=== PATIENT | male | born 1950 | race Caucasian/White ===

== ENCOUNTER 2017-07-19 12:26 | Emergency (ER) | payer MEDICARE, OTHER ==
[~2017-07-19] VITALS: Ht 182.9 cm; Wt 74.8 kg
[~2017-07-19 12:26] MED LIST: CALCIUM ACETAT667 MG PO; CELEBREX100 MG PO; SODIUM BICARBO650 MG PO; WARFARIN SODIU2.5 MG PO
[2017-07-19] MEDS ORDERED: HYDROCODONE/APAP 7.5MG-325MG 1 EA TAB PO PRN (13:00)
--- NOTE | 2017-07-19 14:29 | Diagnostic Imaging Report ---
Left shoulder - 3 views HISTORY: Pain. COMPARISON: None available. FINDINGS: Bones: No acute displaced fracture. No expansile lytic or sclerotic lesion. Joints: The joint spaces are well-maintained. No dislocation. Soft tissues: The soft tissues appear unremarkable. Partially visualized left chest cardiac device. IMPRESSION: No acute radiographic abnormality. Signed by: Dr. Murali Desai M.D. on 07/19/2017 2:25 PM
--- NOTE | 2017-07-19 14:33 | Diagnostic Imaging Report ---
Left elbow - 3 views HISTORY: Pain. COMPARISON: None available. FINDINGS: Bones: No acute displaced fracture. No expansile lytic or sclerotic lesion. Joints: The joint spaces are well-maintained. No dislocation. Small joint effusion. Soft tissues: The soft tissues appear unremarkable. Atherosclerotic calcifications. IMPRESSION: No acute radiographic abnormality. Small joint effusion. Signed by: Dr. Murali Desai M.D. on 07/19/2017 2:30 PM
--- NOTE | 2017-07-19 14:34 | Diagnostic Imaging Report ---
Left wrist - 3 views HISTORY: Pain. COMPARISON: None available. FINDINGS: Bones: No acute displaced fracture. No expansile lytic or sclerotic lesion. Joints: The joint spaces are well-maintained. No dislocation. Soft tissues: The soft tissues appear unremarkable. Atherosclerotic calcifications. IMPRESSION: No acute radiographic abnormality. Signed by: Dr. Murali Desai M.D. on 07/19/2017 2:31 PM
[2017-07-19] MEDS ORDERED: ULTRAM 50MG50 MG PO (14:39)
== END 2017-07-19 17:40 | disposition home or self-care (01) ==
LOC: ER 12:26
DX: S50.02XA Contusion of left elbow, initial encounter (principal); S60.212A Contusion of left wrist, initial encounter; S50.312A Abrasion of left elbow, initial encounter; W01.0XXA Fall on same level from slipping, tripping and stumbling without subsequent striking against object, initial encounter; Y92.008 Other place in unspecified non-institutional (private) residence as the place of occurrence of the external cause; I12.0 Hypertensive chronic kidney disease with stage 5 chronic kidney disease or end stage renal disease; N18.6 End stage renal disease; J45.909 Unspecified asthma, uncomplicated; Z95.810 Presence of automatic (implantable) cardiac defibrillator
CPT/HCPCS: 99283

== ENCOUNTER 2018-04-20 10:29 | Emergency (ER) | payer MEDICARE, OTHER ==
[~2018-04-20] VITALS: Ht 182.9 cm; Wt 74.8 kg
[~2018-04-20 10:29] MED LIST changes: +ULTRAM 50MG50 MG PO
--- OUTSIDE RECORDS SUMMARY | 2018-04-20 10:35 | XMS REPORT ---
Author Author [facility] Address Unknown Phone Unavailable Care Team Providers Care Industrial X Ray Operator Name Role Phone Tae CRUMP Unavailable Unavailable ABE GUTIÉRREZ Unavailable Unavailable GARDNERSIA Unavailable Unavailable Dory BETTS Unavailable Unavailable Problems This patient has no known problems. Allergies, Adverse Reactions, Alerts This patient has no known allergies or adverse reactions. Medications This patient has no known medications. Results Test Description Test Time Test Comments Text Results Atomic Results Result Comments CT, ABDOMEN 2018-04-14 15:26:00 R/O hernia ATTN: Right sideS/p renal transplant 08/18/2017 PO CONTRAST ONLY FINAL REPORT CT of the abdomen and pelvis, without contrast. History: Hernia, complicated, attention right side Comparison: 10/21/2017. Technique: Multidetector CT scanning of the abdomen and pelvis was performed from the level of the lung bases to the inferior pubic ramus, without IV or oral contrast. This examination was performed in accordance with a departmental dose optimization program which includes automated exposure control, adjustment of the mA and/or kV according to patient size, and use of iterative reconstruction techniques. Findings: Trace effusions and chronic pleural-parenchymal scarring. Dense coronary atherosclerosis. Cirrhotic-appearing liver. Spleen and pancreas unremarkable. Adrenal nodularity similar to previous. [place] kidneys are atrophic. Unrem arkable appearance of right lower quadrant transplant kidney. Extensive aortic atherosclerosis and ectasia without aneurysm. IVC filter present. Large and small bowel are unremarkable. Fat-containing inguinal hernias. Urinary bladder unremarkable. No adenopathy. No worrisome skeletal findings. Mild anasarca. IMPRESSION:No acute findings. Signed: Megan Johnstonort Verified Date/Time: 04/14/2018 15:26:00 Reading Location: [address] Radiology Reading Room VIRUS PCR, PLASMA 2018-04-08 15:22:00 BK VIRUS, PLASMA, NEG (BEAKER) (test afgf=1523) Negative or below the linear range of the assay (<1,000 copies/mL) Patients may have replicating BK Virus which is of no clinical significance. Vi ral load measurements are helpful to identify BK Virus replication of potential clinical significance. Consensus recommendations have been published of thresho ld values for the presumptive diagnosis of polyomavirus-associated nephropathy ( Transplantation 2005;79:9997-6161).A BK Virus load greater than 5,000-10,000 telescope maintenance ies/mL in the plasma is consistent with the presumptive diagnosis of polyoma-ass ociated nephropathy in renal transplant recipients.BK Virus DNA was assessed usi ng quantitative polymerase chain reaction and fluorescent monitoring of a specif ic hybridized probe. Genetic variation and other factors can affect the accurac y of nucleic acid testing. Therefore, the results should be interpreted in ligh t of clinical data.This test was developed and its performance characteristics d etermined by the [facility] Pathology Department, Section of [facility] Pathology. It has not been cleared or approved by the U.S. Food and Drug Administration (FDA). Since FDA approval is not required for clinical use of th e test, validation was done as required by the Clinical Laboratory Improvement A mendments of 1988.TACROLIMUS [id number] 12:41:00* Test Item Value Reference Range Comments TACROLIMUS BLOOD (BEAKER) (test prue=668) 8.0 ng/mL 10.0-20.0 URINALYSIS W/ REFLEX URINE [id number] 11:23:00* Test Item Value Reference Range Comments COLOR (BEAKER) (test prxz=338) Yellow CLARITY (BEAKER) (test lvmv=316) Clear SPECIFIC GRAVITY UA (BEAKER) (test okzm=356) 1.018 1.001-1.035 PH UA (BEAKER) (test qjra=999) 6.0 5.0-8.0 PROTEIN UA (BEAKER) (test puok=777) 10 mg/dL Negative GLUCOSE UA (BEAKER) (test azeh=981) Negative Negative KETONES UA (BEAKER) (test onql=249) Negative Negative BILIRUBIN UA (BEAKER) (test dapi=223) Negative Negative BLOOD UA (BEAKER) (test jbmm=747) Negative Negative NITRITE UA (BEAKER) (test hsfl=005) Negative Negative LEUKOCYTE ESTERASE UA (BEAKER) (test pmys=595) Negative Negative UROBILINOGEN UA (BEAKER) (test fvny=995) 0.2 mg/dL 0.2-1.0 RBC UA (BEAKER) (test kdux=692) 1 /HPF WBC UA (BEAKER) (test mbgg=433) 2 /HPF SQUAMOUS EPITHELIAL (BEAKER) (test marh=533) 1 /HPF SOURCE(BEAKER) (test tjan=3927) [id number] 09:32:00* Test Item Value Reference Range Comments PHOSPHORUS (BEAKER) (test ggua=607) 3.0 mg/dL 2.3-4.7 COMPREHENSIVE METABOLIC [id number] 09:32:00* Test Item Value Reference Range Comments TOTAL PROTEIN (BEAKER) (test rrzi=217) 6.1 gm/dL 6.0-8.3 ALBUMIN (BEAKER) (test qtws=0290) 3.7 g/dL 3.5-5.0 ALKALINE PHOSPHATASE (BEAKER) (test faox=072) 116 U/L 40-150 BILIRUBIN TOTAL (BEAKER) (test azzq=442) 0.5 mg/dL 0.2-1.2 SODIUM (BEAKER) (test wfno=063) 142 meq/L 136-145 POTASSIUM (BEAKER) (test qjkt=646) 3.6 meq/L 3.5-5.1 CHLORIDE (BEAKER) (test deuk=393) 110 meq/L 98-107 CO2 (BEAKER) (test bsxy=905) 24 meq/L 22-29 BLOOD UREA NITROGEN (BEAKER) (test rpdu=868) 23 mg/dL 7-21 CREATININE (BEAKER) (test afhx=009) 1.06 mg/dL 0.57-1.25 GLUCOSE RANDOM (BEAKER) (test oojt=464) 117 mg/dL 70-105 CALCIUM (BEAKER) (test oazf=371) 9.5 mg/dL 8.4-10.2 AST (SGOT) (BEAKER) (test dwuf=930) 22 U/L 5-34 ALT (SGPT) (BEAKER) (test zgdp=336) 28 U/L 6-55 EGFR (BEAKER) (test kdxp=2583) 70 mL/min/1.73 sq m ESTIMATED GFR IS NOT ACCURATE CREATININE CLEARANCE IN PREDICTING GLOMERULAR FILTRATION RATE. ESTIMATED GFR IS NOT APPLICABLE FOR DIALYSIS PATIENTS. LACTATE DEHYDROGENASE (LDH)2018-04-07 09:32:00* Test Item Value Reference Range Comments LACTATE DEHYDROGENASE (BEAKER) (test sqrp=958) 142 U/L 125-220 CBC W/PLT COUNT & AUTO [id number] 09:23:00* Test Item Value Reference Range Comments WHITE BLOOD CELL COUNT (BEAKER) (test pzfi=015) 3.3 K/ L 3.5-10.5 RED BLOOD CELL COUNT (BEAKER) (test bwhs=322) 3.89 M/ L 4.63-6.08 HEMOGLOBIN (BEAKER) (test pxlq=374) 11.3 GM/DL 13.7-17.5 HEMATOCRIT (BEAKER) (test spne=219) 37.5 % 40.1-51.0 MEAN CORPUSCULAR VOLUME (BEAKER) (test wygk=895) 96.4 fL 79.0-92.2 MEAN CORPUSCULAR HEMOGLOBIN (BEAKER) (test nose=481) 29.0 pg 25.7-32.2 MEAN CORPUSCULAR HEMOGLOBIN CONC (BEAKER) (test ahmg=467) 30.1 GM/DL 32.3-36.5 RED CELL DISTRIBUTION WIDTH (BEAKER) (test rxtr=721) 15.1 % 11.6-14.4 PLATELET COUNT (BEAKER) (test cdbf=528) 108 K/CU MM 150-450 MEAN PLATELET VOLUME (BEAKER) (test shht=070) 10.3 fL 9.4-12.4 NUCLEATED RED BLOOD CELLS (BEAKER) (test xwbt=196) 0 /100 WBC 0-0 NEUTROPHILS RELATIVE PERCENT (BEAKER) (test voil=256) 68 % LYMPHOCYTES RELATIVE PERCENT (BEAKER) (test lbae=311) 21 % MONOCYTES RELATIVE PERCENT (BEAKER) (test yhkp=079) 8 % EOSINOPHILS RELATIVE PERCENT (BEAKER) (test kxof=336) 2 % BASOPHILS RELATIVE PERCENT (BEAKER) (test azyd=979) 1 % NEUTROPHILS ABSOLUTE COUNT (BEAKER) (test mbyt=875) 2.23 K/ L 1.78-5.38 LYMPHOCYTES ABSOLUTE COUNT (BEAKER) (test haqd=372) 0.70 K/ L 1.32-3.57 MONOCYTES ABSOLUTE COUNT (BEAKER) (test pydc=732) 0.25 K/ L 0.30-0.82 EOSINOPHILS ABSOLUTE COUNT (BEAKER) (test lalv=057) 0.07 K/ L 0.04-0.54 BASOPHILS ABSOLUTE COUNT (BEAKER) (test xlhr=650) 0.04 K/ L 0.01-0.08 IMMATURE GRANULOCYTES-RELATIVE PERCENT (BEAKER) (test ewbz=3967) 0 % 0-1 TACROLIMUS [id number] 15:27:00* Test Item Value Reference Range Comments TACROLIMUS BLOOD (BEAKER) (test aijo=255) 7.7 ng/mL 10.0-20.0 BK VIRUS PCR, [id number] 15:14:00* Test Item Value Reference Range Comments BK VIRUS, PLASMA, NEG (BEAKER) (test mmee=8667) Negative or below the linear range of the assay (<1,000 copies/mL) Patients may have replicating BK Virus which is of no clinical significance. Vi ral load measurements are helpful to identify BK Virus replication of potential clinical significance. Consensus recommendations have been published of thresho ld values for the presumptive diagnosis of polyomavirus-associated nephropathy ( Transplantation 2005;79:9574-4203).A BK Virus load greater than 5,000-10,000 telescope maintenance ies/mL in the plasma is consistent with the presumptive diagnosis of polyoma-ass ociated nephropathy in renal transplant recipients.BK Virus DNA was assessed usi ng quantitative polymerase chain reaction and fluorescent monitoring of a specif ic hybridized probe. Genetic variation and other factors can affect the accurac y of nucleic acid testing. Therefore, the results should be interpreted in ligh t of clinical data.This test was developed and its performance characteristics d etermined by the [facility] Pathology Department, Section of [place] [facility] Pathology. It has not been cleared or approved by the U.S. Food and Drug Administration (FDA). Since FDA approval is not required for clinical use of th e test, validation was done as required by the Clinical Laboratory Improvement A mendments of 1988.URINALYSIS W/ REFLEX URINE [id number] 08:28:00* Test Item Value Reference Range Comments COLOR (BEAKER) (test gmof=456) Yellow CLARITY (BEAKER) (test ppqd=903) Clear SPECIFIC GRAVITY UA (BEAKER) (test ebob=456) 1.020 1.001-1.035 PH UA (BEAKER) (test kqme=887) 6.0 5.0-8.0 PROTEIN UA (BEAKER) (test rnwc=799) 20 mg/dL Negative GLUCOSE UA (BEAKER) (test xskn=674) Negative Negative KETONES UA (BEAKER) (test qhib=444) Negative Negative BILIRUBIN UA (BEAKER) (test dzwk=557) Negative Negative BLOOD UA (BEAKER) (test mlpq=949) Negative Negative NITRITE UA (BEAKER) (test ssae=244) Negative Negative LEUKOCYTE ESTERASE UA (BEAKER) (test jhzb=952) Negative Negative UROBILINOGEN UA (BEAKER) (test jylh=966) 0.2 mg/dL 0.2-1.0 RBC UA (BEAKER) (test uyru=005) 3 /HPF WBC UA (BEAKER) (test swyy=436) 3 /HPF MUCUS (BEAKER) (test kcwe=4939) Rare SQUAMOUS EPITHELIAL (BEAKER) (test bkya=713) 1 /HPF SOURCE(BEAKER) (test vohs=7351) [id number] 08:12:00* Test Item Value Reference Range Comments PHOSPHORUS (BEAKER) (test ndcv=359) 2.7 mg/dL 2.3-4.7 COMPREHENSIVE METABOLIC [id number] 08:12:00* Test Item Value Reference Range Comments TOTAL PROTEIN (BEAKER) (test lgyo=801) 5.9 gm/dL 6.0-8.3 ALBUMIN (BEAKER) (test bwgf=5346) 3.6 g/dL 3.5-5.0 ALKALINE PHOSPHATASE (BEAKER) (test harq=804) 110 U/L 40-150 BILIRUBIN TOTAL (BEAKER) (test wpzs=488) 0.7 mg/dL 0.2-1.2 SODIUM (BEAKER) (test vogu=076) 141 meq/L 136-145 POTASSIUM (BEAKER) (test sloc=593) 4.0 meq/L 3.5-5.1 CHLORIDE (BEAKER) (test tdqe=218) 110 meq/L 98-107 CO2 (BEAKER) (test ifrc=465) 24 meq/L 22-29 BLOOD UREA NITROGEN (BEAKER) (test mbxh=387) 19 mg/dL 7-21 CREATININE (BEAKER) (test bndp=580) 1.02 mg/dL 0.57-1.25 GLUCOSE RANDOM (BEAKER) (test slzq=301) 115 mg/dL 70-105 CALCIUM (BEAKER) (test xgwo=036) 9.5 mg/dL 8.4-10.2 AST (SGOT) (BEAKER) (test zwrx=837) 38 U/L 5-34 ALT (SGPT) (BEAKER) (test akvl=598) 36 U/L 6-55 EGFR (BEAKER) (test caei=0815) 73 mL/min/1.73 sq m ESTIMATED GFR IS NOT ACCURATE CREATININE CLEARANCE IN PREDICTING GLOMERULAR FILTRATION RATE. ESTIMATED GFR IS NOT APPLICABLE FOR DIALYSIS PATIENTS. LACTATE DEHYDROGENASE (LDH)2018-04-02 08:12:00* Test Item Value Reference Range Comments LACTATE DEHYDROGENASE (BEAKER) (test ykku=128) 142 U/L 125-220 CBC W/PLT COUNT & AUTO [id number] 07:56:00* Test Item Value Reference Range Comments WHITE BLOOD CELL COUNT (BEAKER) (test yvrj=565) 3.2 K/ L 3.5-10.5 RED BLOOD CELL COUNT (BEAKER) (test ngau=390) 3.99 M/ L 4.63-6.08 HEMOGLOBIN (BEAKER) (test xynv=861) 11.5 GM/DL 13.7-17.5 HEMATOCRIT (BEAKER) (test twsx=586) 38.5 % 40.1-51.0 MEAN CORPUSCULAR VOLUME (BEAKER) (test hbpw=481) 96.5 fL 79.0-92.2 MEAN CORPUSCULAR HEMOGLOBIN (BEAKER) (test sfoq=871) 28.8 pg 25.7-32.2 MEAN CORPUSCULAR HEMOGLOBIN CONC (BEAKER) (test qtyg=023) 29.9 GM/DL 32.3-36.5 RED CELL DISTRIBUTION WIDTH (BEAKER) (test nmcw=904) 15.3 % 11.6-14.4 PLATELET COUNT (BEAKER) (test plep=218) 116 K/CU MM 150-450 MEAN PLATELET VOLUME (BEAKER) (test cpzm=756) 10.1 fL 9.4-12.4 NUCLEATED RED BLOOD CELLS (BEAKER) (test hhbn=942) 0 /100 WBC 0-0 NEUTROPHILS RELATIVE PERCENT (BEAKER) (test fami=807) 63 % LYMPHOCYTES RELATIVE PERCENT (BEAKER) (test tnvr=539) 26 % MONOCYTES RELATIVE PERCENT (BEAKER) (test vhxx=452) 8 % EOSINOPHILS RELATIVE PERCENT (BEAKER) (test ldez=210) 1 % BASOPHILS RELATIVE PERCENT (BEAKER) (test yyze=443) 1 % NEUTROPHILS ABSOLUTE COUNT (BEAKER) (test sqqu=137) 2.04 K/ L 1.78-5.38 LYMPHOCYTES ABSOLUTE COUNT (BEAKER) (test ibfl=637) 0.84 K/ L 1.32-3.57 MONOCYTES ABSOLUTE COUNT (BEAKER) (test ithu=217) 0.26 K/ L 0.30-0.82 EOSINOPHILS ABSOLUTE COUNT (BEAKER) (test icbr=993) 0.03 K/ L 0.04-0.54 BASOPHILS ABSOLUTE COUNT (BEAKER) (test vzik=886) 0.04 K/ L 0.01-0.08 IMMATURE GRANULOCYTES-RELATIVE PERCENT (BEAKER) (test gzan=0386) 0 % 0-1 [id number] 10:39:00* Test Item Value Reference Range Comments PHOSPHORUS (BEAKER) (test vaay=774) 3.2 mg/dL 2.3-4.7 COMPREHENSIVE METABOLIC [id number] 10:39:00* Test Item Value Reference Range Comments TOTAL PROTEIN (BEAKER) (test saqq=845) 6.0 gm/dL 6.0-8.3 ALBUMIN (BEAKER) (test outa=4429) 3.6 g/dL 3.5-5.0 ALKALINE PHOSPHATASE (BEAKER) (test wqbs=758) 103 U/L 40-150 BILIRUBIN TOTAL (BEAKER) (test fxne=045) 0.6 mg/dL 0.2-1.2 SODIUM (BEAKER) (test tfev=658) 141 meq/L 136-145 POTASSIUM (BEAKER) (test htzi=964) 3.5 meq/L 3.5-5.1 CHLORIDE (BEAKER) (test whzc=719) 109 meq/L 98-107 CO2 (BEAKER) (test crca=932) 22 meq/L 22-29 BLOOD UREA NITROGEN (BEAKER) (test hfqn=242) 20 mg/dL 7-21 CREATININE (BEAKER) (test codl=065) 1.02 mg/dL 0.57-1.25 GLUCOSE RANDOM (BEAKER) (test miwt=419) 113 mg/dL 70-105 CALCIUM (BEAKER) (test yobn=418) 9.1 mg/dL 8.4-10.2 AST (SGOT) (BEAKER) (test ydcz=664) 26 U/L 5-34 ALT (SGPT) (BEAKER) (test npcv=061) 24 U/L 6-55 EGFR (BEAKER) (test nolt=1901) 73 mL/min/1.73 sq m ESTIMATED GFR IS NOT ACCURATE CREATININE CLEARANCE IN PREDICTING GLOMERULAR FILTRATION RATE. ESTIMATED GFR IS NOT APPLICABLE FOR DIALYSIS PATIENTS. LACTATE DEHYDROGENASE (LDH)2018-03-19 10:39:00* Test Item Value Reference Range Comments LACTATE DEHYDROGENASE (BEAKER) (test jtiv=938) 175 U/L 125-220 TACROLIMUS [id number] 10:00:00* Test Item Value Reference Range Comments TACROLIMUS BLOOD (BEAKER) (test xgqc=200) 7.7 ng/mL 10.0-20.0 URINALYSIS W/ REFLEX URINE [id number] 08:50:00* Test Item Value Reference Range Comments COLOR (BEAKER) (test aevp=544) Light Yellow CLARITY (BEAKER) (test ujpc=902) Hazy SPECIFIC GRAVITY UA (BEAKER) (test vdcd=154) 1.009 1.001-1.035 PH UA (BEAKER) (test kyrt=309) 6.0 5.0-8.0 PROTEIN UA (BEAKER) (test mfgr=555) Negative Negative GLUCOSE UA (BEAKER) (test omvj=062) Negative Negative KETONES UA (BEAKER) (test loqn=999) Negative Negative BILIRUBIN UA (BEAKER) (test uipo=006) Negative Negative BLOOD UA (BEAKER) (test asyn=419) Negative Negative NITRITE UA (BEAKER) (test gbdp=923) Positive Negative LEUKOCYTE ESTERASE UA (BEAKER) (test ubvv=354) Large Negative UROBILINOGEN UA (BEAKER) (test rmzr=294) 0.2 mg/dL 0.2-1.0 RBC UA (BEAKER) (test olqm=189) 2 /HPF WBC UA (BEAKER) (test hpnl=928) 67 /HPF BACTERIA (BEAKER) (test sngf=507) Moderate SQUAMOUS EPITHELIAL (BEAKER) (test sfjg=770) 1 /HPF YEAST (BEAKER) (test jlmr=2765) Few SOURCE(BEAKER) (test lbak=7075) CBC W/PLT COUNT & AUTO [id number] 08:35:00* Test Item Value Reference Range Comments WHITE BLOOD CELL COUNT (BEAKER) (test affh=670) 3.8 K/ L 3.5-10.5 RED BLOOD CELL COUNT (BEAKER) (test cier=993) 3.66 M/ L 4.63-6.08 HEMOGLOBIN (BEAKER) (test bpsx=507) 10.7 GM/DL 13.7-17.5 HEMATOCRIT (BEAKER) (test nbvl=485) 35.4 % 40.1-51.0 MEAN CORPUSCULAR VOLUME (BEAKER) (test otkt=148) 96.7 fL 79.0-92.2 MEAN CORPUSCULAR HEMOGLOBIN (BEAKER) (test nijd=549) 29.2 pg 25.7-32.2 MEAN CORPUSCULAR HEMOGLOBIN CONC (BEAKER) (test jfdd=566) 30.2 GM/DL 32.3-36.5 RED CELL DISTRIBUTION WIDTH (BEAKER) (test rprq=118) 15.4 % 11.6-14.4 PLATELET COUNT (BEAKER) (test hztp=388) 111 K/CU MM 150-450 MEAN PLATELET VOLUME (BEAKER) (test qmrl=168) 10.0 fL 9.4-12.4 NUCLEATED RED BLOOD CELLS (BEAKER) (test gfds=319) 0 /100 WBC 0-0 NEUTROPHILS RELATIVE PERCENT (BEAKER) (test kbsw=953) 62 % LYMPHOCYTES RELATIVE PERCENT (BEAKER) (test ktjo=883) 26 % MONOCYTES RELATIVE PERCENT (BEAKER) (test myxm=055) 9 % EOSINOPHILS RELATIVE PERCENT (BEAKER) (test hytb=030) 2 % BASOPHILS RELATIVE PERCENT (BEAKER) (test koug=104) 2 % NEUTROPHILS ABSOLUTE COUNT (BEAKER) (test smtx=687) 2.38 K/ L 1.78-5.38 LYMPHOCYTES ABSOLUTE COUNT (BEAKER) (test senw=674) 0.99 K/ L 1.32-3.57 MONOCYTES ABSOLUTE COUNT (BEAKER) (test ezhv=821) 0.33 K/ L 0.30-0.82 EOSINOPHILS ABSOLUTE COUNT (BEAKER) (test bnna=102) 0.06 K/ L 0.04-0.54 BASOPHILS ABSOLUTE COUNT (BEAKER) (test gijn=609) 0.06 K/ L 0.01-0.08 IMMATURE GRANULOCYTES-RELATIVE PERCENT (BEAKER) (test gbav=0170) 0 % 0-1 BK VIRUS PCR, [id number] 14:02:00* Test Item Value Reference Range Comments BK VIRUS, PLASMA, NEG (BEAKER) (test quke=8979) Negative or below the linear range of the assay (<1,000 copies/mL) Patients may have replicating BK Virus which is of no clinical significance. Vi ral load measurements are helpful to identify BK Virus replication of potential clinical significance. Consensus recommendations have been published of thresho ld values for the presumptive diagnosis of polyomavirus-associated nephropathy ( Transplantation 2005;79:6517-9175).A BK Virus load greater than 5,000-10,000 telescope maintenance ies/mL in the plasma is consistent with the presumptive diagnosis of polyoma-ass ociated nephropathy in renal transplant recipients.BK Virus DNA was assessed usi ng quantitative polymerase chain reaction and fluorescent monitoring of a specif ic hybridized probe. Genetic variation and other factors can affect the accurac y of nucleic acid testing. Therefore, the results should be interpreted in ligh t of clinical data.This test was developed and its performance characteristics d etermined by the [facility] Pathology Department, Section of [facility]. It has not been cleared or approved by the U.S. Food and Drug Administration (FDA). Since FDA approval is not required for clinical use of th e test, validation was done as required by the Clinical Laboratory Improvement A mendments of 1988.TACROLIMUS [id number] 12:53:00* Test Item Value Reference Range Comments TACROLIMUS BLOOD (BEAKER) (test krad=119) 7.4 ng/mL 10.0-20.0 URINALYSIS W/ REFLEX URINE [id number] 09:52:00* Test Item Value Reference Range Comments COLOR (BEAKER) (test adqk=005) Light Yellow CLARITY (BEAKER) (test lrdp=425) Clear SPECIFIC GRAVITY UA (BEAKER) (test chlp=604) 1.005 1.001-1.035 PH UA (BEAKER) (test ilrc=568) 5.5 5.0-8.0 PROTEIN UA (BEAKER) (test hqmg=802) Negative Negative GLUCOSE UA (BEAKER) (test gnqn=002) Negative Negative KETONES UA (BEAKER) (test qcef=558) Negative Negative BILIRUBIN UA (BEAKER) (test ytia=211) Negative Negative BLOOD UA (BEAKER) (test akcp=315) Negative Negative NITRITE UA (BEAKER) (test kfwf=425) Negative Negative LEUKOCYTE ESTERASE UA (BEAKER) (test pmrj=968) Negative Negative UROBILINOGEN UA (BEAKER) (test ecji=481) 0.2 mg/dL 0.2-1.0 RBC UA (BEAKER) (test eaiz=785) < /HPF WBC UA (BEAKER) (test clig=032) < /HPF SQUAMOUS EPITHELIAL (BEAKER) (test alsy=780) < /HPF SOURCE(BEAKER) (test fdod=3274) [id number] 09:26:00* Test Item Value Reference Range Comments PHOSPHORUS (BEAKER) (test zzlz=889) 2.7 mg/dL 2.3-4.7 COMPREHENSIVE METABOLIC [id number] 09:26:00* Test Item Value Reference Range Comments TOTAL PROTEIN (BEAKER) (test zmnn=249) 5.8 gm/dL 6.0-8.3 ALBUMIN (BEAKER) (test sdtr=3020) 3.6 g/dL 3.5-5.0 ALKALINE PHOSPHATASE (BEAKER) (test tdvg=349) 101 U/L 40-150 BILIRUBIN TOTAL (BEAKER) (test kgdz=243) 0.6 mg/dL 0.2-1.2 SODIUM (BEAKER) (test jrgm=478) 140 meq/L 136-145 POTASSIUM (BEAKER) (test vyge=517) 3.9 meq/L 3.5-5.1 CHLORIDE (BEAKER) (test axqg=344) 110 meq/L 98-107 CO2 (BEAKER) (test uftn=094) 22 meq/L 22-29 BLOOD UREA NITROGEN (BEAKER) (test tpbr=186) 25 mg/dL 7-21 CREATININE (BEAKER) (test nrfn=212) 1.12 mg/dL 0.57-1.25 GLUCOSE RANDOM (BEAKER) (test nbtz=886) 134 mg/dL 70-105 CALCIUM (BEAKER) (test wpse=454) 9.2 mg/dL 8.4-10.2 AST (SGOT) (BEAKER) (test dnjc=088) 25 U/L 5-34 ALT (SGPT) (BEAKER) (test xopv=054) 17 U/L 6-55 EGFR (BEAKER) (test jyml=7322) 66 mL/min/1.73 sq m ESTIMATED GFR IS NOT ACCURATE CREATININE CLEARANCE IN PREDICTING GLOMERULAR FILTRATION RATE. ESTIMATED GFR IS NOT APPLICABLE FOR DIALYSIS PATIENTS. LACTATE DEHYDROGENASE (LDH)2018-03-05 09:26:00* Test Item Value Reference Range Comments LACTATE DEHYDROGENASE (BEAKER) (test ygaa=267) 142 U/L 125-220 CBC W/PLT COUNT & AUTO [id number] 08:56:00* Test Item Value Reference Range Comments WHITE BLOOD CELL COUNT (BEAKER) (test pjmc=024) 3.6 K/ L 3.5-10.5 RED BLOOD CELL COUNT (BEAKER) (test bqxd=960) 3.88 M/ L 4.63-6.08 HEMOGLOBIN (BEAKER) (test xbvc=911) 11.3 GM/DL 13.7-17.5 HEMATOCRIT (BEAKER) (test jqxw=926) 36.7 % 40.1-51.0 MEAN CORPUSCULAR VOLUME (BEAKER) (test yuac=264) 94.6 fL 79.0-92.2 MEAN CORPUSCULAR HEMOGLOBIN (BEAKER) (test gyzh=084) 29.1 pg 25.7-32.2 MEAN CORPUSCULAR HEMOGLOBIN CONC (BEAKER) (test chox=913) 30.8 GM/DL 32.3-36.5 RED CELL DISTRIBUTION WIDTH (BEAKER) (test nuid=699) 15.9 % 11.6-14.4 PLATELET COUNT (BEAKER) (test jady=961) 100 K/CU MM 150-450 MEAN PLATELET VOLUME (BEAKER) (test czyh=971) 10.2 fL 9.4-12.4 NUCLEATED RED BLOOD CELLS (BEAKER) (test wcyc=478) 0 /100 WBC 0-0 NEUTROPHILS RELATIVE PERCENT (BEAKER) (test mwmr=410) 62 % LYMPHOCYTES RELATIVE PERCENT (BEAKER) (test cpoe=107) 28 % MONOCYTES RELATIVE PERCENT (BEAKER) (test vduz=542) 7 % EOSINOPHILS RELATIVE PERCENT (BEAKER) (test ioqc=640) 1 % BASOPHILS RELATIVE PERCENT (BEAKER) (test gfjz=679) 1 % NEUTROPHILS ABSOLUTE COUNT (BEAKER) (test mroz=384) 2.27 K/ L 1.78-5.38 LYMPHOCYTES ABSOLUTE COUNT (BEAKER) (test wvtu=669) 1.01 K/ L 1.32-3.57 MONOCYTES ABSOLUTE COUNT (BEAKER) (test vzze=540) 0.25 K/ L 0.30-0.82 EOSINOPHILS ABSOLUTE COUNT (BEAKER) (test onee=996) 0.05 K/ L 0.04-0.54 BASOPHILS ABSOLUTE COUNT (BEAKER) (test ymsr=773) 0.05 K/ L 0.01-0.08 IMMATURE GRANULOCYTES-RELATIVE PERCENT (BEAKER) (test bgsf=0976) 0 % 0-1 TACROLIMUS [id number] 12:21:00* Test Item Value Reference Range Comments TACROLIMUS BLOOD (BEAKER) (test ubpi=572) 10.3 ng/mL 10.0-20.0 [id number] 09:37:00* Test Item Value Reference Range Comments PHOSPHORUS (BEAKER) (test qlec=443) 2.2 mg/dL 2.3-4.7 COMPREHENSIVE METABOLIC [id number] 09:37:00* Test Item Value Reference Range Comments TOTAL PROTEIN (BEAKER) (test uhab=618) 6.7 gm/dL 6.0-8.3 ALBUMIN (BEAKER) (test ievq=5574) 3.7 g/dL 3.5-5.0 ALKALINE PHOSPHATASE (BEAKER) (test oigz=356) 125 U/L 40-150 BILIRUBIN TOTAL (BEAKER) (test zwxp=757) 1.0 mg/dL 0.2-1.2 SODIUM (BEAKER) (test oexz=744) 136 meq/L 136-145 POTASSIUM (BEAKER) (test zhjy=122) 3.8 meq/L 3.5-5.1 CHLORIDE (BEAKER) (test fcxy=339) 107 meq/L 98-107 CO2 (BEAKER) (test bsue=794) 21 meq/L 22-29 BLOOD UREA NITROGEN (BEAKER) (test wodb=622) 29 mg/dL 7-21 CREATININE (BEAKER) (test qwkx=178) 1.10 mg/dL 0.57-1.25 GLUCOSE RANDOM (BEAKER) (test xseq=794) 115 mg/dL 70-105 CALCIUM (BEAKER) (test mswp=540) 9.8 mg/dL 8.4-10.2 AST (SGOT) (BEAKER) (test zhvi=050) 14 U/L 5-34 ALT (SGPT) (BEAKER) (test agfr=443) 11 U/L 6-55 EGFR (BEAKER) (test iaov=4589) 67 mL/min/1.73 sq m ESTIMATED GFR IS NOT ACCURATE CREATININE CLEARANCE IN PREDICTING GLOMERULAR FILTRATION RATE. ESTIMATED GFR IS NOT APPLICABLE FOR DIALYSIS PATIENTS. LACTATE DEHYDROGENASE (LDH)2018-02-11 09:37:00* Test Item Value Reference Range Comments LACTATE DEHYDROGENASE (BEAKER) (test ckke=801) 207 U/L 125-220 URINALYSIS W/ REFLEX URINE [id number] 09:33:00* Test Item Value Reference Range Comments COLOR (BEAKER) (test nqhh=027) Light Yellow CLARITY (BEAKER) (test wpty=797) Clear SPECIFIC GRAVITY UA (BEAKER) (test dnbe=006) 1.007 1.001-1.035 PH UA (BEAKER) (test kkwl=574) 5.0 5.0-8.0 PROTEIN UA (BEAKER) (test xzpk=739) Negative Negative GLUCOSE UA (BEAKER) (test ncwh=240) Negative Negative KETONES UA (BEAKER) (test ouyd=591) Negative Negative BILIRUBIN UA (BEAKER) (test ekaz=371) Negative Negative BLOOD UA (BEAKER) (test mrlc=964) Trace Negative NITRITE UA (BEAKER) (test asik=109) Positive Negative LEUKOCYTE ESTERASE UA (BEAKER) (test qkfy=014) Moderate Negative UROBILINOGEN UA (BEAKER) (test uwpq=566) 0.2 mg/dL 0.2-1.0 RBC UA (BEAKER) (test ccem=866) 1 /HPF WBC UA (BEAKER) (test etmu=032) 26 /HPF BACTERIA (BEAKER) (test cblx=314) Occasional MUCUS (BEAKER) (test pmfo=2978) Rare SQUAMOUS EPITHELIAL (BEAKER) (test aaqu=331) < /HPF SOURCE(BEAKER) (test pngn=3097) CBC W/PLT COUNT & AUTO [id number] 09:10:00* Test Item Value Reference Range Comments WHITE BLOOD CELL COUNT (BEAKER) (test kzhp=244) 8.0 K/ L 3.5-10.5 RED BLOOD CELL COUNT (BEAKER) (test ljuz=894) 4.15 M/ L 4.63-6.08 HEMOGLOBIN (BEAKER) (test dzyz=449) 12.1 GM/DL 13.7-17.5 HEMATOCRIT (BEAKER) (test snfb=376) 38.7 % 40.1-51.0 MEAN CORPUSCULAR VOLUME (BEAKER) (test ipns=025) 93.3 fL 79.0-92.2 MEAN CORPUSCULAR HEMOGLOBIN (BEAKER) (test chxk=097) 29.2 pg 25.7-32.2 MEAN CORPUSCULAR HEMOGLOBIN CONC (BEAKER) (test ntez=969) 31.3 GM/DL 32.3-36.5 RED CELL DISTRIBUTION WIDTH (BEAKER) (test ecyx=799) 14.1 % 11.6-14.4 PLATELET COUNT (BEAKER) (test oxpv=327) 160 K/CU MM 150-450 MEAN PLATELET VOLUME (BEAKER) (test vidl=532) 9.6 fL 9.4-12.4 NUCLEATED RED BLOOD CELLS (BEAKER) (test rmln=074) 0 /100 WBC 0-0 NEUTROPHILS RELATIVE PERCENT (BEAKER) (test tizu=800) 89 % LYMPHOCYTES RELATIVE PERCENT (BEAKER) (test xoyo=274) 6 % MONOCYTES RELATIVE PERCENT (BEAKER) (test mjdq=608) 4 % EOSINOPHILS RELATIVE PERCENT (BEAKER) (test phbc=175) 0 % BASOPHILS RELATIVE PERCENT (BEAKER) (test jxsf=741) 0 % NEUTROPHILS ABSOLUTE COUNT (BEAKER) (test phtu=116) 7.16 K/ L 1.78-5.38 LYMPHOCYTES ABSOLUTE COUNT (BEAKER) (test jdso=814) 0.45 K/ L 1.32-3.57 MONOCYTES ABSOLUTE COUNT (BEAKER) (test zamo=577) 0.31 K/ L 0.30-0.82 EOSINOPHILS ABSOLUTE COUNT (BEAKER) (test mpvm=510) 0.00 K/ L 0.04-0.54 BASOPHILS ABSOLUTE COUNT (BEAKER) (test ecfz=051) 0.02 K/ L 0.01-0.08 IMMATURE GRANULOCYTES-RELATIVE PERCENT (BEAKER) (test klrw=4606) 1 % 0-1 CMV PCR, [id number] 14:09:00* Test Item Value Reference Range Comments CMV VIRAL LOAD - NEGATIVE (BEAKER) (test juyu=7176) Negative or below the linear range of the assay (<375 copies/mL) Cytomegalovirus (CMV) infection can cause significant disease in immunosuppresse d patients. However, it is common for CMV to manifest as a limited infection whi ch is of no clinical significance in immunosuppressed patients or in healthy ind ividuals.Viral load measurements are helpful to identify clinical CMV infection and to guide the pre-emptive management of antiviral therapy. For treatment of CMV infection due to reactivation in transplant recipients, a threshold between 4,000 and 5,000 copies/mL is suggested. For treatment of primary CMV infection, a lower threshold can be used.CMV infection may also be monitored using weekly serial measurements. Serial measurements of CMV DNA viral load can be evaluated by identifying a 10-fold change, as well as assessing the CMV DNA viral load and the clinical context for each patient.The plasma CMV DNA viral load was detected using quantitative polymerase chain reaction and fluorescent monitoring of a s pecific hybridized probe. Genetic variation and other factors can affect the acc uracy of nucleic acid testing. Therefore, the results should be interpreted in l ight of clinical data. A negative result may not exclude the presence of CMV dis ease.This test was developed and its performance characteristics determined by [facility] Pathology Department, Section of Molecular Patholog y. It has not been cleared or approved by the U.S. Food and Drug Administration (FDA), since FDA approval is not required for clinical use of the test. Validati on was done as required by The Clinical Laboratory Improvement Amendments of 198 8.TACROLIMUS [id number] 13:29:00* Test Item Value Reference Range Comments TACROLIMUS BLOOD (BEAKER) (test qyfb=482) 13.7 ng/mL 10.0-20.0 URINALYSIS W/ REFLEX URINE [id number] 10:13:00* Test Item Value Reference Range Comments COLOR (BEAKER) (test czea=829) Yellow CLARITY (BEAKER) (test ovnb=156) Hazy SPECIFIC GRAVITY UA (BEAKER) (test piyj=509) 1.013 1.001-1.035 PH UA (BEAKER) (test jlbv=907) 6.0 5.0-8.0 PROTEIN UA (BEAKER) (test gpfz=267) 10 mg/dL Negative GLUCOSE UA (BEAKER) (test tvab=998) Negative Negative KETONES UA (BEAKER) (test dvff=566) Negative Negative BILIRUBIN UA (BEAKER) (test kazr=929) Negative Negative BLOOD UA (BEAKER) (test bmom=214) Trace Negative NITRITE UA (BEAKER) (test wmqt=879) Negative Negative LEUKOCYTE ESTERASE UA (BEAKER) (test wmkr=102) Large Negative UROBILINOGEN UA (BEAKER) (test gymg=951) 0.2 mg/dL 0.2-1.0 RBC UA (BEAKER) (test whjv=687) 4 /HPF WBC UA (BEAKER) (test njyq=750) > /HPF BACTERIA (BEAKER) (test ersn=887) Many MUCUS (BEAKER) (test ofwz=7919) Rare SQUAMOUS EPITHELIAL (BEAKER) (test rfhu=768) 2 /HPF HYALINE CASTS (BEAKER) (test cmws=141) 1 /LPF SOURCE(BEAKER) (test xuab=7552) [id number] 09:31:00* Test Item Value Reference Range Comments PHOSPHORUS (BEAKER) (test ehmv=089) 2.9 mg/dL 2.3-4.7 COMPREHENSIVE METABOLIC [id number] 09:31:00* Test Item Value Reference Range Comments TOTAL PROTEIN (BEAKER) (test tcal=636) 6.5 gm/dL 6.0-8.3 ALBUMIN (BEAKER) (test hfla=4466) 3.6 g/dL 3.5-5.0 ALKALINE PHOSPHATASE (BEAKER) (test zagz=373) 113 U/L 40-150 BILIRUBIN TOTAL (BEAKER) (test tvky=187) 0.6 mg/dL 0.2-1.2 SODIUM (BEAKER) (test hacw=325) 138 meq/L 136-145 POTASSIUM (BEAKER) (test elsf=578) 3.7 meq/L 3.5-5.1 CHLORIDE (BEAKER) (test jzeq=834) 109 meq/L 98-107 CO2 (BEAKER) (test elkt=888) 21 meq/L 22-29 BLOOD UREA NITROGEN (BEAKER) (test gytq=061) 27 mg/dL 7-21 CREATININE (BEAKER) (test ridy=685) 1.22 mg/dL 0.57-1.25 GLUCOSE RANDOM (BEAKER) (test eidl=584) 108 mg/dL 70-105 CALCIUM (BEAKER) (test uxex=015) 10.0 mg/dL 8.4-10.2 AST (SGOT) (BEAKER) (test dqts=367) 15 U/L 5-34 ALT (SGPT) (BEAKER) (test xdut=113) 11 U/L 6-55 EGFR (BEAKER) (test edrp=3824) 60 mL/min/1.73 sq m ESTIMATED GFR IS NOT ACCURATE CREATININE CLEARANCE IN PREDICTING GLOMERULAR FILTRATION RATE. ESTIMATED GFR IS NOT APPLICABLE FOR DIALYSIS PATIENTS. LACTATE DEHYDROGENASE (LDH)2018-02-05 09:31:00* Test Item Value Reference Range Comments LACTATE DEHYDROGENASE (BEAKER) (test rbta=823) 176 U/L 125-220 CBC W/PLT COUNT & AUTO [id number] 09:02:00* Test Item Value Reference Range Comments WHITE BLOOD CELL COUNT (BEAKER) (test ijxa=979) 5.5 K/ L 3.5-10.5 RED BLOOD CELL COUNT (BEAKER) (test iriy=182) 4.41 M/ L 4.63-6.08 HEMOGLOBIN (BEAKER) (test hwtg=337) 12.8 GM/DL 13.7-17.5 HEMATOCRIT (BEAKER) (test urzl=523) 41.6 % 40.1-51.0 MEAN CORPUSCULAR VOLUME (BEAKER) (test vftb=417) 94.3 fL 79.0-92.2 MEAN CORPUSCULAR HEMOGLOBIN (BEAKER) (test rumq=408) 29.0 pg 25.7-32.2 MEAN CORPUSCULAR HEMOGLOBIN CONC (BEAKER) (test zdom=449) 30.8 GM/DL 32.3-36.5 RED CELL DISTRIBUTION WIDTH (BEAKER) (test kpbm=599) 14.0 % 11.6-14.4 PLATELET COUNT (BEAKER) (test oppf=031) 181 K/CU MM 150-450 MEAN PLATELET VOLUME (BEAKER) (test bjzf=115) 9.1 fL 9.4-12.4 NUCLEATED RED BLOOD CELLS (BEAKER) (test dvyp=044) 0 /100 WBC 0-0 NEUTROPHILS RELATIVE PERCENT (BEAKER) (test fzhm=709) 75 % LYMPHOCYTES RELATIVE PERCENT (BEAKER) (test huiv=817) 14 % MONOCYTES RELATIVE PERCENT (BEAKER) (test ltgh=541) 9 % EOSINOPHILS RELATIVE PERCENT (BEAKER) (test myvu=206) 0 % BASOPHILS RELATIVE PERCENT (BEAKER) (test ndyj=864) 1 % NEUTROPHILS ABSOLUTE COUNT (BEAKER) (test tfpt=140) 4.12 K/ L 1.78-5.38 LYMPHOCYTES ABSOLUTE COUNT (BEAKER) (test upuv=539) 0.78 K/ L 1.32-3.57 MONOCYTES ABSOLUTE COUNT (BEAKER) (test tmkg=465) 0.47 K/ L 0.30-0.82 EOSINOPHILS ABSOLUTE COUNT (BEAKER) (test ueha=811) 0.02 K/ L 0.04-0.54 BASOPHILS ABSOLUTE COUNT (BEAKER) (test stle=292) 0.04 K/ L 0.01-0.08 IMMATURE GRANULOCYTES-RELATIVE PERCENT (BEAKER) (test dvnv=5391) 1 % 0-1 BK VIRUS PCR, [id number] 19:20:00* Test Item Value Reference Range Comments BK VIRUS, PLASMA, NEG (BEAKER) (test pzbf=3225) Negative or below the linear range of the assay (<1,000 copies/mL) Patients may have replicating BK Virus which is of no clinical significance. Vi ral load measurements are helpful to identify BK Virus replication of potential clinical significance. Consensus recommendations have been published of thresho ld values for the presumptive diagnosis of polyomavirus-associated nephropathy ( Transplantation 2005;79:8732-0862).A BK Virus load greater than 5,000-10,000 telescope maintenance ies/mL in the plasma is consistent with the presumptive diagnosis of polyoma-ass ociated nephropathy in renal transplant recipients.BK Virus DNA was assessed usi ng quantitative polymerase chain reaction and fluorescent monitoring of a specif ic hybridized probe. Genetic variation and other factors can affect the accurac y of nucleic acid testing. Therefore, the results should be interpreted in lig t of clinical data.This test was developed and its performance characteristics d etermined by the [facility] Pathology Department, Section of Mole cular Pathology. It has not been cleared or approved by the U.S. Food and Drug Administration (FDA). Since FDA approval is not required for clinical use of th e test, validation was done as required by the Clinical Laboratory Improvement A mendments of 1987.CMV PCR, [id number] 20:50:00* Test Item Value Reference Range Comments CMV VIRAL LOAD - NEGATIVE (ORALIA) (test avmn=3832) Negative or below the linear range of the assay (<375 copies/mL) Cytomegalovirus (CMV) infection can cause significant disease in immunosuppresse d patients. However, it is common for CMV to manifest as a limited infection whi ch is of no clinical significance in immunosuppressed patients or in healthy ind ividuals.Viral load measurements are helpful to identify clinical CMV infection and to guide the pre-emptive management of antiviral therapy. For treatment of CMV infection due to reactivation in transplant recipients, a threshold between 4,000 and 5,000 copies/mL is suggested. For treatment of primary CMV infection, a lower threshold can be used.CMV infection may also be monitored using weekly serial measurements. Serial measurements of CMV DNA viral load can be evaluated by identifying a 10-fold change, as well as assessing the CMV DNA viral load and the clinical context for each patient.The plasma CMV DNA viral load was detected using quantitative polymerase chain reaction and fluorescent monitoring of a s pecific hybridized probe. Genetic variation and other factors can affect the acc uracy of nucleic acid testing. Therefore, the results should be interpreted in l ight of clinical data. A negative result may not exclude the presence of CMV dis ease.This test was developed and its performance characteristics determined by [facility] Pathology Department, Section of Molecular Patholog y. It has not been cleared or approved by the U.S. Food and Drug Administration (FDA), since FDA approval is not required for clinical use of the test. Validati on was done as required by The Clinical Laboratory Improvement Amendments of 198 8.TACROLIMUS [id number] 12:25:00* Test Item Value Reference Range Comments TACROLIMUS BLOOD (ORALIA) (test sqif=985) 8.5 ng/mL 10.0-20.0 URINALYSIS W/ REFLEX URINE [id number] 09:55:00* Test Item Value Reference Range Comments COLOR (BEAKER) (test coqc=639) Light Yellow CLARITY (BEAKER) (test szcx=635) Clear SPECIFIC GRAVITY UA (BEAKER) (test xpci=860) 1.005 1.001-1.035 PH UA (BEAKER) (test hbqk=115) 5.0 5.0-8.0 PROTEIN UA (BEAKER) (test skfn=427) Negative Negative GLUCOSE UA (BEAKER) (test cbag=319) Negative Negative KETONES UA (BEAKER) (test rltd=005) Negative Negative BILIRUBIN UA (BEAKER) (test brxn=994) Negative Negative BLOOD UA (BEAKER) (test dumx=176) Negative Negative NITRITE UA (BEAKER) (test dkwu=063) Negative Negative LEUKOCYTE ESTERASE UA (BEAKER) (test wrij=186) Moderate Negative UROBILINOGEN UA (BEAKER) (test dwza=264) 0.2 mg/dL 0.2-1.0 RBC UA (BEAKER) (test dxub=641) 0 /HPF WBC UA (BEAKER) (test ovir=296) 26 /HPF BACTERIA (BEAKER) (test wccb=050) Occasional MUCUS (BEAKER) (test gevn=3520) Rare SQUAMOUS EPITHELIAL (BEAKER) (test ctzy=223) < /HPF SOURCE(BEAKER) (test cpty=9921) [id number] 09:43:00* Test Item Value Reference Range Comments PHOSPHORUS (BEAKER) (test qhqk=781) 3.3 mg/dL 2.3-4.7 COMPREHENSIVE METABOLIC [id number] 09:43:00* Test Item Value Reference Range Comments TOTAL PROTEIN (BEAKER) (test upjm=309) 6.1 gm/dL 6.0-8.3 ALBUMIN (BEAKER) (test dmai=6465) 3.8 g/dL 3.5-5.0 ALKALINE PHOSPHATASE (BEAKER) (test gxoc=394) 115 U/L 40-150 BILIRUBIN TOTAL (BEAKER) (test mbfu=036) 0.7 mg/dL 0.2-1.2 SODIUM (BEAKER) (test pgrr=395) 140 meq/L 136-145 POTASSIUM (BEAKER) (test xjzd=763) 3.6 meq/L 3.5-5.1 CHLORIDE (BEAKER) (test bxip=163) 111 meq/L 98-107 CO2 (BEAKER) (test nhdk=904) 21 meq/L 22-29 BLOOD UREA NITROGEN (BEAKER) (test evki=380) 25 mg/dL 7-21 CREATININE (BEAKER) (test qlrb=229) 0.96 mg/dL 0.57-1.25 GLUCOSE RANDOM (BEAKER) (test pgfk=167) 85 mg/dL 70-105 CALCIUM (BEAKER) (test umsz=508) 9.9 mg/dL 8.4-10.2 AST (SGOT) (BEAKER) (test xhpq=561) 26 U/L 5-34 ALT (SGPT) (BEAKER) (test wexz=677) 31 U/L 6-55 EGFR (BEAKER) (test ebvs=1027) 79 mL/min/1.73 sq m ESTIMATED GFR IS NOT ACCURATE CREATININE CLEARANCE IN PREDICTING GLOMERULAR FILTRATION RATE. ESTIMATED GFR IS NOT APPLICABLE FOR DIALYSIS PATIENTS. LACTATE DEHYDROGENASE (LDH)2018-01-22 09:43:00* Test Item Value Reference Range Comments LACTATE DEHYDROGENASE (BEAKER) (test lcjb=644) 159 U/L 125-220 CBC W/PLT COUNT & AUTO [id number] 09:20:00* Test Item Value Reference Range Comments WHITE BLOOD CELL COUNT (BEAKER) (test ctly=766) 3.4 K/ L 3.5-10.5 RED BLOOD CELL COUNT (BEAKER) (test ujjo=496) 4.06 M/ L 4.63-6.08 HEMOGLOBIN (BEAKER) (test ikwr=385) 11.9 GM/DL 13.7-17.5 HEMATOCRIT (BEAKER) (test xwvv=971) 38.6 % 40.1-51.0 MEAN CORPUSCULAR VOLUME (BEAKER) (test dtnj=739) 95.1 fL 79.0-92.2 MEAN CORPUSCULAR HEMOGLOBIN (BEAKER) (test qnov=356) 29.3 pg 25.7-32.2 MEAN CORPUSCULAR HEMOGLOBIN CONC (BEAKER) (test ribh=275) 30.8 GM/DL 32.3-36.5 RED CELL DISTRIBUTION WIDTH (BEAKER) (test xxii=289) 14.7 % 11.6-14.4 PLATELET COUNT (BEAKER) (test hjlb=732) 97 K/CU MM 150-450 MEAN PLATELET VOLUME (BEAKER) (test bzug=154) 9.6 fL 9.4-12.4 NUCLEATED RED BLOOD CELLS (BEAKER) (test pblh=962) 0 /100 WBC 0-0 NEUTROPHILS RELATIVE PERCENT (BEAKER) (test mbtl=887) 65 % LYMPHOCYTES RELATIVE PERCENT (BEAKER) (test tyzs=907) 23 % MONOCYTES RELATIVE PERCENT (BEAKER) (test vnzp=089) 10 % EOSINOPHILS RELATIVE PERCENT (BEAKER) (test jmzj=092) 1 % BASOPHILS RELATIVE PERCENT (BEAKER) (test bdnj=677) 1 % NEUTROPHILS ABSOLUTE COUNT (BEAKER) (test lybt=412) 2.19 K/ L 1.78-5.38 LYMPHOCYTES ABSOLUTE COUNT (BEAKER) (test rqmb=258) 0.76 K/ L 1.32-3.57 MONOCYTES ABSOLUTE COUNT (BEAKER) (test latv=456) 0.32 K/ L 0.30-0.82 EOSINOPHILS ABSOLUTE COUNT (BEAKER) (test pgwa=319) 0.03 K/ L 0.04-0.54 BASOPHILS ABSOLUTE COUNT (BEAKER) (test koiv=690) 0.03 K/ L 0.01-0.08 IMMATURE GRANULOCYTES-RELATIVE PERCENT (BEAKER) (test gkoc=3156) 1 % 0-1 CMV PCR, [id number] 15:37:00* Test Item Value Reference Range Comments CMV VIRAL LOAD - NEGATIVE (BEAKER) (test rdxp=5239) Negative or below the linear range of the assay (<375 copies/mL) Cytomegalovirus (CMV) infection can cause significant disease in immunosuppresse d patients. However, it is common for CMV to manifest as a limited infection whi ch is of no clinical significance in immunosuppressed patients or in healthy ind ividuals.Viral load measurements are helpful to identify clinical CMV infection and to guide the pre-emptive management of antiviral therapy. For treatment of CMV infection due to reactivation in transplant recipients, a threshold between 4,000 and 5,000 copies/mL is suggested. For treatment of primary CMV infection, a lower threshold can be used.CMV infection may also be monitored using weekly serial measurements. Serial measurements of CMV DNA viral load can be evaluated by identifying a 10-fold change, as well as assessing the CMV DNA viral load and the clinical context for each patient.The plasma CMV DNA viral load was detected using quantitative polymerase chain reaction and fluorescent monitoring of a s pecific hybridized probe. Genetic variation and other factors can affect the acc uracy of nucleic acid testing. Therefore, the results should be interpreted in l ight of clinical data. A negative result may not exclude the presence of CMV dis ease.This test was developed and its performance characteristics determined by [facility] Pathology Department, Section of Molecular Patholog y. It has not been cleared or approved by the U.S. Food and Drug Administration (FDA), since FDA approval is not required for clinical use of the test. Validati on was done as required by The Clinical Laboratory Improvement Amendments of 198 8.TACROLIMUS [id number] 11:57:00* Test Item Value Reference Range Comments TACROLIMUS BLOOD (BEAKER) (test fjtw=918) 9.5 ng/mL 10.0-20.0 URINALYSIS W/ REFLEX URINE [id number] 09:14:00* Test Item Value Reference Range Comments COLOR (BEAKER) (test zcml=839) Yellow CLARITY (BEAKER) (test xvis=911) Clear SPECIFIC GRAVITY UA (BEAKER) (test qbkc=008) 1.020 1.001-1.035 PH UA (BEAKER) (test nhyd=323) 6.5 5.0-8.0 PROTEIN UA (BEAKER) (test orqs=898) 20 mg/dL Negative GLUCOSE UA (BEAKER) (test hytg=220) Negative Negative KETONES UA (BEAKER) (test uurq=821) Negative Negative BILIRUBIN UA (BEAKER) (test lmgm=207) Negative Negative BLOOD UA (BEAKER) (test kjjl=782) Negative Negative NITRITE UA (BEAKER) (test avig=255) Negative Negative LEUKOCYTE ESTERASE UA (BEAKER) (test topc=799) Negative Negative UROBILINOGEN UA (BEAKER) (test smcm=164) 2.0 mg/dL 0.2-1.0 RBC UA (BEAKER) (test ngld=295) 0 /HPF WBC UA (BEAKER) (test nfxt=858) 1 /HPF SQUAMOUS EPITHELIAL (BEAKER) (test obiv=357) 1 /HPF SOURCE(BEAKER) (test grtj=9670) [id number] 09:13:00* Test Item Value Reference Range Comments PHOSPHORUS (BEAKER) (test mozi=132) 2.9 mg/dL 2.3-4.7 COMPREHENSIVE METABOLIC [id number] 09:13:00* Test Item Value Reference Range Comments TOTAL PROTEIN (BEAKER) (test fmcb=546) 6.0 gm/dL 6.0-8.3 ALBUMIN (BEAKER) (test rpqj=5772) 3.7 g/dL 3.5-5.0 ALKALINE PHOSPHATASE (BEAKER) (test pofy=940) 109 U/L 40-150 BILIRUBIN TOTAL (BEAKER) (test uaru=469) 0.7 mg/dL 0.2-1.2 SODIUM (BEAKER) (test gycz=120) 143 meq/L 136-145 POTASSIUM (BEAKER) (test owtm=429) 3.4 meq/L 3.5-5.1 CHLORIDE (BEAKER) (test wdux=376) 108 meq/L 98-107 CO2 (BEAKER) (test kjts=582) 29 meq/L 22-29 BLOOD UREA NITROGEN (BEAKER) (test wfdn=475) 18 mg/dL 7-21 CREATININE (BEAKER) (test ojou=662) 0.94 mg/dL 0.57-1.25 GLUCOSE RANDOM (BEAKER) (test zfiy=650) 89 mg/dL 70-105 CALCIUM (BEAKER) (test zcfk=660) 9.5 mg/dL 8.4-10.2 AST (SGOT) (BEAKER) (test fnpi=191) 24 U/L 5-34 ALT (SGPT) (BEAKER) (test plgc=266) 25 U/L 6-55 EGFR (BEAKER) (test gzae=1134) 81 mL/min/1.73 sq m ESTIMATED GFR IS NOT ACCURATE CREATININE CLEARANCE IN PREDICTING GLOMERULAR FILTRATION RATE. ESTIMATED GFR IS NOT APPLICABLE FOR DIALYSIS PATIENTS. LACTATE DEHYDROGENASE (LDH)2018-01-08 09:13:00* Test Item Value Reference Range Comments LACTATE DEHYDROGENASE (BEAKER) (test qcbt=446) 172 U/L 125-220 CBC W/PLT COUNT & AUTO [id number] 08:48:00* Test Item Value Reference Range Comments WHITE BLOOD CELL COUNT (BEAKER) (test wpzi=011) 3.5 K/ L 3.5-10.5 RED BLOOD CELL COUNT (BEAKER) (test tslv=753) 4.28 M/ L 4.63-6.08 HEMOGLOBIN (BEAKER) (test qhub=772) 12.2 GM/DL 13.7-17.5 HEMATOCRIT (BEAKER) (test sqac=622) 40.7 % 40.1-51.0 MEAN CORPUSCULAR VOLUME (BEAKER) (test cekl=546) 95.1 fL 79.0-92.2 MEAN CORPUSCULAR HEMOGLOBIN (BEAKER) (test ycen=959) 28.5 pg 25.7-32.2 MEAN CORPUSCULAR HEMOGLOBIN CONC (BEAKER) (test wpdp=311) 30.0 GM/DL 32.3-36.5 RED CELL DISTRIBUTION WIDTH (BEAKER) (test tukf=930) 15.0 % 11.6-14.4 PLATELET COUNT (BEAKER) (test pcmp=793) 103 K/CU MM 150-450 MEAN PLATELET VOLUME (BEAKER) (test idvl=994) 10.1 fL 9.4-12.4 NUCLEATED RED BLOOD CELLS (BEAKER) (test xxsf=244) 0 /100 WBC 0-0 NEUTROPHILS RELATIVE PERCENT (BEAKER) (test zkvo=370) 62 % LYMPHOCYTES RELATIVE PERCENT (BEAKER) (test olpl=046) 28 % MONOCYTES RELATIVE PERCENT (BEAKER) (test dked=642) 7 % EOSINOPHILS RELATIVE PERCENT (BEAKER) (test oihy=577) 1 % BASOPHILS RELATIVE PERCENT (BEAKER) (test ihxe=125) 1 % NEUTROPHILS ABSOLUTE COUNT (BEAKER) (test cpsg=063) 2.19 K/ L 1.78-5.38 LYMPHOCYTES ABSOLUTE COUNT (BEAKER) (test ejbs=115) 1.00 K/ L 1.32-3.57 MONOCYTES ABSOLUTE COUNT (BEAKER) (test mihe=989) 0.24 K/ L 0.30-0.82 EOSINOPHILS ABSOLUTE COUNT (BEAKER) (test ijra=236) 0.03 K/ L 0.04-0.54 BASOPHILS ABSOLUTE COUNT (BEAKER) (test xfvz=430) 0.05 K/ L 0.01-0.08 IMMATURE GRANULOCYTES-RELATIVE PERCENT (BEAKER) (test caqj=5628) 1 % 0-1 CMV PCR, [id number] 15:41:00* Test Item Value Reference Range Comments CMV VIRAL LOAD - NEGATIVE (BEAKER) (test xcru=5733) Negative or below the linear range of the assay (<375 copies/mL) Cytomegalovirus (CMV) infection can cause significant disease in immunosuppresse d patients. However, it is common for CMV to manifest as a limited infection whi ch is of no clinical significance in immunosuppressed patients or in healthy ind ividuals.Viral load measurements are helpful to identify clinical CMV infection and to guide the pre-emptive management of antiviral therapy. For treatment of CMV infection due to reactivation in transplant recipients, a threshold between 4,000 and 5,000 copies/mL is suggested. For treatment of primary CMV infection, a lower threshold can be used.CMV infection may also be monitored using weekly serial measurements. Serial measurements of CMV DNA viral load can be evaluated by identifying a 10-fold change, as well as assessing the CMV DNA viral load and the clinical context for each patient.The plasma CMV DNA viral load was detected using quantitative polymerase chain reaction and fluorescent monitoring of a s pecific hybridized probe. Genetic variation and other factors can affect the acc uracy of nucleic acid testing. Therefore, the results should be interpreted in l ight of clinical data. A negative result may not exclude the presence of CMV dis ease.This test was developed and its performance characteristics determined by [facility]i m[facility] Pathology Department, Section of Molecular Patholog y. It has not been cleared or approved by the U.[place]. Food and Drug Administration (FDA), since FDA approval is not required for clinical use of the test. Validati on was done as required by The Clinical Laboratory Improvement Amendments of 198 8.TACROLIMUS [id number] 12:21:00* Test Item Value Reference Range Comments TACROLIMUS BLOOD (JOSÉ MIGUELAKER) (test gqbi=566) 8.5 ng/mL 10.0-20.0 [id number] 09:50:00* Test Item Value Reference Range Comments PHOSPHORUS (BEAKER) (test qfyd=888) 2.6 mg/dL 2.3-4.7 COMPREHENSIVE METABOLIC [id number] 09:50:00* Test Item Value Reference Range Comments TOTAL PROTEIN (BEAKER) (test ehkl=345) 5.6 gm/dL 6.0-8.3 ALBUMIN (BEAKER) (test colx=1331) 3.6 g/dL 3.5-5.0 ALKALINE PHOSPHATASE (BEAKER) (test bycw=676) 107 U/L 40-150 BILIRUBIN TOTAL (BEAKER) (test ucow=650) 0.6 mg/dL 0.2-1.2 SODIUM (BEAKER) (test ekbk=467) 142 meq/L 136-145 POTASSIUM (BEAKER) (test kdii=972) 3.9 meq/L 3.5-5.1 CHLORIDE (BEAKER) (test pmqu=296) 114 meq/L 98-107 CO2 (BEAKER) (test sxni=626) 22 meq/L 22-29 BLOOD UREA NITROGEN (BEAKER) (test lfib=936) 15 mg/dL 7-21 CREATININE (BEAKER) (test ftix=206) 0.88 mg/dL 0.57-1.25 GLUCOSE RANDOM (BEAKER) (test redc=922) 81 mg/dL 70-105 CALCIUM (BEAKER) (test gtov=022) 9.7 mg/dL 8.4-10.2 AST (SGOT) (BEAKER) (test ozku=658) 42 U/L 5-34 ALT (SGPT) (BEAKER) (test dfhj=102) 47 U/L 6-55 EGFR (BEAKER) (test ubbb=9879) 87 mL/min/1.73 sq m ESTIMATED GFR IS NOT ACCURATE CREATININE CLEARANCE IN PREDICTING GLOMERULAR FILTRATION RATE. ESTIMATED GFR IS NOT APPLICABLE FOR DIALYSIS PATIENTS. LACTATE DEHYDROGENASE (LDH)2017-12-31 09:50:00* Test Item Value Reference Range Comments LACTATE DEHYDROGENASE (BEAKER) (test kcqj=000) 156 U/L 125-220 URINALYSIS W/ REFLEX URINE [id number] 09:26:00* Test Item Value Reference Range Comments COLOR (BEAKER) (test msga=249) Yellow CLARITY (BEAKER) (test woqu=419) Clear SPECIFIC GRAVITY UA (BEAKER) (test rkry=730) 1.016 1.001-1.035 PH UA (BEAKER) (test syml=153) 6.0 5.0-8.0 PROTEIN UA (BEAKER) (test hvef=746) 10 mg/dL Negative GLUCOSE UA (BEAKER) (test cyrv=429) Negative Negative KETONES UA (BEAKER) (test jqnc=478) Negative Negative BILIRUBIN UA (BEAKER) (test sxdq=935) Negative Negative BLOOD UA (BEAKER) (test mbzh=515) Negative Negative NITRITE UA (BEAKER) (test igqj=652) Negative Negative LEUKOCYTE ESTERASE UA (BEAKER) (test krgk=227) Negative Negative UROBILINOGEN UA (BEAKER) (test ockj=434) 0.2 mg/dL 0.2-1.0 RBC UA (BEAKER) (test ehpw=084) < /HPF WBC UA (BEAKER) (test ggeb=114) 2 /HPF MUCUS (BEAKER) (test dvcl=7699) Rare SQUAMOUS EPITHELIAL (BEAKER) (test wumd=947) 1 /HPF SOURCE(BEAKER) (test spid=2166) CBC W/PLT COUNT & AUTO [id number] 09:16:00* Test Item Value Reference Range Comments WHITE BLOOD CELL COUNT (BEAKER) (test kueg=161) 3.1 K/ L 3.5-10.5 RED BLOOD CELL COUNT (BEAKER) (test pqoe=842) 4.04 M/ L 4.63-6.08 HEMOGLOBIN (BEAKER) (test lrri=568) 11.6 GM/DL 13.7-17.5 HEMATOCRIT (BEAKER) (test gvtx=365) 37.8 % 40.1-51.0 MEAN CORPUSCULAR VOLUME (BEAKER) (test kwct=601) 93.6 fL 79.0-92.2 MEAN CORPUSCULAR HEMOGLOBIN (BEAKER) (test ngjd=104) 28.7 pg 25.7-32.2 MEAN CORPUSCULAR HEMOGLOBIN CONC (BEAKER) (test sywm=367) 30.7 GM/DL 32.3-36.5 RED CELL DISTRIBUTION WIDTH (BEAKER) (test zttc=454) 15.3 % 11.6-14.4 PLATELET COUNT (BEAKER) (test mvxu=891) 92 K/CU MM 150-450 MEAN PLATELET VOLUME (BEAKER) (test tzsp=239) 10.4 fL 9.4-12.4 NUCLEATED RED BLOOD CELLS (BEAKER) (test rbyn=571) 0 /100 WBC 0-0 NEUTROPHILS RELATIVE PERCENT (BEAKER) (test chvi=041) 60 % LYMPHOCYTES RELATIVE PERCENT (BEAKER) (test plga=553) 29 % MONOCYTES RELATIVE PERCENT (BEAKER) (test tcii=030) 8 % EOSINOPHILS RELATIVE PERCENT (BEAKER) (test zubh=924) 2 % BASOPHILS RELATIVE PERCENT (BEAKER) (test hvou=403) 1 % NEUTROPHILS ABSOLUTE COUNT (BEAKER) (test fkfv=474) 1.85 K/ L 1.78-5.38 LYMPHOCYTES ABSOLUTE COUNT (BEAKER) (test coig=900) 0.89 K/ L 1.32-3.57 MONOCYTES ABSOLUTE COUNT (BEAKER) (test ybhv=610) 0.25 K/ L 0.30-0.82 EOSINOPHILS ABSOLUTE COUNT (BEAKER) (test kyfb=504) 0.05 K/ L 0.04-0.54 BASOPHILS ABSOLUTE COUNT (BEAKER) (test isco=635) 0.04 K/ L 0.01-0.08 IMMATURE GRANULOCYTES-RELATIVE PERCENT (BEAKER) (test tknp=9093) 0 % 0-1 TACROLIMUS [id number] 14:21:00* Test Item Value Reference Range Comments TACROLIMUS BLOOD (BEAKER) (test knqq=928) 8.5 ng/mL 10.0-20.0 URINALYSIS W/ REFLEX URINE [id number] 10:15:00* Test Item Value Reference Range Comments COLOR (BEAKER) (test pxhb=496) Yellow CLARITY (BEAKER) (test skwq=236) Clear SPECIFIC GRAVITY UA (BEAKER) (test bqxk=446) 1.012 1.001-1.035 PH UA (BEAKER) (test dhwg=592) 6.0 5.0-8.0 PROTEIN UA (BEAKER) (test codm=094) Negative Negative GLUCOSE UA (BEAKER) (test xpaw=166) Negative Negative KETONES UA (BEAKER) (test rtgl=758) Negative Negative BILIRUBIN UA (BEAKER) (test rggh=199) Negative Negative BLOOD UA (BEAKER) (test jzen=306) Negative Negative NITRITE UA (BEAKER) (test ydyr=332) Negative Negative LEUKOCYTE ESTERASE UA (BEAKER) (test huwr=894) Negative Negative UROBILINOGEN UA (BEAKER) (test pmek=771) 0.2 mg/dL 0.2-1.0 RBC UA (BEAKER) (test iayz=624) 0 /HPF WBC UA (BEAKER) (test bajs=127) 1 /HPF SQUAMOUS EPITHELIAL (BEAKER) (test tctw=708) 1 /HPF HYALINE CASTS (BEAKER) (test svrr=185) 2 /LPF SOURCE(BEAKER) (test fzyc=1368) [id number] 09:31:00* Test Item Value Reference Range Comments PHOSPHORUS (BEAKER) (test zqyj=872) 3.1 mg/dL 2.3-4.7 COMPREHENSIVE METABOLIC [id number] 09:31:00* Test Item Value Reference Range Comments TOTAL PROTEIN (BEAKER) (test dfeg=094) 6.1 gm/dL 6.0-8.3 ALBUMIN (BEAKER) (test kzsc=1699) 3.8 g/dL 3.5-5.0 ALKALINE PHOSPHATASE (BEAKER) (test bzlj=553) 98 U/L 40-150 BILIRUBIN TOTAL (BEAKER) (test liez=957) 0.6 mg/dL 0.2-1.2 SODIUM (BEAKER) (test lcpx=060) 142 meq/L 136-145 POTASSIUM (BEAKER) (test xsyx=192) 4.2 meq/L 3.5-5.1 CHLORIDE (BEAKER) (test vway=247) 112 meq/L 98-107 CO2 (BEAKER) (test rvkr=097) 21 meq/L 22-29 BLOOD UREA NITROGEN (BEAKER) (test zpyo=262) 26 mg/dL 7-21 CREATININE (BEAKER) (test fxvs=615) 1.13 mg/dL 0.57-1.25 GLUCOSE RANDOM (BEAKER) (test dgfd=335) 94 mg/dL 70-105 CALCIUM (BEAKER) (test muit=095) 9.9 mg/dL 8.4-10.2 AST (SGOT) (BEAKER) (test ajkm=789) 34 U/L 5-34 ALT (SGPT) (BEAKER) (test oegw=565) 37 U/L 6-55 EGFR (BEAKER) (test rlpd=6660) 65 mL/min/1.73 sq m ESTIMATED GFR IS NOT ACCURATE CREATININE CLEARANCE IN PREDICTING GLOMERULAR FILTRATION RATE. ESTIMATED GFR IS NOT APPLICABLE FOR DIALYSIS PATIENTS. LACTATE DEHYDROGENASE (LDH)2017-12-25 09:31:00* Test Item Value Reference Range Comments LACTATE DEHYDROGENASE (BEAKER) (test lqjj=776) 175 U/L 125-220 CBC W/PLT COUNT & AUTO [id number] 08:38:00* Test Item Value Reference Range Comments WHITE BLOOD CELL COUNT (BEAKER) (test axjx=167) 3.2 K/ L 3.5-10.5 RED BLOOD CELL COUNT (BEAKER) (test svcl=967) 4.03 M/ L 4.63-6.08 HEMOGLOBIN (BEAKER) (test tgkp=779) 11.7 GM/DL 13.7-17.5 HEMATOCRIT (BEAKER) (test tkof=717) 37.9 % 40.1-51.0 MEAN CORPUSCULAR VOLUME (BEAKER) (test xpiy=710) 94.0 fL 79.0-92.2 MEAN CORPUSCULAR HEMOGLOBIN (BEAKER) (test eoal=766) 29.0 pg 25.7-32.2 MEAN CORPUSCULAR HEMOGLOBIN CONC (BEAKER) (test hxtb=083) 30.9 GM/DL 32.3-36.5 RED CELL DISTRIBUTION WIDTH (BEAKER) (test fomk=241) 15.2 % 11.6-14.4 PLATELET COUNT (BEAKER) (test ryxc=217) 92 K/CU MM 150-450 MEAN PLATELET VOLUME (BEAKER) (test gkgv=737) 9.7 fL 9.4-12.4 NUCLEATED RED BLOOD CELLS (BEAKER) (test gwyj=951) 0 /100 WBC 0-0 NEUTROPHILS RELATIVE PERCENT (BEAKER) (test dejo=044) 58 % LYMPHOCYTES RELATIVE PERCENT (BEAKER) (test wzdx=400) 31 % MONOCYTES RELATIVE PERCENT (BEAKER) (test qxvm=079) 8 % EOSINOPHILS RELATIVE PERCENT (BEAKER) (test rebz=250) 2 % BASOPHILS RELATIVE PERCENT (BEAKER) (test squa=436) 2 % NEUTROPHILS ABSOLUTE COUNT (BEAKER) (test afke=717) 1.85 K/ L 1.78-5.38 LYMPHOCYTES ABSOLUTE COUNT (BEAKER) (test nhxy=206) 0.99 K/ L 1.32-3.57 MONOCYTES ABSOLUTE COUNT (BEAKER) (test clxi=531) 0.24 K/ L 0.30-0.82 EOSINOPHILS ABSOLUTE COUNT (BEAKER) (test jdkr=957) 0.06 K/ L 0.04-0.54 BASOPHILS ABSOLUTE COUNT (BEAKER) (test gsww=161) 0.06 K/ L 0.01-0.08 IMMATURE GRANULOCYTES-RELATIVE PERCENT (BEAKER) (test uttx=6219) 0 % 0-1 TACROLIMUS [id number] 14:16:00* Test Item Value Reference Range Comments TACROLIMUS BLOOD (BEAKER) (test tslw=670) 6.9 ng/mL 10.0-20.0 CMV PCR, [id number] 13:55:00* Test Item Value Reference Range Comments CMV VIRAL LOAD - NEGATIVE (BEAKER) (test szum=8085) Negative or below the linear range of the assay (<375 copies/mL) Cytomegalovirus (CMV) infection can cause significant disease in immunosuppresse d patients. However, it is common for CMV to manifest as a limited infection whi ch is of no clinical significance in immunosuppressed patients or in healthy ind ividuals.Viral load measurements are helpful to identify clinical CMV infection and to guide the pre-emptive management of antiviral therapy. For treatment of CMV infection due to reactivation in transplant recipients, a threshold between 4,000 and 5,000 copies/mL is suggested. For treatment of primary CMV infection, a lower threshold can be used.CMV infection may also be monitored using weekly serial measurements. Serial measurements of CMV DNA viral load can be evaluated by identifying a 10-fold change, as well as assessing the CMV DNA viral load and the clinical context for each patient.The plasma CMV DNA viral load was detected using quantitative polymerase chain reaction and fluorescent monitoring of a s pecific hybridized probe. Genetic variation and other factors can affect the acc uracy of nucleic acid testing. Therefore, the results should be interpreted in l ight of clinical data. A negative result may not exclude the presence of CMV dis ease.This test was developed and its performance characteristics determined by [facility] Pathology Department, Section of Molecular Patholog y. It has not been cleared or approved by the U.S. Food and Drug Administration (FDA), since FDA approval is not required for clinical use of the test. Validati on was done as required by The Clinical Laboratory Improvement Amendments of 198 8.URINALYSIS W/ REFLEX URINE [id number] 10:15:00* Test Item Value Reference Range Comments COLOR (BEAKER) (test lwwx=059) Light Yellow CLARITY (BEAKER) (test ewdg=728) Clear SPECIFIC GRAVITY UA (BEAKER) (test dbnt=398) 1.007 1.001-1.035 PH UA (BEAKER) (test ugud=813) 6.0 5.0-8.0 PROTEIN UA (BEAKER) (test afsq=019) Negative Negative GLUCOSE UA (BEAKER) (test tszq=874) Negative Negative KETONES UA (BEAKER) (test hrvx=352) Negative Negative BILIRUBIN UA (BEAKER) (test okco=299) Negative Negative BLOOD UA (BEAKER) (test ibjo=079) Negative Negative NITRITE UA (BEAKER) (test vgzw=223) Negative Negative LEUKOCYTE ESTERASE UA (BEAKER) (test mrog=931) Negative Negative UROBILINOGEN UA (BEAKER) (test tkvv=687) 0.2 mg/dL 0.2-1.0 RBC UA (BEAKER) (test oidz=271) 0 /HPF WBC UA (BEAKER) (test eumv=967) < /HPF SQUAMOUS EPITHELIAL (BEAKER) (test wfco=486) 1 /HPF SOURCE(BEAKER) (test jagh=9359) [id number] 10:14:00* Test Item Value Reference Range Comments PHOSPHORUS (BEAKER) (test chmx=824) 2.9 mg/dL 2.3-4.7 COMPREHENSIVE METABOLIC [id number] 10:14:00* Test Item Value Reference Range Comments TOTAL PROTEIN (BEAKER) (test rdgz=352) 5.8 gm/dL 6.0-8.3 ALBUMIN (BEAKER) (test qykn=3479) 3.6 g/dL 3.5-5.0 ALKALINE PHOSPHATASE (BEAKER) (test sltk=124) 87 U/L 40-150 BILIRUBIN TOTAL (BEAKER) (test dgik=633) 0.6 mg/dL 0.2-1.2 SODIUM (BEAKER) (test nhog=725) 141 meq/L 136-145 POTASSIUM (BEAKER) (test injd=162) 4.2 meq/L 3.5-5.1 CHLORIDE (BEAKER) (test sbql=960) 107 meq/L 98-107 CO2 (BEAKER) (test osao=904) 25 meq/L 22-29 BLOOD UREA NITROGEN (BEAKER) (test gdbi=172) 24 mg/dL 7-21 CREATININE (BEAKER) (test bhbo=076) 0.91 mg/dL 0.57-1.25 GLUCOSE RANDOM (BEAKER) (test fpmg=548) 80 mg/dL 70-105 CALCIUM (BEAKER) (test jzlw=677) 9.7 mg/dL 8.4-10.2 AST (SGOT) (BEAKER) (test ugrn=889) 34 U/L 5-34 ALT (SGPT) (BEAKER) (test bflh=424) 44 U/L 6-55 EGFR (BEAKER) (test khxv=3910) 84 mL/min/1.73 sq m ESTIMATED GFR IS NOT ACCURATE CREATININE CLEARANCE IN PREDICTING GLOMERULAR FILTRATION RATE. ESTIMATED GFR IS NOT APPLICABLE FOR DIALYSIS PATIENTS. LACTATE DEHYDROGENASE (LDH)2017-12-11 10:14:00* Test Item Value Reference Range Comments LACTATE DEHYDROGENASE (BEAKER) (test gflc=190) 191 U/L 125-220 CBC W/PLT COUNT & AUTO [id number] 09:57:00* Test Item Value Reference Range Comments WHITE BLOOD CELL COUNT (BEAKER) (test ogpe=220) 2.8 K/ L 3.5-10.5 RED BLOOD CELL COUNT (BEAKER) (test hdpc=802) 4.11 M/ L 4.63-6.08 HEMOGLOBIN (BEAKER) (test bqhk=401) 11.5 GM/DL 13.7-17.5 HEMATOCRIT (BEAKER) (test kocb=675) 39.2 % 40.1-51.0 MEAN CORPUSCULAR VOLUME (BEAKER) (test ulgx=998) 95.4 fL 79.0-92.2 MEAN CORPUSCULAR HEMOGLOBIN (BEAKER) (test kztv=832) 28.0 pg 25.7-32.2 MEAN CORPUSCULAR HEMOGLOBIN CONC (BEAKER) (test ubvi=932) 29.3 GM/DL 32.3-36.5 RED CELL DISTRIBUTION WIDTH (BEAKER) (test peys=812) 15.8 % 11.6-14.4 PLATELET COUNT (BEAKER) (test ooyc=418) 101 K/CU MM 150-450 MEAN PLATELET VOLUME (BEAKER) (test fqtt=887) 9.3 fL 9.4-12.4 NUCLEATED RED BLOOD CELLS (BEAKER) (test qwhd=409) 0 /100 WBC 0-0 NEUTROPHILS RELATIVE PERCENT (BEAKER) (test qjos=431) 54 % LYMPHOCYTES RELATIVE PERCENT (BEAKER) (test zllw=532) 33 % MONOCYTES RELATIVE PERCENT (BEAKER) (test hzwd=995) 9 % EOSINOPHILS RELATIVE PERCENT (BEAKER) (test vrtv=167) 1 % BASOPHILS RELATIVE PERCENT (BEAKER) (test fkqt=909) 2 % NEUTROPHILS ABSOLUTE COUNT (BEAKER) (test bsxg=842) 1.51 K/ L 1.78-5.38 LYMPHOCYTES ABSOLUTE COUNT (BEAKER) (test jpbe=023) 0.91 K/ L 1.32-3.57 MONOCYTES ABSOLUTE COUNT (BEAKER) (test cchg=276) 0.26 K/ L 0.30-0.82 EOSINOPHILS ABSOLUTE COUNT (BEAKER) (test ysrn=781) 0.04 K/ L 0.04-0.54 BASOPHILS ABSOLUTE COUNT (BEAKER) (test ndbm=178) 0.06 K/ L 0.01-0.08 IMMATURE GRANULOCYTES-RELATIVE PERCENT (BEAKER) (test efaa=1234) 0 % 0-1 CMV PCR, [id number] 14:14:00* Test Item Value Reference Range Comments CMV VIRAL LOAD - NEGATIVE (BEAKER) (test jite=8841) Negative or below the linear range of the assay (<375 copies/mL) Cytomegalovirus (CMV) infection can cause significant disease in immunosuppresse d patients. However, it is common for CMV to manifest as a limited infection whi ch is of no clinical significance in immunosuppressed patients or in healthy ind ividuals.Viral load measurements are helpful to identify clinical CMV infection and to guide the pre-emptive management of antiviral therapy. For treatment of CMV infection due to reactivation in transplant recipients, a threshold between 4,000 and 5,000 copies/mL is suggested. For treatment of primary CMV infection, a lower threshold can be used.CMV infection may also be monitored using weekly serial measurements. Serial measurements of CMV DNA viral load can be evaluated by identifying a 10-fold change, as well as assessing the CMV DNA viral load and the clinical context for each patient.The plasma CMV DNA viral load was detected using quantitative polymerase chain reaction and fluorescent monitoring of a s pecific hybridized probe. Genetic variation and other factors can affect the acc uracy of nucleic acid testing. Therefore, the results should be interpreted in l ight of clinical data. A negative result may not exclude the presence of CMV dis ease.This test was developed and its performance characteristics determined by [facility] Pathology Department, Section of Molecular Patholog y. It has not been cleared or approved by the U.S. Food and Drug Administration (FDA), since FDA approval is not required for clinical use of the test. Validati on was done as required by The Clinical Laboratory Improvement Amendments of 198 8.TACROLIMUS [id number] 12:18:00* Test Item Value Reference Range Comments TACROLIMUS BLOOD (BEAKER) (test wxag=623) 7.3 ng/mL 10.0-20.0 URINALYSIS W/ REFLEX URINE [id number] 09:30:00* Test Item Value Reference Range Comments COLOR (BEAKER) (test ozsf=804) Light Yellow CLARITY (BEAKER) (test uzqs=545) Clear SPECIFIC GRAVITY UA (BEAKER) (test xyje=608) 1.008 1.001-1.035 PH UA (BEAKER) (test evqn=284) 6.0 5.0-8.0 PROTEIN UA (BEAKER) (test tham=378) Negative Negative GLUCOSE UA (BEAKER) (test hvyp=565) Negative Negative KETONES UA (BEAKER) (test peyl=928) Negative Negative BILIRUBIN UA (BEAKER) (test kfjs=675) Negative Negative BLOOD UA (BEAKER) (test zyte=874) Negative Negative NITRITE UA (BEAKER) (test oqrj=273) Negative Negative LEUKOCYTE ESTERASE UA (BEAKER) (test kkge=476) Negative Negative UROBILINOGEN UA (BEAKER) (test aadh=184) 0.2 mg/dL 0.2-1.0 RBC UA (BEAKER) (test ticn=382) < /HPF WBC UA (BEAKER) (test xpxc=029) 1 /HPF MUCUS (BEAKER) (test tswl=0045) Rare SQUAMOUS EPITHELIAL (BEAKER) (test ivjv=840) 1 /HPF SOURCE(BEAKER) (test qtgt=1807) [id number] 09:21:00* Test Item Value Reference Range Comments PHOSPHORUS (BEAKER) (test zxpn=900) 2.7 mg/dL 2.3-4.7 COMPREHENSIVE METABOLIC [id number] 09:21:00* Test Item Value Reference Range Comments TOTAL PROTEIN (BEAKER) (test ajyh=308) 5.7 gm/dL 6.0-8.3 ALBUMIN (BEAKER) (test allh=5369) 3.7 g/dL 3.5-5.0 ALKALINE PHOSPHATASE (BEAKER) (test yigj=626) 93 U/L 40-150 BILIRUBIN TOTAL (BEAKER) (test jxtx=962) 0.5 mg/dL 0.2-1.2 SODIUM (BEAKER) (test sdqj=252) 143 meq/L 136-145 POTASSIUM (BEAKER) (test aqyy=676) 2.8 meq/L 3.5-5.1 CHLORIDE (BEAKER) (test hqoi=190) 109 meq/L 98-107 CO2 (BEAKER) (test nbqj=648) 24 meq/L 22-29 BLOOD UREA NITROGEN (BEAKER) (test yzca=442) 16 mg/dL 7-21 CREATININE (BEAKER) (test lxln=723) 0.88 mg/dL 0.57-1.25 GLUCOSE RANDOM (BEAKER) (test aafr=737) 86 mg/dL 70-105 CALCIUM (BEAKER) (test clvu=270) 9.3 mg/dL 8.4-10.2 AST (SGOT) (BEAKER) (test keve=334) 31 U/L 5-34 ALT (SGPT) (BEAKER) (test hhjb=711) 42 U/L 6-55 EGFR (BEAKER) (test vvft=3380) 87 mL/min/1.73 sq m ESTIMATED GFR IS NOT ACCURATE CREATININE CLEARANCE IN PREDICTING GLOMERULAR FILTRATION RATE. ESTIMATED GFR IS NOT APPLICABLE FOR DIALYSIS PATIENTS. LACTATE DEHYDROGENASE (LDH)2017-12-04 09:21:00* Test Item Value Reference Range Comments LACTATE DEHYDROGENASE (BEAKER) (test jmnh=237) 150 U/L 125-220 CBC W/PLT COUNT & AUTO [id number] 09:01:00* Test Item Value Reference Range Comments WHITE BLOOD CELL COUNT (BEAKER) (test bpcx=826) 3.4 K/ L 3.5-10.5 RED BLOOD CELL COUNT (BEAKER) (test ixkt=234) 3.99 M/ L 4.63-6.08 HEMOGLOBIN (BEAKER) (test vyzm=620) 11.4 GM/DL 13.7-17.5 HEMATOCRIT (BEAKER) (test qila=561) 37.9 % 40.1-51.0 MEAN CORPUSCULAR VOLUME (BEAKER) (test prbm=622) 95.0 fL 79.0-92.2 MEAN CORPUSCULAR HEMOGLOBIN (BEAKER) (test pfvh=158) 28.6 pg 25.7-32.2 MEAN CORPUSCULAR HEMOGLOBIN CONC (BEAKER) (test rafn=736) 30.1 GM/DL 32.3-36.5 RED CELL DISTRIBUTION WIDTH (BEAKER) (test zswk=671) 16.0 % 11.6-14.4 PLATELET COUNT (BEAKER) (test ggwl=659) 101 K/CU MM 150-450 MEAN PLATELET VOLUME (BEAKER) (test ovpi=045) 9.5 fL 9.4-12.4 NUCLEATED RED BLOOD CELLS (BEAKER) (test mhuz=807) 0 /100 WBC 0-0 NEUTROPHILS RELATIVE PERCENT (BEAKER) (test igfb=232) 60 % LYMPHOCYTES RELATIVE PERCENT (BEAKER) (test dkko=043) 28 % MONOCYTES RELATIVE PERCENT (BEAKER) (test yxpz=997) 8 % EOSINOPHILS RELATIVE PERCENT (BEAKER) (test yzrs=467) 2 % BASOPHILS RELATIVE PERCENT (BEAKER) (test ycbv=529) 2 % NEUTROPHILS ABSOLUTE COUNT (BEAKER) (test ywon=113) 2.05 K/ L 1.78-5.38 LYMPHOCYTES ABSOLUTE COUNT (BEAKER) (test rysg=385) 0.94 K/ L 1.32-3.57 MONOCYTES ABSOLUTE COUNT (BEAKER) (test mhil=840) 0.28 K/ L 0.30-0.82 EOSINOPHILS ABSOLUTE COUNT (BEAKER) (test lniu=222) 0.05 K/ L 0.04-0.54 BASOPHILS ABSOLUTE COUNT (BEAKER) (test nign=353) 0.06 K/ L 0.01-0.08 IMMATURE GRANULOCYTES-RELATIVE PERCENT (BEAKER) (test wflq=4402) 0 % 0-1 TACROLIMUS [id number] 11:20:00* Test Item Value Reference Range Comments TACROLIMUS BLOOD (BEAKER) (test wxcx=083) 4.1 ng/mL 10.0-20.0 URINALYSIS W/ REFLEX URINE [id number] 09:50:00* Test Item Value Reference Range Comments COLOR (BEAKER) (test vwlw=606) Light Yellow CLARITY (BEAKER) (test lqfe=037) Clear SPECIFIC GRAVITY UA (BEAKER) (test umgm=253) 1.006 1.001-1.035 PH UA (BEAKER) (test qjuz=044) 6.0 5.0-8.0 PROTEIN UA (BEAKER) (test qsrv=795) Negative Negative GLUCOSE UA (BEAKER) (test czds=389) Negative Negative KETONES UA (BEAKER) (test tqhd=897) Negative Negative BILIRUBIN UA (BEAKER) (test kbny=550) Negative Negative BLOOD UA (BEAKER) (test iodo=363) Negative Negative NITRITE UA (BEAKER) (test umqk=610) Negative Negative LEUKOCYTE ESTERASE UA (BEAKER) (test aizd=206) Negative Negative UROBILINOGEN UA (BEAKER) (test adfq=082) 0.2 mg/dL 0.2-1.0 RBC UA (BEAKER) (test zntv=810) 0 /HPF WBC UA (BEAKER) (test wbbq=300) 1 /HPF SOURCE(BEAKER) (test biin=2469) [id number] 08:58:00* Test Item Value Reference Range Comments PHOSPHORUS (BEAKER) (test jtfh=269) 2.7 mg/dL 2.3-4.7 COMPREHENSIVE METABOLIC [id number] 08:58:00* Test Item Value Reference Range Comments TOTAL PROTEIN (BEAKER) (test fgye=574) 5.7 gm/dL 6.0-8.3 ALBUMIN (BEAKER) (test ckdq=2444) 3.6 g/dL 3.5-5.0 ALKALINE PHOSPHATASE (BEAKER) (test oosa=532) 92 U/L 40-150 BILIRUBIN TOTAL (BEAKER) (test qvof=341) 0.5 mg/dL 0.2-1.2 SODIUM (BEAKER) (test rdfx=908) 144 meq/L 136-145 POTASSIUM (BEAKER) (test nyun=453) 3.3 meq/L 3.5-5.1 CHLORIDE (BEAKER) (test mdzo=745) 110 meq/L 98-107 CO2 (BEAKER) (test sxct=757) 23 meq/L 22-29 BLOOD UREA NITROGEN (BEAKER) (test oqnp=670) 16 mg/dL 7-21 CREATININE (BEAKER) (test pils=232) 0.82 mg/dL 0.57-1.25 GLUCOSE RANDOM (BEAKER) (test vqct=335) 90 mg/dL 70-105 CALCIUM (BEAKER) (test pqdl=238) 9.4 mg/dL 8.4-10.2 AST (SGOT) (BEAKER) (test rpwt=252) 44 U/L 5-34 ALT (SGPT) (BEAKER) (test ektr=087) 52 U/L 6-55 EGFR (BEAKER) (test fjht=7650) 94 mL/min/1.73 sq m ESTIMATED GFR IS NOT ACCURATE CREATININE CLEARANCE IN PREDICTING GLOMERULAR FILTRATION RATE. ESTIMATED GFR IS NOT APPLICABLE FOR DIALYSIS PATIENTS. LACTATE DEHYDROGENASE (LDH)2017-12-02 08:58:00* Test Item Value Reference Range Comments LACTATE DEHYDROGENASE (BEAKER) (test tzts=211) 186 U/L 125-220 CBC W/PLT COUNT & AUTO [id number] 08:33:00* Test Item Value Reference Range Comments WHITE BLOOD CELL COUNT (BEAKER) (test uwlp=993) 3.2 K/ L 3.5-10.5 RED BLOOD CELL COUNT (BEAKER) (test jzbc=628) 4.11 M/ L 4.63-6.08 HEMOGLOBIN (BEAKER) (test wana=723) 11.5 GM/DL 13.7-17.5 HEMATOCRIT (BEAKER) (test zdcz=403) 38.7 % 40.1-51.0 MEAN CORPUSCULAR VOLUME (BEAKER) (test qtcb=866) 94.2 fL 79.0-92.2 MEAN CORPUSCULAR HEMOGLOBIN (BEAKER) (test nmlj=211) 28.0 pg 25.7-32.2 MEAN CORPUSCULAR HEMOGLOBIN CONC (BEAKER) (test koai=497) 29.7 GM/DL 32.3-36.5 RED CELL DISTRIBUTION WIDTH (BEAKER) (test uiwr=275) 16.0 % 11.6-14.4 PLATELET COUNT (BEAKER) (test vqdn=844) 106 K/CU MM 150-450 MEAN PLATELET VOLUME (BEAKER) (test suye=783) 10.1 fL 9.4-12.4 NUCLEATED RED BLOOD CELLS (BEAKER) (test pgeg=937) 0 /100 WBC 0-0 NEUTROPHILS RELATIVE PERCENT (BEAKER) (test jyed=969) 62 % LYMPHOCYTES RELATIVE PERCENT (BEAKER) (test jzqd=652) 27 % MONOCYTES RELATIVE PERCENT (BEAKER) (test aubm=419) 8 % EOSINOPHILS RELATIVE PERCENT (BEAKER) (test tvyq=266) 2 % BASOPHILS RELATIVE PERCENT (BEAKER) (test fzhl=856) 1 % NEUTROPHILS ABSOLUTE COUNT (BEAKER) (test dwcw=098) 1.99 K/ L 1.78-5.38 LYMPHOCYTES ABSOLUTE COUNT (BEAKER) (test ffak=260) 0.86 K/ L 1.32-3.57 MONOCYTES ABSOLUTE COUNT (BEAKER) (test wmvb=171) 0.26 K/ L 0.30-0.82 EOSINOPHILS ABSOLUTE COUNT (BEAKER) (test tith=031) 0.06 K/ L 0.04-0.54 BASOPHILS ABSOLUTE COUNT (BEAKER) (test blsf=764) 0.04 K/ L 0.01-0.08 IMMATURE GRANULOCYTES-RELATIVE PERCENT (BEAKER) (test sosy=9849) 0 % 0-1 CMV PCR, [id number] 15:11:00* Test Item Value Reference Range Comments CMV VIRAL LOAD - NEGATIVE (BEAKER) (test tucs=2085) Negative or below the linear range of the assay (<375 copies/mL) Cytomegalovirus (CMV) infection can cause significant disease in immunosuppresse d patients. However, it is common for CMV to manifest as a limited infection whi ch is of no clinical significance in immunosuppressed patients or in healthy ind ividuals.Viral load measurements are helpful to identify clinical CMV infection and to guide the pre-emptive management of antiviral therapy. For treatment of CMV infection due to reactivation in transplant recipients, a threshold between 4,000 and 5,000 copies/mL is suggested. For treatment of primary CMV infection, a lower threshold can be used.CMV infection may also be monitored using weekly serial measurements. Serial measurements of CMV DNA viral load can be evaluated by identifying a 10-fold change, as well as assessing the CMV DNA viral load and the clinical context for each patient.The plasma CMV DNA viral load was detected using quantitative polymerase chain reaction and fluorescent monitoring of a s pecific hybridized probe. Genetic variation and other factors can affect the acc uracy of nucleic acid testing. Therefore, the results should be interpreted in l ight of clinical data. A negative result may not exclude the presence of CMV dis ease.This test was developed and its performance characteristics determined by [facility] Pathology Department, Section of Molecular Patholog y. It has not been cleared or approved by the U.[place]. Food and Drug Administration (FDA), since FDA approval is not required for clinical use of the test. Validati on was done as required by The Clinical Laboratory Improvement Amendments of 198 8.BK VIRUS PCR, [id number] 15:03:00* Test Item Value Reference Range Comments BK VIRUS, PLASMA, NEG (BEAKER) (test hxto=6743) Negative or below the linear range of the assay (<1,000 copies/mL) Patients may have replicating BK Virus which is of no clinical significance. Vi ral load measurements are helpful to identify BK Virus replication of potential clinical significance. Consensus recommendations have been published of thresho ld values for the presumptive diagnosis of polyomavirus-associated nephropathy ( Transplantation 2005;79:8039-0613).A BK Virus load greater than 5,000-10,000 telescope maintenance ies/mL in the plasma is consistent with the presumptive diagnosis of polyoma-ass ociated nephropathy in renal transplant recipients.BK Virus DNA was assessed usi ng quantitative polymerase chain reaction and fluorescent monitoring of a specif ic hybridized probe. Genetic variation and other factors can affect the accurac y of nucleic acid testing. Therefore, the results should be interpreted in ligh t of clinical data.This test was developed and its performance characteristics d etermined by the [facility] Pathology Department, Section of Mole cular Pathology. It has not been cleared or approved by the U.S. Food and Drug Administration (FDA). Since FDA approval is not required for clinical use of th e test, validation was done as required by the Clinical Laboratory Improvement A mendments of 1988.TACROLIMUS [id number] 12:58:00* Test Item Value Reference Range Comments TACROLIMUS BLOOD (BEAKER) (test xowk=097) 4.8 ng/mL 10.0-20.0 URINALYSIS W/ REFLEX URINE [id number] 11:43:00* Test Item Value Reference Range Comments COLOR (BEAKER) (test gzsn=953) Colorless CLARITY (BEAKER) (test uifv=187) Clear SPECIFIC GRAVITY UA (BEAKER) (test gsuj=040) 1.004 1.001-1.035 PH UA (BEAKER) (test zvqw=191) 5.0 5.0-8.0 PROTEIN UA (BEAKER) (test aggo=801) Negative Negative GLUCOSE UA (BEAKER) (test vncp=020) Negative Negative KETONES UA (BEAKER) (test cojz=654) Negative Negative BILIRUBIN UA (BEAKER) (test xwqc=158) Negative Negative BLOOD UA (BEAKER) (test rbgt=690) Negative Negative NITRITE UA (BEAKER) (test blax=324) Negative Negative LEUKOCYTE ESTERASE UA (BEAKER) (test hlvq=520) Negative Negative UROBILINOGEN UA (BEAKER) (test cpmu=245) 0.2 mg/dL 0.2-1.0 RBC UA (BEAKER) (test yrzg=246) 0 /HPF WBC UA (BEAKER) (test sdqm=679) < /HPF SOURCE(BEAKER) (test fnaj=2228) [id number] 11:20:00* Test Item Value Reference Range Comments PHOSPHORUS (BEAKER) (test peqg=137) 2.7 mg/dL 2.3-4.7 COMPREHENSIVE METABOLIC [id number] 11:20:00* Test Item Value Reference Range Comments TOTAL PROTEIN (BEAKER) (test jhqi=189) 6.0 gm/dL 6.0-8.3 ALBUMIN (BEAKER) (test cjsf=7202) 3.8 g/dL 3.5-5.0 ALKALINE PHOSPHATASE (BEAKER) (test zruk=121) 92 U/L 40-150 BILIRUBIN TOTAL (BEAKER) (test kerj=504) 0.5 mg/dL 0.2-1.2 SODIUM (BEAKER) (test oqak=963) 143 meq/L 136-145 POTASSIUM (BEAKER) (test cmvh=510) 3.3 meq/L 3.5-5.1 CHLORIDE (BEAKER) (test ejaj=292) 111 meq/L 98-107 CO2 (BEAKER) (test agoz=433) 22 meq/L 22-29 BLOOD UREA NITROGEN (BEAKER) (test zagr=590) 19 mg/dL 7-21 CREATININE (BEAKER) (test wxln=873) 0.90 mg/dL 0.57-1.25 GLUCOSE RANDOM (BEAKER) (test fcxk=443) 77 mg/dL 70-105 CALCIUM (BEAKER) (test oxqp=604) 9.7 mg/dL 8.4-10.2 AST (SGOT) (BEAKER) (test atyt=626) 27 U/L 5-34 ALT (SGPT) (BEAKER) (test srte=184) 31 U/L 6-55 EGFR (BEAKER) (test ouou=3072) 85 mL/min/1.73 sq m ESTIMATED GFR IS NOT ACCURATE CREATININE CLEARANCE IN PREDICTING GLOMERULAR FILTRATION RATE. ESTIMATED GFR IS NOT APPLICABLE FOR DIALYSIS PATIENTS. LACTATE DEHYDROGENASE (LDH)2017-11-27 11:20:00* Test Item Value Reference Range Comments LACTATE DEHYDROGENASE (BEAKER) (test tcbq=660) 143 U/L 125-220 CBC W/PLT COUNT & AUTO [id number] 10:27:00* Test Item Value Reference Range Comments WHITE BLOOD CELL COUNT (BEAKER) (test hpzj=102) 3.0 K/ L 3.5-10.5 RED BLOOD CELL COUNT (BEAKER) (test fjse=674) 4.03 M/ L 4.63-6.08 HEMOGLOBIN (BEAKER) (test jgzj=530) 11.5 GM/DL 13.7-17.5 HEMATOCRIT (BEAKER) (test pwyg=823) 37.8 % 40.1-51.0 MEAN CORPUSCULAR VOLUME (BEAKER) (test lfpr=005) 93.8 fL 79.0-92.2 MEAN CORPUSCULAR HEMOGLOBIN (BEAKER) (test cgrq=970) 28.5 pg 25.7-32.2 MEAN CORPUSCULAR HEMOGLOBIN CONC (BEAKER) (test odqx=079) 30.4 GM/DL 32.3-36.5 RED CELL DISTRIBUTION WIDTH (BEAKER) (test bucb=051) 16.4 % 11.6-14.4 PLATELET COUNT (BEAKER) (test xxbr=774) 109 K/CU MM 150-450 MEAN PLATELET VOLUME (BEAKER) (test snaq=753) 10.1 fL 9.4-12.4 NUCLEATED RED BLOOD CELLS (BEAKER) (test vdel=306) 0 /100 WBC 0-0 NEUTROPHILS RELATIVE PERCENT (BEAKER) (test bqfq=173) 56 % LYMPHOCYTES RELATIVE PERCENT (BEAKER) (test vnra=197) 31 % MONOCYTES RELATIVE PERCENT (BEAKER) (test phsl=170) 8 % EOSINOPHILS RELATIVE PERCENT (BEAKER) (test sfyk=322) 2 % BASOPHILS RELATIVE PERCENT (BEAKER) (test ceaz=874) 2 % NEUTROPHILS ABSOLUTE COUNT (BEAKER) (test pnzd=961) 1.66 K/ L 1.78-5.38 LYMPHOCYTES ABSOLUTE COUNT (BEAKER) (test trfs=345) 0.93 K/ L 1.32-3.57 MONOCYTES ABSOLUTE COUNT (BEAKER) (test mvme=141) 0.24 K/ L 0.30-0.82 EOSINOPHILS ABSOLUTE COUNT (BEAKER) (test jpur=640) 0.06 K/ L 0.04-0.54 BASOPHILS ABSOLUTE COUNT (BEAKER) (test mlax=658) 0.07 K/ L 0.01-0.08 IMMATURE GRANULOCYTES-RELATIVE PERCENT (BEAKER) (test wsxx=1525) 0 % 0-1 CMV PCR, [id number] 14:23:00* Test Item Value Reference Range Comments CMV VIRAL LOAD - NEGATIVE (BEAKER) (test oerj=8074) Negative or below the linear range of the assay (<375 copies/mL) Cytomegalovirus (CMV) infection can cause significant disease in immunosuppresse d patients. However, it is common for CMV to manifest as a limited infection whi ch is of no clinical significance in immunosuppressed patients or in healthy ind ividuals.Viral load measurements are helpful to identify clinical CMV infection and to guide the pre-emptive management of antiviral therapy. For treatment of CMV infection due to reactivation in transplant recipients, a threshold between 4,000 and 5,000 copies/mL is suggested. For treatment of primary CMV infection, a lower threshold can be used.CMV infection may also be monitored using weekly serial measurements. Serial measurements of CMV DNA viral load can be evaluated by identifying a 10-fold change, as well as assessing the CMV DNA viral load and the clinical context for each patient.The plasma CMV DNA viral load was detected using quantitative polymerase chain reaction and fluorescent monitoring of a s pecific hybridized probe. Genetic variation and other factors can affect the acc uracy of nucleic acid testing. Therefore, the results should be interpreted in l ight of clinical data. A negative result may not exclude the presence of CMV dis ease.This test was developed and its performance characteristics determined by [facility]i mcn[facility] Pathology Department, Section of Molecular Patholog y. It has not been cleared or approved by the U.S. Food and Drug Administration (FDA), since FDA approval is not required for clinical use of the test. Validati on was done as required by The Clinical Laboratory Improvement Amendments of 198 8.TACROLIMUS [id number] 13:23:00* Test Item Value Reference Range Comments TACROLIMUS BLOOD (BEAKER) (test fjbc=647) 8.7 ng/mL 10.0-20.0 [id number] 08:41:00* Test Item Value Reference Range Comments PHOSPHORUS (BEAKER) (test dynz=655) 2.5 mg/dL 2.3-4.7 COMPREHENSIVE METABOLIC [id number] 08:41:00* Test Item Value Reference Range Comments TOTAL PROTEIN (BEAKER) (test gogj=247) 6.0 gm/dL 6.0-8.3 ALBUMIN (BEAKER) (test gurj=0913) 3.7 g/dL 3.5-5.0 ALKALINE PHOSPHATASE (BEAKER) (test zhaa=878) 93 U/L 40-150 BILIRUBIN TOTAL (BEAKER) (test nmja=650) 0.5 mg/dL 0.2-1.2 SODIUM (BEAKER) (test tkfa=534) 143 meq/L 136-145 POTASSIUM (BEAKER) (test axay=217) 3.6 meq/L 3.5-5.1 CHLORIDE (BEAKER) (test cvdn=837) 113 meq/L 98-107 CO2 (BEAKER) (test llcx=234) 21 meq/L 22-29 BLOOD UREA NITROGEN (BEAKER) (test edsx=807) 22 mg/dL 7-21 CREATININE (BEAKER) (test wlcb=193) 1.03 mg/dL 0.57-1.25 GLUCOSE RANDOM (BEAKER) (test gzbd=168) 123 mg/dL 70-105 CALCIUM (BEAKER) (test mwfb=304) 9.4 mg/dL 8.4-10.2 AST (SGOT) (BEAKER) (test bqob=919) 62 U/L 5-34 ALT (SGPT) (BEAKER) (test cnka=447) 64 U/L 6-55 EGFR (BEAKER) (test kwom=1848) 72 mL/min/1.73 sq m ESTIMATED GFR IS NOT ACCURATE CREATININE CLEARANCE IN PREDICTING GLOMERULAR FILTRATION RATE. ESTIMATED GFR IS NOT APPLICABLE FOR DIALYSIS PATIENTS. LACTATE DEHYDROGENASE (LDH)2017-11-13 08:41:00* Test Item Value Reference Range Comments LACTATE DEHYDROGENASE (BEAKER) (test vgpo=157) 195 U/L 125-220 URINALYSIS W/ REFLEX URINE [id number] 08:34:00* Test Item Value Reference Range Comments COLOR (BEAKER) (test hmxl=370) Light Yellow CLARITY (BEAKER) (test qcxr=833) Clear SPECIFIC GRAVITY UA (BEAKER) (test faxx=124) 1.006 1.001-1.035 PH UA (BEAKER) (test shfi=685) 5.0 5.0-8.0 PROTEIN UA (BEAKER) (test lrbq=683) Negative Negative GLUCOSE UA (BEAKER) (test jbir=046) Negative Negative KETONES UA (BEAKER) (test jitd=485) Negative Negative BILIRUBIN UA (BEAKER) (test fxgg=811) Negative Negative BLOOD UA (BEAKER) (test vbxh=335) Negative Negative NITRITE UA (BEAKER) (test zfgu=764) Negative Negative LEUKOCYTE ESTERASE UA (BEAKER) (test hiws=722) Negative Negative UROBILINOGEN UA (BEAKER) (test ortp=398) 0.2 mg/dL 0.2-1.0 RBC UA (BEAKER) (test jvoo=048) < /HPF WBC UA (BEAKER) (test tytu=769) 1 /HPF SQUAMOUS EPITHELIAL (BEAKER) (test raxm=239) < /HPF SOURCE(BEAKER) (test rmnu=5638) CBC W/PLT COUNT & AUTO [id number] 08:10:00* Test Item Value Reference Range Comments WHITE BLOOD CELL COUNT (BEAKER) (test zpkg=703) 3.2 K/ L 3.5-10.5 RED BLOOD CELL COUNT (BEAKER) (test cryv=342) 3.89 M/ L 4.63-6.08 HEMOGLOBIN (BEAKER) (test duzt=943) 11.1 GM/DL 13.7-17.5 HEMATOCRIT (BEAKER) (test ocuy=697) 36.7 % 40.1-51.0 MEAN CORPUSCULAR VOLUME (BEAKER) (test catd=251) 94.3 fL 79.0-92.2 MEAN CORPUSCULAR HEMOGLOBIN (BEAKER) (test ltcw=560) 28.5 pg 25.7-32.2 MEAN CORPUSCULAR HEMOGLOBIN CONC (BEAKER) (test apsi=865) 30.2 GM/DL 32.3-36.5 RED CELL DISTRIBUTION WIDTH (BEAKER) (test xwhx=891) 16.5 % 11.6-14.4 PLATELET COUNT (BEAKER) (test mhup=961) 107 K/CU MM 150-450 MEAN PLATELET VOLUME (BEAKER) (test sftf=620) 10.5 fL 9.4-12.4 NUCLEATED RED BLOOD CELLS (BEAKER) (test zdqe=060) 0 /100 WBC 0-0 NEUTROPHILS RELATIVE PERCENT (BEAKER) (test pcjd=720) 52 % LYMPHOCYTES RELATIVE PERCENT (BEAKER) (test oiln=612) 31 % MONOCYTES RELATIVE PERCENT (BEAKER) (test fprm=742) 8 % EOSINOPHILS RELATIVE PERCENT (BEAKER) (test zjde=647) 2 % BASOPHILS RELATIVE PERCENT (BEAKER) (test pznc=731) 2 % NEUTROPHILS ABSOLUTE COUNT (BEAKER) (test awqp=494) 1.69 K/ L 1.78-5.38 LYMPHOCYTES ABSOLUTE COUNT (BEAKER) (test glvf=869) 1.01 K/ L 1.32-3.57 MONOCYTES ABSOLUTE COUNT (BEAKER) (test pfki=761) 0.26 K/ L 0.30-0.82 EOSINOPHILS ABSOLUTE COUNT (BEAKER) (test erit=901) 0.06 K/ L 0.04-0.54 BASOPHILS ABSOLUTE COUNT (BEAKER) (test rodj=014) 0.06 K/ L 0.01-0.08 IMMATURE GRANULOCYTES-RELATIVE PERCENT (BEAKER) (test swlx=8861) 5 % 0-1 BK VIRUS PCR, [id number] 16:08:00* Test Item Value Reference Range Comments BK VIRUS, PLASMA, NEG (BEAKER) (test rggf=9533) Negative or below the linear range of the assay (<1,000 copies/mL) Patients may have replicating BK Virus which is of no clinical significance. Vi ral load measurements are helpful to identify BK Virus replication of potential clinical significance. Consensus recommendations have been published of thresho ld values for the presumptive diagnosis of polyomavirus-associated nephropathy ( Transplantation 2005;79:8116-5204).A BK Virus load greater than 5,000-10,000 telescope maintenance ies/mL in the plasma is consistent with the presumptive diagnosis of polyoma-ass ociated nephropathy in renal transplant recipients.BK Virus DNA was assessed usi ng quantitative polymerase chain reaction and fluorescent monitoring of a specif ic hybridized probe. Genetic variation and other factors can affect the accurac y of nucleic acid testing. Therefore, the results should be interpreted in lig t of clinical data.This test was developed and its performance characteristics d etermined by the [facility] Pathology Department, Section of [facility] Pathology. It has not been cleared or approved by the U.S. Food and Drug Administration (FDA). Since FDA approval is not required for clinical use of th e test, validation was done as required by the Clinical Laboratory Improvement A mendments of 1988.CMV PCR, [id number] 14:26:00* Test Item Value Reference Range Comments CMV VIRAL LOAD - NEGATIVE (JOSÉ MIGUELAKER) (test pfpm=4293) Negative or below the linear range of the assay (<375 copies/mL) Cytomegalovirus (CMV) infection can cause significant disease in immunosuppresse d patients. However, it is common for CMV to manifest as a limited infection whi ch is of no clinical significance in immunosuppressed patients or in healthy ind ividuals.Viral load measurements are helpful to identify clinical CMV infection and to guide the pre-emptive management of antiviral therapy. For treatment of CMV infection due to reactivation in transplant recipients, a threshold between 4,000 and 5,000 copies/mL is suggested. For treatment of primary CMV infection, a lower threshold can be used.CMV infection may also be monitored using weekly serial measurements. Serial measurements of CMV DNA viral load can be evaluated by identifying a 10-fold change, as well as assessing the CMV DNA viral load and the clinical context for each patient.The plasma CMV DNA viral load was detected using quantitative polymerase chain reaction and fluorescent monitoring of a s pecific hybridized probe. Genetic variation and other factors can affect the acc uracy of nucleic acid testing. Therefore, the results should be interpreted in l ight of clinical data. A negative result may not exclude the presence of CMV dis ease.This test was developed and its performance characteristics determined by [facility]i mcnulty [facility] Pathology Department, Section of Molecular Patholog y. It has not been cleared or approved by the U.S. Food and Drug Administration (FDA), since FDA approval is not required for clinical use of the test. Validati on was done as required by The Clinical Laboratory Improvement Amendments of 198 8.TACROLIMUS [id number] 12:34:00* Test Item Value Reference Range Comments TACROLIMUS BLOOD (BEAKER) (test xzmd=002) 9.4 ng/mL 10.0-20.0 URINALYSIS W/ REFLEX URINE [id number] 10:18:00* Test Item Value Reference Range Comments COLOR (BEAKER) (test pkbk=250) Yellow CLARITY (BEAKER) (test cyio=095) Clear SPECIFIC GRAVITY UA (BEAKER) (test dizh=107) 1.018 1.001-1.035 PH UA (BEAKER) (test cspm=375) 6.0 5.0-8.0 PROTEIN UA (BEAKER) (test sjff=537) 10 mg/dL Negative GLUCOSE UA (BEAKER) (test eppo=972) Negative Negative KETONES UA (BEAKER) (test twuf=061) Negative Negative BILIRUBIN UA (BEAKER) (test bfas=116) Negative Negative BLOOD UA (BEAKER) (test rtjv=592) Negative Negative NITRITE UA (BEAKER) (test gytn=709) Negative Negative LEUKOCYTE ESTERASE UA (BEAKER) (test jpxg=133) Trace Negative UROBILINOGEN UA (BEAKER) (test iajx=167) 0.2 mg/dL 0.2-1.0 RBC UA (BEAKER) (test uiwl=291) 1 /HPF WBC UA (BEAKER) (test hiku=759) 7 /HPF MUCUS (BEAKER) (test zggq=3357) Rare SQUAMOUS EPITHELIAL (BEAKER) (test fnlr=833) 1 /HPF SOURCE(BEAKER) (test gutl=9602) [id number] 09:27:00* Test Item Value Reference Range Comments PHOSPHORUS (BEAKER) (test scrr=970) 2.1 mg/dL 2.3-4.7 COMPREHENSIVE METABOLIC [id number] 09:27:00* Test Item Value Reference Range Comments TOTAL PROTEIN (BEAKER) (test njqj=230) 5.8 gm/dL 6.0-8.3 ALBUMIN (BEAKER) (test sibx=6050) 3.5 g/dL 3.5-5.0 ALKALINE PHOSPHATASE (BEAKER) (test lpem=786) 80 U/L 40-150 BILIRUBIN TOTAL (BEAKER) (test leks=374) 0.4 mg/dL 0.2-1.2 SODIUM (BEAKER) (test twpu=725) 142 meq/L 136-145 POTASSIUM (BEAKER) (test qzcq=579) 4.0 meq/L 3.5-5.1 CHLORIDE (BEAKER) (test aege=512) 109 meq/L 98-107 CO2 (BEAKER) (test ihun=104) 25 meq/L 22-29 BLOOD UREA NITROGEN (BEAKER) (test umzr=979) 22 mg/dL 7-21 CREATININE (BEAKER) (test sxui=367) 0.96 mg/dL 0.57-1.25 GLUCOSE RANDOM (BEAKER) (test luwa=038) 99 mg/dL 70-105 CALCIUM (BEAKER) (test xyba=870) 9.5 mg/dL 8.4-10.2 AST (SGOT) (BEAKER) (test kark=961) 38 U/L 5-34 ALT (SGPT) (BEAKER) (test fvbt=340) 25 U/L 6-55 EGFR (BEAKER) (test hkiq=3835) 79 mL/min/1.73 sq m ESTIMATED GFR IS NOT ACCURATE CREATININE CLEARANCE IN PREDICTING GLOMERULAR FILTRATION RATE. ESTIMATED GFR IS NOT APPLICABLE FOR DIALYSIS PATIENTS. LACTATE DEHYDROGENASE (LDH)2017-10-30 09:27:00* Test Item Value Reference Range Comments LACTATE DEHYDROGENASE (BEAKER) (test jvaj=476) 163 U/L 125-220 CBC W/PLT COUNT & AUTO [id number] 08:47:00* Test Item Value Reference Range Comments WHITE BLOOD CELL COUNT (BEAKER) (test hgav=001) 4.2 K/ L 3.5-10.5 RED BLOOD CELL COUNT (BEAKER) (test hpoc=470) 3.77 M/ L 4.63-6.08 HEMOGLOBIN (BEAKER) (test pgyi=268) 10.4 GM/DL 13.7-17.5 HEMATOCRIT (BEAKER) (test vncj=540) 35.5 % 40.1-51.0 MEAN CORPUSCULAR VOLUME (BEAKER) (test oypk=250) 94.2 fL 79.0-92.2 MEAN CORPUSCULAR HEMOGLOBIN (BEAKER) (test yqqv=156) 27.6 pg 25.7-32.2 MEAN CORPUSCULAR HEMOGLOBIN CONC (BEAKER) (test vrkj=739) 29.3 GM/DL 32.3-36.5 RED CELL DISTRIBUTION WIDTH (BEAKER) (test lshb=208) 16.0 % 11.6-14.4 PLATELET COUNT (BEAKER) (test ypps=039) 202 K/CU MM 150-450 MEAN PLATELET VOLUME (BEAKER) (test scua=617) 10.1 fL 9.4-12.4 NUCLEATED RED BLOOD CELLS (BEAKER) (test ugxa=698) 0 /100 WBC 0-0 NEUTROPHILS RELATIVE PERCENT (BEAKER) (test sise=421) 62 % LYMPHOCYTES RELATIVE PERCENT (BEAKER) (test ewxn=090) 27 % MONOCYTES RELATIVE PERCENT (BEAKER) (test bgnn=959) 8 % EOSINOPHILS RELATIVE PERCENT (BEAKER) (test dqez=284) 1 % BASOPHILS RELATIVE PERCENT (BEAKER) (test bahh=793) 2 % NEUTROPHILS ABSOLUTE COUNT (BEAKER) (test qvds=160) 2.61 K/ L 1.78-5.38 LYMPHOCYTES ABSOLUTE COUNT (BEAKER) (test rcwu=225) 1.11 K/ L 1.32-3.57 MONOCYTES ABSOLUTE COUNT (BEAKER) (test jble=021) 0.33 K/ L 0.30-0.82 EOSINOPHILS ABSOLUTE COUNT (BEAKER) (test epqb=860) 0.03 K/ L 0.04-0.54 BASOPHILS ABSOLUTE COUNT (BEAKER) (test kqdw=794) 0.07 K/ L 0.01-0.08 IMMATURE GRANULOCYTES-RELATIVE PERCENT (BEAKER) (test rdnz=5501) 1 % 0-1 BLOOD [id number] 06:00:00* Test Item Value Reference Range Comments CULTURE (BEAKER) (test hfgl=1120) No growth in 5 days BLOOD [id number] 06:00:00* Test Item Value Reference Range Comments CULTURE (BEAKER) (test clpy=2655) No growth in 5 days BLOOD [id number] 05:32:00* Test Item Value Reference Range Comments CULTURE (BEAKER) (test jefb=0134) ESCHERICHIA COLI From Aerobic Bottle Only Escherichia coli Amikacin (test code=1) Ampicillin + Sulbactam (test code=6) Aztreonam (test code=32) Cefepime (test code=51) Cefoxitin (test code=68) Ceftazidime (test code=27) Ceftriaxone (test code=52) Ertapenem (test code=38) Gentamicin (test code=18) Levofloxacin (test code=22) Meropenem (test code=34) Nitrofurantoin (test code=23) Piperacillin + Tazobactam (test code=29) Tetracycline (test code=2) Tobramycin (test code=25) Trimethoprim + Sulfamethoxazole (test code=47) GRAM STAIN RESULT (BEAKER) (test gplh=6078) From aerobic bottle only: gram negative rods ESCHERICHIA COLI DETECTEDKPC (a carbapenamase gene) not detectedFirst line thera py: meropenem. De-escalate based on susceptibilitiesThis test does not evaluate for ESBLOther organisms and resistance markers not contained in this PCR panel c annot be excluded and follow-up of traditional culture results is required. This sample was tested at the [facility] Clinical Microbiology Laboratory using the [employer] Blood Culture ID Panel. This test is FDA cleared for in vitro diagn ostic use and has been verified and approved by the [facility] Clinical Microbiology laboratory for clinical use. Reference Range: Not DetectedBLOOD CULTURE 2017-10-23 18:00:00* Test Item Value Reference Range Comments CULTURE (BEAKER) (test cdkf=8149) No growth in 5 days TACROLIMUS [id number] 10:01:00* Test Item Value Reference Range Comments TACROLIMUS BLOOD (BEAKER) (test cddr=421) 9.2 ng/mL 10.0-20.0 [id number] 07:03:00* Test Item Value Reference Range Comments MAGNESIUM (BEAKER) (test nczd=628) 1.7 mg/dL 1.6-2.6 BASIC METABOLIC [id number] 07:03:00* Test Item Value Reference Range Comments SODIUM (BEAKER) (test sosj=176) 141 meq/L 136-145 POTASSIUM (BEAKER) (test evtb=405) 4.7 meq/L 3.5-5.1 CHLORIDE (BEAKER) (test jvtk=843) 111 meq/L 98-107 CO2 (BEAKER) (test ckaf=285) 25 meq/L 22-29 BLOOD UREA NITROGEN (BEAKER) (test vfdd=507) 15 mg/dL 7-21 CREATININE (BEAKER) (test xfyp=732) 0.77 mg/dL 0.57-1.25 GLUCOSE RANDOM (BEAKER) (test azgk=900) 76 mg/dL 70-105 CALCIUM (BEAKER) (test iymg=723) 9.0 mg/dL 8.4-10.2 EGFR (BEAKER) (test jcqn=0129) 101 mL/min/1.73 sq m ESTIMATED GFR IS NOT ACCURATE CREATININE CLEARANCE IN PREDICTING GLOMERULAR FILTRATION RATE. ESTIMATED GFR IS NOT APPLICABLE FOR DIALYSIS PATIENTS. CBC W/PLT COUNT & AUTO [id number] 06:57:00* Test Item Value Reference Range Comments WHITE BLOOD CELL COUNT (BEAKER) (test ojhh=158) 3.5 K/ L 3.5-10.5 RED BLOOD CELL COUNT (BEAKER) (test hiof=108) 3.36 M/ L 4.63-6.08 HEMOGLOBIN (BEAKER) (test edso=125) 9.2 GM/DL 13.7-17.5 HEMATOCRIT (BEAKER) (test kaaf=593) 30.9 % 40.1-51.0 MEAN CORPUSCULAR VOLUME (BEAKER) (test upbr=435) 92.0 fL 79.0-92.2 MEAN CORPUSCULAR HEMOGLOBIN (BEAKER) (test pqdl=748) 27.4 pg 25.7-32.2 MEAN CORPUSCULAR HEMOGLOBIN CONC (BEAKER) (test unxr=592) 29.8 GM/DL 32.3-36.5 RED CELL DISTRIBUTION WIDTH (BEAKER) (test gmvb=984) 15.8 % 11.6-14.4 PLATELET COUNT (BEAKER) (test torq=231) 95 K/CU MM 150-450 MEAN PLATELET VOLUME (BEAKER) (test vnmd=669) 10.0 fL 9.4-12.4 NUCLEATED RED BLOOD CELLS (BEAKER) (test ojeo=672) 0 /100 WBC 0-0 NEUTROPHILS RELATIVE PERCENT (BEAKER) (test csjd=347) 73 % LYMPHOCYTES RELATIVE PERCENT (BEAKER) (test alrc=533) 16 % MONOCYTES RELATIVE PERCENT (BEAKER) (test egge=222) 9 % EOSINOPHILS RELATIVE PERCENT (BEAKER) (test wxnq=226) 1 % BASOPHILS RELATIVE PERCENT (BEAKER) (test nrwv=248) 1 % NEUTROPHILS ABSOLUTE COUNT (BEAKER) (test sqsy=226) 2.56 K/ L 1.78-5.38 LYMPHOCYTES ABSOLUTE COUNT (BEAKER) (test hwxl=437) 0.55 K/ L 1.32-3.57 MONOCYTES ABSOLUTE COUNT (BEAKER) (test fszn=915) 0.31 K/ L 0.30-0.82 EOSINOPHILS ABSOLUTE COUNT (BEAKER) (test qhdv=717) 0.04 K/ L 0.04-0.54 BASOPHILS ABSOLUTE COUNT (BEAKER) (test jqua=851) 0.05 K/ L 0.01-0.08 IMMATURE GRANULOCYTES-RELATIVE PERCENT (BEAKER) (test nslp=0269) 1 % 0-1 TACROLIMUS [id number] 17:13:00* Test Item Value Reference Range Comments TACROLIMUS BLOOD (BEAKER) (test nhku=921) 12.5 ng/mL 10.0-20.0 CT, ABDOMEN - PELVIS, RENAL STONE EVAL, WITHOUT IV [id number] 10:01:00 Reason for exam:->recurrant UTIFINAL REPORT CT scan of the abdomen and pelvis. CLINICAL HISTORY: Recurrent UTI. COMPARISON STUDY: CT scan of the chest dated October 15, 2017 and CTA of the abdomen and pelvis dated August 09, 2016. TECHNIQUE: Contiguous helical slices were acquired through the abdomen and pelvis without the administration of oral or intravenous contrast. This exam was performed according to our department dose optimization program which includes automated exposure control, adjustment of the mA and/or kV according to the patient's size and/or use of iterative reconstruction technique. FINDINGS: Cardiomegaly and atherosclerosis are seen with a pacer device in place. There are trace pleural effusions adjacent atelectasis or consolidation. The abdomen and pelvis are limited by lack of contrast. The liver is unremarkable. The spleen is mildly enlarged measuring 13.3 cm in length. The pancreas is unremarkable. Areas of adrenal nodularity are seen measuring up to 1.5 cm on the right side where an adenoma is seen. Both [place] kidneys are atrophic and end-stage in appearance. There is a 5 mm exophytic lesion in the [place] right kidney, too small to characterize. Cholecystectomy clips are seen with no biliary dilatation. There are no dilated loops of bowel seen to suggest obstruction. Post surgical changes are seen likely related to gastric bypass. A transplant kidney is seen in the right iliac fossa. Areas of fatty stranding are seen along the inferior aspect of the kidney with a small amount of ill-defined fluid. An IVC filter is noted. Trace free fluid is present. There is extensive diffuse anasarca. The aorta is normal in caliber. Atherosclerosis is seen. No suspicious adenopathy is noted. Bone windows demonstrate degenerative changes. IMPRESSION:1. Bilateral trace pleural effusions with adjacent atelectasis or consolidation.2. Study limited by lack of contrast.3. Bilateral adrenal nodula rity including right adrenal adenoma.4. Atrophic [place] kidneys with a small exo phytic lesion in the right kidney, incompletely characterized on this noncontras t study.5. Diffuse anasarca.6. Fatty stranding and small amount of ill-defined f luid adjacent to the inferior pole of the right kidney. Signed: Kevin Gresham MDReport Verified Date/Time: 10/21/2017 10:01:27 Reading Location: [place] [id number] CT Body Reading Room Electronically signed by: KEVIN GRESHAM M.D. on 01/2018 10:01 AM [id number] 07:33:00* Test Item Value Reference Range Comments PROSTATE SPECIFIC ANTIGEN (BEAKER) (test yyjf=634) 3.5 ng/mL 0.0-4.0 [id number] 07:05:00* Test Item Value Reference Range Comments MAGNESIUM (BEAKER) (test qhrq=005) 1.3 mg/dL 1.6-2.6 BASIC METABOLIC [id number] 07:05:00* Test Item Value Reference Range Comments SODIUM (BEAKER) (test gxsl=330) 139 meq/L 136-145 POTASSIUM (BEAKER) (test bmfb=719) 3.8 meq/L 3.5-5.1 CHLORIDE (BEAKER) (test scqp=568) 107 meq/L 98-107 CO2 (BEAKER) (test tsdj=075) 22 meq/L 22-29 BLOOD UREA NITROGEN (BEAKER) (test ltwo=884) 18 mg/dL 7-21 CREATININE (BEAKER) (test nzhg=986) 0.83 mg/dL 0.57-1.25 GLUCOSE RANDOM (BEAKER) (test ymqn=690) 112 mg/dL 70-105 CALCIUM (BEAKER) (test mzzb=493) 9.1 mg/dL 8.4-10.2 EGFR (BEAKER) (test zyih=8172) 93 mL/min/1.73 sq m ESTIMATED GFR IS NOT ACCURATE CREATININE CLEARANCE IN PREDICTING GLOMERULAR FILTRATION RATE. ESTIMATED GFR IS NOT APPLICABLE FOR DIALYSIS PATIENTS. HEPATIC FUNCTION [id number] 07:05:00* Test Item Value Reference Range Comments TOTAL PROTEIN (BEAKER) (test yfge=026) 5.4 gm/dL 6.0-8.3 ALBUMIN (BEAKER) (test lwwx=5062) 3.1 g/dL 3.5-5.0 BILIRUBIN TOTAL (BEAKER) (test brnt=644) 0.4 mg/dL 0.2-1.2 BILIRUBIN DIRECT (BEAKER) (test ivwe=625) 0.2 mg/dL 0.1-0.5 ALKALINE PHOSPHATASE (BEAKER) (test sxrd=376) 84 U/L 40-150 AST (SGOT) (BEAKER) (test zibz=141) 18 U/L 5-34 ALT (SGPT) (BEAKER) (test pdxu=263) 15 U/L 6-55 CBC W/PLT COUNT & AUTO [id number] 06:23:00* Test Item Value Reference Range Comments WHITE BLOOD CELL COUNT (BEAKER) (test bxuw=268) 3.7 K/ L 3.5-10.5 RED BLOOD CELL COUNT (BEAKER) (test tibg=161) 3.47 M/ L 4.63-6.08 HEMOGLOBIN (BEAKER) (test jmgz=392) 9.7 GM/DL 13.7-17.5 HEMATOCRIT (BEAKER) (test swrn=514) 31.7 % 40.1-51.0 MEAN CORPUSCULAR VOLUME (BEAKER) (test rtle=843) 91.4 fL 79.0-92.2 MEAN CORPUSCULAR HEMOGLOBIN (BEAKER) (test pkrs=787) 28.0 pg 25.7-32.2 MEAN CORPUSCULAR HEMOGLOBIN CONC (BEAKER) (test uero=967) 30.6 GM/DL 32.3-36.5 RED CELL DISTRIBUTION WIDTH (BEAKER) (test ldzj=391) 15.9 % 11.6-14.4 PLATELET COUNT (BEAKER) (test qvtx=932) 103 K/CU MM 150-450 MEAN PLATELET VOLUME (BEAKER) (test tato=572) 10.3 fL 9.4-12.4 NUCLEATED RED BLOOD CELLS (BEAKER) (test mhqy=756) 0 /100 WBC 0-0 NEUTROPHILS RELATIVE PERCENT (BEAKER) (test iwat=211) 72 % LYMPHOCYTES RELATIVE PERCENT (BEAKER) (test yxup=374) 17 % MONOCYTES RELATIVE PERCENT (BEAKER) (test yihr=709) 9 % EOSINOPHILS RELATIVE PERCENT (BEAKER) (test awvp=724) 2 % BASOPHILS RELATIVE PERCENT (BEAKER) (test vdfp=039) 1 % NEUTROPHILS ABSOLUTE COUNT (BEAKER) (test wpwu=032) 2.62 K/ L 1.78-5.38 LYMPHOCYTES ABSOLUTE COUNT (BEAKER) (test oumi=917) 0.61 K/ L 1.32-3.57 MONOCYTES ABSOLUTE COUNT (BEAKER) (test hfif=530) 0.31 K/ L 0.30-0.82 EOSINOPHILS ABSOLUTE COUNT (BEAKER) (test aqwq=517) 0.06 K/ L 0.04-0.54 BASOPHILS ABSOLUTE COUNT (BEAKER) (test rcpi=343) 0.03 K/ L 0.01-0.08 IMMATURE GRANULOCYTES-RELATIVE PERCENT (BEAKER) (test pzdb=9333) 1 % 0-1 U/S, TRANSPLANT, [id number] 00:44:00Reason for exam:->bacteremia, UTIFINAL REPORT Exam: Ultrasound transplant kidney Clinical History: bacteremia, UTI . Status post renal transplant August 2017. Comparison: Renal transplant ultrasound 10/02/2017. Technique: Renal transplant ultrasound w as performed with duplex Doppler. Findings: There is a right lower quadrant ameena l transplant graft which measures 11.9 x 6.4 x 6.8 cm with cortical thickness of 1.7 cm. There is mild hydronephrosis. There is no perinephric collection or sha dowing stone. There is no perfusion defect. The urinary bladder is mildly disten ded with a volume of 64 cc. Color and spectral Doppler evaluation of the transpl ant kidney demonstrates patency and normal vascular waveforms of the external il iac artery, arterial anastomosis, main renal artery, external iliac vein, venous anastomosis, and main renal vein. There is no velocity gradient to suggest sign ificant stenosis. The peak arterial systolic velocity in the iliac limb above t he anastomosis is 47.5 cm/sec, 131 cm/sec at the anastomosis and 36.5 cm/sec in the main renal artery. The peak venous systolic velocity is 29.0 cm/sec at the i liac limb above the anastomosis, 46.8 cm/sec at the anastomosis and 32.9 cm/sec in the main renal vein. The resistive indices in the upper, inter and lower oscar r regions are 0.74, 0.72 and 0.69 respectively. The acceleration times and accel eration indices are normal. Impression:Mild hydronephrosis of the transplant gra ft.Normal Doppler evaluation of the renal transplant. Signed: Quirino Billingsley Verified Date/Time: 10/21/2017 00:44:25 Reading Location: [address] Transitional Reading Room OLIMUS [id number] 14:51:00* Test Item Value Reference Range Comments TACROLIMUS BLOOD (BEAKER) (test akno=711) 11.3 ng/mL 10.0-20.0 MISCELLANEOUS LAB [id number] 13:56:00* Test Item Value Reference Range Comments SCAN RESULT (test vgii=[id number]) Result comments: ESCHERICHIA COLI DETECTED KPC (a carbapenamase gene) not detect ed First line therapy: meropenem. De-escalate based on susceptibilities This rosalind t does not evaluate for ESBL Other organisms and resistance markers not containe d in this PCR panel cannot be excluded and follow-up of traditional culture resu lts is required. This sample was tested at the [facility] Clinical Microbiology Labor atory using the [place] Blood Culture ID Panel. This test is FDA clear ed for in vitro diagnostic use and has been verified and approved by the [facility] C linical Microbiology laboratory for clinical use. Reference Range: Not Detected URINE [id number] 08:44:00* Test Item Value Reference Range Comments CULTURE (BEAKER) (test jkfv=9229) >100,000 col/mL Same organism has been isolated from cultures(s) of the same body site within 3 days. Repeat identification and susceptibility testing performed only after consultation with the clinical microbiology laboratory.Refer to previous culture ofEscherichia coli HEPATIC FUNCTION [id number] 06:51:00* Test Item Value Reference Range Comments TOTAL PROTEIN (BEAKER) (test llkb=722) 5.2 gm/dL 6.0-8.3 ALBUMIN (BEAKER) (test hfyc=6047) 3.0 g/dL 3.5-5.0 BILIRUBIN TOTAL (BEAKER) (test htkt=805) 0.4 mg/dL 0.2-1.2 BILIRUBIN DIRECT (BEAKER) (test vwsl=771) 0.2 mg/dL 0.1-0.5 ALKALINE PHOSPHATASE (BEAKER) (test txec=464) 85 U/L 40-150 AST (SGOT) (BEAKER) (test gsgl=169) 19 U/L 5-34 ALT (SGPT) (BEAKER) (test eqkf=643) 16 U/L 6-55 BASIC METABOLIC [id number] 06:51:00* Test Item Value Reference Range Comments SODIUM (BEAKER) (test bkbc=572) 141 meq/L 136-145 POTASSIUM (BEAKER) (test weii=665) 4.1 meq/L 3.5-5.1 CHLORIDE (BEAKER) (test rbbm=606) 110 meq/L 98-107 CO2 (BEAKER) (test cgcz=111) 23 meq/L 22-29 BLOOD UREA NITROGEN (BEAKER) (test psdy=593) 19 mg/dL 7-21 CREATININE (BEAKER) (test ruun=906) 0.82 mg/dL 0.57-1.25 GLUCOSE RANDOM (BEAKER) (test ifpz=367) 84 mg/dL 70-105 CALCIUM (BEAKER) (test qzhb=573) 9.0 mg/dL 8.4-10.2 EGFR (BEAKER) (test cwnm=6705) 94 mL/min/1.73 sq m ESTIMATED GFR IS NOT ACCURATE CREATININE CLEARANCE IN PREDICTING GLOMERULAR FILTRATION RATE. ESTIMATED GFR IS NOT APPLICABLE FOR DIALYSIS PATIENTS. CBC W/PLT COUNT & AUTO [id number] 06:31:00* Test Item Value Reference Range Comments WHITE BLOOD CELL COUNT (BEAKER) (test outr=100) 3.1 K/ L 3.5-10.5 RED BLOOD CELL COUNT (BEAKER) (test jkjd=827) 3.47 M/ L 4.63-6.08 HEMOGLOBIN (BEAKER) (test yabf=197) 9.7 GM/DL 13.7-17.5 HEMATOCRIT (BEAKER) (test sqow=052) 31.9 % 40.1-51.0 MEAN CORPUSCULAR VOLUME (BEAKER) (test xypd=800) 91.9 fL 79.0-92.2 MEAN CORPUSCULAR HEMOGLOBIN (BEAKER) (test xlwr=640) 28.0 pg 25.7-32.2 MEAN CORPUSCULAR HEMOGLOBIN CONC (BEAKER) (test curb=588) 30.4 GM/DL 32.3-36.5 RED CELL DISTRIBUTION WIDTH (BEAKER) (test smrp=145) 15.9 % 11.6-14.4 PLATELET COUNT (BEAKER) (test ofyp=224) 95 K/CU MM 150-450 MEAN PLATELET VOLUME (BEAKER) (test nveq=460) 10.2 fL 9.4-12.4 NUCLEATED RED BLOOD CELLS (BEAKER) (test rxfe=683) 0 /100 WBC 0-0 NEUTROPHILS RELATIVE PERCENT (BEAKER) (test opbr=135) 73 % LYMPHOCYTES RELATIVE PERCENT (BEAKER) (test ydav=932) 12 % MONOCYTES RELATIVE PERCENT (BEAKER) (test tnbi=588) 13 % EOSINOPHILS RELATIVE PERCENT (BEAKER) (test klon=960) 2 % BASOPHILS RELATIVE PERCENT (BEAKER) (test oeuh=736) 1 % NEUTROPHILS ABSOLUTE COUNT (BEAKER) (test anyg=139) 2.21 K/ L 1.78-5.38 LYMPHOCYTES ABSOLUTE COUNT (BEAKER) (test ihon=296) 0.37 K/ L 1.32-3.57 MONOCYTES ABSOLUTE COUNT (BEAKER) (test gxnj=184) 0.39 K/ L 0.30-0.82 EOSINOPHILS ABSOLUTE COUNT (BEAKER) (test noyn=123) 0.05 K/ L 0.04-0.54 BASOPHILS ABSOLUTE COUNT (BEAKER) (test gnzg=228) 0.02 K/ L 0.01-0.08 IMMATURE GRANULOCYTES-RELATIVE PERCENT (BEAKER) (test ryix=5336) 0 % 0-1 HEMOGLOBIN [id number] 13:19:00* Test Item Value Reference Range Comments HEMOGLOBIN A1C (BEAKER) (test sddh=956) 4.5 % 4.3-6.1 TACROLIMUS [id number] 12:36:00* Test Item Value Reference Range Comments TACROLIMUS BLOOD (BEAKER) (test exxq=973) 8.2 ng/mL 10.0-20.0 CBC W/PLT COUNT & AUTO [id number] 11:02:00* Test Item Value Reference Range Comments WHITE BLOOD CELL COUNT (BEAKER) (test ggtk=139) 2.8 K/ L 3.5-10.5 RED BLOOD CELL COUNT (BEAKER) (test wdke=671) 3.12 M/ L 4.63-6.08 HEMOGLOBIN (BEAKER) (test kcnj=296) 8.8 GM/DL 13.7-17.5 HEMATOCRIT (BEAKER) (test wbpm=601) 28.5 % 40.1-51.0 MEAN CORPUSCULAR VOLUME (BEAKER) (test oxgi=495) 91.3 fL 79.0-92.2 MEAN CORPUSCULAR HEMOGLOBIN (BEAKER) (test euvo=240) 28.2 pg 25.7-32.2 MEAN CORPUSCULAR HEMOGLOBIN CONC (BEAKER) (test tapo=197) 30.9 GM/DL 32.3-36.5 RED CELL DISTRIBUTION WIDTH (BEAKER) (test uyhp=877) 15.8 % 11.6-14.4 PLATELET COUNT (BEAKER) (test xlch=901) 77 K/CU MM 150-450 MEAN PLATELET VOLUME (BEAKER) (test tyjt=426) 10.4 fL 9.4-12.4 NUCLEATED RED BLOOD CELLS (BEAKER) (test xlrk=636) 0 /100 WBC 0-0 HEPATIC FUNCTION [id number] 07:25:00* Test Item Value Reference Range Comments TOTAL PROTEIN (BEAKER) (test htfl=437) 4.8 gm/dL 6.0-8.3 ALBUMIN (BEAKER) (test iadt=0867) 2.8 g/dL 3.5-5.0 BILIRUBIN TOTAL (BEAKER) (test nncr=067) 0.6 mg/dL 0.2-1.2 BILIRUBIN DIRECT (BEAKER) (test tfby=189) 0.4 mg/dL 0.1-0.5 ALKALINE PHOSPHATASE (BEAKER) (test nqgu=597) 89 U/L 40-150 AST (SGOT) (BEAKER) (test zrwk=847) 17 U/L 5-34 ALT (SGPT) (BEAKER) (test ankb=383) 18 U/L 6-55 BASIC METABOLIC [id number] 07:25:00* Test Item Value Reference Range Comments SODIUM (BEAKER) (test qnnj=234) 137 meq/L 136-145 POTASSIUM (BEAKER) (test jqgo=614) 3.2 meq/L 3.5-5.1 CHLORIDE (BEAKER) (test wapy=595) 110 meq/L 98-107 CO2 (BEAKER) (test wbxq=499) 19 meq/L 22-29 BLOOD UREA NITROGEN (BEAKER) (test wuvn=324) 18 mg/dL 7-21 CREATININE (BEAKER) (test fajv=406) 0.78 mg/dL 0.57-1.25 GLUCOSE RANDOM (BEAKER) (test jmoj=311) 93 mg/dL 70-105 CALCIUM (BEAKER) (test aayq=020) 8.6 mg/dL 8.4-10.2 EGFR (BEAKER) (test weni=3379) 100 mL/min/1.73 sq m ESTIMATED GFR IS NOT ACCURATE CREATININE CLEARANCE IN PREDICTING GLOMERULAR FILTRATION RATE. ESTIMATED GFR IS NOT APPLICABLE FOR DIALYSIS PATIENTS. B-TYPE NATRIURETIC FACTOR (BNP)2017-10-19 07:22:00* Test Item Value Reference Range Comments B-TYPE NATRIURETIC PEPTIDE (BEAKER) (test qlaa=281) 832 pg/mL 0-100 RAD, CHEST, 1 VIEW, NON [id number] 18:04:00Reason for exam:->dyspnea on exertion/ Hx low EFShould this be performed at the bedside?->YesFINAL REPORT TECHNIQUE: Frontal view of the chest. INDICATION: 67-year-old man with dyspnea on exertion. COMPARISON: Chest radiograph 08/18/2017, chest CT 10/15/2017. FINDINGS: LINES/TUBES: Unchanged implanted cardiac device in the left chest with intact leads. LUNGS: Persistent scarring and atelectasis in the both lower lung zone. PLEURA: Unchanged trace bilateral pleural effusions and/or pleural thickening. No pneumothorax. HEART AND MEDIASTINUM: The car diomediastinal silhouette is prominent, but unchanged. Atherosclerotic calcifica tions in the thoracic aorta. SOFT TISSUES AND BONES: Curvilinear skinfolds proje ct over the right hemithorax. Unchanged anchors in the right humeral head. IMPR ESSION:No acute cardiopulmonary abnormalities. No significant change since chest CT dated 10/15/2017. Signed: Radha Banegaseport Verified Date/Time: 2017 18:04:16 Reading Location: [facility] C013Y CT Body Reading Room [facility] signed by: RADHA BANEGAS MD on 10/18/2017 06:04 PM FERRITIN 2017-10-18 15:53:00* Test Item Value Reference Range Comments FERRITIN (BEAKER) (test zayw=086) 1759 ng/mL 5-275 TSH/FREE T4 IF [id number] 15:53:00* Test Item Value Reference Range Comments THYROID STIMULATING HORMONE (BEAKER) (test bwng=358) 0.78 uIU/mL 0.35-4.94 B-TYPE NATRIURETIC FACTOR (BNP)2017-10-18 15:38:00* Test Item Value Reference Range Comments B-TYPE NATRIURETIC PEPTIDE (BEAKER) (test twvv=492) 580 pg/mL 0-100 PTH, [id number] 15:35:00* Test Item Value Reference Range Comments PARATHYROID HORMONE INTACT (BEAKER) (test duep=467) 283.7 pg/mL 8.5-72.5 IRON, TIBC, % SAT. (WITHOUT FERRITIN)2017-10-18 15:31:00* Test Item Value Reference Range Comments IRON (BEAKER) (test moju=188) 24 ug/dL 40-160 TOTAL IRON BINDING CAPACITY (BEAKER) (test izxk=687) 164 ug/dL 250-450 IRON % SATURATION (2) (BEAKER) (test npkl=6455) 15 % 20-55 URINALYSIS W/ [id number] 11:42:00* Test Item Value Reference Range Comments COLOR (BEAKER) (test uqmg=382) Yellow CLARITY (BEAKER) (test vmif=469) Hazy SPECIFIC GRAVITY UA (BEAKER) (test eufs=808) 1.017 1.001-1.035 PH UA (BEAKER) (test rssq=195) 6.0 5.0-8.0 PROTEIN UA (BEAKER) (test levx=629) 50 mg/dL Negative GLUCOSE UA (BEAKER) (test fodb=652) Negative Negative KETONES UA (BEAKER) (test wvfr=340) Negative Negative BILIRUBIN UA (BEAKER) (test pltp=551) Negative Negative BLOOD UA (BEAKER) (test vhcq=979) Small Negative NITRITE UA (BEAKER) (test vcsb=756) Positive Negative LEUKOCYTE ESTERASE UA (BEAKER) (test mrxe=941) Large Negative UROBILINOGEN UA (BEAKER) (test ypyq=485) 0.2 mg/dL 0.2-1.0 RBC UA (BEAKER) (test crje=397) 1 /HPF WBC UA (BEAKER) (test fbvh=217) 81 /HPF BACTERIA (BEAKER) (test dfeh=329) Many MUCUS (BEAKER) (test fbkf=4416) Many SQUAMOUS EPITHELIAL (BEAKER) (test tjch=896) 1 /HPF SOURCE(BEAKER) (test dlzj=3668) Urine, Voided CBC W/PLT COUNT & AUTO [id number] 11:24:00* Test Item Value Reference Range Comments WHITE BLOOD CELL COUNT (BEAKER) (test scvn=158) 5.1 K/ L 3.5-10.5 RED BLOOD CELL COUNT (BEAKER) (test xudn=655) 3.54 M/ L 4.63-6.08 HEMOGLOBIN (BEAKER) (test gfsu=631) 9.9 GM/DL 13.7-17.5 HEMATOCRIT (BEAKER) (test orwh=500) 32.6 % 40.1-51.0 MEAN CORPUSCULAR VOLUME (BEAKER) (test gcef=637) 92.1 fL 79.0-92.2 MEAN CORPUSCULAR HEMOGLOBIN (BEAKER) (test tbzq=725) 28.0 pg 25.7-32.2 MEAN CORPUSCULAR HEMOGLOBIN CONC (BEAKER) (test yfgi=159) 30.4 GM/DL 32.3-36.5 RED CELL DISTRIBUTION WIDTH (BEAKER) (test qzvy=369) 15.9 % 11.6-14.4 PLATELET COUNT (BEAKER) (test rzmi=296) 87 K/CU MM 150-450 MEAN PLATELET VOLUME (BEAKER) (test opqs=863) 10.8 fL 9.4-12.4 NUCLEATED RED BLOOD CELLS (BEAKER) (test htpr=934) 0 /100 WBC 0-0 BASIC METABOLIC [id number] 10:29:00* Test Item Value Reference Range Comments SODIUM (BEAKER) (test slzl=187) 139 meq/L 136-145 POTASSIUM (BEAKER) (test ijax=108) 3.8 meq/L 3.5-5.1 CHLORIDE (BEAKER) (test ibgl=461) 109 meq/L 98-107 CO2 (BEAKER) (test mdnf=575) 23 meq/L 22-29 BLOOD UREA NITROGEN (BEAKER) (test zhlf=348) 18 mg/dL 7-21 CREATININE (BEAKER) (test ptiu=408) 0.77 mg/dL 0.57-1.25 GLUCOSE RANDOM (BEAKER) (test dccf=637) 125 mg/dL 70-105 CALCIUM (BEAKER) (test lrlq=295) 9.0 mg/dL 8.4-10.2 EGFR (BEAKER) (test urwo=7372) 101 mL/min/1.73 sq m ESTIMATED GFR IS NOT ACCURATE CREATININE CLEARANCE IN PREDICTING GLOMERULAR FILTRATION RATE. ESTIMATED GFR IS NOT APPLICABLE FOR DIALYSIS PATIENTS. [id number] 10:16:00* Test Item Value Reference Range Comments PROTIME (BEAKER) (test kfbg=610) 20.8 seconds 11.7-14.7 INR (BEAKER) (test udpj=733) 1.8 <=5.9 PARTIAL THROMBOPLASTIN TIME (BEAKER) (test ytwx=898) 41.0 seconds 22.5-36.0 RECOMMENDED COUMADIN/WARFARIN INR THERAPY RANGESSTANDARD DOSE: 2.0 - 3.0 Inclu mekhi: PROPHYLAXIS for venous thrombosis, systemic embolization; TREATMENT for cristino ous thrombosis and/or pulmonary embolus.HIGH RISK: Target INR is 2.5-3.5 for pat ients with mechanical heart valves.TACROLIMUS [id number] 11:35:00* Test Item Value Reference Range Comments TACROLIMUS BLOOD (BEAKER) (test qmaa=505) 5.5 ng/mL 10.0-20.0 [id number] 11:07:00* Test Item Value Reference Range Comments PHOSPHORUS (BEAKER) (test grph=615) 1.5 mg/dL 2.3-4.7 URINALYSIS W/ REFLEX URINE [id number] 11:04:00* Test Item Value Reference Range Comments COLOR (BEAKER) (test xcxw=684) Yellow CLARITY (BEAKER) (test swgf=881) Hazy SPECIFIC GRAVITY UA (BEAKER) (test ipbu=890) 1.010 1.001-1.035 PH UA (BEAKER) (test zyyi=967) 6.5 5.0-8.0 PROTEIN UA (BEAKER) (test dduy=784) 50 mg/dL Negative GLUCOSE UA (BEAKER) (test jzss=994) Negative Negative KETONES UA (BEAKER) (test bojf=348) Negative Negative BILIRUBIN UA (BEAKER) (test dbgu=831) Negative Negative BLOOD UA (BEAKER) (test zdog=379) Large Negative NITRITE UA (BEAKER) (test ljwh=346) Negative Negative LEUKOCYTE ESTERASE UA (BEAKER) (test jbfg=933) Large Negative UROBILINOGEN UA (BEAKER) (test rnbv=987) 0.2 mg/dL 0.2-1.0 RBC UA (BEAKER) (test wcfv=581) > /HPF WBC UA (BEAKER) (test ippv=782) > /HPF BACTERIA (BEAKER) (test jwdc=934) Many MUCUS (BEAKER) (test jbrk=9312) Rare SQUAMOUS EPITHELIAL (BEAKER) (test wvig=860) 1 /HPF SOURCE(BEAKER) (test ptsc=8276) COMPREHENSIVE METABOLIC [id number] 10:43:00* Test Item Value Reference Range Comments TOTAL PROTEIN (BEAKER) (test jinq=944) 5.9 gm/dL 6.0-8.3 ALBUMIN (BEAKER) (test vlvd=8697) 3.6 g/dL 3.5-5.0 ALKALINE PHOSPHATASE (BEAKER) (test qvtg=482) 88 U/L 40-150 BILIRUBIN TOTAL (BEAKER) (test vhgr=825) 0.7 mg/dL 0.2-1.2 SODIUM (BEAKER) (test ixut=745) 141 meq/L 136-145 POTASSIUM (BEAKER) (test svqe=885) 3.5 meq/L 3.5-5.1 CHLORIDE (BEAKER) (test renu=389) 112 meq/L 98-107 CO2 (BEAKER) (test grdu=451) 22 meq/L 22-29 BLOOD UREA NITROGEN (BEAKER) (test imhi=266) 14 mg/dL 7-21 CREATININE (BEAKER) (test nqrn=070) 0.74 mg/dL 0.57-1.25 GLUCOSE RANDOM (BEAKER) (test dnwq=156) 100 mg/dL 70-105 CALCIUM (BEAKER) (test alze=077) 9.0 mg/dL 8.4-10.2 AST (SGOT) (BEAKER) (test fluz=661) 28 U/L 5-34 ALT (SGPT) (BEAKER) (test himq=106) 25 U/L 6-55 EGFR (BEAKER) (test ggrv=5695) 106 mL/min/1.73 sq m ESTIMATED GFR IS NOT ACCURATE CREATININE CLEARANCE IN PREDICTING GLOMERULAR FILTRATION RATE. ESTIMATED GFR IS NOT APPLICABLE FOR DIALYSIS PATIENTS. LACTATE DEHYDROGENASE (LDH)2017-10-16 10:43:00* Test Item Value Reference Range Comments LACTATE DEHYDROGENASE (BEAKER) (test iwnk=407) 180 U/L 125-220 CBC W/PLT COUNT & AUTO [id number] 09:58:00* Test Item Value Reference Range Comments WHITE BLOOD CELL COUNT (BEAKER) (test ghzf=927) 5.8 K/ L 3.5-10.5 RED BLOOD CELL COUNT (BEAKER) (test ogzr=227) 3.70 M/ L 4.63-6.08 HEMOGLOBIN (BEAKER) (test ufzx=795) 10.1 GM/DL 13.7-17.5 HEMATOCRIT (BEAKER) (test thdu=264) 35.3 % 40.1-51.0 MEAN CORPUSCULAR VOLUME (BEAKER) (test dggd=644) 95.4 fL 79.0-92.2 MEAN CORPUSCULAR HEMOGLOBIN (BEAKER) (test nxgb=873) 27.3 pg 25.7-32.2 MEAN CORPUSCULAR HEMOGLOBIN CONC (BEAKER) (test czyo=808) 28.6 GM/DL 32.3-36.5 RED CELL DISTRIBUTION WIDTH (BEAKER) (test yssl=163) 16.5 % 11.6-14.4 PLATELET COUNT (BEAKER) (test chgd=770) 129 K/CU MM 150-450 MEAN PLATELET VOLUME (BEAKER) (test bsvp=259) 10.7 fL 9.4-12.4 NUCLEATED RED BLOOD CELLS (BEAKER) (test rqku=551) 0 /100 WBC 0-0 NEUTROPHILS RELATIVE PERCENT (BEAKER) (test gnpy=762) 82 % LYMPHOCYTES RELATIVE PERCENT (BEAKER) (test twgu=127) 11 % MONOCYTES RELATIVE PERCENT (BEAKER) (test exgl=731) 6 % EOSINOPHILS RELATIVE PERCENT (BEAKER) (test vyon=424) 0 % BASOPHILS RELATIVE PERCENT (BEAKER) (test uouw=125) 1 % NEUTROPHILS ABSOLUTE COUNT (BEAKER) (test rfql=368) 4.73 K/ L 1.78-5.38 LYMPHOCYTES ABSOLUTE COUNT (BEAKER) (test jscd=422) 0.64 K/ L 1.32-3.57 MONOCYTES ABSOLUTE COUNT (BEAKER) (test tjfx=816) 0.33 K/ L 0.30-0.82 EOSINOPHILS ABSOLUTE COUNT (BEAKER) (test dwgk=298) 0.02 K/ L 0.04-0.54 BASOPHILS ABSOLUTE COUNT (BEAKER) (test jdcb=927) 0.05 K/ L 0.01-0.08 IMMATURE GRANULOCYTES-RELATIVE PERCENT (BEAKER) (test njec=9419) 1 % 0-1 PUL [facility], [facility], [id number] 10:51:00FINAL REPORT PROCEDURE: V/Q LUNG SCAN CPT CODE: 51027 INDICATION: R06.00, R06.89 PROTOCOL: 10.5 mCi of Xe-133 gas was administered by inhalation. Single breath and rebreathing/washout images were obtained in the anterior and the posterior projections. 4.4 mCi of Tc-99m MAA was then injected intravenously, and static perfusion images were obtained in multiple projections. FINDINGS: Ventilation: Initial tracer distribution is mildly irregular. Washout mildly delayed. Perfusion: Tracer dis tribution is nonsegmentally irregular. IMPRESSION: 1. Very low probability of acute pulmonary embolization.2. There is no significant interval change from the study of October 05, 2015. Signed: Vinnie Peoples MDReport Verified Date/Time: 10/15/2017 10:51:41 Reading Location: [address] [address] Reading Room , CHEST, WITHOUT [id number] 08:39:00FINAL REPORT INDICATION: 67-year-old with shortness of breath. History of renal transplant. COMPARISON:Chest radiograph August 18, 2017Chest CT October 08, 2015 TECHNIQUE: Chest CT exam WITHOUT intravenous contrast. The exam was performed according to our department dose-optimization protocol, which includes automated exposure control, adjustments of mA and kV according to patient size. Iterative reconstructions are also sometimes employed. FINDINGS:No pulmonary edema or pneumonia is demonstrated. There are not bilateral tiny posterior pleural effusions and posteriorly at both lung bases there are subpleural rounded opacities. Tiny pleural effusions and subpleural rounded opacities are unchanged since September 2015, representing rounded atelectasis. No emphysema or evidence of chronic interstitial lung disease. Central airways are clear. Cardiomegaly, extensive coronary artery calcification, and dual lead left subclavian pacemaker with one lead terminating in the right ventricle and the other lead terminating in the coronary sinus. Main pulmonary artery is enlarged measuring 3.6 cm in di ameter (compared to ascending aortic diameter of 3.5 cm). No mediastinal or sergio r lymphadenopathy. Esophagus is mildly patulous without fluid. Lower thorax are notable for prior gastric surgery, likely gastric bypass. No suspicious osseous lesion demonstrated. IMPRESSION: No evidence of acute pulmonary abnormality. Spe cifically, no pulmonary edema and no pneumonia. Bibasilar rounded atelectasis. C ardiomegaly, ICD, and enlarged main pulmonary artery, may represent pulmonary ar albert hypertension. Signed: Papa Daigle MDReport Verified Date/Time: 2017 08:39:56 Reading Location: [facility] Diagnostic Imaging Reading Room - [place] [address] PCR, [id number] 13:45:00* Test Item Value Reference Range Comments CMV VIRAL LOAD - NEGATIVE (BEAKER) (test qznl=5618) Negative or below the linear range of the assay (<375 copies/mL) Cytomegalovirus (CMV) infection can cause significant disease in immunosuppresse d patients. However, it is common for CMV to manifest as a limited infection whi ch is of no clinical significance in immunosuppressed patients or in healthy ind ividuals.Viral load measurements are helpful to identify clinical CMV infection and to guide the pre-emptive management of antiviral therapy. For treatment of CMV infection due to reactivation in transplant recipients, a threshold between 4,000 and 5,000 copies/mL is suggested. For treatment of primary CMV infection, a lower threshold can be used.CMV infection may also be monitored using weekly serial measurements. Serial measurements of CMV DNA viral load can be evaluated by identifying a 10-fold change, as well as assessing the CMV DNA viral load and the clinical context for each patient.The plasma CMV DNA viral load was detected using quantitative polymerase chain reaction and fluorescent monitoring of a s pecific hybridized probe. Genetic variation and other factors can affect the acc uracy of nucleic acid testing. Therefore, the results should be interpreted in l ight of clinical data. A negative result may not exclude the presence of CMV dis ease.This test was developed and its performance characteristics determined by sandi mcnulty [facility] Pathology Department, Section of Molecular Patholog y. It has not been cleared or approved by the U.S. Food and Drug Administration (FDA), since FDA approval is not required for clinical use of the test. Validati on was done as required by The Clinical Laboratory Improvement Amendments of 198 8.TACROLIMUS [id number] 11:49:00* Test Item Value Reference Range Comments TACROLIMUS BLOOD (BEAKER) (test uzps=333) 8.5 ng/mL 10.0-20.0 URINALYSIS W/ REFLEX URINE [id number] 10:27:00* Test Item Value Reference Range Comments COLOR (BEAKER) (test eeop=793) Yellow CLARITY (BEAKER) (test bfap=622) Clear SPECIFIC GRAVITY UA (BEAKER) (test hdyk=255) 1.013 1.001-1.035 PH UA (BEAKER) (test nguo=176) 6.5 5.0-8.0 PROTEIN UA (BEAKER) (test cpkw=069) 10 mg/dL Negative GLUCOSE UA (BEAKER) (test hjvf=532) Negative Negative KETONES UA (BEAKER) (test gmcw=923) Negative Negative BILIRUBIN UA (BEAKER) (test aynv=617) Negative Negative BLOOD UA (BEAKER) (test iuoa=725) Negative Negative NITRITE UA (BEAKER) (test tggp=700) Negative Negative LEUKOCYTE ESTERASE UA (BEAKER) (test gtvu=722) Negative Negative UROBILINOGEN UA (BEAKER) (test tnxy=251) 0.2 mg/dL 0.2-1.0 RBC UA (BEAKER) (test tebm=296) 1 /HPF WBC UA (BEAKER) (test pbtd=280) 5 /HPF BACTERIA (BEAKER) (test qdkt=221) Occasional SQUAMOUS EPITHELIAL (BEAKER) (test ldpk=512) 3 /HPF SOURCE(BEAKER) (test zrid=8640) COMPREHENSIVE METABOLIC [id number] 09:32:00* Test Item Value Reference Range Comments TOTAL PROTEIN (BEAKER) (test flhc=248) 5.6 gm/dL 6.0-8.3 ALBUMIN (BEAKER) (test kopo=0847) 3.3 g/dL 3.5-5.0 ALKALINE PHOSPHATASE (BEAKER) (test njhh=566) 78 U/L 40-150 BILIRUBIN TOTAL (BEAKER) (test yoyh=133) 0.5 mg/dL 0.2-1.2 SODIUM (BEAKER) (test yace=062) 143 meq/L 136-145 POTASSIUM (BEAKER) (test sffu=335) 2.5 meq/L 3.5-5.1 CHLORIDE (BEAKER) (test ejsm=749) 112 meq/L 98-107 CO2 (BEAKER) (test nopo=825) 21 meq/L 22-29 BLOOD UREA NITROGEN (BEAKER) (test tzaw=542) 14 mg/dL 7-21 CREATININE (BEAKER) (test pjoq=244) 0.74 mg/dL 0.57-1.25 GLUCOSE RANDOM (BEAKER) (test hrcy=608) 94 mg/dL 70-105 CALCIUM (BEAKER) (test ydow=968) 8.7 mg/dL 8.4-10.2 AST (SGOT) (BEAKER) (test sngk=075) 14 U/L 5-34 ALT (SGPT) (BEAKER) (test uinw=546) 15 U/L 6-55 EGFR (BEAKER) (test wxtx=6001) 106 mL/min/1.73 sq m ESTIMATED GFR IS NOT ACCURATE CREATININE CLEARANCE IN PREDICTING GLOMERULAR FILTRATION RATE. ESTIMATED GFR IS NOT APPLICABLE FOR DIALYSIS PATIENTS. [id number] 09:04:00* Test Item Value Reference Range Comments PHOSPHORUS (BEAKER) (test pvpd=424) 1.6 mg/dL 2.3-4.7 LACTATE DEHYDROGENASE (LDH)2017-10-14 09:04:00* Test Item Value Reference Range Comments LACTATE DEHYDROGENASE (BEAKER) (test qbhh=649) 137 U/L 125-220 CBC W/PLT COUNT & AUTO [id number] 08:35:00* Test Item Value Reference Range Comments WHITE BLOOD CELL COUNT (BEAKER) (test wmco=301) 4.1 K/ L 3.5-10.5 RED BLOOD CELL COUNT (BEAKER) (test cgxo=801) 3.58 M/ L 4.63-6.08 HEMOGLOBIN (BEAKER) (test htvx=257) 10.1 GM/DL 13.7-17.5 HEMATOCRIT (BEAKER) (test uuli=776) 33.8 % 40.1-51.0 MEAN CORPUSCULAR VOLUME (BEAKER) (test came=542) 94.4 fL 79.0-92.2 MEAN CORPUSCULAR HEMOGLOBIN (BEAKER) (test nytq=167) 28.2 pg 25.7-32.2 MEAN CORPUSCULAR HEMOGLOBIN CONC (BEAKER) (test ufxb=582) 29.9 GM/DL 32.3-36.5 RED CELL DISTRIBUTION WIDTH (BEAKER) (test oadt=018) 16.5 % 11.6-14.4 PLATELET COUNT (BEAKER) (test bdsh=955) 112 K/CU MM 150-450 MEAN PLATELET VOLUME (BEAKER) (test jzcg=111) 9.3 fL 9.4-12.4 NUCLEATED RED BLOOD CELLS (BEAKER) (test rlvm=615) 0 /100 WBC 0-0 NEUTROPHILS RELATIVE PERCENT (BEAKER) (test fptb=748) 73 % LYMPHOCYTES RELATIVE PERCENT (BEAKER) (test fgzp=071) 17 % MONOCYTES RELATIVE PERCENT (BEAKER) (test fowr=397) 8 % EOSINOPHILS RELATIVE PERCENT (BEAKER) (test lmyh=694) 1 % BASOPHILS RELATIVE PERCENT (BEAKER) (test tzvz=867) 1 % NEUTROPHILS ABSOLUTE COUNT (BEAKER) (test mpzp=356) 2.96 K/ L 1.78-5.38 LYMPHOCYTES ABSOLUTE COUNT (BEAKER) (test wmfb=878) 0.67 K/ L 1.32-3.57 MONOCYTES ABSOLUTE COUNT (BEAKER) (test ayxm=759) 0.33 K/ L 0.30-0.82 EOSINOPHILS ABSOLUTE COUNT (BEAKER) (test iuvq=397) 0.05 K/ L 0.04-0.54 BASOPHILS ABSOLUTE COUNT (BEAKER) (test ilhn=006) 0.04 K/ L 0.01-0.08 IMMATURE GRANULOCYTES-RELATIVE PERCENT (BEAKER) (test rocz=1643) 0 % 0-1 TACROLIMUS [id number] 13:15:00* Test Item Value Reference Range Comments TACROLIMUS BLOOD (BEAKER) (test wzmt=030) 6.8 ng/mL 10.0-20.0 URINALYSIS W/ REFLEX URINE [id number] 10:28:00* Test Item Value Reference Range Comments COLOR (BEAKER) (test wlzz=361) Yellow CLARITY (BEAKER) (test pxrx=706) Clear SPECIFIC GRAVITY UA (BEAKER) (test edaa=347) 1.019 1.001-1.035 PH UA (BEAKER) (test xsey=257) 6.0 5.0-8.0 PROTEIN UA (BEAKER) (test jrgm=618) 10 mg/dL Negative GLUCOSE UA (BEAKER) (test kpcc=642) Negative Negative KETONES UA (BEAKER) (test gkhi=820) Negative Negative BILIRUBIN UA (BEAKER) (test esem=532) Negative Negative BLOOD UA (BEAKER) (test eqjv=221) Negative Negative NITRITE UA (BEAKER) (test ouol=769) Negative Negative LEUKOCYTE ESTERASE UA (BEAKER) (test svgg=489) Negative Negative UROBILINOGEN UA (BEAKER) (test bmxc=898) 0.2 mg/dL 0.2-1.0 RBC UA (BEAKER) (test aoqz=156) 1 /HPF WBC UA (BEAKER) (test rwrm=367) 3 /HPF MUCUS (BEAKER) (test ixgu=9147) Rare SQUAMOUS EPITHELIAL (BEAKER) (test afqf=211) 1 /HPF SOURCE(BEAKER) (test fpgb=1798) [id number] 10:16:00* Test Item Value Reference Range Comments PHOSPHORUS (BEAKER) (test zzdi=063) 2.1 mg/dL 2.3-4.7 COMPREHENSIVE METABOLIC [id number] 10:16:00* Test Item Value Reference Range Comments TOTAL PROTEIN (BEAKER) (test ehsb=866) 6.0 gm/dL 6.0-8.3 ALBUMIN (BEAKER) (test gwda=2316) 3.6 g/dL 3.5-5.0 ALKALINE PHOSPHATASE (BEAKER) (test nbxu=228) 89 U/L 40-150 BILIRUBIN TOTAL (BEAKER) (test kvkk=028) 0.5 mg/dL 0.2-1.2 SODIUM (BEAKER) (test meqc=207) 141 meq/L 136-145 POTASSIUM (BEAKER) (test lcwp=512) 3.1 meq/L 3.5-5.1 CHLORIDE (BEAKER) (test wazf=773) 112 meq/L 98-107 CO2 (BEAKER) (test aykc=229) 20 meq/L 22-29 BLOOD UREA NITROGEN (BEAKER) (test vhtf=390) 23 mg/dL 7-21 CREATININE (BEAKER) (test luxj=217) 0.90 mg/dL 0.57-1.25 GLUCOSE RANDOM (BEAKER) (test oltm=731) 89 mg/dL 70-105 CALCIUM (BEAKER) (test ompt=374) 9.0 mg/dL 8.4-10.2 AST (SGOT) (BEAKER) (test mptq=231) 29 U/L 5-34 ALT (SGPT) (BEAKER) (test myli=790) 25 U/L 6-55 EGFR (BEAKER) (test hmnb=0466) 85 mL/min/1.73 sq m ESTIMATED GFR IS NOT ACCURATE CREATININE CLEARANCE IN PREDICTING GLOMERULAR FILTRATION RATE. ESTIMATED GFR IS NOT APPLICABLE FOR DIALYSIS PATIENTS. LACTATE DEHYDROGENASE (LDH)2017-10-07 10:16:00* Test Item Value Reference Range Comments LACTATE DEHYDROGENASE (BEAKER) (test zzfb=970) 164 U/L 125-220 CBC W/PLT COUNT & AUTO [id number] 09:45:00* Test Item Value Reference Range Comments WHITE BLOOD CELL COUNT (BEAKER) (test fyhv=362) 4.3 K/ L 3.5-10.5 RED BLOOD CELL COUNT (BEAKER) (test mtqc=397) 3.73 M/ L 4.63-6.08 HEMOGLOBIN (BEAKER) (test txtm=170) 10.3 GM/DL 13.7-17.5 HEMATOCRIT (BEAKER) (test lxku=733) 35.2 % 40.1-51.0 MEAN CORPUSCULAR VOLUME (BEAKER) (test rbcj=572) 94.4 fL 79.0-92.2 MEAN CORPUSCULAR HEMOGLOBIN (BEAKER) (test krbr=684) 27.6 pg 25.7-32.2 MEAN CORPUSCULAR HEMOGLOBIN CONC (BEAKER) (test gpbl=736) 29.3 GM/DL 32.3-36.5 RED CELL DISTRIBUTION WIDTH (BEAKER) (test looi=185) 15.7 % 11.6-14.4 PLATELET COUNT (BEAKER) (test kmky=696) 169 K/CU MM 150-450 MEAN PLATELET VOLUME (BEAKER) (test pdcz=521) 10.1 fL 9.4-12.4 NUCLEATED RED BLOOD CELLS (BEAKER) (test bkwl=064) 0 /100 WBC 0-0 NEUTROPHILS RELATIVE PERCENT (BEAKER) (test igts=574) 67 % LYMPHOCYTES RELATIVE PERCENT (BEAKER) (test dnnl=052) 22 % MONOCYTES RELATIVE PERCENT (BEAKER) (test dvqb=174) 8 % EOSINOPHILS RELATIVE PERCENT (BEAKER) (test rmjz=621) 1 % BASOPHILS RELATIVE PERCENT (BEAKER) (test jadt=078) 1 % NEUTROPHILS ABSOLUTE COUNT (BEAKER) (test mqjs=640) 2.87 K/ L 1.78-5.38 LYMPHOCYTES ABSOLUTE COUNT (BEAKER) (test nbsg=664) 0.95 K/ L 1.32-3.57 MONOCYTES ABSOLUTE COUNT (BEAKER) (test cich=587) 0.35 K/ L 0.30-0.82 EOSINOPHILS ABSOLUTE COUNT (BEAKER) (test rmee=572) 0.04 K/ L 0.04-0.54 BASOPHILS ABSOLUTE COUNT (BEAKER) (test gent=724) 0.05 K/ L 0.01-0.08 IMMATURE GRANULOCYTES-RELATIVE PERCENT (BEAKER) (test zhpd=5882) 0 % 0-1 TACROLIMUS [id number] 12:08:00* Test Item Value Reference Range Comments TACROLIMUS BLOOD (BEAKER) (test bmyy=888) 8.6 ng/mL 10.0-20.0 U/S, TRANSPLANT, [id number] 09:06:00S/P Kidney transplant 08/18/17Reason for Exam:->Elevated creatinineFINAL REPORT Transplanted renal ultrasound date 10/02/2017 Comment: Real-time ultrasound examination of the transplanted kidney was performed. The transplanted kidney measures 11.4 x 5.1 x 6.1 cm. The renal cortex measures 1.5 cm. Pelviectasis is seen involving the transplanted kidney without hydronephrosis.. There is no perinephric fluid collection associated with transplanted kidney. Echogenicity of the transplanted kidney is normal. The urinary bladder is contracted. Doppler ultrasound of the transplanted kidney was performed.Peak systolic velocities of the iliac vein, main renal vein, at the venous anastomosis are 35, 16, and 120 cm/sec respectively.Peak systolic velocities of the iliac artery, main renal artery, and at the arterial anastomosis are 62, 50, and 60 cm/sec respectively. Resistive indicis of the upper, middle and the lower intralobar arteries are 0.78, 0.80, and 0.76 respectively. Impression: 1. Pelviectasis in the transplant kidney without hydronephrosis.2. Normal Doppler of the transplanted kidney. Signed: Abe Mishra Verified Date/Time: 10/02/2017 09:06:33 Reading Location: [address] Radiology Reading Room REHENSIVE METABOLIC PANEL 2017-10-02 07:59:00* Test Item Value Reference Range Comments TOTAL PROTEIN (BEAKER) (test lgud=624) 6.2 gm/dL 6.0-8.3 ALBUMIN (BEAKER) (test bovm=3605) 3.6 g/dL 3.5-5.0 ALKALINE PHOSPHATASE (BEAKER) (test xzbw=211) 92 U/L 40-150 BILIRUBIN TOTAL (BEAKER) (test adjm=903) 0.4 mg/dL 0.2-1.2 SODIUM (BEAKER) (test lonc=819) 138 meq/L 136-145 POTASSIUM (BEAKER) (test siod=072) 4.1 meq/L 3.5-5.1 CHLORIDE (BEAKER) (test gikp=477) 111 meq/L 98-107 CO2 (BEAKER) (test hywz=542) 21 meq/L 22-29 BLOOD UREA NITROGEN (BEAKER) (test azlg=823) 26 mg/dL 7-21 CREATININE (BEAKER) (test qbpz=043) 0.89 mg/dL 0.57-1.25 GLUCOSE RANDOM (BEAKER) (test byjd=046) 107 mg/dL 70-105 CALCIUM (BEAKER) (test svuf=131) 9.5 mg/dL 8.4-10.2 AST (SGOT) (BEAKER) (test nqlu=403) 20 U/L 5-34 ALT (SGPT) (BEAKER) (test qegc=956) 16 U/L 6-55 EGFR (BEAKER) (test sgbs=1626) 86 mL/min/1.73 sq m ESTIMATED GFR IS NOT ACCURATE CREATININE CLEARANCE IN PREDICTING GLOMERULAR FILTRATION RATE. ESTIMATED GFR IS NOT APPLICABLE FOR DIALYSIS PATIENTS. [id number] 07:55:00* Test Item Value Reference Range Comments PHOSPHORUS (BEAKER) (test mapn=710) 2.2 mg/dL 2.3-4.7 LACTATE DEHYDROGENASE (LDH)2017-10-02 07:55:00* Test Item Value Reference Range Comments LACTATE DEHYDROGENASE (BEAKER) (test fjhb=107) 131 U/L 125-220 URINALYSIS W/ REFLEX URINE [id number] 07:49:00* Test Item Value Reference Range Comments COLOR (BEAKER) (test iekt=786) Yellow CLARITY (BEAKER) (test vjax=937) Clear SPECIFIC GRAVITY UA (BEAKER) (test abpg=598) 1.017 1.001-1.035 PH UA (BEAKER) (test mzht=055) 5.5 5.0-8.0 PROTEIN UA (BEAKER) (test aqrt=885) 10 mg/dL Negative GLUCOSE UA (BEAKER) (test hwog=640) Negative Negative KETONES UA (BEAKER) (test gixg=765) Negative Negative BILIRUBIN UA (BEAKER) (test yczv=005) Negative Negative BLOOD UA (BEAKER) (test xxlx=815) Negative Negative NITRITE UA (BEAKER) (test zvhf=607) Negative Negative LEUKOCYTE ESTERASE UA (BEAKER) (test qlpe=051) Negative Negative UROBILINOGEN UA (BEAKER) (test ulzc=753) 0.2 mg/dL 0.2-1.0 RBC UA (BEAKER) (test ifjp=213) < /HPF WBC UA (BEAKER) (test ioau=732) 3 /HPF MUCUS (BEAKER) (test rgtw=7313) Rare SQUAMOUS EPITHELIAL (BEAKER) (test pyqj=620) 3 /HPF SOURCE(BEAKER) (test date=9406) CBC W/PLT COUNT & AUTO [id number] 07:32:00* Test Item Value Reference Range Comments WHITE BLOOD CELL COUNT (BEAKER) (test xiwt=436) 4.5 K/ L 3.5-10.5 RED BLOOD CELL COUNT (BEAKER) (test bwjm=202) 3.65 M/ L 4.63-6.08 HEMOGLOBIN (BEAKER) (test ctab=819) 10.2 GM/DL 13.7-17.5 HEMATOCRIT (BEAKER) (test ejis=946) 33.6 % 40.1-51.0 MEAN CORPUSCULAR VOLUME (BEAKER) (test zfqe=207) 92.1 fL 79.0-92.2 MEAN CORPUSCULAR HEMOGLOBIN (BEAKER) (test qgki=514) 27.9 pg 25.7-32.2 MEAN CORPUSCULAR HEMOGLOBIN CONC (BEAKER) (test gglp=718) 30.4 GM/DL 32.3-36.5 RED CELL DISTRIBUTION WIDTH (BEAKER) (test acrz=301) 15.2 % 11.6-14.4 PLATELET COUNT (BEAKER) (test zxni=441) 156 K/CU MM 150-450 MEAN PLATELET VOLUME (BEAKER) (test qxwk=677) 10.1 fL 9.4-12.4 NUCLEATED RED BLOOD CELLS (BEAKER) (test zlzi=631) 0 /100 WBC 0-0 NEUTROPHILS RELATIVE PERCENT (BEAKER) (test jhug=899) 71 % LYMPHOCYTES RELATIVE PERCENT (BEAKER) (test fzqy=006) 18 % MONOCYTES RELATIVE PERCENT (BEAKER) (test mepd=121) 9 % EOSINOPHILS RELATIVE PERCENT (BEAKER) (test qlzj=197) 1 % BASOPHILS RELATIVE PERCENT (BEAKER) (test nzet=044) 1 % NEUTROPHILS ABSOLUTE COUNT (BEAKER) (test nyuu=146) 3.20 K/ L 1.78-5.38 LYMPHOCYTES ABSOLUTE COUNT (BEAKER) (test okhn=129) 0.81 K/ L 1.32-3.57 MONOCYTES ABSOLUTE COUNT (BEAKER) (test izpe=426) 0.39 K/ L 0.30-0.82 EOSINOPHILS ABSOLUTE COUNT (BEAKER) (test chts=634) 0.03 K/ L 0.04-0.54 BASOPHILS ABSOLUTE COUNT (BEAKER) (test jvtt=623) 0.06 K/ L 0.01-0.08 IMMATURE GRANULOCYTES-RELATIVE PERCENT (BEAKER) (test eucy=1304) 0 % 0-1 BK VIRUS PCR, [id number] 05:53:00* Test Item Value Reference Range Comments BK VIRUS, PLASMA, NEG (BEAKER) (test vhfq=4380) Negative or below the linear range of the assay (<1,000 copies/mL) Patients may have replicating BK Virus which is of no clinical significance. Vi ral load measurements are helpful to identify BK Virus replication of potential clinical significance. Consensus recommendations have been published of thresho ld values for the presumptive diagnosis of polyomavirus-associated nephropathy ( Transplantation 2005;79:7154-1068).A BK Virus load greater than 5,000-10,000 telescope maintenance ies/mL in the plasma is consistent with the presumptive diagnosis of polyoma-ass ociated nephropathy in renal transplant recipients.BK Virus DNA was assessed usi ng quantitative polymerase chain reaction and fluorescent monitoring of a specif ic hybridized probe. Genetic variation and other factors can affect the accurac y of nucleic acid testing. Therefore, the results should be interpreted in ligh t of clinical data.This test was developed and its performance characteristics d etermined by the [facility] Pathology Department, Section of Mole cular Pathology. It has not been cleared or approved by the U.S. Food and Drug Administration (FDA). Since FDA approval is not required for clinical use of th e test, validation was done as required by the Clinical Laboratory Improvement A mendments of 1988.CMV PCR, [id number] 14:02:00* Test Item Value Reference Range Comments CMV VIRAL LOAD - NEGATIVE (BEAKER) (test xnbr=2677) Negative or below the linear range of the assay (<375 copies/mL) Cytomegalovirus (CMV) infection can cause significant disease in immunosuppresse d patients. However, it is common for CMV to manifest as a limited infection whi ch is of no clinical significance in immunosuppressed patients or in healthy ind ividuals.Viral load measurements are helpful to identify clinical CMV infection and to guide the pre-emptive management of antiviral therapy. For treatment of CMV infection due to reactivation in transplant recipients, a threshold between 4,000 and 5,000 copies/mL is suggested. For treatment of primary CMV infection, a lower threshold can be used.CMV infection may also be monitored using weekly serial measurements. Serial measurements of CMV DNA viral load can be evaluated by identifying a 10-fold change, as well as assessing the CMV DNA viral load and the clinical context for each patient.The plasma CMV DNA viral load was detected using quantitative polymerase chain reaction and fluorescent monitoring of a s pecific hybridized probe. Genetic variation and other factors can affect the acc uracy of nucleic acid testing. Therefore, the results should be interpreted in l ight of clinical data. A negative result may not exclude the presence of CMV dis ease.This test was developed and its performance characteristics determined by sandi mcnulty [facility] Pathology Department, Section of Molecular Patholog y. It has not been cleared or approved by the U.S. Food and Drug Administration (FDA), since FDA approval is not required for clinical use of the test. Validati on was done as required by The Clinical Laboratory Improvement Amendments of 198 8.TACROLIMUS [id number] 11:14:00* Test Item Value Reference Range Comments TACROLIMUS BLOOD (BEAKER) (test uajb=279) 7.4 ng/mL 10.0-20.0 URINALYSIS W/ REFLEX URINE [id number] 09:51:00* Test Item Value Reference Range Comments COLOR (BEAKER) (test znia=691) Yellow CLARITY (BEAKER) (test xorz=146) Clear SPECIFIC GRAVITY UA (BEAKER) (test disv=986) 1.016 1.001-1.035 PH UA (BEAKER) (test gmdb=431) 5.5 5.0-8.0 PROTEIN UA (BEAKER) (test wysa=708) Negative Negative GLUCOSE UA (BEAKER) (test zyrz=832) Negative Negative KETONES UA (BEAKER) (test zvyi=223) Negative Negative BILIRUBIN UA (BEAKER) (test qdfn=175) Negative Negative BLOOD UA (BEAKER) (test hufk=658) Negative Negative NITRITE UA (BEAKER) (test jyou=043) Negative Negative LEUKOCYTE ESTERASE UA (BEAKER) (test iqvt=591) Negative Negative UROBILINOGEN UA (BEAKER) (test xqmc=382) 0.2 mg/dL 0.2-1.0 RBC UA (BEAKER) (test tqcn=036) < /HPF WBC UA (BEAKER) (test fmgh=596) 3 /HPF SQUAMOUS EPITHELIAL (BEAKER) (test ktpg=647) 1 /HPF SOURCE(BEAKER) (test divy=1720) [id number] 08:48:00* Test Item Value Reference Range Comments PHOSPHORUS (BEAKER) (test yndl=535) 1.9 mg/dL 2.3-4.7 COMPREHENSIVE METABOLIC [id number] 08:48:00* Test Item Value Reference Range Comments TOTAL PROTEIN (BEAKER) (test odiw=929) 6.2 gm/dL 6.0-8.3 ALBUMIN (BEAKER) (test dwqy=4799) 3.6 g/dL 3.5-5.0 ALKALINE PHOSPHATASE (BEAKER) (test echa=802) 90 U/L 40-150 BILIRUBIN TOTAL (BEAKER) (test yvsg=479) 0.4 mg/dL 0.2-1.2 SODIUM (BEAKER) (test ooau=374) 139 meq/L 136-145 POTASSIUM (BEAKER) (test mtzy=157) 5.7 meq/L 3.5-5.1 CHLORIDE (BEAKER) (test jdnt=039) 113 meq/L 98-107 CO2 (BEAKER) (test rssh=014) 22 meq/L 22-29 BLOOD UREA NITROGEN (BEAKER) (test ijyf=337) 25 mg/dL 7-21 CREATININE (BEAKER) (test rzlg=755) 1.03 mg/dL 0.57-1.25 GLUCOSE RANDOM (BEAKER) (test ukim=209) 101 mg/dL 70-105 CALCIUM (BEAKER) (test smqy=996) 10.3 mg/dL 8.4-10.2 AST (SGOT) (BEAKER) (test wwli=788) 19 U/L 5-34 ALT (SGPT) (BEAKER) (test xknw=354) 14 U/L 6-55 EGFR (BEAKER) (test cduy=9552) 72 mL/min/1.73 sq m ESTIMATED GFR IS NOT ACCURATE CREATININE CLEARANCE IN PREDICTING GLOMERULAR FILTRATION RATE. ESTIMATED GFR IS NOT APPLICABLE FOR DIALYSIS PATIENTS. LACTATE DEHYDROGENASE (LDH)2017-09-30 08:48:00* Test Item Value Reference Range Comments LACTATE DEHYDROGENASE (BEAKER) (test svjs=536) 149 U/L 125-220 CBC W/PLT COUNT & AUTO [id number] 08:22:00* Test Item Value Reference Range Comments WHITE BLOOD CELL COUNT (BEAKER) (test huhn=817) 4.3 K/ L 3.5-10.5 RED BLOOD CELL COUNT (BEAKER) (test sjle=169) 3.75 M/ L 4.63-6.08 HEMOGLOBIN (BEAKER) (test nyzo=293) 10.5 GM/DL 13.7-17.5 HEMATOCRIT (BEAKER) (test pzgd=810) 34.3 % 40.1-51.0 MEAN CORPUSCULAR VOLUME (BEAKER) (test hbxi=418) 91.5 fL 79.0-92.2 MEAN CORPUSCULAR HEMOGLOBIN (BEAKER) (test ksff=493) 28.0 pg 25.7-32.2 MEAN CORPUSCULAR HEMOGLOBIN CONC (BEAKER) (test dyvz=738) 30.6 GM/DL 32.3-36.5 RED CELL DISTRIBUTION WIDTH (BEAKER) (test gqmg=808) 15.3 % 11.6-14.4 PLATELET COUNT (BEAKER) (test nqvw=686) 166 K/CU MM 150-450 MEAN PLATELET VOLUME (BEAKER) (test bdyl=856) 9.1 fL 9.4-12.4 NUCLEATED RED BLOOD CELLS (BEAKER) (test gkzk=661) 0 /100 WBC 0-0 NEUTROPHILS RELATIVE PERCENT (BEAKER) (test wlvp=186) 71 % LYMPHOCYTES RELATIVE PERCENT (BEAKER) (test yrsk=618) 18 % MONOCYTES RELATIVE PERCENT (BEAKER) (test giji=461) 8 % EOSINOPHILS RELATIVE PERCENT (BEAKER) (test aqwm=794) 1 % BASOPHILS RELATIVE PERCENT (BEAKER) (test ivcw=609) 1 % NEUTROPHILS ABSOLUTE COUNT (BEAKER) (test ywip=257) 3.07 K/ L 1.78-5.38 LYMPHOCYTES ABSOLUTE COUNT (BEAKER) (test ycyf=213) 0.80 K/ L 1.32-3.57 MONOCYTES ABSOLUTE COUNT (BEAKER) (test dvrv=822) 0.36 K/ L 0.30-0.82 EOSINOPHILS ABSOLUTE COUNT (BEAKER) (test kmzn=722) 0.04 K/ L 0.04-0.54 BASOPHILS ABSOLUTE COUNT (BEAKER) (test bgao=524) 0.06 K/ L 0.01-0.08 IMMATURE GRANULOCYTES-RELATIVE PERCENT (BEAKER) (test udgz=6384) 0 % 0-1 CMV PCR, [id number] 18:54:00* Test Item Value Reference Range Comments CMV VIRAL LOAD - NEGATIVE (BEAKER) (test tnba=4981) Negative or below the linear range of the assay (<375 copies/mL) Cytomegalovirus (CMV) infection can cause significant disease in immunosuppresse d patients. However, it is common for CMV to manifest as a limited infection whi ch is of no clinical significance in immunosuppressed patients or in healthy ind ividuals.Viral load measurements are helpful to identify clinical CMV infection and to guide the pre-emptive management of antiviral therapy. For treatment of CMV infection due to reactivation in transplant recipients, a threshold between 4,000 and 5,000 copies/mL is suggested. For treatment of primary CMV infection, a lower threshold can be used.CMV infection may also be monitored using weekly serial measurements. Serial measurements of CMV DNA viral load can be evaluated by identifying a 10-fold change, as well as assessing the CMV DNA viral load and the clinical context for each patient.The plasma CMV DNA viral load was detected using quantitative polymerase chain reaction and fluorescent monitoring of a s pecific hybridized probe. Genetic variation and other factors can affect the acc uracy of nucleic acid testing. Therefore, the results should be interpreted in l ight of clinical data. A negative result may not exclude the presence of CMV dis ease.This test was developed and its performance characteristics determined by [facility] Pathology Department, Section of Molecular Patholog y. It has not been cleared or approved by the U.[place]. Food and Drug Administration (FDA), since FDA approval is not required for clinical use of the test. Validati on was done as required by The Clinical Laboratory Improvement Amendments of 198 8.TACROLIMUS [id number] 13:12:00* Test Item Value Reference Range Comments TACROLIMUS BLOOD (BEAKER) (test fkhk=580) 8.2 ng/mL 10.0-20.0 URINALYSIS W/ REFLEX URINE [id number] 09:16:00* Test Item Value Reference Range Comments COLOR (BEAKER) (test jsck=487) Yellow CLARITY (BEAKER) (test gllp=342) Hazy SPECIFIC GRAVITY UA (BEAKER) (test wqse=928) 1.012 1.001-1.035 PH UA (BEAKER) (test hvbp=379) 5.5 5.0-8.0 PROTEIN UA (BEAKER) (test qnow=904) Negative Negative GLUCOSE UA (BEAKER) (test ytef=893) Negative Negative KETONES UA (BEAKER) (test pirh=539) Negative Negative BILIRUBIN UA (BEAKER) (test lmyt=969) Negative Negative BLOOD UA (BEAKER) (test xiuz=785) Moderate Negative NITRITE UA (BEAKER) (test tpav=139) Negative Negative LEUKOCYTE ESTERASE UA (BEAKER) (test lwfa=164) Trace Negative UROBILINOGEN UA (BEAKER) (test udhu=658) 0.2 mg/dL 0.2-1.0 RBC UA (BEAKER) (test wevh=994) 62 /HPF WBC UA (BEAKER) (test rvfa=839) 8 /HPF MUCUS (BEAKER) (test vbnt=8488) Rare SQUAMOUS EPITHELIAL (BEAKER) (test hfdx=661) 1 /HPF SOURCE(BEAKER) (test siqn=7172) [id number] 08:46:00* Test Item Value Reference Range Comments PHOSPHORUS (BEAKER) (test kseu=737) 1.6 mg/dL 2.3-4.7 COMPREHENSIVE METABOLIC [id number] 08:46:00* Test Item Value Reference Range Comments TOTAL PROTEIN (BEAKER) (test usfu=084) 5.9 gm/dL 6.0-8.3 ALBUMIN (BEAKER) (test aaxv=2637) 3.4 g/dL 3.5-5.0 ALKALINE PHOSPHATASE (BEAKER) (test hscz=989) 79 U/L 40-150 BILIRUBIN TOTAL (BEAKER) (test cjvq=388) 0.4 mg/dL 0.2-1.2 SODIUM (BEAKER) (test ngkr=265) 140 meq/L 136-145 POTASSIUM (BEAKER) (test zqxj=583) 4.2 meq/L 3.5-5.1 CHLORIDE (BEAKER) (test iqiw=572) 113 meq/L 98-107 CO2 (BEAKER) (test jgej=320) 20 meq/L 22-29 BLOOD UREA NITROGEN (BEAKER) (test cqum=087) 16 mg/dL 7-21 CREATININE (BEAKER) (test idcg=898) 0.79 mg/dL 0.57-1.25 GLUCOSE RANDOM (BEAKER) (test jbzv=026) 98 mg/dL 70-105 CALCIUM (BEAKER) (test zmae=093) 8.8 mg/dL 8.4-10.2 AST (SGOT) (BEAKER) (test tzmg=230) 17 U/L 5-34 ALT (SGPT) (BEAKER) (test exsz=055) 13 U/L 6-55 EGFR (BEAKER) (test bfbj=2620) 98 mL/min/1.73 sq m ESTIMATED GFR IS NOT ACCURATE CREATININE CLEARANCE IN PREDICTING GLOMERULAR FILTRATION RATE. ESTIMATED GFR IS NOT APPLICABLE FOR DIALYSIS PATIENTS. LACTATE DEHYDROGENASE (LDH)2017-09-23 08:46:00* Test Item Value Reference Range Comments LACTATE DEHYDROGENASE (BEAKER) (test mztf=117) 172 U/L 125-220 CBC W/PLT COUNT & AUTO [id number] 08:04:00* Test Item Value Reference Range Comments WHITE BLOOD CELL COUNT (BEAKER) (test mmzc=286) 5.1 K/ L 3.5-10.5 RED BLOOD CELL COUNT (BEAKER) (test kbyx=635) 3.58 M/ L 4.63-6.08 HEMOGLOBIN (BEAKER) (test xclt=480) 10.0 GM/DL 13.7-17.5 HEMATOCRIT (BEAKER) (test vmer=926) 33.6 % 40.1-51.0 MEAN CORPUSCULAR VOLUME (BEAKER) (test yilj=916) 93.9 fL 79.0-92.2 MEAN CORPUSCULAR HEMOGLOBIN (BEAKER) (test jyuk=101) 27.9 pg 25.7-32.2 MEAN CORPUSCULAR HEMOGLOBIN CONC (BEAKER) (test qpvg=496) 29.8 GM/DL 32.3-36.5 RED CELL DISTRIBUTION WIDTH (BEAKER) (test lnou=033) 15.2 % 11.6-14.4 PLATELET COUNT (BEAKER) (test qwur=541) 204 K/CU MM 150-450 MEAN PLATELET VOLUME (BEAKER) (test axgf=891) 9.5 fL 9.4-12.4 NUCLEATED RED BLOOD CELLS (BEAKER) (test mbhj=756) 0 /100 WBC 0-0 NEUTROPHILS RELATIVE PERCENT (BEAKER) (test lxia=939) 78 % LYMPHOCYTES RELATIVE PERCENT (BEAKER) (test fndz=546) 14 % MONOCYTES RELATIVE PERCENT (BEAKER) (test qydr=614) 7 % EOSINOPHILS RELATIVE PERCENT (BEAKER) (test citc=346) 0 % BASOPHILS RELATIVE PERCENT (BEAKER) (test qjsd=497) 1 % NEUTROPHILS ABSOLUTE COUNT (BEAKER) (test ewed=256) 3.96 K/ L 1.78-5.38 LYMPHOCYTES ABSOLUTE COUNT (BEAKER) (test gepa=427) 0.71 K/ L 1.32-3.57 MONOCYTES ABSOLUTE COUNT (BEAKER) (test taqg=065) 0.33 K/ L 0.30-0.82 EOSINOPHILS ABSOLUTE COUNT (BEAKER) (test adlc=418) 0.02 K/ L 0.04-0.54 BASOPHILS ABSOLUTE COUNT (BEAKER) (test chnr=615) 0.06 K/ L 0.01-0.08 IMMATURE GRANULOCYTES-RELATIVE PERCENT (BEAKER) (test buxi=8801) 0 % 0-1 BK VIRUS PCR, [id number] 21:01:00* Test Item Value Reference Range Comments BK VIRUS, PLASMA, NEG (BEAKER) (test llsz=0071) Negative or below the linear range of the assay (<1,000 copies/mL) Patients may have replicating BK Virus which is of no clinical significance. Vi ral load measurements are helpful to identify BK Virus replication of potential clinical significance. Consensus recommendations have been published of thresho ld values for the presumptive diagnosis of polyomavirus-associated nephropathy ( Transplantation 2005;79:2477-5652).A BK Virus load greater than 5,000-10,000 telescope maintenance ies/mL in the plasma is consistent with the presumptive diagnosis of polyoma-ass ociated nephropathy in renal transplant recipients.BK Virus DNA was assessed usi ng quantitative polymerase chain reaction and fluorescent monitoring of a specif ic hybridized probe. Genetic variation and other factors can affect the accurac y of nucleic acid testing. Therefore, the results should be interpreted in lig t of clinical data.This test was developed and its performance characteristics d etermined by the [facility] Pathology Department, Section of Mole cular Pathology. It has not been cleared or approved by the U.S. Food and Drug Administration (FDA). Since FDA approval is not required for clinical use of th e test, validation was done as required by the Clinical Laboratory Improvement A mendments of 1988.CMV PCR, [id number] 13:52:00* Test Item Value Reference Range Comments CMV VIRAL LOAD - NEGATIVE (BEAKER) (test rdsh=7765) Negative or below the linear range of the assay (<375 copies/mL) Cytomegalovirus (CMV) infection can cause significant disease in immunosuppresse d patients. However, it is common for CMV to manifest as a limited infection whi ch is of no clinical significance in immunosuppressed patients or in healthy ind ividuals.Viral load measurements are helpful to identify clinical CMV infection and to guide the pre-emptive management of antiviral therapy. For treatment of CMV infection due to reactivation in transplant recipients, a threshold between 4,000 and 5,000 copies/mL is suggested. For treatment of primary CMV infection, a lower threshold can be used.CMV infection may also be monitored using weekly serial measurements. Serial measurements of CMV DNA viral load can be evaluated by identifying a 10-fold change, as well as assessing the CMV DNA viral load and the clinical context for each patient.The plasma CMV DNA viral load was detected using quantitative polymerase chain reaction and fluorescent monitoring of a s pecific hybridized probe. Genetic variation and other factors can affect the acc uracy of nucleic acid testing. Therefore, the results should be interpreted in l ight of clinical data. A negative result may not exclude the presence of CMV dis ease.This test was developed and its performance characteristics determined by [facility]i mcn[facility] Pathology Department, Section of Molecular Patholog y. It has not been cleared or approved by the U.S. Food and Drug Administration (FDA), since FDA approval is not required for clinical use of the test. Validati on was done as required by The Clinical Laboratory Improvement Amendments of 198 8.TACROLIMUS [id number] 11:38:00* Test Item Value Reference Range Comments TACROLIMUS BLOOD (BEAKER) (test skou=943) 11.8 ng/mL 10.0-20.0 URINALYSIS W/ REFLEX URINE [id number] 09:50:00* Test Item Value Reference Range Comments COLOR (BEAKER) (test zqrw=750) Yellow CLARITY (BEAKER) (test ofbw=056) Clear SPECIFIC GRAVITY UA (BEAKER) (test ezuf=687) 1.013 1.001-1.035 PH UA (BEAKER) (test vaxx=118) 6.0 5.0-8.0 PROTEIN UA (BEAKER) (test ally=729) 10 mg/dL Negative GLUCOSE UA (BEAKER) (test xyah=296) Negative Negative KETONES UA (BEAKER) (test hkln=833) Negative Negative BILIRUBIN UA (BEAKER) (test aazq=544) Negative Negative BLOOD UA (BEAKER) (test oayr=386) Moderate Negative NITRITE UA (BEAKER) (test wsco=157) Negative Negative LEUKOCYTE ESTERASE UA (BEAKER) (test fthz=162) Negative Negative UROBILINOGEN UA (BEAKER) (test vfwi=430) 0.2 mg/dL 0.2-1.0 RBC UA (BEAKER) (test dumn=527) 20 /HPF WBC UA (BEAKER) (test tugs=471) 7 /HPF SQUAMOUS EPITHELIAL (BEAKER) (test ntrr=240) 1 /HPF SOURCE(BEAKER) (test nbjo=4038) [id number] 08:05:00* Test Item Value Reference Range Comments PHOSPHORUS (BEAKER) (test gfgb=636) 1.5 mg/dL 2.3-4.7 COMPREHENSIVE METABOLIC [id number] 08:02:00* Test Item Value Reference Range Comments TOTAL PROTEIN (BEAKER) (test kdud=798) 5.8 gm/dL 6.0-8.3 ALBUMIN (BEAKER) (test myow=8438) 3.3 g/dL 3.5-5.0 ALKALINE PHOSPHATASE (BEAKER) (test tsva=800) 78 U/L 40-150 BILIRUBIN TOTAL (BEAKER) (test ubkz=003) 0.6 mg/dL 0.2-1.2 SODIUM (BEAKER) (test kgjn=206) 140 meq/L 136-145 POTASSIUM (BEAKER) (test xbed=567) 2.9 meq/L 3.5-5.1 CHLORIDE (BEAKER) (test bfrc=631) 111 meq/L 98-107 CO2 (BEAKER) (test dsyn=247) 20 meq/L 22-29 BLOOD UREA NITROGEN (BEAKER) (test kcsq=316) 14 mg/dL 7-21 CREATININE (BEAKER) (test lolk=353) 0.74 mg/dL 0.57-1.25 GLUCOSE RANDOM (BEAKER) (test puuk=127) 111 mg/dL 70-105 CALCIUM (BEAKER) (test rded=408) 8.4 mg/dL 8.4-10.2 AST (SGOT) (BEAKER) (test olqt=375) 13 U/L 5-34 ALT (SGPT) (BEAKER) (test xujr=435) 13 U/L 6-55 EGFR (BEAKER) (test pokq=2481) 106 mL/min/1.73 sq m ESTIMATED GFR IS NOT ACCURATE CREATININE CLEARANCE IN PREDICTING GLOMERULAR FILTRATION RATE. ESTIMATED GFR IS NOT APPLICABLE FOR DIALYSIS PATIENTS. LACTATE DEHYDROGENASE (LDH)2017-09-16 08:02:00* Test Item Value Reference Range Comments LACTATE DEHYDROGENASE (BEAKER) (test ubph=609) 146 U/L 125-220 CBC W/PLT COUNT & AUTO [id number] 07:44:00* Test Item Value Reference Range Comments WHITE BLOOD CELL COUNT (BEAKER) (test hwer=962) 6.1 K/ L 3.5-10.5 RED BLOOD CELL COUNT (BEAKER) (test zcws=175) 3.48 M/ L 4.63-6.08 HEMOGLOBIN (BEAKER) (test tnep=847) 9.9 GM/DL 13.7-17.5 HEMATOCRIT (BEAKER) (test ggph=553) 32.3 % 40.1-51.0 MEAN CORPUSCULAR VOLUME (BEAKER) (test booh=330) 92.8 fL 79.0-92.2 MEAN CORPUSCULAR HEMOGLOBIN (BEAKER) (test agek=029) 28.4 pg 25.7-32.2 MEAN CORPUSCULAR HEMOGLOBIN CONC (BEAKER) (test jchd=062) 30.7 GM/DL 32.3-36.5 RED CELL DISTRIBUTION WIDTH (BEAKER) (test jkno=776) 14.8 % 11.6-14.4 PLATELET COUNT (BEAKER) (test hnao=445) 167 K/CU MM 150-450 MEAN PLATELET VOLUME (BEAKER) (test dxjh=192) 10.0 fL 9.4-12.4 NUCLEATED RED BLOOD CELLS (BEAKER) (test tuzn=323) 0 /100 WBC 0-0 NEUTROPHILS RELATIVE PERCENT (BEAKER) (test pfol=226) 80 % LYMPHOCYTES RELATIVE PERCENT (BEAKER) (test xqmb=932) 11 % MONOCYTES RELATIVE PERCENT (BEAKER) (test yvfz=179) 7 % EOSINOPHILS RELATIVE PERCENT (BEAKER) (test bqds=670) 1 % BASOPHILS RELATIVE PERCENT (BEAKER) (test fqmf=958) 1 % NEUTROPHILS ABSOLUTE COUNT (BEAKER) (test yzto=931) 4.85 K/ L 1.78-5.38 LYMPHOCYTES ABSOLUTE COUNT (BEAKER) (test iwlo=776) 0.65 K/ L 1.32-3.57 MONOCYTES ABSOLUTE COUNT (BEAKER) (test pufp=519) 0.45 K/ L 0.30-0.82 EOSINOPHILS ABSOLUTE COUNT (BEAKER) (test hlyv=514) 0.04 K/ L 0.04-0.54 BASOPHILS ABSOLUTE COUNT (BEAKER) (test sjzs=427) 0.05 K/ L 0.01-0.08 IMMATURE GRANULOCYTES-RELATIVE PERCENT (BEAKER) (test xpya=6141) 1 % 0-1 U/S, TRANSPLANT, [id number] 13:50:00increased creatine-s/p kidney txpFINAL REPORT Renal transplant ultrasound, 08/26/2017. Clinical History: Abnormal renal function. Discussion: Sonographic evaluation of the transplanted kidney is performed. In addition, color Doppler and spectral wave form analysis evaluations of the renal vasculature are obtained. The right iliac fossa renal transplant measures 12.2 cm, normal in size. Renal cortical echoge nicity is normal. The renal cortex measures 1.2 cm, normal. There is no hydronep hrosis. No focal mass is seen. No shadowing calculus is seen. A linear fluid c ollection is seen adjacent extending away from the lower pole of the transplant kidney measuring 1.8 x 6.9 x 2.0 cm. A subcutaneous fluid collection is seen ant erior to the kidney measuring 2.5 x 7.3 x 9.0 cm. The external iliac artery, art erial anastomosis, main renal artery, external iliac vein, venous anastomosis, a nd main renal vein demonstrate normal vascular waveforms, without velocity gradi ent to suggest significant stenosis. The resistive indices of the arcuate arteri es are mildly elevated, ranging from 0.74 to 0.83. The bladder is unremarkable . Impression: 1. Normal appearance of the transplant kidney.2. 2 small linear pe rinephric fluid collections, one in the anterior subcutaneous tissues and one ad jacent to the lower pole.3. Doppler evaluation is only remarkable for elevation of the resistive indices, a nonspecific finding seen in a variety of renal disea ses. Signed: Terry Mcelroy MDReport Verified Date/Time: 09/10/2017 13:50:39 Re ading Location: [address] Ultrasound Reading Room PCR, [id number] 14:08:00* Test Item Value Reference Range Comments CMV VIRAL LOAD - NEGATIVE (BEAKER) (test rhvk=3513) Negative or below the linear range of the assay (<375 copies/mL) Cytomegalovirus (CMV) infection can cause significant disease in immunosuppresse d patients. However, it is common for CMV to manifest as a limited infection whi ch is of no clinical significance in immunosuppressed patients or in healthy ind ividuals.Viral load measurements are helpful to identify clinical CMV infection and to guide the pre-emptive management of antiviral therapy. For treatment of CMV infection due to reactivation in transplant recipients, a threshold between 4,000 and 5,000 copies/mL is suggested. For treatment of primary CMV infection, a lower threshold can be used.CMV infection may also be monitored using weekly serial measurements. Serial measurements of CMV DNA viral load can be evaluated by identifying a 10-fold change, as well as assessing the CMV DNA viral load and the clinical context for each patient.The plasma CMV DNA viral load was detected using quantitative polymerase chain reaction and fluorescent monitoring of a s pecific hybridized probe. Genetic variation and other factors can affect the acc uracy of nucleic acid testing. Therefore, the results should be interpreted in l ight of clinical data. A negative result may not exclude the presence of CMV dis ease.This test was developed and its performance characteristics determined by [facility]i mcn[facility] Pathology Department, Section of Molecular Patholog y. It has not been cleared or approved by the U.S. Food and Drug Administration (FDA), since FDA approval is not required for clinical use of the test. Validati on was done as required by The Clinical Laboratory Improvement Amendments of 198 8.URINALYSIS W/ REFLEX URINE [id number] 09:49:00* Test Item Value Reference Range Comments COLOR (BEAKER) (test nddc=658) Yellow CLARITY (BEAKER) (test ljmz=319) Clear SPECIFIC GRAVITY UA (BEAKER) (test rldn=874) 1.012 1.001-1.035 PH UA (BEAKER) (test qgxg=963) 6.0 5.0-8.0 PROTEIN UA (BEAKER) (test gdxa=103) 20 mg/dL Negative GLUCOSE UA (BEAKER) (test boos=628) Negative Negative KETONES UA (BEAKER) (test ydam=204) Negative Negative BILIRUBIN UA (BEAKER) (test omhd=187) Negative Negative BLOOD UA (BEAKER) (test bbca=018) Moderate Negative NITRITE UA (BEAKER) (test qvwu=436) Negative Negative LEUKOCYTE ESTERASE UA (BEAKER) (test wlfe=408) Small Negative UROBILINOGEN UA (BEAKER) (test cddt=097) 0.2 mg/dL 0.2-1.0 RBC UA (BEAKER) (test dlhl=789) 16 /HPF WBC UA (BEAKER) (test yhql=623) 7 /HPF MUCUS (BEAKER) (test owod=2001) Rare SQUAMOUS EPITHELIAL (BEAKER) (test kdey=548) 1 /HPF SOURCE(BEAKER) (test scsp=0284) TACROLIMUS [id number] 09:31:00* Test Item Value Reference Range Comments TACROLIMUS BLOOD (BEAKER) (test ovht=045) 9.2 ng/mL 10.0-20.0 [id number] 08:41:00* Test Item Value Reference Range Comments PHOSPHORUS (BEAKER) (test nokk=580) 1.4 mg/dL 2.3-4.7 COMPREHENSIVE METABOLIC [id number] 07:48:00* Test Item Value Reference Range Comments TOTAL PROTEIN (BEAKER) (test kvvk=950) 5.6 gm/dL 6.0-8.3 ALBUMIN (BEAKER) (test umgs=5489) 3.3 g/dL 3.5-5.0 ALKALINE PHOSPHATASE (BEAKER) (test fmbk=244) 79 U/L 40-150 BILIRUBIN TOTAL (BEAKER) (test oegu=266) 0.6 mg/dL 0.2-1.2 SODIUM (BEAKER) (test zbda=137) 141 meq/L 136-145 POTASSIUM (BEAKER) (test hhlw=798) 3.1 meq/L 3.5-5.1 CHLORIDE (BEAKER) (test xysw=783) 111 meq/L 98-107 CO2 (BEAKER) (test oepi=689) 22 meq/L 22-29 BLOOD UREA NITROGEN (BEAKER) (test yymn=564) 13 mg/dL 7-21 CREATININE (BEAKER) (test riag=686) 0.86 mg/dL 0.57-1.25 GLUCOSE RANDOM (BEAKER) (test kqpi=272) 103 mg/dL 70-105 CALCIUM (BEAKER) (test ubbm=182) 8.2 mg/dL 8.4-10.2 AST (SGOT) (BEAKER) (test qvee=650) 12 U/L 5-34 ALT (SGPT) (BEAKER) (test lixf=205) 6 U/L 6-55 EGFR (BEAKER) (test bczf=8815) 89 mL/min/1.73 sq m ESTIMATED GFR IS NOT ACCURATE CREATININE CLEARANCE IN PREDICTING GLOMERULAR FILTRATION RATE. ESTIMATED GFR IS NOT APPLICABLE FOR DIALYSIS PATIENTS. LACTATE DEHYDROGENASE (LDH)2017-09-09 07:48:00* Test Item Value Reference Range Comments LACTATE DEHYDROGENASE (BEAKER) (test bixm=798) 157 U/L 125-220 CBC W/PLT COUNT & AUTO [id number] 07:31:00* Test Item Value Reference Range Comments WHITE BLOOD CELL COUNT (BEAKER) (test gizj=403) 4.7 K/ L 3.5-10.5 RED BLOOD CELL COUNT (BEAKER) (test jdle=836) 3.33 M/ L 4.63-6.08 HEMOGLOBIN (BEAKER) (test jluk=114) 9.6 GM/DL 13.7-17.5 HEMATOCRIT (BEAKER) (test xbpl=975) 31.8 % 40.1-51.0 MEAN CORPUSCULAR VOLUME (BEAKER) (test dcce=820) 95.5 fL 79.0-92.2 MEAN CORPUSCULAR HEMOGLOBIN (BEAKER) (test qdgn=349) 28.8 pg 25.7-32.2 MEAN CORPUSCULAR HEMOGLOBIN CONC (BEAKER) (test zhlj=245) 30.2 GM/DL 32.3-36.5 RED CELL DISTRIBUTION WIDTH (BEAKER) (test kgru=348) 15.2 % 11.6-14.4 PLATELET COUNT (BEAKER) (test wyeg=800) 104 K/CU MM 150-450 MEAN PLATELET VOLUME (BEAKER) (test cbzo=314) 10.5 fL 9.4-12.4 NUCLEATED RED BLOOD CELLS (BEAKER) (test iixl=752) 0 /100 WBC 0-0 NEUTROPHILS RELATIVE PERCENT (BEAKER) (test xtob=098) 77 % LYMPHOCYTES RELATIVE PERCENT (BEAKER) (test fvaf=104) 11 % MONOCYTES RELATIVE PERCENT (BEAKER) (test qcgb=798) 9 % EOSINOPHILS RELATIVE PERCENT (BEAKER) (test llfu=077) 1 % BASOPHILS RELATIVE PERCENT (BEAKER) (test inme=084) 2 % NEUTROPHILS ABSOLUTE COUNT (BEAKER) (test sljg=757) 3.63 K/ L 1.78-5.38 LYMPHOCYTES ABSOLUTE COUNT (BEAKER) (test vrro=023) 0.53 K/ L 1.32-3.57 MONOCYTES ABSOLUTE COUNT (BEAKER) (test shag=856) 0.42 K/ L 0.30-0.82 EOSINOPHILS ABSOLUTE COUNT (BEAKER) (test jscm=374) 0.03 K/ L 0.04-0.54 BASOPHILS ABSOLUTE COUNT (BEAKER) (test sdql=551) 0.07 K/ L 0.01-0.08 IMMATURE GRANULOCYTES-RELATIVE PERCENT (BEAKER) (test uyqv=8095) 0 % 0-1 BK VIRUS PCR, [id number] 14:50:00* Test Item Value Reference Range Comments BK VIRUS, PLASMA, NEG (BEAKER) (test xzyh=5955) Negative or below the linear range of the assay (<1,000 copies/mL) Patients may have replicating BK Virus which is of no clinical significance. Vi ral load measurements are helpful to identify BK Virus replication of potential clinical significance. Consensus recommendations have been published of thresho ld values for the presumptive diagnosis of polyomavirus-associated nephropathy ( Transplantation 2005;79:7408-1678).A BK Virus load greater than 5,000-10,000 telescope maintenance ies/mL in the plasma is consistent with the presumptive diagnosis of polyoma-ass ociated nephropathy in renal transplant recipients.BK Virus DNA was assessed usi ng quantitative polymerase chain reaction and fluorescent monitoring of a specif ic hybridized probe. Genetic variation and other factors can affect the accurac y of nucleic acid testing. Therefore, the results should be interpreted in ligh t of clinical data.This test was developed and its performance characteristics d etermined by the [facility] Pathology Department, Section of [facility] Pathology. It has not been cleared or approved by the U.S. Food and Drug Administration (FDA). Since FDA approval is not required for clinical use of th e test, validation was done as required by the Clinical Laboratory Improvement A mendments of 1988.TACROLIMUS [id number] 11:47:00* Test Item Value Reference Range Comments TACROLIMUS BLOOD (BEAKER) (test ibio=300) 6.1 ng/mL 10.0-20.0 [id number] 11:32:00* Test Item Value Reference Range Comments PHOSPHORUS (BEAKER) (test cnww=333) 1.8 mg/dL 2.3-4.7 COMPREHENSIVE METABOLIC [id number] 11:32:00* Test Item Value Reference Range Comments TOTAL PROTEIN (BEAKER) (test lxvm=333) 5.6 gm/dL 6.0-8.3 ALBUMIN (BEAKER) (test kief=9185) 3.5 g/dL 3.5-5.0 ALKALINE PHOSPHATASE (BEAKER) (test zwzq=374) 62 U/L 40-150 BILIRUBIN TOTAL (BEAKER) (test lhes=943) 0.5 mg/dL 0.2-1.2 SODIUM (BEAKER) (test vriq=108) 143 meq/L 136-145 POTASSIUM (BEAKER) (test defl=827) 3.9 meq/L 3.5-5.1 CHLORIDE (BEAKER) (test pjgf=321) 113 meq/L 98-107 CO2 (BEAKER) (test ioge=474) 20 meq/L 22-29 BLOOD UREA NITROGEN (BEAKER) (test dyiq=023) 21 mg/dL 7-21 CREATININE (BEAKER) (test sppe=646) 1.29 mg/dL 0.57-1.25 GLUCOSE RANDOM (BEAKER) (test xmcv=721) 92 mg/dL 70-105 CALCIUM (BEAKER) (test wejg=285) 8.6 mg/dL 8.4-10.2 AST (SGOT) (BEAKER) (test napy=645) 16 U/L 5-34 ALT (SGPT) (BEAKER) (test eeng=741) 6 U/L 6-55 EGFR (BEAKER) (test qjhd=6990) 56 mL/min/1.73 sq m ESTIMATED GFR IS NOT ACCURATE CREATININE CLEARANCE IN PREDICTING GLOMERULAR FILTRATION RATE. ESTIMATED GFR IS NOT APPLICABLE FOR DIALYSIS PATIENTS. LACTATE DEHYDROGENASE (LDH)2017-09-02 11:32:00* Test Item Value Reference Range Comments LACTATE DEHYDROGENASE (BEAKER) (test hfby=229) 213 U/L 125-220 URINALYSIS W/ REFLEX URINE [id number] 10:37:00* Test Item Value Reference Range Comments COLOR (BEAKER) (test blaq=060) Yellow CLARITY (BEAKER) (test cjvn=522) Clear SPECIFIC GRAVITY UA (BEAKER) (test oskf=736) 1.011 1.001-1.035 PH UA (BEAKER) (test pfqo=001) 6.5 5.0-8.0 PROTEIN UA (BEAKER) (test aquw=186) 20 mg/dL Negative GLUCOSE UA (BEAKER) (test hvkb=880) Negative Negative KETONES UA (BEAKER) (test fayk=110) Negative Negative BILIRUBIN UA (BEAKER) (test nmxe=661) Negative Negative BLOOD UA (BEAKER) (test jgeu=149) Small Negative NITRITE UA (BEAKER) (test zoom=665) Negative Negative LEUKOCYTE ESTERASE UA (BEAKER) (test oxxo=514) Small Negative UROBILINOGEN UA (BEAKER) (test dfwh=282) 0.2 mg/dL 0.2-1.0 RBC UA (BEAKER) (test dhgw=518) 7 /HPF WBC UA (BEAKER) (test dufh=007) 5 /HPF SOURCE(BEAKER) (test sqsg=2885) CBC W/PLT COUNT & AUTO [id number] 09:00:00* Test Item Value Reference Range Comments WHITE BLOOD CELL COUNT (BEAKER) (test nckn=036) 5.6 K/ L 3.5-10.5 RED BLOOD CELL COUNT (BEAKER) (test giki=728) 3.28 M/ L 4.63-6.08 HEMOGLOBIN (BEAKER) (test oojv=519) 9.4 GM/DL 13.7-17.5 HEMATOCRIT (BEAKER) (test mybn=055) 32.5 % 40.1-51.0 MEAN CORPUSCULAR VOLUME (BEAKER) (test pdyg=670) 99.1 fL 79.0-92.2 MEAN CORPUSCULAR HEMOGLOBIN (BEAKER) (test uvcl=181) 28.7 pg 25.7-32.2 MEAN CORPUSCULAR HEMOGLOBIN CONC (BEAKER) (test saxx=429) 28.9 GM/DL 32.3-36.5 RED CELL DISTRIBUTION WIDTH (BEAKER) (test vfzz=478) 14.9 % 11.6-14.4 PLATELET COUNT (BEAKER) (test sqwq=703) 128 K/CU MM 150-450 MEAN PLATELET VOLUME (BEAKER) (test bwhi=366) 10.6 fL 9.4-12.4 NUCLEATED RED BLOOD CELLS (BEAKER) (test lpkl=532) 0 /100 WBC 0-0 NEUTROPHILS RELATIVE PERCENT (BEAKER) (test vrdh=599) 77 % LYMPHOCYTES RELATIVE PERCENT (BEAKER) (test pcfd=630) 13 % MONOCYTES RELATIVE PERCENT (BEAKER) (test eymz=992) 7 % EOSINOPHILS RELATIVE PERCENT (BEAKER) (test azgm=639) 1 % BASOPHILS RELATIVE PERCENT (BEAKER) (test jqwj=485) 2 % NEUTROPHILS ABSOLUTE COUNT (BEAKER) (test zyze=967) 4.34 K/ L 1.78-5.38 LYMPHOCYTES ABSOLUTE COUNT (BEAKER) (test jncw=774) 0.71 K/ L 1.32-3.57 MONOCYTES ABSOLUTE COUNT (BEAKER) (test txht=493) 0.37 K/ L 0.30-0.82 EOSINOPHILS ABSOLUTE COUNT (BEAKER) (test lwse=642) 0.07 K/ L 0.04-0.54 BASOPHILS ABSOLUTE COUNT (BEAKER) (test griv=598) 0.10 K/ L 0.01-0.08 IMMATURE GRANULOCYTES-RELATIVE PERCENT (BEAKER) (test uuhj=9958) 0 % 0-1 CMV PCR, [id number] 15:29:00* Test Item Value Reference Range Comments CMV VIRAL LOAD - NEGATIVE (BEAKER) (test rntc=4456) Negative or below the linear range of the assay (<375 copies/mL) Cytomegalovirus (CMV) infection can cause significant disease in immunosuppresse d patients. However, it is common for CMV to manifest as a limited infection whi ch is of no clinical significance in immunosuppressed patients or in healthy ind ividuals.Viral load measurements are helpful to identify clinical CMV infection and to guide the pre-emptive management of antiviral therapy. For treatment of CMV infection due to reactivation in transplant recipients, a threshold between 4,000 and 5,000 copies/mL is suggested. For treatment of primary CMV infection, a lower threshold can be used.CMV infection may also be monitored using weekly serial measurements. Serial measurements of CMV DNA viral load can be evaluated by identifying a 10-fold change, as well as assessing the CMV DNA viral load and the clinical context for each patient.The plasma CMV DNA viral load was detected using quantitative polymerase chain reaction and fluorescent monitoring of a s pecific hybridized probe. Genetic variation and other factors can affect the acc uracy of nucleic acid testing. Therefore, the results should be interpreted in l ight of clinical data. A negative result may not exclude the presence of CMV dis ease.This test was developed and its performance characteristics determined by sandi mcn[facility] Pathology Department, Section of Molecular Patholog y. It has not been cleared or approved by the U.S. Food and Drug Administration (FDA), since FDA approval is not required for clinical use of the test. Validati on was done as required by The Clinical Laboratory Improvement Amendments of 198 8.URINALYSIS W/ REFLEX URINE [id number] 10:51:00* Test Item Value Reference Range Comments COLOR (BEAKER) (test imww=401) Yellow CLARITY (BEAKER) (test mgun=285) Clear SPECIFIC GRAVITY UA (BEAKER) (test gfob=077) 1.009 1.001-1.035 PH UA (BEAKER) (test mixf=884) 6.0 5.0-8.0 PROTEIN UA (BEAKER) (test vdxg=509) 20 mg/dL Negative GLUCOSE UA (BEAKER) (test ickz=545) Negative Negative KETONES UA (BEAKER) (test zbst=406) Negative Negative BILIRUBIN UA (BEAKER) (test txkk=671) Negative Negative BLOOD UA (BEAKER) (test qyal=577) Small Negative NITRITE UA (BEAKER) (test qsrc=484) Negative Negative LEUKOCYTE ESTERASE UA (BEAKER) (test gyyd=957) Moderate Negative UROBILINOGEN UA (BEAKER) (test feah=667) 0.2 mg/dL 0.2-1.0 RBC UA (BEAKER) (test srhm=226) 11 /HPF WBC UA (BEAKER) (test eqyc=360) 15 /HPF SOURCE(BEAKER) (test yvqd=5364) TACROLIMUS [id number] 10:07:00* Test Item Value Reference Range Comments TACROLIMUS BLOOD (BEAKER) (test vpnz=475) 5.4 ng/mL 10.0-20.0 COMPREHENSIVE METABOLIC [id number] 09:09:00* Test Item Value Reference Range Comments TOTAL PROTEIN (BEAKER) (test vlkm=168) 5.5 gm/dL 6.0-8.3 ALBUMIN (BEAKER) (test yzem=1203) 3.3 g/dL 3.5-5.0 ALKALINE PHOSPHATASE (BEAKER) (test yrqh=619) 54 U/L 40-150 BILIRUBIN TOTAL (BEAKER) (test apzh=520) 0.5 mg/dL 0.2-1.2 SODIUM (BEAKER) (test valq=509) 144 meq/L 136-145 POTASSIUM (BEAKER) (test yupv=479) 3.5 meq/L 3.5-5.1 CHLORIDE (BEAKER) (test rdcx=493) 109 meq/L 98-107 CO2 (BEAKER) (test ziqx=800) 22 meq/L 22-29 BLOOD UREA NITROGEN (BEAKER) (test rfry=621) 74 mg/dL 7-21 CREATININE (BEAKER) (test dkxv=441) 4.12 mg/dL 0.57-1.25 GLUCOSE RANDOM (BEAKER) (test iwdz=676) 97 mg/dL 70-105 CALCIUM (BEAKER) (test cjrj=807) 8.6 mg/dL 8.4-10.2 AST (SGOT) (BEAKER) (test plvv=977) 21 U/L 5-34 ALT (SGPT) (BEAKER) (test hqnm=283) < U/L 6-55 EGFR (BEAKER) (test ocae=0719) 15 mL/min/1.73 sq m ESTIMATED GFR IS NOT ACCURATE CREATININE CLEARANCE IN PREDICTING GLOMERULAR FILTRATION RATE. ESTIMATED GFR IS NOT APPLICABLE FOR DIALYSIS PATIENTS. CBC W/PLT COUNT & AUTO [id number] 08:52:00* Test Item Value Reference Range Comments WHITE BLOOD CELL COUNT (BEAKER) (test xjef=847) 4.0 K/ L 3.5-10.5 RED BLOOD CELL COUNT (BEAKER) (test fvab=598) 3.10 M/ L 4.63-6.08 HEMOGLOBIN (BEAKER) (test bweo=050) 9.0 GM/DL 13.7-17.5 HEMATOCRIT (BEAKER) (test crlj=201) 29.8 % 40.1-51.0 MEAN CORPUSCULAR VOLUME (BEAKER) (test ryot=427) 96.1 fL 79.0-92.2 MEAN CORPUSCULAR HEMOGLOBIN (BEAKER) (test dbot=183) 29.0 pg 25.7-32.2 MEAN CORPUSCULAR HEMOGLOBIN CONC (BEAKER) (test aelg=102) 30.2 GM/DL 32.3-36.5 RED CELL DISTRIBUTION WIDTH (BEAKER) (test zqnd=585) 15.4 % 11.6-14.4 PLATELET COUNT (BEAKER) (test rpcd=432) 132 K/CU MM 150-450 MEAN PLATELET VOLUME (BEAKER) (test imrx=324) 10.3 fL 9.4-12.4 NUCLEATED RED BLOOD CELLS (BEAKER) (test nbuu=697) 0 /100 WBC 0-0 NEUTROPHILS RELATIVE PERCENT (BEAKER) (test kujc=881) 77 % LYMPHOCYTES RELATIVE PERCENT (BEAKER) (test dsdf=426) 9 % MONOCYTES RELATIVE PERCENT (BEAKER) (test lqhz=880) 8 % EOSINOPHILS RELATIVE PERCENT (BEAKER) (test ywup=509) 4 % BASOPHILS RELATIVE PERCENT (BEAKER) (test jovc=397) 1 % NEUTROPHILS ABSOLUTE COUNT (BEAKER) (test hcvo=180) 3.11 K/ L 1.78-5.38 LYMPHOCYTES ABSOLUTE COUNT (BEAKER) (test opof=794) 0.38 K/ L 1.32-3.57 MONOCYTES ABSOLUTE COUNT (BEAKER) (test ikuf=202) 0.34 K/ L 0.30-0.82 EOSINOPHILS ABSOLUTE COUNT (BEAKER) (test mlwa=363) 0.15 K/ L 0.04-0.54 BASOPHILS ABSOLUTE COUNT (BEAKER) (test vsos=745) 0.04 K/ L 0.01-0.08 IMMATURE GRANULOCYTES-RELATIVE PERCENT (BEAKER) (test htyp=9029) 0 % 0-1 [id number] 08:51:00* Test Item Value Reference Range Comments PHOSPHORUS (BEAKER) (test rcfo=502) 5.0 mg/dL 2.3-4.7 LACTATE DEHYDROGENASE (LDH)2017-08-28 08:51:00* Test Item Value Reference Range Comments LACTATE DEHYDROGENASE (BEAKER) (test mhws=462) 215 U/L 125-220 TACROLIMUS [id number] 12:41:00* Test Item Value Reference Range Comments TACROLIMUS BLOOD (BEAKER) (test bvrw=821) 5.2 ng/mL 10.0-20.0 URINALYSIS W/ REFLEX URINE [id number] 11:59:00* Test Item Value Reference Range Comments COLOR (BEAKER) (test adzy=493) Yellow CLARITY (BEAKER) (test kfkj=046) Clear SPECIFIC GRAVITY UA (BEAKER) (test nwis=714) 1.011 1.001-1.035 PH UA (BEAKER) (test tzvl=717) 5.5 5.0-8.0 PROTEIN UA (BEAKER) (test mqsi=517) 30 mg/dL Negative GLUCOSE UA (BEAKER) (test brqd=806) Negative Negative KETONES UA (BEAKER) (test grag=324) Negative Negative BILIRUBIN UA (BEAKER) (test jnyl=742) Negative Negative BLOOD UA (BEAKER) (test xkaj=521) Moderate Negative NITRITE UA (BEAKER) (test jczh=181) Negative Negative LEUKOCYTE ESTERASE UA (BEAKER) (test fhln=887) Moderate Negative UROBILINOGEN UA (BEAKER) (test trcx=534) 0.2 mg/dL 0.2-1.0 RBC UA (BEAKER) (test neqh=385) 16 /HPF WBC UA (BEAKER) (test sxyf=241) 28 /HPF BACTERIA (BEAKER) (test vaim=779) Rare SQUAMOUS EPITHELIAL (BEAKER) (test qjcq=578) 1 /HPF SOURCE(BEAKER) (test fydj=9892) COMPREHENSIVE METABOLIC [id number] 09:03:00* Test Item Value Reference Range Comments TOTAL PROTEIN (BEAKER) (test blhj=002) 5.4 gm/dL 6.0-8.3 ALBUMIN (BEAKER) (test jxul=1494) 3.2 g/dL 3.5-5.0 ALKALINE PHOSPHATASE (BEAKER) (test avpo=468) 57 U/L 40-150 BILIRUBIN TOTAL (BEAKER) (test miyt=546) 0.6 mg/dL 0.2-1.2 SODIUM (BEAKER) (test fsbz=073) 143 meq/L 136-145 POTASSIUM (BEAKER) (test pyyl=940) 3.8 meq/L 3.5-5.1 CHLORIDE (BEAKER) (test vckv=729) 106 meq/L 98-107 CO2 (BEAKER) (test kabj=983) 21 meq/L 22-29 BLOOD UREA NITROGEN (BEAKER) (test iona=335) 100 mg/dL 7-21 CREATININE (BEAKER) (test ziur=492) 6.70 mg/dL 0.57-1.25 GLUCOSE RANDOM (BEAKER) (test nmps=254) 103 mg/dL 70-105 CALCIUM (BEAKER) (test jmlt=392) 8.6 mg/dL 8.4-10.2 AST (SGOT) (BEAKER) (test nmiu=901) 21 U/L 5-34 ALT (SGPT) (BEAKER) (test dvck=019) < U/L 6-55 EGFR (BEAKER) (test jtfm=9981) 8 mL/min/1.73 sq m ESTIMATED GFR IS NOT ACCURATE CREATININE CLEARANCE IN PREDICTING GLOMERULAR FILTRATION RATE. ESTIMATED GFR IS NOT APPLICABLE FOR DIALYSIS PATIENTS. [id number] 08:52:00* Test Item Value Reference Range Comments PHOSPHORUS (BEAKER) (test qvgy=353) 7.0 mg/dL 2.3-4.7 LACTATE DEHYDROGENASE (LDH)2017-08-26 08:52:00* Test Item Value Reference Range Comments LACTATE DEHYDROGENASE (BEAKER) (test mumw=358) 225 U/L 125-220 CBC W/PLT COUNT & AUTO [id number] 08:52:00* Test Item Value Reference Range Comments WHITE BLOOD CELL COUNT (BEAKER) (test mqdn=293) 5.9 K/ L 3.5-10.5 RED BLOOD CELL COUNT (BEAKER) (test upja=181) 3.19 M/ L 4.63-6.08 HEMOGLOBIN (BEAKER) (test ttzm=115) 9.5 GM/DL 13.7-17.5 HEMATOCRIT (BEAKER) (test ypty=436) 30.4 % 40.1-51.0 MEAN CORPUSCULAR VOLUME (BEAKER) (test dekb=239) 95.3 fL 79.0-92.2 MEAN CORPUSCULAR HEMOGLOBIN (BEAKER) (test lwym=129) 29.8 pg 25.7-32.2 MEAN CORPUSCULAR HEMOGLOBIN CONC (BEAKER) (test tvnn=799) 31.3 GM/DL 32.3-36.5 RED CELL DISTRIBUTION WIDTH (BEAKER) (test osam=732) 16.0 % 11.6-14.4 PLATELET COUNT (BEAKER) (test mcuc=741) 119 K/CU MM 150-450 MEAN PLATELET VOLUME (BEAKER) (test xluj=064) 10.3 fL 9.4-12.4 NUCLEATED RED BLOOD CELLS (BEAKER) (test uzgi=681) 0 /100 WBC 0-0 NEUTROPHILS RELATIVE PERCENT (BEAKER) (test qqcs=321) 80 % LYMPHOCYTES RELATIVE PERCENT (BEAKER) (test rbnu=887) 8 % MONOCYTES RELATIVE PERCENT (BEAKER) (test cdoq=430) 8 % EOSINOPHILS RELATIVE PERCENT (BEAKER) (test lbse=571) 3 % BASOPHILS RELATIVE PERCENT (BEAKER) (test vlhd=730) 1 % NEUTROPHILS ABSOLUTE COUNT (BEAKER) (test flcd=701) 4.72 K/ L 1.78-5.38 LYMPHOCYTES ABSOLUTE COUNT (BEAKER) (test vjip=133) 0.46 K/ L 1.32-3.57 MONOCYTES ABSOLUTE COUNT (BEAKER) (test ptet=769) 0.44 K/ L 0.30-0.82 EOSINOPHILS ABSOLUTE COUNT (BEAKER) (test wqsd=198) 0.18 K/ L 0.04-0.54 BASOPHILS ABSOLUTE COUNT (BEAKER) (test iixf=303) 0.05 K/ L 0.01-0.08 IMMATURE GRANULOCYTES-RELATIVE PERCENT (BEAKER) (test sjum=0476) 1 % 0-1 TACROLIMUS [id number] 13:02:00* Test Item Value Reference Range Comments TACROLIMUS BLOOD (BEAKER) (test obcj=004) 8.0 ng/mL 10.0-20.0 CBC W/PLT COUNT & AUTO [id number] 07:15:00* Test Item Value Reference Range Comments WHITE BLOOD CELL COUNT (BEAKER) (test pqxo=235) 3.4 K/ L 3.5-10.5 RED BLOOD CELL COUNT (BEAKER) (test tkln=197) 2.79 M/ L 4.63-6.08 HEMOGLOBIN (BEAKER) (test yjwl=318) 8.3 GM/DL 13.7-17.5 HEMATOCRIT (BEAKER) (test ddez=461) 25.8 % 40.1-51.0 MEAN CORPUSCULAR VOLUME (BEAKER) (test zafi=061) 92.5 fL 79.0-92.2 MEAN CORPUSCULAR HEMOGLOBIN (BEAKER) (test abpb=144) 29.7 pg 25.7-32.2 MEAN CORPUSCULAR HEMOGLOBIN CONC (BEAKER) (test lypr=089) 32.2 GM/DL 32.3-36.5 RED CELL DISTRIBUTION WIDTH (BEAKER) (test ogce=713) 16.0 % 11.6-14.4 PLATELET COUNT (BEAKER) (test dgqn=582) 80 K/CU MM 150-450 MEAN PLATELET VOLUME (BEAKER) (test dqeh=767) 10.3 fL 9.4-12.4 NUCLEATED RED BLOOD CELLS (BEAKER) (test zupf=334) 0 /100 WBC 0-0 NEUTROPHILS RELATIVE PERCENT (BEAKER) (test xjqh=007) 80 % LYMPHOCYTES RELATIVE PERCENT (BEAKER) (test zwjc=281) 9 % MONOCYTES RELATIVE PERCENT (BEAKER) (test jnuj=877) 9 % EOSINOPHILS RELATIVE PERCENT (BEAKER) (test sosi=441) 2 % BASOPHILS RELATIVE PERCENT (BEAKER) (test ckna=298) 0 % NEUTROPHILS ABSOLUTE COUNT (BEAKER) (test xung=144) 2.71 K/ L 1.78-5.38 LYMPHOCYTES ABSOLUTE COUNT (BEAKER) (test cesn=898) 0.30 K/ L 1.32-3.57 MONOCYTES ABSOLUTE COUNT (BEAKER) (test vfvt=649) 0.30 K/ L 0.30-0.82 EOSINOPHILS ABSOLUTE COUNT (BEAKER) (test kfut=601) 0.05 K/ L 0.04-0.54 BASOPHILS ABSOLUTE COUNT (BEAKER) (test cojm=044) 0.01 K/ L 0.01-0.08 IMMATURE GRANULOCYTES-RELATIVE PERCENT (BEAKER) (test csbl=6402) 0 % 0-1 BASIC METABOLIC [id number] 07:12:00* Test Item Value Reference Range Comments SODIUM (BEAKER) (test adhk=628) 136 meq/L 136-145 POTASSIUM (BEAKER) (test bypa=520) 4.6 meq/L 3.5-5.1 CHLORIDE (BEAKER) (test pggq=272) 103 meq/L 98-107 CO2 (BEAKER) (test flcn=027) 18 meq/L 22-29 BLOOD UREA NITROGEN (BEAKER) (test kenz=100) 97 mg/dL 7-21 CREATININE (BEAKER) (test zhsf=364) 8.03 mg/dL 0.57-1.25 GLUCOSE RANDOM (BEAKER) (test uett=058) 111 mg/dL 70-105 CALCIUM (BEAKER) (test fmxy=355) 7.7 mg/dL 8.4-10.2 EGFR (BEAKER) (test swxc=7180) 7 mL/min/1.73 sq m ESTIMATED GFR IS NOT ACCURATE CREATININE CLEARANCE IN PREDICTING GLOMERULAR FILTRATION RATE. ESTIMATED GFR IS NOT APPLICABLE FOR DIALYSIS PATIENTS. [id number] 07:08:00* Test Item Value Reference Range Comments PHOSPHORUS (BEAKER) (test qhot=095) 7.5 mg/dL 2.3-4.7 [id number] 07:08:00* Test Item Value Reference Range Comments MAGNESIUM (BEAKER) (test hjuy=408) 2.1 mg/dL 1.6-2.6 U/S, TRANSPLANT, [id number] 14:53:00Reason for exam:->s/p kidney transplant please evaluate vesselsFINAL REPORT Ultrasound transplant kidney AND duplex doppler evaluation. History: s/p kidney transplant please evaluate vessels Comparison: 08/19/2017 and 08/18/2017 Technique: Real-time ultrasound of the right iliac fossa renal transplant was performed. Examination included mercedes scale, color flow, and duplex Doppler evaluations of the renovascular system. Findings: The renal transplant is normal in size, measuring 11.9 cm in length. Echogenicity appears within normal limits. Renal cortical thickness measures 1.2 cm. No hydronephrosis or mass lesion. No perinephric fluid collection is seen. The bladder is underdistended limiting its evaluation. Doppler evaluation shows no significant anastomotic gradient. Both arterial inflow and venous outflow are assessed. The main renal artery and vein are patent. The arterial peak systolic velocity at the iliac artery, anastomosis and main renal artery measure 101 cm/sec, 140 cm/sec, and 91 cm/sec respectively. The venous peak systolic velocity at the iliac vein, anastomosis, and main renal vein measure 84 cm/sec, 46 cm/sec, and 39 cm/sec respectively. Interlobar artery acceleration times and indices are within normal limits. Impression: 1. Unremarkable examination. Signed: Toby Rachel MDReport Verified Date/Time: 08/23/2017 14:53:19 Reading Location: [address] Ortho Consult Reading Room OLIMUS [id number] 13:15:00* Test Item Value Reference Range Comments TACROLIMUS BLOOD (BEAKER) (test yend=080) 10.2 ng/mL 10.0-20.0 BASIC METABOLIC [id number] 06:42:00* Test Item Value Reference Range Comments SODIUM (BEAKER) (test kpfh=654) 135 meq/L 136-145 POTASSIUM (BEAKER) (test zhzn=775) 4.6 meq/L 3.5-5.1 CHLORIDE (BEAKER) (test fyry=735) 102 meq/L 98-107 CO2 (BEAKER) (test livz=213) 19 meq/L 22-29 BLOOD UREA NITROGEN (BEAKER) (test yoic=571) 96 mg/dL 7-21 CREATININE (BEAKER) (test ynzv=960) 8.41 mg/dL 0.57-1.25 GLUCOSE RANDOM (BEAKER) (test umqw=151) 125 mg/dL 70-105 CALCIUM (BEAKER) (test dgph=927) 8.0 mg/dL 8.4-10.2 EGFR (BEAKER) (test zbgd=5019) 6 mL/min/1.73 sq m ESTIMATED GFR IS NOT ACCURATE CREATININE CLEARANCE IN PREDICTING GLOMERULAR FILTRATION RATE. ESTIMATED GFR IS NOT APPLICABLE FOR DIALYSIS PATIENTS. [id number] 06:41:00* Test Item Value Reference Range Comments PHOSPHORUS (BEAKER) (test cgez=841) 7.2 mg/dL 2.3-4.7 [id number] 06:41:00* Test Item Value Reference Range Comments MAGNESIUM (BEAKER) (test been=611) 2.1 mg/dL 1.6-2.6 CBC W/PLT COUNT & AUTO [id number] 06:24:00* Test Item Value Reference Range Comments WHITE BLOOD CELL COUNT (BEAKER) (test ddfl=812) 3.4 K/ L 3.5-10.5 RED BLOOD CELL COUNT (BEAKER) (test ejws=977) 2.94 M/ L 4.63-6.08 HEMOGLOBIN (BEAKER) (test jjdj=272) 8.6 GM/DL 13.7-17.5 HEMATOCRIT (BEAKER) (test vnag=510) 26.8 % 40.1-51.0 MEAN CORPUSCULAR VOLUME (BEAKER) (test bkpm=660) 91.2 fL 79.0-92.2 MEAN CORPUSCULAR HEMOGLOBIN (BEAKER) (test anpg=681) 29.3 pg 25.7-32.2 MEAN CORPUSCULAR HEMOGLOBIN CONC (BEAKER) (test ljjn=265) 32.1 GM/DL 32.3-36.5 RED CELL DISTRIBUTION WIDTH (BEAKER) (test kovc=623) 16.0 % 11.6-14.4 PLATELET COUNT (BEAKER) (test wqjj=186) 76 K/CU MM 150-450 MEAN PLATELET VOLUME (BEAKER) (test bhoq=031) 10.1 fL 9.4-12.4 NUCLEATED RED BLOOD CELLS (BEAKER) (test wvjk=716) 0 /100 WBC 0-0 NEUTROPHILS RELATIVE PERCENT (BEAKER) (test zztd=508) 86 % LYMPHOCYTES RELATIVE PERCENT (BEAKER) (test usds=870) 5 % MONOCYTES RELATIVE PERCENT (BEAKER) (test kpsq=045) 8 % EOSINOPHILS RELATIVE PERCENT (BEAKER) (test igvr=026) 0 % BASOPHILS RELATIVE PERCENT (BEAKER) (test biat=971) 0 % NEUTROPHILS ABSOLUTE COUNT (BEAKER) (test afbh=847) 2.96 K/ L 1.78-5.38 LYMPHOCYTES ABSOLUTE COUNT (BEAKER) (test ubhv=741) 0.16 K/ L 1.32-3.57 MONOCYTES ABSOLUTE COUNT (BEAKER) (test imzc=554) 0.27 K/ L 0.30-0.82 EOSINOPHILS ABSOLUTE COUNT (BEAKER) (test clhj=868) 0.01 K/ L 0.04-0.54 BASOPHILS ABSOLUTE COUNT (BEAKER) (test oebi=797) 0.00 K/ L 0.01-0.08 IMMATURE GRANULOCYTES-RELATIVE PERCENT (BEAKER) (test nupu=3579) 1 % 0-1 TACROLIMUS [id number] 13:08:00* Test Item Value Reference Range Comments TACROLIMUS BLOOD (BEAKER) (test qgzh=125) 15.6 ng/mL 10.0-20.0 TACROLIMUS [id number] 12:45:00* Test Item Value Reference Range Comments TACROLIMUS BLOOD (BEAKER) (test hdoq=520) 19.2 ng/mL 10.0-20.0 BASIC METABOLIC [id number] 03:32:00* Test Item Value Reference Range Comments SODIUM (BEAKER) (test damj=690) 135 meq/L 136-145 POTASSIUM (BEAKER) (test eets=874) 4.8 meq/L 3.5-5.1 CHLORIDE (BEAKER) (test rjvp=964) 102 meq/L 98-107 CO2 (BEAKER) (test auts=864) 18 meq/L 22-29 BLOOD UREA NITROGEN (BEAKER) (test pmyx=355) 87 mg/dL 7-21 CREATININE (BEAKER) (test udio=175) 8.34 mg/dL 0.57-1.25 GLUCOSE RANDOM (BEAKER) (test ksqr=441) 131 mg/dL 70-105 CALCIUM (BEAKER) (test olce=564) 7.8 mg/dL 8.4-10.2 EGFR (BEAKER) (test frdn=9452) 6 mL/min/1.73 sq m ESTIMATED GFR IS NOT ACCURATE CREATININE CLEARANCE IN PREDICTING GLOMERULAR FILTRATION RATE. ESTIMATED GFR IS NOT APPLICABLE FOR DIALYSIS PATIENTS. [id number] 03:25:00* Test Item Value Reference Range Comments PHOSPHORUS (BEAKER) (test mojv=667) 8.4 mg/dL 2.3-4.7 [id number] 03:25:00* Test Item Value Reference Range Comments MAGNESIUM (BEAKER) (test fegh=427) 2.1 mg/dL 1.6-2.6 CBC W/PLT COUNT & AUTO [id number] 03:09:00* Test Item Value Reference Range Comments WHITE BLOOD CELL COUNT (BEAKER) (test kzif=950) 5.1 K/ L 3.5-10.5 RED BLOOD CELL COUNT (BEAKER) (test toix=921) 2.61 M/ L 4.63-6.08 HEMOGLOBIN (BEAKER) (test cmvs=239) 7.8 GM/DL 13.7-17.5 HEMATOCRIT (BEAKER) (test cewk=721) 24.2 % 40.1-51.0 MEAN CORPUSCULAR VOLUME (BEAKER) (test cuac=140) 92.7 fL 79.0-92.2 MEAN CORPUSCULAR HEMOGLOBIN (BEAKER) (test jxqs=798) 29.9 pg 25.7-32.2 MEAN CORPUSCULAR HEMOGLOBIN CONC (BEAKER) (test wxye=719) 32.2 GM/DL 32.3-36.5 RED CELL DISTRIBUTION WIDTH (BEAKER) (test zivg=138) 15.9 % 11.6-14.4 PLATELET COUNT (BEAKER) (test rotm=902) 69 K/CU MM 150-450 MEAN PLATELET VOLUME (BEAKER) (test fxyy=572) 10.2 fL 9.4-12.4 NUCLEATED RED BLOOD CELLS (BEAKER) (test sspc=699) 0 /100 WBC 0-0 NEUTROPHILS RELATIVE PERCENT (BEAKER) (test fuay=539) 88 % LYMPHOCYTES RELATIVE PERCENT (BEAKER) (test alrp=358) 5 % MONOCYTES RELATIVE PERCENT (BEAKER) (test ffwe=494) 5 % EOSINOPHILS RELATIVE PERCENT (BEAKER) (test oboi=797) 0 % BASOPHILS RELATIVE PERCENT (BEAKER) (test uimf=337) 0 % NEUTROPHILS ABSOLUTE COUNT (BEAKER) (test lnqr=043) 4.53 K/ L 1.78-5.38 LYMPHOCYTES ABSOLUTE COUNT (BEAKER) (test dowt=192) 0.25 K/ L 1.32-3.57 MONOCYTES ABSOLUTE COUNT (BEAKER) (test lagj=696) 0.27 K/ L 0.30-0.82 EOSINOPHILS ABSOLUTE COUNT (BEAKER) (test ggbh=502) 0.00 K/ L 0.04-0.54 BASOPHILS ABSOLUTE COUNT (BEAKER) (test kauz=312) 0.00 K/ L 0.01-0.08 IMMATURE GRANULOCYTES-RELATIVE PERCENT (BEAKER) (test dpdg=1456) 1 % 0-1 BLOOD GAS, [id number] 02:52:00* Test Item Value Reference Range Comments PH ARTERIAL (BEAKER) (test dmkm=998) 7.42 7.35-7.45 PCO2 ARTERIAL (BEAKER) (test lvgi=971) 31 mmHg 35-45 PO2 ARTERIAL (BEAKER) (test eans=362) 126 mmHg 80-90 O2 SATURATION ARTERIAL (BEAKER) (test jmeo=307) 98.7 % 96.0-97.0 HCO3 ARTERIAL (BEAKER) (test bfoa=823) 20 mmol/L 21-29 BASE EXCESS ARTERIAL (BEAKER) (test toou=331) -4.1 mmol/L -2.0-3.0 PATIENT TEMPERATURE (BEAKER) (test nvnx=1630) 36.4 C FIO2 (BEAKER) (test fjeq=7543) 21.0 % TACROLIMUS [id number] 10:24:00* Test Item Value Reference Range Comments TACROLIMUS BLOOD (BEAKER) (test qujw=375) 15.9 ng/mL 10.0-20.0 BASIC METABOLIC [id number] 06:00:00* Test Item Value Reference Range Comments SODIUM (BEAKER) (test eski=239) 137 meq/L 136-145 POTASSIUM (BEAKER) (test iznl=981) 4.7 meq/L 3.5-5.1 CHLORIDE (BEAKER) (test ovuz=226) 103 meq/L 98-107 CO2 (BEAKER) (test gmxq=031) 18 meq/L 22-29 BLOOD UREA NITROGEN (BEAKER) (test gtum=911) 79 mg/dL 7-21 CREATININE (BEAKER) (test rfsh=030) 8.09 mg/dL 0.57-1.25 GLUCOSE RANDOM (BEAKER) (test boxx=659) 129 mg/dL 70-105 CALCIUM (BEAKER) (test qxnu=587) 7.9 mg/dL 8.4-10.2 EGFR (BEAKER) (test aekv=3716) 7 mL/min/1.73 sq m ESTIMATED GFR IS NOT ACCURATE CREATININE CLEARANCE IN PREDICTING GLOMERULAR FILTRATION RATE. ESTIMATED GFR IS NOT APPLICABLE FOR DIALYSIS PATIENTS. CBC W/PLT COUNT & AUTO [id number] 05:58:00* Test Item Value Reference Range Comments WHITE BLOOD CELL COUNT (BEAKER) (test irkw=683) 5.8 K/ L 3.5-10.5 RED BLOOD CELL COUNT (BEAKER) (test qswi=186) 2.69 M/ L 4.63-6.08 HEMOGLOBIN (BEAKER) (test dpet=936) 8.0 GM/DL 13.7-17.5 HEMATOCRIT (BEAKER) (test wpwr=499) 24.9 % 40.1-51.0 MEAN CORPUSCULAR VOLUME (BEAKER) (test adwm=936) 92.6 fL 79.0-92.2 MEAN CORPUSCULAR HEMOGLOBIN (BEAKER) (test pciy=276) 29.7 pg 25.7-32.2 MEAN CORPUSCULAR HEMOGLOBIN CONC (BEAKER) (test eafu=092) 32.1 GM/DL 32.3-36.5 RED CELL DISTRIBUTION WIDTH (BEAKER) (test mjbd=131) 16.3 % 11.6-14.4 PLATELET COUNT (BEAKER) (test veao=468) 68 K/CU MM 150-450 MEAN PLATELET VOLUME (BEAKER) (test yxtm=222) 10.0 fL 9.4-12.4 NUCLEATED RED BLOOD CELLS (BEAKER) (test umrq=774) 0 /100 WBC 0-0 NEUTROPHILS RELATIVE PERCENT (BEAKER) (test fomy=923) 92 % LYMPHOCYTES RELATIVE PERCENT (BEAKER) (test yrvv=058) 4 % MONOCYTES RELATIVE PERCENT (BEAKER) (test lvah=362) 4 % EOSINOPHILS RELATIVE PERCENT (BEAKER) (test wgjc=802) 0 % BASOPHILS RELATIVE PERCENT (BEAKER) (test mjsa=575) 0 % NEUTROPHILS ABSOLUTE COUNT (BEAKER) (test wfhs=471) 5.36 K/ L 1.78-5.38 LYMPHOCYTES ABSOLUTE COUNT (BEAKER) (test urif=523) 0.22 K/ L 1.32-3.57 MONOCYTES ABSOLUTE COUNT (BEAKER) (test clim=348) 0.22 K/ L 0.30-0.82 EOSINOPHILS ABSOLUTE COUNT (BEAKER) (test yljb=424) 0.00 K/ L 0.04-0.54 BASOPHILS ABSOLUTE COUNT (BEAKER) (test crvt=552) 0.01 K/ L 0.01-0.08 IMMATURE GRANULOCYTES-RELATIVE PERCENT (BEAKER) (test zufx=2681) 1 % 0-1 [id number] 05:57:00* Test Item Value Reference Range Comments PHOSPHORUS (BEAKER) (test xgoq=688) 8.8 mg/dL 2.3-4.7 [id number] 05:57:00* Test Item Value Reference Range Comments MAGNESIUM (BEAKER) (test jess=073) 2.2 mg/dL 1.6-2.6 BLOOD GAS, [id number] 05:42:00* Test Item Value Reference Range Comments PH ARTERIAL (BEAKER) (test dbtn=575) 7.42 7.35-7.45 PCO2 ARTERIAL (BEAKER) (test jwru=345) 31 mmHg 35-45 PO2 ARTERIAL (BEAKER) (test nlvx=001) 118 mmHg 80-90 O2 SATURATION ARTERIAL (BEAKER) (test rcjx=502) 98.4 % 96.0-97.0 HCO3 ARTERIAL (BEAKER) (test bvmi=191) 20 mmol/L 21-29 BASE EXCESS ARTERIAL (BEAKER) (test kyft=051) -4.1 mmol/L -2.0-3.0 PATIENT TEMPERATURE (BEAKER) (test aydi=0051) 37.0 C FIO2 (BEAKER) (test bise=7169) 28.0 % OXYGEN SATURATION, [id number] 09:58:00* Test Item Value Reference Range Comments O2 SATURATION (MEASURED) (BEAKER) (test ucur=2105) 82.6 % TACROLIMUS [id number] 09:17:00* Test Item Value Reference Range Comments TACROLIMUS BLOOD (BEAKER) (test lsrr=005) 9.7 ng/mL 10.0-20.0 BASIC METABOLIC [id number] 04:54:00* Test Item Value Reference Range Comments SODIUM (BEAKER) (test qmyg=754) 138 meq/L 136-145 POTASSIUM (BEAKER) (test nrkc=851) 5.0 meq/L 3.5-5.1 CHLORIDE (BEAKER) (test fiux=492) 105 meq/L 98-107 CO2 (BEAKER) (test vjal=189) 19 meq/L 22-29 BLOOD UREA NITROGEN (BEAKER) (test xupg=316) 66 mg/dL 7-21 CREATININE (BEAKER) (test ihiu=592) 8.20 mg/dL 0.57-1.25 GLUCOSE RANDOM (BEAKER) (test tkqj=774) 120 mg/dL 70-105 CALCIUM (BEAKER) (test qejb=131) 8.1 mg/dL 8.4-10.2 EGFR (BEAKER) (test hhas=3417) 7 mL/min/1.73 sq m ESTIMATED GFR IS NOT ACCURATE CREATININE CLEARANCE IN PREDICTING GLOMERULAR FILTRATION RATE. ESTIMATED GFR IS NOT APPLICABLE FOR DIALYSIS PATIENTS. BLOOD GAS, [id number] 04:52:00* Test Item Value Reference Range Comments PH ARTERIAL (BEAKER) (test baoh=864) 7.34 7.35-7.45 PCO2 ARTERIAL (BEAKER) (test lsif=416) 35 mmHg 35-45 PO2 ARTERIAL (BEAKER) (test tazz=938) 207 mmHg 80-90 O2 SATURATION ARTERIAL (BEAKER) (test ohcm=216) 99.3 % 96.0-97.0 HCO3 ARTERIAL (BEAKER) (test rrtc=275) 18 mmol/L 21-29 BASE EXCESS ARTERIAL (BEAKER) (test fmsa=828) -6.7 mmol/L -2.0-3.0 PATIENT TEMPERATURE (BEAKER) (test kdyi=7796) 37.2 C FIO2 (BEAKER) (test ptgx=1165) 40.0 % [id number] 04:49:00* Test Item Value Reference Range Comments PHOSPHORUS (BEAKER) (test qilk=559) 8.1 mg/dL 2.3-4.7 [id number] 04:49:00* Test Item Value Reference Range Comments MAGNESIUM (BEAKER) (test eykc=703) 2.2 mg/dL 1.6-2.6 CBC W/PLT COUNT & AUTO [id number] 04:44:00* Test Item Value Reference Range Comments WHITE BLOOD CELL COUNT (BEAKER) (test lqin=947) 7.3 K/ L 3.5-10.5 RED BLOOD CELL COUNT (BEAKER) (test pdft=803) 2.87 M/ L 4.63-6.08 HEMOGLOBIN (BEAKER) (test xrgz=938) 8.5 GM/DL 13.7-17.5 HEMATOCRIT (BEAKER) (test fpkw=234) 27.4 % 40.1-51.0 MEAN CORPUSCULAR VOLUME (BEAKER) (test wusm=724) 95.5 fL 79.0-92.2 MEAN CORPUSCULAR HEMOGLOBIN (BEAKER) (test cnmk=932) 29.6 pg 25.7-32.2 MEAN CORPUSCULAR HEMOGLOBIN CONC (BEAKER) (test ublo=764) 31.0 GM/DL 32.3-36.5 RED CELL DISTRIBUTION WIDTH (BEAKER) (test tlty=057) 16.3 % 11.6-14.4 PLATELET COUNT (BEAKER) (test qfsg=261) 86 K/CU MM 150-450 MEAN PLATELET VOLUME (BEAKER) (test vzot=018) 10.8 fL 9.4-12.4 NUCLEATED RED BLOOD CELLS (BEAKER) (test rqwj=954) 0 /100 WBC 0-0 NEUTROPHILS RELATIVE PERCENT (BEAKER) (test amye=689) 94 % LYMPHOCYTES RELATIVE PERCENT (BEAKER) (test thnl=637) 3 % MONOCYTES RELATIVE PERCENT (BEAKER) (test hsqj=443) 2 % EOSINOPHILS RELATIVE PERCENT (BEAKER) (test xfdr=994) 0 % BASOPHILS RELATIVE PERCENT (BEAKER) (test fvsw=999) 0 % NEUTROPHILS ABSOLUTE COUNT (BEAKER) (test kwhc=956) 6.85 K/ L 1.78-5.38 LYMPHOCYTES ABSOLUTE COUNT (BEAKER) (test igwn=656) 0.21 K/ L 1.32-3.57 MONOCYTES ABSOLUTE COUNT (BEAKER) (test agfp=399) 0.16 K/ L 0.30-0.82 EOSINOPHILS ABSOLUTE COUNT (BEAKER) (test rxyn=139) 0.00 K/ L 0.04-0.54 BASOPHILS ABSOLUTE COUNT (BEAKER) (test ihxp=347) 0.03 K/ L 0.01-0.08 IMMATURE GRANULOCYTES-RELATIVE PERCENT (BEAKER) (test imms=1694) 1 % 0-1 POCT-GLUCOSE [id number] 22:15:00* Test Item Value Reference Range Comments POC-GLUCOSE METER (ORALIA) (test cukd=8886) 124 mg/dL 70-110 TESTED AT [facility] [address] [facility] [address] U/S, TRANSPLANT, [id number] 18:39:00Reason for exam:->s/p kidney transplant low urine output and elevated creatinineFINAL REPORT Renal transplant ultrasound Clinical History: Renal transplant, low urine output Comparison: Renal transplant ultrasound from 08/18/2017 Discussion: Sonographic evaluation of the transplanted kidney is performed. In addition, color Doppler and spectral wave form analysis evaluations of the renal vasculature are obtained. The right iliac fossa renal transplant measures 11.2 x 5.9 x 4.9 cm, normal in size. Renal cortical echogenicity is normal. The renal cortex measures 1.5 cm, normal. There is nohydronephrosis. No focal mass is seen. No shadowing calculus is seen. There is no perinephric fluid collection. The external iliac artery, arterial anastomosis, main renal artery, external iliac vein, venous anastomosis, and main renal vein demonstrate normal vascular waveforms, without velocity gradient to suggest significant stenosis. The resistive indices of the arcuate arteries are minimally elevated but not signif icantly changed from yesterday's examination. Upper, middle, and lower RIs are 0.77, 0.79, and 0.82, respectively. Arterial PSV:Iliac artery: 73.9 cm/sAnastom osis: 205 cm/sMain renal artery: 92.9 cm/s Venous PSV:Iliac vein: 85.6 cm/sAnast omosis: 52.6 cm/sMain renal vein: 62.3 cm per sec The bladder is unremarkable. I mpression: No significant change when compared to 08/18/2017. Unchanged minimal el evation of the resistive indices of the transplant kidney and minimal elevation of the arterial anastomosis systolic velocity. These findings are likely related to postoperative edema and can be monitored on follow-up examination. No new ac mashpee findings. Signed: Louie Ferriseport Verified Date/Time: 08/19/2017 18:3 9:14 Reading Location: [facility] C013W Consult Reading Room Electronically padmini d by: LOUIE FERRIS MD on 08/19/2017 06:39 PM CBC W/PLT COUNT & AUTO [id number] 17:57:00* Test Item Value Reference Range Comments WHITE BLOOD CELL COUNT (BEAKER) (test zwqx=778) 7.0 K/ L 3.5-10.5 RED BLOOD CELL COUNT (BEAKER) (test eaeg=153) 2.66 M/ L 4.63-6.08 HEMOGLOBIN (BEAKER) (test jnxp=563) 8.0 GM/DL 13.7-17.5 HEMATOCRIT (BEAKER) (test pfkx=007) 25.1 % 40.1-51.0 MEAN CORPUSCULAR VOLUME (BEAKER) (test aycw=187) 94.4 fL 79.0-92.2 MEAN CORPUSCULAR HEMOGLOBIN (BEAKER) (test kvie=417) 30.1 pg 25.7-32.2 MEAN CORPUSCULAR HEMOGLOBIN CONC (BEAKER) (test ztnq=368) 31.9 GM/DL 32.3-36.5 RED CELL DISTRIBUTION WIDTH (BEAKER) (test webm=145) 16.5 % 11.6-14.4 PLATELET COUNT (BEAKER) (test hfaq=515) 81 K/CU MM 150-450 MEAN PLATELET VOLUME (BEAKER) (test xwan=103) 10.0 fL 9.4-12.4 NUCLEATED RED BLOOD CELLS (BEAKER) (test yxiz=715) 0 /100 WBC 0-0 NEUTROPHILS RELATIVE PERCENT (BEAKER) (test xvyl=879) 91 % LYMPHOCYTES RELATIVE PERCENT (BEAKER) (test qrdh=441) 4 % MONOCYTES RELATIVE PERCENT (BEAKER) (test wlvb=457) 4 % EOSINOPHILS RELATIVE PERCENT (BEAKER) (test qwyd=509) 0 % BASOPHILS RELATIVE PERCENT (BEAKER) (test bhmj=945) 0 % NEUTROPHILS ABSOLUTE COUNT (BEAKER) (test horv=244) 6.36 K/ L 1.78-5.38 LYMPHOCYTES ABSOLUTE COUNT (BEAKER) (test fhuw=341) 0.27 K/ L 1.32-3.57 MONOCYTES ABSOLUTE COUNT (BEAKER) (test svgw=771) 0.29 K/ L 0.30-0.82 EOSINOPHILS ABSOLUTE COUNT (BEAKER) (test zsxc=236) 0.00 K/ L 0.04-0.54 BASOPHILS ABSOLUTE COUNT (BEAKER) (test ccnm=769) 0.02 K/ L 0.01-0.08 IMMATURE GRANULOCYTES-RELATIVE PERCENT (BEAKER) (test gsss=5405) 0 % 0-1 KIDNEY IMAGING, SINGLE, FLOW/[id number] 17:28:00FINAL REPORT PROCEDURE: RENAL TRANSPLANT SCAN CPT CODE: [id number] INDICATION: Renal transplant dysfunction, status post kidney transplant. PROTOCOL: 10.2 mCi of Tc-99m DTPA was injected intravenously. Flow images of the renal allograft were obtained in the anterior projection. Subsequent anterior and anterior oblique images were obtained over approximately 30 mi nutes. FINDINGS: There is prompt perfusion of the right renal allograft . Subsequent images show good tracer concentration by the kidney but decreased t racer clearance. Very limited urine appears in the bladder. IMPRESSION: 1. M ild to moderate ATN 2. Urine activity is too limited to fully evaluate urinary obstruction. Signed: Brenda Awad MDReport Verified Date/Time: 08/19/2017 17: 28:34 Reading Location: [address] Reading Room -GLUCOSE METER 2017-08-19 12:46:00* Test Item Value Reference Range Comments POC-GLUCOSE METER (BEAKER) (test ryxg=9079) 116 mg/dL 70-110 TESTED AT [facility] [address] [facility] [address] TACROLIMUS [id number] 11:13:00* Test Item Value Reference Range Comments TACROLIMUS BLOOD (BEAKER) (test tojl=155) 2.9 ng/mL 10.0-20.0 CBC W/PLT COUNT & AUTO [id number] 10:07:00* Test Item Value Reference Range Comments WHITE BLOOD CELL COUNT (BEAKER) (test ystl=856) 6.4 K/ L 3.5-10.5 RED BLOOD CELL COUNT (BEAKER) (test sewx=546) 2.74 M/ L 4.63-6.08 HEMOGLOBIN (BEAKER) (test yxrh=816) 8.1 GM/DL 13.7-17.5 HEMATOCRIT (BEAKER) (test wfcp=399) 25.8 % 40.1-51.0 MEAN CORPUSCULAR VOLUME (BEAKER) (test skdm=223) 94.2 fL 79.0-92.2 MEAN CORPUSCULAR HEMOGLOBIN (BEAKER) (test xucd=176) 29.6 pg 25.7-32.2 MEAN CORPUSCULAR HEMOGLOBIN CONC (BEAKER) (test vudu=607) 31.4 GM/DL 32.3-36.5 RED CELL DISTRIBUTION WIDTH (BEAKER) (test blvk=972) 16.3 % 11.6-14.4 PLATELET COUNT (BEAKER) (test wamx=093) 80 K/CU MM 150-450 MEAN PLATELET VOLUME (BEAKER) (test eyoc=123) 9.6 fL 9.4-12.4 NUCLEATED RED BLOOD CELLS (BEAKER) (test vobc=140) 0 /100 WBC 0-0 NEUTROPHILS RELATIVE PERCENT (BEAKER) (test senw=550) 87 % LYMPHOCYTES RELATIVE PERCENT (BEAKER) (test zfzh=820) 5 % MONOCYTES RELATIVE PERCENT (BEAKER) (test klax=695) 7 % EOSINOPHILS RELATIVE PERCENT (BEAKER) (test xzti=626) 0 % BASOPHILS RELATIVE PERCENT (BEAKER) (test zreg=538) 1 % NEUTROPHILS ABSOLUTE COUNT (BEAKER) (test eetz=545) 5.58 K/ L 1.78-5.38 LYMPHOCYTES ABSOLUTE COUNT (BEAKER) (test urig=258) 0.33 K/ L 1.32-3.57 MONOCYTES ABSOLUTE COUNT (BEAKER) (test usvj=090) 0.46 K/ L 0.30-0.82 EOSINOPHILS ABSOLUTE COUNT (BEAKER) (test suzr=822) 0.00 K/ L 0.04-0.54 BASOPHILS ABSOLUTE COUNT (BEAKER) (test szqs=866) 0.03 K/ L 0.01-0.08 IMMATURE GRANULOCYTES-RELATIVE PERCENT (BEAKER) (test wyxs=5388) 0 % 0-1 HEMOGLOBIN AND [id number] 10:06:00* Test Item Value Reference Range Comments HEMOGLOBIN (BEAKER) (test yvcp=640) 8.1 GM/DL 13.7-17.5 HEMATOCRIT (BEAKER) (test enxw=002) 25.8 % 40.1-51.0 BASIC METABOLIC [id number] 05:54:00* Test Item Value Reference Range Comments SODIUM (BEAKER) (test fzje=496) 139 meq/L 136-145 POTASSIUM (BEAKER) (test yshi=831) 4.4 meq/L 3.5-5.1 Specimen slightly hemolyzed CHLORIDE (BEAKER) (test pyoh=344) 107 meq/L 98-107 CO2 (BEAKER) (test xekr=328) 19 meq/L 22-29 BLOOD UREA NITROGEN (BEAKER) (test bqsi=939) 53 mg/dL 7-21 CREATININE (BEAKER) (test jarv=122) 7.36 mg/dL 0.57-1.25 Specimen slightly hemolyzed GLUCOSE RANDOM (BEAKER) (test meuq=363) 130 mg/dL 70-105 CALCIUM (BEAKER) (test zzhq=629) 8.2 mg/dL 8.4-10.2 EGFR (BEAKER) (test ujbk=8429) 8 mL/min/1.73 sq m ESTIMATED GFR IS NOT ACCURATE CREATININE CLEARANCE IN PREDICTING GLOMERULAR FILTRATION RATE. ESTIMATED GFR IS NOT APPLICABLE FOR DIALYSIS PATIENTS. [id number] 05:51:00* Test Item Value Reference Range Comments MAGNESIUM (BEAKER) (test hdte=173) 2.3 mg/dL 1.6-2.6 Specimen slightly hemolyzed [id number] 05:51:00* Test Item Value Reference Range Comments PHOSPHORUS (BEAKER) (test rvdt=781) 6.9 mg/dL 2.3-4.7 Specimen slightly hemolyzed CBC W/PLT COUNT & AUTO [id number] 05:24:00* Test Item Value Reference Range Comments WHITE BLOOD CELL COUNT (BEAKER) (test vskn=393) 8.1 K/ L 3.5-10.5 RED BLOOD CELL COUNT (BEAKER) (test jsmn=750) 2.87 M/ L 4.63-6.08 HEMOGLOBIN (BEAKER) (test ipwi=042) 8.4 GM/DL 13.7-17.5 HEMATOCRIT (BEAKER) (test delp=159) 27.1 % 40.1-51.0 MEAN CORPUSCULAR VOLUME (BEAKER) (test hrkq=436) 94.4 fL 79.0-92.2 MEAN CORPUSCULAR HEMOGLOBIN (BEAKER) (test hzqq=564) 29.3 pg 25.7-32.2 MEAN CORPUSCULAR HEMOGLOBIN CONC (BEAKER) (test kmfd=276) 31.0 GM/DL 32.3-36.5 RED CELL DISTRIBUTION WIDTH (BEAKER) (test bisl=542) 16.3 % 11.6-14.4 PLATELET COUNT (BEAKER) (test orre=911) 90 K/CU MM 150-450 MEAN PLATELET VOLUME (BEAKER) (test gxog=491) 9.6 fL 9.4-12.4 NUCLEATED RED BLOOD CELLS (BEAKER) (test hlnc=816) 0 /100 WBC 0-0 NEUTROPHILS RELATIVE PERCENT (BEAKER) (test revz=352) 90 % LYMPHOCYTES RELATIVE PERCENT (BEAKER) (test ddqt=410) 4 % MONOCYTES RELATIVE PERCENT (BEAKER) (test mtky=142) 6 % EOSINOPHILS RELATIVE PERCENT (BEAKER) (test ljkp=002) 0 % BASOPHILS RELATIVE PERCENT (BEAKER) (test bbrm=279) 0 % NEUTROPHILS ABSOLUTE COUNT (BEAKER) (test uonq=314) 7.25 K/ L 1.78-5.38 LYMPHOCYTES ABSOLUTE COUNT (BEAKER) (test rjmh=702) 0.32 K/ L 1.32-3.57 MONOCYTES ABSOLUTE COUNT (BEAKER) (test tovv=546) 0.52 K/ L 0.30-0.82 EOSINOPHILS ABSOLUTE COUNT (BEAKER) (test beau=188) 0.00 K/ L 0.04-0.54 BASOPHILS ABSOLUTE COUNT (BEAKER) (test befw=896) 0.01 K/ L 0.01-0.08 IMMATURE GRANULOCYTES-RELATIVE PERCENT (BEAKER) (test avmb=4521) 0 % 0-1 CALCIUM, [id number] 05:09:00* Test Item Value Reference Range Comments CALCIUM IONIZED (BEAKER) (test rqai=015) 1.09 mmol/L 1.12-1.27 PH, BLOOD (BEAKER) (test iyln=6320) 7.35 BLOOD GAS, [id number] 05:09:00* Test Item Value Reference Range Comments PH ARTERIAL (BEAKER) (test dduq=390) 7.36 7.35-7.45 PCO2 ARTERIAL (BEAKER) (test ewxl=629) 36 mmHg 35-45 PO2 ARTERIAL (BEAKER) (test zbmh=136) 206 mmHg 80-90 O2 SATURATION ARTERIAL (BEAKER) (test rytk=832) 99.4 % 96.0-97.0 HCO3 ARTERIAL (BEAKER) (test gycj=675) 20 mmol/L 21-29 BASE EXCESS ARTERIAL (BEAKER) (test gszz=182) -5.0 mmol/L -2.0-3.0 PATIENT TEMPERATURE (BEAKER) (test mvmt=9814) 36.5 C FIO2 (BEAKER) (test kluh=6387) 40.0 % POCT-GLUCOSE [id number] 03:44:00* Test Item Value Reference Range Comments POC-GLUCOSE METER (BEAKER) (test miay=9372) 145 mg/dL 70-110 TESTED AT [facility] [address] [facility] [address] [id number] 18:53:00* Test Item Value Reference Range Comments MAGNESIUM (BEAKER) (test hizr=379) 1.8 mg/dL 1.6-2.6 U/S, TRANSPLANT, [id number] 17:25:00Reason for exam:->post-op tx function FINAL REPORT Renal transplant ultrasound Clinical History : post-op tx function Discussion: Sonographic evaluation of the transplanted kid henrik is performed. In addition, color Doppler and spectral wave form analysis harini luations of the renal vasculature are obtained. The right iliac fossa renal castillo splant measures 11.9 x 6 x 5.5 cm, normal in size. Renal cortical echogenicity i s normal. The renal cortex measures 1.9 cm, normal. There is nohydronephrosis. No focal mass is seen. No shadowing calculus is seen. There is no perinephric f luid collection. The external iliac artery, arterial anastomosis, main renal a rtery, external iliac vein, venous anastomosis, and main renal vein demonstrate normal vascular waveforms, without velocity gradient to suggest significant sten osis. The resistive indices of the arcuate arteries are within normal limits. The bladder is decompressed and not clearly visualized. Impression: Unremarka ble exam. Signed: Desi Richardson MDReport Verified Date/Time: 08/18/2017 17:25:28 Pina atkins Location: [address] Ultrasound Reading Room [id number] 16:32:00* Test Item Value Reference Range Comments MAGNESIUM (BEAKER) (test tcal=581) 1.2 mg/dL 1.6-2.6 CALCIUM, [id number] 16:04:00* Test Item Value Reference Range Comments CALCIUM IONIZED (BEAKER) (test siwp=507) 1.02 mmol/L 1.12-1.27 PH, BLOOD (BEAKER) (test yuna=5141) 7.35 BLOOD GAS, [id number] 16:04:00* Test Item Value Reference Range Comments PH ARTERIAL (BEAKER) (test mfya=090) 7.36 7.35-7.45 PCO2 ARTERIAL (BEAKER) (test ifns=935) 35 mmHg 35-45 PO2 ARTERIAL (BEAKER) (test dpuz=754) 146 mmHg 80-90 O2 SATURATION ARTERIAL (BEAKER) (test oqus=782) 98.8 % 96.0-97.0 HCO3 ARTERIAL (BEAKER) (test fywq=671) 19 mmol/L 21-29 BASE EXCESS ARTERIAL (BEAKER) (test leqs=674) -5.9 mmol/L -2.0-3.0 PATIENT TEMPERATURE (BEAKER) (test dzbw=7439) 36.5 C FIO2 (BEAKER) (test xjzy=3544) 36.0 % RAD, CHEST, 1 VIEW, NON [id number] 16:01:00Reason for exam:->s/p RIJ placement in OR Should this be performed at the bedside?->YesFINAL REPORT CLINICAL HISTORY: s/p RIJ placement in OR TECHNIQUE: 1 view of the chest. COMPARISON: 08/17/2017 IMPRESSION: There is a new right jugular line near the cavoatrial junction. There is no pneumothorax. Bibasilar atelectasis is again seen with trace bilateral pleural effusions. The cardiom ediastinal silhouette is magnified by technique with a pacemaker. Signed: Wilian Castillo MDReport Verified Date/Time: 08/18/2017 16:01:17 Reading Location: [facility] C013W Consult Reading Room C METABOLIC [id number] 15:33:00* Test Item Value Reference Range Comments SODIUM (BEAKER) (test bteu=154) 140 meq/L 136-145 POTASSIUM (BEAKER) (test hcvk=401) 3.7 meq/L 3.5-5.1 CHLORIDE (BEAKER) (test gyqh=656) 107 meq/L 98-107 CO2 (BEAKER) (test jezn=224) 17 meq/L 22-29 BLOOD UREA NITROGEN (BEAKER) (test rrlt=851) 46 mg/dL 7-21 CREATININE (BEAKER) (test fpdp=879) 6.82 mg/dL 0.57-1.25 GLUCOSE RANDOM (BEAKER) (test qwzo=273) 189 mg/dL 70-105 CALCIUM (BEAKER) (test wbjw=208) 8.2 mg/dL 8.4-10.2 EGFR (BEAKER) (test jijs=9228) 8 mL/min/1.73 sq m ESTIMATED GFR IS NOT ACCURATE CREATININE CLEARANCE IN PREDICTING GLOMERULAR FILTRATION RATE. ESTIMATED GFR IS NOT APPLICABLE FOR DIALYSIS PATIENTS. CBC W/PLT COUNT & AUTO [id number] 15:03:00* Test Item Value Reference Range Comments WHITE BLOOD CELL COUNT (BEAKER) (test jvdc=164) 6.1 K/ L 3.5-10.5 RED BLOOD CELL COUNT (BEAKER) (test siab=566) 3.05 M/ L 4.63-6.08 HEMOGLOBIN (BEAKER) (test dhhe=011) 9.1 GM/DL 13.7-17.5 HEMATOCRIT (BEAKER) (test ejxw=438) 29.1 % 40.1-51.0 MEAN CORPUSCULAR VOLUME (BEAKER) (test rcar=921) 95.4 fL 79.0-92.2 MEAN CORPUSCULAR HEMOGLOBIN (BEAKER) (test qjyy=228) 29.8 pg 25.7-32.2 MEAN CORPUSCULAR HEMOGLOBIN CONC (BEAKER) (test uugz=076) 31.3 GM/DL 32.3-36.5 RED CELL DISTRIBUTION WIDTH (BEAKER) (test qdno=549) 15.9 % 11.6-14.4 PLATELET COUNT (BEAKER) (test dhyn=734) 99 K/CU MM 150-450 MEAN PLATELET VOLUME (BEAKER) (test qruw=193) 9.8 fL 9.4-12.4 NUCLEATED RED BLOOD CELLS (BEAKER) (test haih=880) 0 /100 WBC 0-0 NEUTROPHILS RELATIVE PERCENT (BEAKER) (test geao=386) 84 % LYMPHOCYTES RELATIVE PERCENT (BEAKER) (test mbuj=175) 9 % MONOCYTES RELATIVE PERCENT (BEAKER) (test iqlt=605) 6 % EOSINOPHILS RELATIVE PERCENT (BEAKER) (test fuci=381) 0 % BASOPHILS RELATIVE PERCENT (BEAKER) (test wlrh=113) 0 % NEUTROPHILS ABSOLUTE COUNT (BEAKER) (test eqpe=389) 5.16 K/ L 1.78-5.38 LYMPHOCYTES ABSOLUTE COUNT (BEAKER) (test fzgo=506) 0.57 K/ L 1.32-3.57 MONOCYTES ABSOLUTE COUNT (BEAKER) (test jzhk=913) 0.35 K/ L 0.30-0.82 EOSINOPHILS ABSOLUTE COUNT (BEAKER) (test pfda=338) 0.01 K/ L 0.04-0.54 BASOPHILS ABSOLUTE COUNT (BEAKER) (test dvcl=842) 0.02 K/ L 0.01-0.08 IMMATURE GRANULOCYTES-RELATIVE PERCENT (BEAKER) (test awuj=2631) 0 % 0-1 CALCIUM, [id number] 13:27:00* Test Item Value Reference Range Comments CALCIUM IONIZED (BEAKER) (test ziot=412) 0.95 mmol/L 1.12-1.27 PH, BLOOD (BEAKER) (test whuz=5728) 7.31 CALCIUM, [id number] 13:13:00* Test Item Value Reference Range Comments CALCIUM IONIZED (BEAKER) (test yvok=424) 0.95 mmol/L 1.12-1.27 PH, BLOOD (BEAKER) (test inxc=8086) 7.30 BLOOD GAS, [id number] 13:13:00* Test Item Value Reference Range Comments PH ARTERIAL (BEAKER) (test hjbe=512) 7.31 7.35-7.45 PCO2 ARTERIAL (BEAKER) (test jcre=432) 41 mmHg 35-45 PO2 ARTERIAL (BEAKER) (test qwly=849) 235 mmHg 80-90 O2 SATURATION ARTERIAL (BEAKER) (test nekh=346) 99.5 % 96.0-97.0 HCO3 ARTERIAL (BEAKER) (test xmui=925) 21 mmol/L 21-29 BASE EXCESS ARTERIAL (BEAKER) (test bkhz=714) -5.7 mmol/L -2.0-3.0 PATIENT TEMPERATURE (BEAKER) (test nhvv=9847) 36.0 C FIO2 (BEAKER) (test pstb=4475) 54.0 % GLUCOSE-STAT [id number] 13:13:00* Test Item Value Reference Range Comments GLUCOSE RANDOM (BEAKER) (test ixsm=806) 174 mg/dL 70-110 HGB/HCT (H&H) - STAT [id number] 13:13:00* Test Item Value Reference Range Comments HEMOGLOBIN (BEAKER) (test ageu=858) 9.8 g/dL 13.0-16.8 HEMATOCRIT (BEAKER) (test dhaq=219) 29.0 % 40.0-50.0 SODIUM NA-STAT [id number] 13:12:00* Test Item Value Reference Range Comments SODIUM (BEAKER) (test bdoi=103) 135 meq/L 135-148 POTASSIUM-STAT [id number] 13:12:00* Test Item Value Reference Range Comments POTASSIUM (BEAKER) (test lort=581) 3.7 meq/L 3.6-5.5 HGB/HCT (H&H) - STAT [id number] 12:13:00* Test Item Value Reference Range Comments HEMOGLOBIN (BEAKER) (test muyz=297) 8.9 g/dL 13.0-16.8 HEMATOCRIT (BEAKER) (test ljwf=817) 26.0 % 40.0-50.0 GLUCOSE-STAT [id number] 12:12:00* Test Item Value Reference Range Comments GLUCOSE RANDOM (BEAKER) (test pqsx=071) 111 mg/dL 70-110 BLOOD GAS, [id number] 12:12:00* Test Item Value Reference Range Comments PH ARTERIAL (BEAKER) (test pbgk=651) 7.33 7.35-7.45 PCO2 ARTERIAL (BEAKER) (test oelg=845) 41 mmHg 35-45 PO2 ARTERIAL (BEAKER) (test umhg=404) 246 mmHg 80-90 O2 SATURATION ARTERIAL (BEAKER) (test tagw=701) 99.5 % 96.0-97.0 HCO3 ARTERIAL (BEAKER) (test vuvi=553) 21 mmol/L 21-29 BASE EXCESS ARTERIAL (BEAKER) (test njgy=724) -4.7 mmol/L -2.0-3.0 PATIENT TEMPERATURE (BEAKER) (test khen=8291) 35.4 C FIO2 (BEAKER) (test gnvc=3708) 56.0 % SODIUM NA-STAT [id number] 12:10:00* Test Item Value Reference Range Comments SODIUM (BEAKER) (test zyiv=264) 138 meq/L 135-148 POTASSIUM-STAT [id number] 12:10:00* Test Item Value Reference Range Comments POTASSIUM (BEAKER) (test xysw=863) 3.6 meq/L 3.6-5.5 [id number] 06:10:00* Test Item Value Reference Range Comments POTASSIUM (BEAKER) (test vepc=232) 3.7 meq/L 3.5-5.1 Specimen slightly hemolyzed RAD, CHEST, 1 VIEW, NON [id number] 08:00:00Reason for exam:->pre-op, going to OR this AM Should this be performed at the bedside?->YesFINAL REPORT Chest dated 08/17/2017 COMPARISON: October 05, 2015 Clinical Information: pre-op, going to OR this AM Comment: Heart is in upper limits of normal in size. Pulmonary vasculature is indistinct. Interstitial disease is seen bilaterally suggestive of vascular congestion or chronic changes. There is trace bilateral pleural effusion. AICD remains in place. Impression: Nonspecific interstitial pulmonary disease and trace bilateral pleural effusion. Signed: Abe Mishraort Verified Date/Time: 08/17/2017 08:00:46 Reading Location: [facility] C013Y CT Body Reading Room REHENSIVE METABOLIC [id number] 01:11:00* Test Item Value Reference Range Comments TOTAL PROTEIN (BEAKER) (test toeb=496) 6.6 gm/dL 6.0-8.3 ALBUMIN (BEAKER) (test jqbo=0446) 3.9 g/dL 3.5-5.0 ALKALINE PHOSPHATASE (BEAKER) (test gnnx=516) 66 U/L 40-150 BILIRUBIN TOTAL (BEAKER) (test msoy=686) 1.0 mg/dL 0.2-1.2 SODIUM (BEAKER) (test hwyg=585) 142 meq/L 136-145 POTASSIUM (BEAKER) (test loet=403) 3.8 meq/L 3.5-5.1 CHLORIDE (BEAKER) (test boya=761) 101 meq/L 98-107 CO2 (BEAKER) (test iwuv=524) 27 meq/L 22-29 BLOOD UREA NITROGEN (BEAKER) (test rlbo=775) 36 mg/dL 7-21 CREATININE (BEAKER) (test zkjy=291) 5.64 mg/dL 0.57-1.25 GLUCOSE RANDOM (BEAKER) (test jyrt=714) 70 mg/dL 70-105 CALCIUM (BEAKER) (test gnvo=492) 9.6 mg/dL 8.4-10.2 AST (SGOT) (BEAKER) (test pybk=953) 17 U/L 5-34 ALT (SGPT) (BEAKER) (test kihr=445) 12 U/L 6-55 EGFR (BEAKER) (test ihco=4671) 10 mL/min/1.73 sq m ESTIMATED GFR IS NOT ACCURATE CREATININE CLEARANCE IN PREDICTING GLOMERULAR FILTRATION RATE. ESTIMATED GFR IS NOT APPLICABLE FOR DIALYSIS PATIENTS. [id number] 00:57:00* Test Item Value Reference Range Comments PARTIAL THROMBOPLASTIN TIME (BEAKER) (test zkjq=626) 30.2 seconds 22.5-36.0 PROTHROMBIN TIME/[id number] 00:56:00* Test Item Value Reference Range Comments PROTIME (BEAKER) (test edoh=910) 16.5 seconds 11.7-14.7 INR (BEAKER) (test kuqg=305) 1.3 <=5.9 RECOMMENDED COUMADIN/WARFARIN INR THERAPY RANGESSTANDARD DOSE: 2.0 - 3.0 Inclu mekhi: PROPHYLAXIS for venous thrombosis, systemic embolization; TREATMENT for cristino ous thrombosis and/or pulmonary embolus.HIGH RISK: Target INR is 2.5-3.5 for pat ients with mechanical heart valves.CBC W/PLT COUNT & AUTO [id number] 00:47:00* Test Item Value Reference Range Comments WHITE BLOOD CELL COUNT (BEAKER) (test ccgs=110) 3.5 K/ L 3.5-10.5 RED BLOOD CELL COUNT (BEAKER) (test schp=718) 3.41 M/ L 4.63-6.08 HEMOGLOBIN (BEAKER) (test wpdv=160) 10.0 GM/DL 13.7-17.5 HEMATOCRIT (BEAKER) (test xsbu=916) 33.1 % 40.1-51.0 MEAN CORPUSCULAR VOLUME (BEAKER) (test fqws=078) 97.1 fL 79.0-92.2 MEAN CORPUSCULAR HEMOGLOBIN (BEAKER) (test cgqo=818) 29.3 pg 25.7-32.2 MEAN CORPUSCULAR HEMOGLOBIN CONC (BEAKER) (test ezxi=272) 30.2 GM/DL 32.3-36.5 RED CELL DISTRIBUTION WIDTH (BEAKER) (test yrkj=204) 15.7 % 11.6-14.4 PLATELET COUNT (BEAKER) (test xfsx=599) 109 K/CU MM 150-450 MEAN PLATELET VOLUME (BEAKER) (test pmmb=481) 10.6 fL 9.4-12.4 NUCLEATED RED BLOOD CELLS (BEAKER) (test cnpj=939) 0 /100 WBC 0-0 NEUTROPHILS RELATIVE PERCENT (BEAKER) (test xgxy=034) 60 % LYMPHOCYTES RELATIVE PERCENT (BEAKER) (test ichc=322) 24 % MONOCYTES RELATIVE PERCENT (BEAKER) (test rqpd=018) 10 % EOSINOPHILS RELATIVE PERCENT (BEAKER) (test dsqf=341) 4 % BASOPHILS RELATIVE PERCENT (BEAKER) (test cpix=142) 2 % NEUTROPHILS ABSOLUTE COUNT (BEAKER) (test pbwv=543) 2.09 K/ L 1.78-5.38 LYMPHOCYTES ABSOLUTE COUNT (BEAKER) (test byke=895) 0.84 K/ L 1.32-3.57 MONOCYTES ABSOLUTE COUNT (BEAKER) (test bhdk=317) 0.35 K/ L 0.30-0.82 EOSINOPHILS ABSOLUTE COUNT (BEAKER) (test cizu=603) 0.14 K/ L 0.04-0.54 BASOPHILS ABSOLUTE COUNT (BEAKER) (test yiaj=437) 0.06 K/ L 0.01-0.08 IMMATURE GRANULOCYTES-RELATIVE PERCENT (BEAKER) (test ohao=9918) 0 % 0-1 CRSMTCH [id number] 14:18:00* Test Item Value Reference Range Comments CRSMTCH FLOW RESULT (BEAKER) (test jvkq=1367) [id number] 14:18:00* Test Item Value Reference Range Comments CRSMTCH-CURRENT RESULT (BEAKER) (test ogqb=9328) See Scanned Report [id number] 14:18:00* Test Item Value Reference Range Comments CRSMTCH-HIST RESULT (BEAKER) (test tjgc=8506) See Scanned Report CRSMTCH FLOW [id number] 14:18:00* Test Item Value Reference Range Comments CRSMTCH FLOW ADDL RESULT (BEAKER) (test nybj=0832) See Scanned Report [id number] 14:17:00* Test Item Value Reference Range Comments CRSMTCH-PRETRANS RESULT (BEAKER) (test fvkf=3966) See Scanned Report CRSMTCH FLOW [id number] 14:17:00* Test Item Value Reference Range Comments CRSMTCH FLOW ADDL RESULT (BEAKER) (test bhyg=6220) See Scanned Report FLOW PRA CLASS I AND [id number] 10:06:00* Test Item Value Reference Range Comments DATE OF SERUM (BEAKER) (test vwzf=7286) [id number] SERUM # (BEAKER) (test nmib=2598) [id number] FLOW PRA CLASS I AND II (test taob=7800) See Scanned Report FLOW PRA CLASS I AND [id number] 10:52:00* Test Item Value Reference Range Comments DATE OF SERUM (BEAKER) (test etlf=1175) [id number] SERUM # (BEAKER) (test cdeo=3800) [id number] FLOW PRA CLASS I AND II (test ldja=4003) See Scanned Report CRSMTCH FLOW [id number] 14:15:00* Test Item Value Reference Range Comments CRSMTCH FLOW ADDL RESULT (BEAKER) (test chlb=9003) See Scanned Report [id number] 14:14:00* Test Item Value Reference Range Comments CRSMTCH-PRETRANS RESULT (BEAKER) (test sfid=1596) See Scanned Report CRSMTCH FLOW [id number] 14:14:00* Test Item Value Reference Range Comments CRSMTCH FLOW ADDL RESULT (BEAKER) (test mabv=1068) See Scanned Report CRSMTCH [id number] 14:14:00* Test Item Value Reference Range Comments CRSMTCH FLOW RESULT (BEAKER) (test tglj=5159) See Scanned Report [id number] 14:14:00* Test Item Value Reference Range Comments CRSMTCH-CURRENT RESULT (BEAKER) (test yxkv=6602) See Scanned Report [id number] 14:14:00* Test Item Value Reference Range Comments CRSMTCH-HIST RESULT (BEAKER) (test vxcv=7554) See Scanned Report FLOW PRA CLASS I AND [id number] 22:19:00* Test Item Value Reference Range Comments DATE OF SERUM (BEAKER) (test ghkr=1490) [id number] SERUM # (BEAKER) (test nwqk=9482) 187983 FLOW PRA CLASS I AND II (test gmib=9116) See Scanned Report FLOW PRA CLASS I AND [id number] 11:57:00* Test Item Value Reference Range Comments DATE OF SERUM (BEAKER) (test tmfp=4406) 398552 SERUM # (BEAKER) (test wzwy=6922) 126670 FLOW PRA CLASS I AND II (test luua=2658) See Scanned Report [id number] 19:04:00* Test Item Value Reference Range Comments PROSTATE SPECIFIC ANTIGEN (BEAKER) (test rcbc=549) 0.4 ng/mL 0.0-4.0 FLOW PRA CLASS I AND [id number] 14:03:00* Test Item Value Reference Range Comments DATE OF SERUM (BEAKER) (test kgfw=0361) 921319 SERUM # (BEAKER) (test dcdt=5436) 422416 FLOW PRA CLASS I AND II (test pnbg=7505) See Scanned Report FLOW PRA CLASS I AND [id number] 11:22:00* Test Item Value Reference Range Comments DATE OF SERUM (BEAKER) (test dmxm=7704) 645708 SERUM # (BEAKER) (test azjg=1352) 628069 FLOW PRA CLASS I AND II (test xxtb=5916) See Scanned Report SHOULDER LEFT COMPLETE [facility] [address] [address] Patient Name: ELIJAH MARCUS MR #: [id number] : 1950 Age/Sex: 66/M Req #: [id number] Adm Physician: Ordered by: TERRY LAWLER [employer] FINISHER Report #: [id number] Location: ER Room/Bed: Procedure: [id number] DX/SHOULDER LEFT COMPLETE Exam Date: 07/19/17 Exam Time: 1345 REPORT STAT US: Signed Left shoulder - 3 views HISTORY: Pain. COMPARISON: None av ailable. FINDINGS: Bones: No acute displaced fracture. No expans ile lytic or sclerotic lesion. Joints: The joint spaces are well-maintain ed. No dislocation. Soft tissues: The soft tissues appear unremarkable. Partially visualized left chest cardiac device. IMPRESSION: No acute r adiographic abnormality. Signed by: Dr. Abe Montaño M.D. on 07/19/2017 2:25 PM Dictated By: ABE MONTAÑO MD 142 Transcribed By: DANIEL on 07/19/17 142 COPY TO: TERRY CUMMINS [employer] FINISHER ELBOW LEFT COMPLETE [facility] [address] [address] Patient Name: ELIJAH MARCUS MR #: [id number] : 1950 Age/Sex: 66/M Req #: [id number] Adm Physician: Ordered by: TERRY LAWLER [employer] FINISHER Report #: [id number] Location: ER Room/Bed: Procedure: [id number] DX/ELBOW LEFT COMPLETE Exa m Date: 07/19/17 Exam Time: 1345 REPORT STATUS: Signed Left elbow - 3 views HISTORY: Pain. COMPARISON: None availabl e. FINDINGS: Bones: No acute displaced fracture. No expansile ly tic or sclerotic lesion. Joints: The joint spaces are well-maintained. N o dislocation. Small joint effusion. Soft tissues: The soft tissues appea r unremarkable. Atherosclerotic calcifications. IMPRESSION: No acute rad iographic abnormality. Small joint effusion. Signed by: Giselle Knapp on 07/19/2017 2:30 PM Dictated By: ABE MONTAÑO MD 1430 Transcribed By: DANIEL on 07/19/17 1430 COPY TO: TERRY LAWLER [employer] FINISHER WRIST COMPLETE LEFT [address] [address] Patient Name: ELIJAH MARCUS MR #: [id number] : 1950 Age/Sex: 66/M Req #: [id number] Adm Physician: Ordered by: TERRY LAWLER [employer] FINISHER Report #: [id number] Location: ER Room/Bed: Procedure: [id number] DX/WRIST COMPLETE LEFT Exa m Date: 07/19/17 Exam Time: 1345 REPORT STATUS: Signed Left wrist - 3 views HISTORY: Pain. COMPARISON: None availabl e. FINDINGS: Bones: No acute displaced fracture. No expansile ly tic or sclerotic lesion. Joints: The joint spaces are well-maintained. N o dislocation. Soft tissues: The soft tissues appear unremarkable. Athero sclerotic calcifications. IMPRESSION: No acute radiographic abnormality. Signed by: Dr. Abe Montaño M.D. on 07/19/2017 2:31 PM Dictated By: Mike MONTAÑO MD 1431 Transc ribed By: DANIEL on 07/19/17 1431 COPY TO: TERRY LAWLER NP
--- NOTE | 2018-04-20 12:16 | Diagnostic Imaging Report ---
Examination: Single AP view of the chest. COMPARISON: None. INDICATION: Congestion DISCUSSION: Lines/tubes: 2-lead cardiac pacemaker. Lungs: The lungs are well inflated. Atelectasis/scarring in the lower lungs. Pleura: Bilateral pleural thickening. Heart and mediastinum: The heart and the mediastinum are unremarkable. Bones and soft tissues: No acute bony abnormalities. IMPRESSION: 1. No acute cardiopulmonary abnormalities. Signed by: Dr. Wilian Montiel M.D. on 04/20/2018 12:12 PM
== END 2018-04-20 14:26 | disposition home or self-care (01) ==
LOC: FSED 10:29
DX: R50.9 Fever, unspecified (principal); R05 Cough; J20.9 Acute bronchitis, unspecified
CPT/HCPCS: 71045; 99283

== ENCOUNTER → 2019-02-02 | Day surgery (SDC) | payer MEDICARE, OTHER ==
[~2019-02-02] MED LIST changes: +EFFER-K 25 MEQ25 MEQ PO; +ELIQUIS PO; +FENTANYL CITRATE/PF 100MCG/2 ML INJ ONE; +LASIX40 MG PO; +MIDAZOLAM HCL 2 MG/2 ML VIAL ONE; +NEXIUM20 MG PO; +PREDNISONE5 MG PO; +PREOP PHACO EYE KIT ONE; +TACROLIMUS PO; +VITAMIN B12-FO1 EACH PO; +VITAMIN D400 UNIT PO
--- OUTSIDE RECORDS SUMMARY | 2019-02-02 11:56 | XMS REPORT | Clinical Summary ---
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 Active ipratropium (ATROVENT) 2 sprays by 0 0.06 % 0.06% nasal spray Nasal route 2 (two) times daily. Active predniSONE (DELTASONE) 5 Take 5 mg by 0 MG tabletIndications: mouth daily. Organ Transplant Rejection 02/05/2019 Active potassium bicarbonate Take 1 tablet 90 tablet 3 (K-LYTE) 25 MEQ (25 mEq 8 disintegrating total) by tabletIndications: S/P mouth daily. kidney transplant, Hypokalemia 07/09/2019 Active furosemide (LASIX) 40 MG Take 1 tablet 180 tablet 3 tabletIndications: (40 mg total) 9 Immunosuppression (HCC), by mouth Kidney transplant status, daily No more cadaveric refills through my office. Active cyanocobalamin (VITAMIN INJECT 1 ML 0 B-12) 1,000 mcg/mL INTO THE 8 injection MUSCLE Q WEEK FOR 4 WEEKS THEN INJECT 1ML ONCE A MONTH FOR 2 MONTHS Active acetaminophen (TYLENOL) Take 1,000 mg 0 500 MG tablet by mouth as needed for Pain. Active mycophenolate (CELLCEPT) Take 250 mg 3 250 mg capsule by mouth 2 9 (two) times daily. 09/17/2019 Active tacrolimus (PROGRAF) 0.5 Take 4 720 capsule 3 MG capsuleIndications: capsules (2 9 S/P kidney transplant, mg total) by Personal history of mouth 2 (two) immunosuppressive times daily therapy, Z94.0 Renal Immunosuppression ([facility]), Transplant. S/p cadaver renal transplant 11/05/2019 Active esomeprazole (NEXIUM) 40 Take 1 90 capsule 3 MG capsule capsule (40 9 mg total) by mouth every morning. 10/06/2018 Discontinued sulfamethoxazole-trimetho Take 1 tablet 0 prim (BACTRIM,SEPTRA) by mouth 400-80 mg per every Friday, tabletIndications: Friday, prevent organ transplant Friday . rejection; S/P kidney transplant 3.5.18 11/05/2018 Discontinued esomeprazole (NEXIUM) 40 Take 1 90 capsule 3 MG capsule capsule (40 8 mg total) by mouth every morning. 02/05/2018 Discontinued potassium chloride SA Take 1 tablet 0 (K-DUR,KLOR-CON) 20 MEQ (20 mEq 8 tabletIndications: total) by Immunosuppression ([facility]), mouth 2 (two) Kidney transplant status, times daily. cadaveric 09/17/2018 Discontinued tacrolimus (PROGRAF) 0.5 Take 4 240 capsule 6 MG capsuleIndications: capsules (2 8 S/P kidney transplant, mg total) by Personal history of mouth 2 (two) immunosuppressive times daily therapy, Z94.0 Renal Immunosuppression ([facility]), Transplant. S/p cadaver renal transplant 06/11/2018 Discontinued furosemide (LASIX) 40 MG Take 1 tablet 90 tablet 3 tabletIndications: (40 mg total) 8 Immunosuppression ([facility]), by mouth Kidney transplant status, daily No more cadaveric refills through my office. 03/05/2018 Discontinued mycophenolate (CELLCEPT) Take 1 180 capsule 3 250 mg capsule (250 8 capsuleIndications: S/P mg total) by kidney transplant, mouth 2 (two) Immunosuppression ([facility]) times daily Z94.0 Renal Transplant. 03/26/2018 ciprofloxacin HCl (CIPRO) Take 1 tablet 14 tablet 0 500 MG tabletIndications: (500 mg 8 Immunosuppression ([facility]), total) by Kidney transplant status, mouth 2 (two) cadaveric, Urinary tract times daily infection without for 7 days. hematuria, site unspecified 04/04/2018 cefdinir (OMNICEF) 300 MG Take 1 20 capsule 0 capsuleIndications: E. capsule (300 8 coli UTI (urinary tract mg total) by infection) mouth 2 (two) times daily for 10 days. 07/09/2018 Discontinued furosemide (LASIX) 40 MG Take 1 tablet 180 tablet 3 tabletIndications: (40 mg total) 8 Immunosuppression (HCC), by mouth 2 Kidney transplant status, (two) times cadaveric daily No more refills through my office. Active Problems Problem Noted Date ESRD (end stage renal disease) 07/21/2018 Spigelian hernia 04/09/2018 Last Assessment & Plan: Right spigelian hernia. Reducible and painless. Continue to monitor. Incisional hernia following transplant 04/09/2018 Last Assessment & Plan: Possible right incisional hernia. Will need CT A/P to determine if it is an incisional hernia vs other etiology. Urinary tract infection without hematuria 03/19/2018 Hypokalemia 02/05/2018 Acute on chronic systolic (congestive) heart failure 10/22/2017 Chronic anticoagulation 10/22/2017 E. coli UTI (urinary tract infection) 10/20/2017 E. coli sepsis 10/20/2017 Diabetes 10/19/2017 Last Assessment & Plan: Stable with diet and exercise. TARUN (obstructive sleep apnea) 10/19/2017 Immunosuppression 09/02/2017 Last Assessment & Plan: No adverse effects so far. Will continue to dose based on levels. Pacemaker 08/26/2017 Last Assessment & Plan: Continue follow up with cardiology for pacemaker management and adjustments. Edema of right lower extremity 08/26/2017 Last Assessment & Plan: Resolved. Atrial fibrillation, unspecified type 08/19/2017 S/p cadaver renal transplant 08/18/2017 Last Assessment & Plan: Acceptable graft function. Good urine output. Kidney transplant status, cadaveric 08/15/2017 Overview: type a,cmv+, ebv+, hbsab + PRA 0/0--delayed function not-requiring dialysis-Baseline ~ 0.9-0.7 since 09/11/2017 CKD (chronic kidney disease) stage 2, GFR 60-89 ml/min 08/14/2017 Overview: in kidney allograft; baseline creatinine `0.7-0.9 Systolic heart failure 08/14/2017 Overview: EF (35-39%) Cardiomyopathy 09/15/2015 CAD (coronary artery disease) 09/05/2015 Last Assessment & Plan: Continue medications as prescribed and follow up with cardiology. Peripheral vision loss, left 04/05/2014 COPD (chronic obstructive pulmonary disease) 07/24/2012 Last Assessment & Plan: He will need pulmonary clearance prior to kidney transplant. Requires CPAP at night. History of DVT (deep vein thrombosis) 06/16/2000 Overview: ivc filter placed 2000 History of pulmonary embolism 06/16/1996 Overview: 1996, 1997 Oxalate nephropathy Gallstones Encounters Care Team Description Date Type Specialty China Gregory MD 11/12/2018 Refill Transplant Nichols, Catalina Y Nonspecific findings on examination of urine; Kidney replaced by transplant; Immunosuppression (HCC) 11/10/2018 Orders Only Transplant Brionna Nicholsa Y Nonspecific findings on examination of urine; Kidney replaced by transplant; Immunosuppression (HCC) 11/06/2018 Orders Only Transplant Andrei Mistry RN 11/05/2018 Orders Only Transplant Nguyễn Dsouza II, MD S/P kidney transplant 10/26/2018 Orders Only Transplant Hepatology Chey Oglesby Kidney replaced by transplant; Immunosuppression ([facility]); Nonspecific findings on examination of urine 10/23/2018 Orders Only Transplant Andrei Mistry RN Follow-up 10/14/2018 Telephone Transplant Brionna Nicholsa Y Kidney replaced by transplant; Nonspecific findings on examination of urine; Immunosuppression (HCC) 10/07/2018 Orders Only Transplant Andrei Mistry RN 10/06/2018 Orders Only Transplant China Gregory MD 10/05/2018 Refill Transplant Andrei Mistry RN Kidney replaced by transplant (Primary Dx); Immunosuppression ([facility]); Nonspecific findings on examination of urine 09/25/2018 Orders Only Transplant Afia Mckenzie RN S/P kidney transplant (Primary Dx) 09/25/2018 Orders Only Transplant Nguyễn Dsouza II, MD Immunosuppression ([facility]); Kidney transplant status, cadaveric 09/17/2018 Orders Only Transplant Hepatology Sheree Phillips RN S/P kidney transplant; Personal history of immunosuppressive therapy; Immunosuppression ([facility]); S/p cadaver renal transplant 09/17/2018 Orders Only Transplant Nguyễn Dsouza II, MD S/P kidney transplant (Primary Dx) 09/10/2018 Evaluation Transplant Nguyễn Dsouza II, MD Immunosuppression (HCC); S/p cadaver renal transplant; Kidney transplant status, cadaveric 09/10/2018 Orders Only Transplant Hepatology China Gregory MD 09/01/2018 Refill Transplant Nguyễn Dsouza II, MD Immunosuppression (HCC); S/p cadaver renal transplant; Kidney transplant status, cadaveric 08/13/2018 Orders Only Transplant Hepatology Terry Roberts MD Postoperative state (Primary Dx) 08/04/2018 Office Visit Cardiology Terry Roberts MD REMOVAL,A-V GRAFT 07/21/2018 Surgery Randal Ayala MD 07/21/2018 Anesthesia Event Terry Roberts MD 07/21/2018 Hospital Encounter Resource, [facility] Preadmit Phone 07/20/2018 Hospital Pre-Admission Testing Encounter Terry Roberts MD 07/15/2018 Hospital Encounter Terry Roberts MD Kidney disease (Primary Dx) 07/15/2018 Office Visit Cardiology Nguyễn Dsouza II, MD Finch, Jennifer L., MD S/P kidney transplant (Primary Dx); Immunosuppression (HCC); Kidney transplant status, cadaveric 07/09/2018 Evaluation Transplant Nguyễn Dsouza II, MD Immunosuppression (HCC); S/p cadaver renal transplant; Kidney transplant status, cadaveric 07/09/2018 Orders Only Transplant HepatNguyễn Castro II, MD Immunosuppression (HCC); Kidney transplant status, cadaveric 06/22/2018 Orders Only Transplant HepatNguyễn Castro II, MD S/P kidney transplant (Primary Dx); Immunosuppression (HCC); Kidney transplant status, cadaveric 06/11/2018 Evaluation Transplant Nguyễn Dsouza II, MD Immunosuppression (HCC); Kidney transplant status, cadaveric 06/11/2018 Orders Only Transplant HepatNguyễn Castro II, MD Immunosuppression (HCC); S/p cadaver renal transplant; Kidney transplant status, cadaveric 06/02/2018 Orders Only Transplant HepatNguyễn Castro II, MD Immunosuppression (HCC); Kidney transplant status, cadaveric 05/14/2018 Orders Only Transplant HepatNguyễn Castro II, MD Finch, Jennifer L., MD S/P kidney transplant (Primary Dx) 04/30/2018 Evaluation Transplant Nguyễn Dsouza II, MD Immunosuppression ([facility]); Kidney transplant status, cadaveric 04/30/2018 Orders Only Transplant Hepatology Andrei Mistry RN Advice Only 04/20/2018 Telephone Transplant China Gregory MD Unilateral inguinal hernia without obstruction or gangrene, recurrence not specified 04/14/2018 Hospital Radiology Encounter China Gregory MD 04/14/2018 Outside Orders Nguyễn Dsouza II, MD Galvan, [facility] Samreen Henning MD S/P kidney transplant (Primary Dx); Unilateral inguinal hernia without obstruction or gangrene, recurrence not specified; Spigelian hernia; Incisional hernia following transplant; Immunosuppression (HCC) 04/07/2018 Evaluation Transplant Nguyễn Dsouza II, MD Immunosuppression ([facility]); Kidney transplant status, cadaveric 04/07/2018 Orders Only Transplant Hepatology Afia Mckenzie RN 04/07/2018 Orders Only Transplant SandovalAdrya B Immunosuppression ([facility]); S/p cadaver renal transplant 04/07/2018 Orders Only Transplant Hepatology Andrei Mistry RN 04/03/2018 Refill Transplant Nguyễn Dsouza II, MD Pre-transplant evaluation for chronic kidney disease; Immunosuppression ([facility]); S/p cadaver renal transplant 04/02/2018 Orders Only Transplant Hepatology Nguyễn Dsouza II, MD Yao, June, MD S/P kidney transplant (Primary Dx) 04/02/2018 Evaluation Transplant Andrei Mistry RN Urinary Tract Infection 03/25/2018 Telephone Transplant Andrei Mistry RN E. coli UTI (urinary tract infection) (Primary Dx) 03/25/2018 Orders Only Transplant Nguyễn Dsouza II, MD Immunosuppression ([facility]); Kidney transplant status, cadaveric 03/19/2018 Orders Only Transplant Hepatology Andrei Mistry RN Immunosuppression ([facility]) (Primary Dx); Kidney transplant status, cadaveric; Urinary tract infection without hematuria, site unspecified 03/19/2018 Orders Only Transplant Andrei Mistry RN Immunosuppression ([facility]) (Primary Dx); Kidney transplant status, cadaveric 03/18/2018 Orders Only Transplant Andrei Mistry RN Advice Only 03/18/2018 Telephone Transplant Nguyễn Dsouza II, MD Yao, June, MD S/P kidney transplant (Primary Dx) 03/05/2018 Evaluation Transplant Nguyễn Dsouza II, MD Pre-transplant evaluation for chronic kidney disease; Immunosuppression (HCC); S/p cadaver renal transplant 03/05/2018 Orders Only Transplant Hepatology Samra Brown Appointment 03/04/2018 Telephone Transplant Andrei Mistry RN Immunosuppression (HCC) (Primary Dx); S/p cadaver renal transplant 03/02/2018 Orders Only Transplant Nguyễn Dsouza II, MD Pre-transplant evaluation for chronic kidney disease 02/11/2018 Orders Only Transplant Hepatology Afia Mckenzie RN Medication Dose Change 02/11/2018 Telephone Transplant Nguyễn Dsouza II, MD S/P kidney transplant (Primary Dx); Immunosuppression (HCC); Hypokalemia 02/05/2018 Evaluation Transplant Nguyễn Dsouza II, MD Pre-transplant evaluation for chronic kidney disease 02/05/2018 Orders Only Transplant Hepatology Andrei Mistry, VICK S/P kidney transplant; Immunosuppression (HCC) 02/05/2018 Orders Only Transplant after 02/01/2018 Family History Medical History Relation Name Comments No Known Problem Daughter Cancer Father Diabetes Father Heart disease Father Diabetes Mother Hypertension Mother Cancer Sister No Known Problem Son Relation Name Status Comments Daughter Alive Father Mother Alive Sister Alive Son Alive Social History Date Tobacco Use Types Packs/Day Years Used Quit: 03/28/1993 Former Smoker 2 20 Smokeless Tobacco: Never Used Tobacco Cessation: Counseling Given: No Alcohol Use Drinks/Week oz/Week Comments No Sex Assigned at Date Recorded Not on file Industry Job Start Date Occupation Not on file Not on file Not on file Travel End Travel History Travel Start No recent travel history available. Last Filed Vital Signs Time Taken Vital Sign Reading 09/10/2018 2:57 PM CDT Blood Pressure 123/79 09/10/2018 2:57 PM CDT Pulse 71 09/10/2018 2:57 PM CDT Temperature 36.3 C (97.4 F) 09/10/2018 2:57 PM CDT Respiratory Rate 16 08/04/2018 9:23 AM GOLD PLATER Oxygen Saturation 98% - Inhaled Oxygen - Concentration 09/10/2018 2:57 PM CDT Weight 74.2 kg (163 lb 9.6 oz) 09/10/2018 2:57 PM CDT Height 182.9 cm (6') 09/10/2018 2:57 PM CDT Body Mass Index 22.19 Plan of Treatment Not on file Implants Device Identifier Shelf Expiration Date Model / Serial / Lot Implanted Type Area Manufactur er 01/17/2020 [id number] / N/A / [id number] Stent Uret Polaris [id number] - Sn/A Uro Stent Right: Ureter [place] Implanted: Qty: 1 on 08/18/2017 by SCI:SELINA Good, Ladikelsey Henning MD Y/GYNECOLO GY 07/16/2018 [id number] / [id number] / Quartet [facility] [place] Implanted: Qty: 1 on 09/15/2015 [employer] 01/13/2017 [id number] / [id number] / Allure Quadra Rf [employer] [place] Implanted: Qty: 1 on 09/15/2015 [employer] Procedures Comments Procedure Name Priority Date/Time Associated Diagnosis MICROSCOPIC EXAMINATION Routine 11/10/2018 8:50 AM CDT CBC W/PLT COUNT & AUTO Routine 11/10/2018 Kidney replaced by DIFFERENTIAL 8:50 AM CDT transplant Immunosuppression (HCC) LACTATE DEHYDROGENASE Routine 11/10/2018 Kidney replaced by (LDH) 8:50 AM CDT transplant COMPREHENSIVE METABOLIC Routine 11/10/2018 Kidney replaced by PANEL 8:50 AM CDT transplant PHOSPHORUS Routine 11/10/2018 Kidney replaced by 8:50 AM CDT transplant TACROLIMUS LEVEL Routine 11/10/2018 Kidney replaced by 8:50 AM CDT transplant Immunosuppression (HCC) URINALYSIS W/ MICROSCOPIC Routine 11/10/2018 Kidney replaced by 8:50 AM CDT transplant Nonspecific findings on examination of urine URINE CULTURE Routine 11/10/2018 Nonspecific findings on 8:50 AM CDT examination of urine CBC W/PLT COUNT & AUTO Routine 10/26/2018 S/P kidney transplant DIFFERENTIAL 9:15 AM CDT URINALYSIS W/ REFLEX Routine 10/26/2018 S/P kidney transplant URINE CULTURE 9:15 AM CDT TACROLIMUS LEVEL Routine 10/26/2018 S/P kidney transplant 9:15 AM CDT PHOSPHORUS Routine 10/26/2018 S/P kidney transplant 9:15 AM CDT LACTATE DEHYDROGENASE Routine 10/26/2018 S/P kidney transplant (LDH) 9:15 AM CDT COMPREHENSIVE METABOLIC Routine 10/26/2018 S/P kidney transplant PANEL 9:15 AM CDT CBC W/PLT COUNT & AUTO Routine 10/26/2018 S/P kidney transplant DIFFERENTIAL 9:15 AM CDT MICROSCOPIC EXAMINATION Routine 10/13/2018 8:47 AM CDT CBC W/PLT COUNT & AUTO Routine 10/13/2018 Kidney replaced by DIFFERENTIAL 8:47 AM CDT transplant Immunosuppression (HCC) COMPREHENSIVE METABOLIC Routine 10/13/2018 Kidney replaced by PANEL 8:47 AM CDT transplant LACTATE DEHYDROGENASE Routine 10/13/2018 Kidney replaced by (LDH) 8:47 AM CDT transplant PHOSPHORUS Routine 10/13/2018 Kidney replaced by 8:47 AM CDT transplant TACROLIMUS LEVEL Routine 10/13/2018 Kidney replaced by 8:47 AM CDT transplant Immunosuppression (HCC) URINALYSIS W/ MICROSCOPIC Routine 10/13/2018 Kidney replaced by 8:47 AM CDT transplant Nonspecific findings on examination of urine URINE CULTURE Routine 10/13/2018 Nonspecific findings on 8:47 AM CDT examination of urine ARRYTHMIA IMPLANT REPORT 09/29/2018 - SCAN 6:30 AM CDT TACROLIMUS LEVEL Routine 09/17/2018 Immunosuppression (HCC) 7:13 AM CDT Kidney transplant status, cadaveric CBC W/PLT COUNT & AUTO Routine 09/17/2018 Immunosuppression ([facility]) DIFFERENTIAL 7:12 AM CDT Kidney transplant status, cadaveric URINALYSIS W/ REFLEX Routine 09/17/2018 Immunosuppression ([facility]) URINE CULTURE 7:12 AM CDT Kidney transplant status, cadaveric PHOSPHORUS Routine 09/17/2018 Immunosuppression ([facility]) 7:12 AM CDT Kidney transplant status, cadaveric LACTATE DEHYDROGENASE Routine 09/17/2018 Immunosuppression ([facility]) (LDH) 7:12 AM CDT Kidney transplant status, cadaveric COMPREHENSIVE METABOLIC Routine 09/17/2018 Immunosuppression ([facility]) PANEL 7:12 AM CDT Kidney transplant status, cadaveric CBC W/PLT COUNT & AUTO Routine 09/17/2018 Immunosuppression ([facility]) DIFFERENTIAL 7:12 AM CDT Kidney transplant status, cadaveric CBC W/PLT COUNT & AUTO Routine 09/10/2018 Immunosuppression ([facility]) DIFFERENTIAL 8:08 AM CDT Kidney transplant status, cadaveric TACROLIMUS LEVEL Routine 09/10/2018 Immunosuppression ([facility]) 8:08 AM CDT Kidney transplant status, cadaveric CBC W/PLT COUNT & AUTO Routine 09/10/2018 Immunosuppression ([facility]) DIFFERENTIAL 8:08 AM CDT Kidney transplant status, cadaveric BK VIRUS PCR, PLASMA Routine 09/10/2018 Immunosuppression ([facility]) 8:08 AM CDT S/p cadaver renal transplant FLOW PRA CLASS II WITH Routine 09/10/2018 Immunosuppression ([facility]) REFLEX TO ANTIBODY 8:07 AM CDT Kidney transplant status, SPECIFICITY cadaveric FLOW PRA CLASS I WITH Routine 09/10/2018 Immunosuppression ([facility]) REFLEX TO ANTIBODY 8:07 AM CDT Kidney transplant status, SPECIFICITY cadaveric AB DONOR SPECIFIC, DSA Routine 09/10/2018 Immunosuppression ([facility]) 8:07 AM CDT Kidney transplant status, cadaveric AB SPECIFICITY CLASS I Routine 09/10/2018 Immunosuppression ([facility]) 8:07 AM CDT Kidney transplant status, cadaveric AB SPECIFICITY CLASS II Routine 09/10/2018 Immunosuppression ([facility]) 8:07 AM CDT Kidney transplant status, cadaveric PHOSPHORUS Routine 09/10/2018 Immunosuppression ([facility]) 8:07 AM CDT Kidney transplant status, cadaveric LACTATE DEHYDROGENASE Routine 09/10/2018 Immunosuppression ([facility]) (LDH) 8:07 AM CDT Kidney transplant status, cadaveric COMPREHENSIVE METABOLIC Routine 09/10/2018 Immunosuppression ([facility]) PANEL 8:07 AM CDT Kidney transplant status, cadaveric URINALYSIS W/ REFLEX Routine 09/10/2018 Immunosuppression ([facility]) URINE CULTURE 8:04 AM CDT Kidney transplant status, cadaveric CBC W/PLT COUNT & AUTO Routine 08/13/2018 Immunosuppression ([facility]) DIFFERENTIAL 7:15 AM GOLD PLATER Kidney transplant status, cadaveric CBC W/PLT COUNT & AUTO Routine 08/13/2018 Immunosuppression ([facility]) DIFFERENTIAL 7:15 AM GOLD PLATER Kidney transplant status, cadaveric AB DONOR SPECIFIC, DSA Routine 08/13/2018 Immunosuppression ([facility]) 7:14 AM GOLD PLATER Kidney transplant status, cadaveric FLOW PRA CLASS II WITH Routine 08/13/2018 Immunosuppression ([facility]) REFLEX TO ANTIBODY 7:14 AM GOLD PLATER Kidney transplant status, SPECIFICITY cadaveric FLOW PRA CLASS I WITH Routine 08/13/2018 Immunosuppression ([facility]) REFLEX TO ANTIBODY 7:14 AM GOLD PLATER Kidney transplant status, SPECIFICITY cadaveric AB SPECIFICITY CLASS I Routine 08/13/2018 Immunosuppression ([facility]) 7:14 AM GOLD PLATER Kidney transplant status, cadaveric AB SPECIFICITY CLASS II Routine 08/13/2018 Immunosuppression ([facility]) 7:14 AM GOLD PLATER Kidney transplant status, cadaveric URINALYSIS W/ REFLEX Routine 08/13/2018 Immunosuppression ([facility]) URINE CULTURE 7:14 AM GOLD PLATER Kidney transplant status, cadaveric TACROLIMUS LEVEL Routine 08/13/2018 Immunosuppression ([facility]) 7:14 AM GOLD PLATER Kidney transplant status, cadaveric PHOSPHORUS Routine 08/13/2018 Immunosuppression (HCC) 7:14 AM GOLD PLATER Kidney transplant status, cadaveric LACTATE DEHYDROGENASE Routine 08/13/2018 Immunosuppression (HCC) (LDH) 7:14 AM GOLD PLATER Kidney transplant status, cadaveric COMPREHENSIVE METABOLIC Routine 08/13/2018 Immunosuppression (HCC) PANEL 7:14 AM GOLD PLATER Kidney transplant status, cadaveric BK VIRUS PCR, PLASMA Routine 08/13/2018 Immunosuppression (HCC) 7:14 AM GOLD PLATER S/p cadaver renal transplant RHYTHM STRIP - SCAN 07/28/2018 10:53 AM GOLD PLATER REPORT OF PROCEDURE - 07/28/2018 ENDOSCOPY SCAN 10:53 AM GOLD PLATER POCT-GLUCOSE METER Routine 07/21/2018 10:22 AM GOLD PLATER HGB/HCT (H&H) - STAT LAB STAT 07/21/2018 9:13 AM GOLD PLATER GLUCOSE-STAT LAB STAT 07/21/2018 9:13 AM GOLD PLATER POTASSIUM-STAT LAB STAT 07/21/2018 9:13 AM GOLD PLATER TISSUE EXAM AP Routine 07/21/2018 8:18 AM GOLD PLATER REMOVAL,A-V GRAFT 07/21/2018 End stage renal disease 7:30 AM G[employer] PLATER ([facility]) XR CHEST 1 VIEW STAT 07/21/2018 PORTABLE/BEDSIDE 6:55 AM GOLD PLATER HGB/HCT (H&H) - STAT LAB Routine 07/21/2018 6:04 AM GOLD PLATER GLUCOSE-STAT LAB STAT 07/21/2018 6:04 AM GOLD PLATER POTASSIUM-STAT LAB STAT 07/21/2018 6:04 AM GOLD PLATER POCT-GLUCOSE METER Routine 07/21/2018 5:34 AM GOLD PLATER TRANSFUSION SERVICE 07/16/2018 REPORT - SCAN 5:52 PM GOLD PLATER TYPE AND SCREEN, Routine 07/15/2018 AUTOMATED 12:40 PM GOLD PLATER PROTHROMBIN TIME/INR Routine 07/15/2018 12:40 PM GOLD PLATER CBC W/PLT COUNT & AUTO Routine 07/09/2018 Immunosuppression ([facility]) DIFFERENTIAL 7:30 AM GOLD PLATER Kidney transplant status, cadaveric FLOW PRA CLASS II WITH Routine 07/09/2018 Immunosuppression ([facility]) REFLEX TO ANTIBODY 7:30 AM GOLD PLATER Kidney transplant status, SPECIFICITY cadaveric FLOW PRA CLASS I WITH Routine 07/09/2018 Immunosuppression ([facility]) REFLEX TO ANTIBODY 7:30 AM GOLD PLATER Kidney transplant status, SPECIFICITY cadaveric AB DONOR SPECIFIC, DSA Routine 07/09/2018 Immunosuppression ([facility]) 7:30 AM GOLD PLATER Kidney transplant status, cadaveric AB SPECIFICITY CLASS I Routine 07/09/2018 Immunosuppression ([facility]) 7:30 AM GOLD PLATER Kidney transplant status, cadaveric AB SPECIFICITY CLASS II Routine 07/09/2018 Immunosuppression ([facility]) 7:30 AM GOLD PLATER Kidney transplant status, cadaveric URINALYSIS W/ REFLEX Routine 07/09/2018 Immunosuppression ([facility]) URINE CULTURE 7:30 AM GOLD PLATER Kidney transplant status, cadaveric TACROLIMUS LEVEL Routine 07/09/2018 Immunosuppression ([facility]) 7:30 AM GOLD PLATER Kidney transplant status, cadaveric PHOSPHORUS Routine 07/09/2018 Immunosuppression ([facility]) 7:30 AM GOLD PLATER Kidney transplant status, cadaveric LACTATE DEHYDROGENASE Routine 07/09/2018 Immunosuppression ([facility]) (LDH) 7:30 AM GOLD PLATER Kidney transplant status, cadaveric COMPREHENSIVE METABOLIC Routine 07/09/2018 Immunosuppression ([facility]) PANEL 7:30 AM GOLD PLATER Kidney transplant status, cadaveric CBC W/PLT COUNT & AUTO Routine 07/09/2018 Immunosuppression ([facility]) DIFFERENTIAL 7:30 AM GOLD PLATER Kidney transplant status, cadaveric BK VIRUS PCR, PLASMA Routine 07/09/2018 Immunosuppression ([facility]) 7:30 AM GOLD PLATER S/p cadaver renal transplant CBC W/PLT COUNT & AUTO Routine 06/22/2018 Immunosuppression (HCC) DIFFERENTIAL 7:16 AM GOLD PLATER Kidney transplant status, cadaveric TACROLIMUS LEVEL Routine 06/22/2018 Immunosuppression (HCC) 7:16 AM GOLD PLATER Kidney transplant status, cadaveric PHOSPHORUS Routine 06/22/2018 Immunosuppression (HCC) 7:16 AM GOLD PLATER Kidney transplant status, cadaveric LACTATE DEHYDROGENASE Routine 06/22/2018 Immunosuppression (HCC) (LDH) 7:16 AM GOLD PLATER Kidney transplant status, cadaveric COMPREHENSIVE METABOLIC Routine 06/22/2018 Immunosuppression (HCC) PANEL 7:16 AM GOLD PLATER Kidney transplant status, cadaveric CBC W/PLT COUNT & AUTO Routine 06/22/2018 Immunosuppression (HCC) DIFFERENTIAL 7:16 AM GOLD PLATER Kidney transplant status, cadaveric URINALYSIS W/ REFLEX Routine 06/22/2018 Immunosuppression ([facility]) URINE CULTURE 7:13 AM GOLD PLATER Kidney transplant status, cadaveric CBC W/PLT COUNT & AUTO Routine 06/11/2018 Immunosuppression (HCC) DIFFERENTIAL 7:09 AM GOLD PLATER Kidney transplant status, cadaveric URINALYSIS W/ REFLEX Routine 06/11/2018 Immunosuppression ([facility]) URINE CULTURE 7:09 AM GOLD PLATER Kidney transplant status, cadaveric TACROLIMUS LEVEL Routine 06/11/2018 Immunosuppression (HCC) 7:09 AM GOLD PLATER Kidney transplant status, cadaveric PHOSPHORUS Routine 06/11/2018 Immunosuppression (HCC) 7:09 AM GOLD PLATER Kidney transplant status, cadaveric LACTATE DEHYDROGENASE Routine 06/11/2018 Immunosuppression (HCC) (LDH) 7:09 AM GOLD PLATER Kidney transplant status, cadaveric COMPREHENSIVE METABOLIC Routine 06/11/2018 Immunosuppression ([facility]) PANEL 7:09 AM GOLD PLATER Kidney transplant status, cadaveric CBC W/PLT COUNT & AUTO Routine 06/11/2018 Immunosuppression ([facility]) DIFFERENTIAL 7:09 AM GOLD PLATER Kidney transplant status, cadaveric URINALYSIS W/ REFLEX Routine 06/02/2018 Immunosuppression ([facility]) URINE CULTURE 8:11 AM GOLD PLATER Kidney transplant status, cadaveric CBC W/PLT COUNT & AUTO Routine 06/02/2018 Immunosuppression ([facility]) DIFFERENTIAL 7:54 AM GOLD PLATER Kidney transplant status, cadaveric TACROLIMUS LEVEL Routine 06/02/2018 Immunosuppression ([facility]) 7:54 AM GOLD PLATER Kidney transplant status, cadaveric PHOSPHORUS Routine 06/02/2018 Immunosuppression (HCC) 7:54 AM GOLD PLATER Kidney transplant status, cadaveric LACTATE DEHYDROGENASE Routine 06/02/2018 Immunosuppression ([facility]) (LDH) 7:54 AM GOLD PLATER Kidney transplant status, cadaveric COMPREHENSIVE METABOLIC Routine 06/02/2018 Immunosuppression ([facility]) PANEL 7:54 AM GOLD PLATER Kidney transplant status, cadaveric CBC W/PLT COUNT & AUTO Routine 06/02/2018 Immunosuppression ([facility]) DIFFERENTIAL 7:54 AM GOLD PLATER Kidney transplant status, cadaveric BK VIRUS PCR, PLASMA Routine 06/02/2018 Immunosuppression ([facility]) 7:54 AM GOLD PLATER S/p cadaver renal transplant CBC W/PLT COUNT & AUTO Routine 05/14/2018 Immunosuppression ([facility]) DIFFERENTIAL 7:46 AM GOLD PLATER Kidney transplant status, cadaveric URINALYSIS W/ REFLEX Routine 05/14/2018 Immunosuppression ([facility]) URINE CULTURE 7:46 AM GOLD PLATER Kidney transplant status, cadaveric TACROLIMUS LEVEL Routine 05/14/2018 Immunosuppression ([facility]) 7:46 AM GOLD PLATER Kidney transplant status, cadaveric PHOSPHORUS Routine 05/14/2018 Immunosuppression ([facility]) 7:46 AM GOLD PLATER Kidney transplant status, cadaveric LACTATE DEHYDROGENASE Routine 05/14/2018 Immunosuppression ([facility]) (LDH) 7:46 AM GOLD PLATER Kidney transplant status, cadaveric COMPREHENSIVE METABOLIC Routine 05/14/2018 Immunosuppression ([facility]) PANEL 7:46 AM GOLD PLATER Kidney transplant status, cadaveric CBC W/PLT COUNT & AUTO Routine 05/14/2018 Immunosuppression ([facility]) DIFFERENTIAL 7:46 AM GOLD PLATER Kidney transplant status, cadaveric CBC W/PLT COUNT & AUTO Routine 04/30/2018 Immunosuppression ([facility]) DIFFERENTIAL 7:27 AM GOLD PLATER Kidney transplant status, cadaveric URINALYSIS W/ REFLEX Routine 04/30/2018 Immunosuppression ([facility]) URINE CULTURE 7:27 AM GOLD PLATER Kidney transplant status, cadaveric TACROLIMUS LEVEL Routine 04/30/2018 Immunosuppression ([facility]) 7:27 AM GOLD PLATER Kidney transplant status, cadaveric PHOSPHORUS Routine 04/30/2018 Immunosuppression ([facility]) 7:27 AM GOLD PLATER Kidney transplant status, cadaveric LACTATE DEHYDROGENASE Routine 04/30/2018 Immunosuppression ([facility]) (LDH) 7:27 AM GOLD PLATER Kidney transplant status, cadaveric COMPREHENSIVE METABOLIC Routine 04/30/2018 Immunosuppression ([facility]) PANEL 7:27 AM GOLD PLATER Kidney transplant status, cadaveric CBC W/PLT COUNT & AUTO Routine 04/30/2018 Immunosuppression ([facility]) DIFFERENTIAL 7:27 AM GOLD PLATER Kidney transplant status, cadaveric URINE CULTURE Routine 04/30/2018 Immunosuppression ([facility]) 7:27 AM GOLD PLATER Kidney transplant status, cadaveric CT ABDOMEN/PELVIS WITHOUT Routine 04/14/2018 Unilateral inguinal IV CONTRAST 12:16 PM CDT hernia without obstruction or gangrene, recurrence not specified CBC W/PLT COUNT & AUTO Routine 04/07/2018 Immunosuppression ([facility]) DIFFERENTIAL 7:51 AM CDT Kidney transplant status, cadaveric BK VIRUS PCR, PLASMA Routine 04/07/2018 Immunosuppression ([facility]) 7:51 AM CDT S/p cadaver renal transplant URINALYSIS W/ REFLEX Routine 04/07/2018 Immunosuppression ([facility]) URINE CULTURE 7:51 AM CDT Kidney transplant status, cadaveric TACROLIMUS LEVEL Routine 04/07/2018 Immunosuppression ([facility]) 7:51 AM CDT Kidney transplant status, cadaveric PHOSPHORUS Routine 04/07/2018 Immunosuppression ([facility]) 7:51 AM CDT Kidney transplant status, cadaveric LACTATE DEHYDROGENASE Routine 04/07/2018 Immunosuppression ([facility]) (LDH) 7:51 AM CDT Kidney transplant status, cadaveric COMPREHENSIVE METABOLIC Routine 04/07/2018 Immunosuppression ([facility]) PANEL 7:51 AM CDT Kidney transplant status, cadaveric CBC W/PLT COUNT & AUTO Routine 04/07/2018 Immunosuppression ([facility]) DIFFERENTIAL 7:51 AM CDT Kidney transplant status, cadaveric CBC W/PLT COUNT & AUTO Routine 04/02/2018 Pre-transplant evaluation DIFFERENTIAL 7:20 AM CDT for chronic kidney disease URINALYSIS W/ REFLEX Routine 04/02/2018 Pre-transplant evaluation URINE CULTURE 7:20 AM CDT for chronic kidney disease TACROLIMUS LEVEL AP Routine 04/02/2018 Pre-transplant evaluation 7:20 AM CDT for chronic kidney disease PHOSPHORUS Routine 04/02/2018 Pre-transplant evaluation 7:20 AM CDT for chronic kidney disease LACTATE DEHYDROGENASE Routine 04/02/2018 Pre-transplant evaluation (LDH) 7:20 AM CDT for chronic kidney disease COMPREHENSIVE METABOLIC Routine 04/02/2018 Pre-transplant evaluation PANEL 7:20 AM CDT for chronic kidney disease CBC W/PLT COUNT & AUTO Routine 04/02/2018 Pre-transplant evaluation DIFFERENTIAL 7:20 AM CDT for chronic kidney disease BK VIRUS PCR, PLASMA Routine 04/02/2018 Immunosuppression ([facility]) 7:19 AM CDT S/p cadaver renal transplant CBC W/PLT COUNT & AUTO Routine 03/19/2018 Immunosuppression ([facility]) DIFFERENTIAL 7:01 AM CDT Kidney transplant status, cadaveric FLOW PRA CLASS II WITH Routine 03/19/2018 Immunosuppression ([facility]) REFLEX TO ANTIBODY 7:01 AM CDT Kidney transplant status, SPECIFICITY cadaveric FLOW PRA CLASS I WITH Routine 03/19/2018 Immunosuppression ([facility]) REFLEX TO ANTIBODY 7:01 AM CDT Kidney transplant status, SPECIFICITY cadaveric AB DONOR SPECIFIC, DSA Routine 03/19/2018 Immunosuppression ([facility]) 7:01 AM CDT Kidney transplant status, cadaveric AB SPECIFICITY CLASS I Routine 03/19/2018 Immunosuppression ([facility]) 7:01 AM CDT Kidney transplant status, cadaveric AB SPECIFICITY CLASS II Routine 03/19/2018 Immunosuppression ([facility]) 7:01 AM CDT Kidney transplant status, cadaveric URINALYSIS W/ REFLEX Routine 03/19/2018 Immunosuppression ([facility]) URINE CULTURE 7:01 AM CDT Kidney transplant status, cadaveric TACROLIMUS LEVEL Routine 03/19/2018 Immunosuppression ([facility]) 7:01 AM CDT Kidney transplant status, cadaveric PHOSPHORUS Routine 03/19/2018 Immunosuppression ([facility]) 7:01 AM CDT Kidney transplant status, cadaveric LACTATE DEHYDROGENASE Routine 03/19/2018 Immunosuppression ([facility]) (LDH) 7:01 AM CDT Kidney transplant status, cadaveric COMPREHENSIVE METABOLIC Routine 03/19/2018 Immunosuppression ([facility]) PANEL 7:01 AM CDT Kidney transplant status, cadaveric CBC W/PLT COUNT & AUTO Routine 03/19/2018 Immunosuppression ([facility]) DIFFERENTIAL 7:01 AM CDT Kidney transplant status, cadaveric URINE CULTURE Routine 03/19/2018 Immunosuppression ([facility]) 7:01 AM CDT Kidney transplant status, cadaveric CBC W/PLT COUNT & AUTO Routine 03/05/2018 Pre-transplant evaluation DIFFERENTIAL 7:28 AM CDT for chronic kidney disease BK VIRUS PCR, PLASMA Routine 03/05/2018 Immunosuppression ([facility]) 7:28 AM CDT S/p cadaver renal transplant URINALYSIS W/ REFLEX Routine 03/05/2018 Pre-transplant evaluation URINE CULTURE 7:28 AM CDT for chronic kidney disease TACROLIMUS LEVEL Routine 03/05/2018 Pre-transplant evaluation 7:28 AM CDT for chronic kidney disease PHOSPHORUS Routine 03/05/2018 Pre-transplant evaluation 7:28 AM CDT for chronic kidney disease LACTATE DEHYDROGENASE Routine 03/05/2018 Pre-transplant evaluation (LDH) 7:28 AM CDT for chronic kidney disease COMPREHENSIVE METABOLIC Routine 03/05/2018 Pre-transplant evaluation PANEL 7:28 AM CDT for chronic kidney disease CBC W/PLT COUNT & AUTO Routine 03/05/2018 Pre-transplant evaluation DIFFERENTIAL 7:28 AM CDT for chronic kidney disease CBC W/PLT COUNT & AUTO Routine 02/11/2018 Pre-transplant evaluation DIFFERENTIAL 7:48 AM CDT for chronic kidney disease TACROLIMUS LEVEL Routine 02/11/2018 Pre-transplant evaluation 7:48 AM CDT for chronic kidney disease CBC W/PLT COUNT & AUTO Routine 02/11/2018 Pre-transplant evaluation DIFFERENTIAL 7:48 AM CDT for chronic kidney disease URINALYSIS W/ REFLEX Routine 02/11/2018 Pre-transplant evaluation URINE CULTURE 7:47 AM CDT for chronic kidney disease PHOSPHORUS Routine 02/11/2018 Pre-transplant evaluation 7:47 AM CDT for chronic kidney disease LACTATE DEHYDROGENASE Routine 02/11/2018 Pre-transplant evaluation (LDH) 7:47 AM CDT for chronic kidney disease COMPREHENSIVE METABOLIC Routine 02/11/2018 Pre-transplant evaluation PANEL 7:47 AM CDT for chronic kidney disease URINE CULTURE Routine 02/11/2018 Pre-transplant evaluation 7:47 AM CDT for chronic kidney disease CMV PCR, QUANTITATIVE Routine 02/05/2018 Pre-transplant evaluation 7:15 AM CDT for chronic kidney disease URINALYSIS W/ REFLEX Routine 02/05/2018 Pre-transplant evaluation URINE CULTURE 7:15 AM CDT for chronic kidney disease PHOSPHORUS Routine 02/05/2018 Pre-transplant evaluation 7:15 AM CDT for chronic kidney disease LACTATE DEHYDROGENASE Routine 02/05/2018 Pre-transplant evaluation (LDH) 7:15 AM CDT for chronic kidney disease COMPREHENSIVE METABOLIC Routine 02/05/2018 Pre-transplant evaluation PANEL 7:15 AM CDT for chronic kidney disease URINE CULTURE Routine 02/05/2018 Pre-transplant evaluation 7:15 AM CDT for chronic kidney disease CBC W/PLT COUNT & AUTO Routine 02/05/2018 Pre-transplant evaluation DIFFERENTIAL 7:14 AM CDT for chronic kidney disease TACROLIMUS LEVEL Routine 02/05/2018 Pre-transplant evaluation 7:14 AM CDT for chronic kidney disease CBC W/PLT COUNT & AUTO Routine 02/05/2018 Pre-transplant evaluation DIFFERENTIAL 7:14 AM CDT for chronic kidney disease after 02/01/2018 Results * MICROSCOPIC EXAMINATION (11/10/2018 8:50 AM CDT) Only the most recent of 2 results within the time period is included. WBC 0-5 0 - 5 /hpf [facility] RBC 0-2 0 - 2 /hpf [facility] Epithelial Cells (non 0-10 0 - 10 /hpf [facility] 1 renal) Bacteria Few None seen/ [facility] 1 Specimen Narrative Performed At Performed at:01 - [facility] [address], [id number] Spotlight Operator: Crow Barrow MD, Phone:[phone] Performing Organization Address City/State/Zipcode Phone Number [facility] * Tacrolimus Level (11/10/2018 8:50 AM CDT) Only the most recent of 18 results within the time period is included. Tacrolimus ([id number]), Blood 5.3 2.0 - 20.0 ng/mL [facility] Comment: Trough (immediately following transplant) 15.0 Trough (steady state, 2 weeks or more after transplant):3.0 - 8.0 Detection Limit=1.0 Performed by LC-MS/MS technology. This test was developed and its performance characteristic s determined by [facility]. It has not been cleared or approved by the Food and Drug Administration. Specimen Blood Narrative Performed At Performed at: - [facility] [address], [id number] Spotlight Operator: Greg Phillip MD, Phone:[phone] Performing Organization Address [facility] Phone Number [facility] * Urinalysis w/ Microscopic (11/10/2018 8:50 AM CDT) Only the most recent of 2 results within the time period is included. Specific [place], UA 1.022 1.005 - 1.03 [facility] pH, UA 6.0 5.0 - 7.5 [facility] Color, UA Yellow Yellow [facility] Appearance Clear Clear [facility] 1 WBC Esterase Negative Negative [facility] Protein, UA Negative Negative/T [facility] Glucose, Urine Negative Negative [facility] Ketones, UA Negative Negative [facility] Blood, UA Negative Negative [facility] Bilirubin, UA Negative Negative [facility] 1 Urobilinogen,Semi-Qn 0.2 0.2 - 1.0 mg/dL [facility] 1 Nitrite, UA Negative Negative [facility] Microscopic Examination CommentComment: Microscopic [facility] 1 follows if indicated. Microscopic Examination See below:Comment: Microscopic [facility] 1 was indicated and was performed. Specimen Urine Narrative Performed At Performed at: - [facility] [address], [id number] Spotlight Operator: Crow Barrow MD, Phone:[phone] Performing Organization Address [facility] Phone Number [facility] * CBC w/PLT Count & Auto Differential (11/10/2018 8:50 AM CDT) Only the most recent of 2 results within the time period is included. WBC 4.1 3.4 - 10.8 x10E3/uL [facility] RBC 4.06 (L) 4.14 - 5.80 x10E6/uL [facility] 1 Hemoglobin 11.7 (L) 13.0 - 17.7 g/dL [facility] 1 Hematocrit 35.2 (L) 37.5 - 51.0 % [facility] 1 MCV 87 79 - 97 fL [facility] 1 MCH 28.8 26.6 - 33.0 pg [facility] 1 MCHC 33.2 31.5 - 35.7 g/dL [facility] 1 RDW 14.3 12.3 - 15.4 % [facility] 1 Platelets 153Comment: 150 - 450 x10E3/uL [facility] 1 Please note reference interval change % Neutros 70 Not Estab. % [facility] % Lymphs 20 Not Estab. % [facility] % Monos 7 Not Estab. % [facility] % Eos 2 Not Estab. % [facility] % Baso 1 Not Estab. % [facility] # Neutros 2.8 1.4 - 7.0 x10E3/uL [facility] # Lymphs 0.8 0.7 - 3.1 x10E3/uL [facility] # Monos 0.3 0.1 - 0.9 x10E3/uL [facility] # Eos 0.1 0.0 - 0.4 x10E3/uL [facility] 1 Baso (Absolute) 0.1 0.0 - 0.2 x10E3/uL [facility] % Immature Grans 0 Not Estab. % [facility] # Immature Grans 0.0 0.0 - 0.1 x10E3/uL [facility] 1 Specimen Blood Narrative Performed At Performed at:[address] [place], [place] [id number] Spotlight Operator: Crow Barrow MD, Phone:[phone] Performing Organization Address City/State/[facility] Phone Number [facility] * Urine culture (11/10/2018 8:50 AM CDT) Only the most recent of 6 results within the time period is included. Urine Final report (A) [facility] Culture,Comprehensive Result 1 Comment (A) [facility] Comment: Staphylococcus epidermidis 10,000-25,000 colony forming units per mL Based on susceptibility to oxacillin this isolate would be susceptible to: *Penicillinase-stable penicillins, such as: Cloxacillin, Dicloxacillin, Nafcillin *Beta-lactam combination agents, such as: Amoxicillin-clavulanic acid, Ampicillin-sulbactam, Piperacillin-tazobactam *Oral cephems, such as: Cefaclor, Cefdinir, Cefpodoxime, Cefprozil, Cefuroxime, Cephalexin, Loracarbef *Parenteral cephems, such as: Cefazolin, Cefepime, Cefotaxime, Cefotetan, Ceftaroline, Ceftizoxime, Ceftriaxone, Cefuroxime *Carbapenems, such as: Doripenem, Ertapenem, Imipenem, Meropenem Antimicrobial Comment [facility] 1 Susceptibility Comment: S=Susceptible; I=Intermediate; R=Resistant P=Positive; N=Negative MICS are expressed in micrograms per mL Antibiotic RSLT#[id number]#[id number] LT#[id number]#[id number] Ciprofloxacin S Gentamicin S Levofloxacin S Linezolid S Nitrofurantoin S Oxacillin S Penicillin R Quinupristin/Dalfopristin S Rifampin S Tetracycline S Trimethoprim/Sulfa S Vancomycin S Specimen Urine Narrative Performed At Performed at:[address] [place], [place] [id number] Spotlight Operator: Crow Barrow MD, Phone:[phone] Performing Organization Address [facility] Phone Number [facility] 1 * Phosphorus (11/10/2018 8:50 AM CDT) Only the most recent of 18 results within the time period is included. Phosphorus, Serum 3.5 2.5 - 4.5 mg/dL [facility] 1 Specimen Blood Narrative Performed At Performed at: [id number] Spotlight Operator: Crow Barrow MD, Phone:[phone] Performing Organization Address [facility] Phone Number [facility] 1 * Lactate Dehydrogenase (LDH) (11/10/2018 8:50 AM CDT) Only the most recent of 18 results within the time period is included. LDH 135 121 - 224 IU/L [facility] 1 Specimen Blood Narrative Performed At Performed at:[address] [place], [place] [id number] Spotlight Operator: Crow Barrow MD, Phone:[phone] Performing Organization Address [facility] Phone Number [facility] * Comprehensive Metabolic Panel (11/10/2018 8:50 AM CDT) Only the most recent of 18 results within the time period is included. Glucose, Serum 92 65 - 99 mg/dL [facility] BUN 18 8 - 27 mg/dL [facility] Creatinine, Serum 0.92 0.76 - 1.27 mg/dL [facility] 1 eGFR If NonAfricn Am 86 >59 mL/min/1.73 [facility] 1 eGFR If Africn Am 100 >59 mL/min/1.73 [facility] BUN/Creatinine Ratio 20 10 - 24 [facility] 1 Sodium, Serum 142 134 - 144 mmol/L [facility] 1 Potassium, Serum 4.5 3.5 - 5.2 mmol/L [facility] 1 Chloride, Serum 109 (H) 96 - 106 mmol/L [facility] 1 Carbon Dioxide, Total 22 20 - 29 mmol/L [facility] 1 Calcium, Serum 9.4 8.6 - 10.2 mg/dL [facility] Protein, Total, Serum 5.6 (L) 6.0 - 8.5 g/dL [facility] 1 Albumin, Serum 3.7 3.6 - 4.8 g/dL [facility] 1 Globulin, Total 1.9 1.5 - 4.5 g/dL [facility] A/G Ratio 1.9 1.2 - 2.2 [facility] 1 Bilirubin, Total 0.6 0.0 - 1.2 mg/dL [facility] 1 Alkaline Phosphatase, S 134 (H) 39 - 117 IU/L [facility] 1 AST (SGOT) 20 0 - 40 IU/L [facility] 1 ALT (SGPT) 15 0 - 44 IU/L [facility] 1 Specimen Blood Narrative Performed At Performed at:01 - [facility] [place] [facility] [address], [id number] Spotlight Operator: Crow Barrow MD, Phone:[phone] Performing Organization Address [facility] Phone Number [facility] * Urinalysis w/Microscopic + Reflex to Cul (10/26/2018 9:15 AM CDT) Only the most recent of 16 results within the time period is included. Color, UA Yellow [facility] Clarity, UA Hazy [facility] Specific [place], UA 1.019 1.001 - 1.035 [facility] pH, UA 6.0 5.0 - 8.0 [facility] Protein, UA 10 mg/dL (A) Negative [facility] Glucose, UA Negative Negative [facility] Ketones, UA Negative Negative [facility] Bilirubin, UA Negative Negative [facility] Blood, UA Negative Negative [facility] Nitrite, UA Negative Negative [facility] Leukocytes, UA Negative Negative [facility] Urobilinogen, UA 2.0 (H) 0.2 - 1.0 mg/dL [facility] [facility] RBC, UA <1 /HPF [facility] WBC, UA 1 /HPF [facility] Mucus Rare [facility] Squam Epithel, UA 3 /HPF [facility] Specimen Source [facility] Specimen Urine Performing Organization Address City/State/Zipcode Phone Number [facility] [address] [place] [address] MEDICAL CENTER * CBC with platelet count + automated diff (10/26/2018 9:15 AM CDT) Only the most recent of 16 results within the time period is included. WBC 3.0 (L) 3.5 - 10.5 K/L [facility] RBC 4.01 (L) 4.63 - 6.08 M/L [facility] Hemoglobin 11.6 (L) 13.7 - 17.5 GM/DL [facility] Hematocrit 37.1 (L) 40.1 - 51.0 % [facility] MCV 92.5 (H) 79.0 - 92.2 fL [facility] MCH 28.9 25.7 - 32.2 pg [facility] MCHC 31.3 (L) 32.3 - 36.5 GM/DL [facility] RDW 14.1 11.6 - 14.4 % [facility] Platelets 105 (L) 150 - 450 K/CU MM [facility] MPV 9.9 9.4 - 12.4 fL [facility] nRBC 0 0 - 0 /100 WBC [facility] % Neutros 63 % [facility] % Lymphs 24 % [facility] % Monos 10 % [facility] % Eos 2 % [facility] % Baso 1 % [facility] # Neutros 1.90 1.78 - 5.38 K/L [facility] # Lymphs 0.71 (L) 1.32 - 3.57 K/L [facility] # Monos 0.29 (L) 0.30 - 0.82 K/L [facility] # Eos 0.06 0.04 - 0.54 K/L [facility] # Baso 0.04 0.01 - 0.08 K/L [facility] Immature 0 0 - 1 % [facility] Granulocytes-Relative [facility] Specimen Blood Performing Organization Address City/State/Zipcode Phone Number [facility] [address] [place] [address] [facility] * ARRYTHMIA IMPLANT REPORT - SCAN (09/29/2018 6:30 AM CDT) Narrative Performed At * BK virus, DNA, quantitative (09/10/2018 8:08 AM CDT) Only the most recent of 7 results within the time period is included. BK Virus PCR, Plasma Negative or below the linear [facility] range of the assay (<1,000 [facility] copies/mL) Specimen Blood Narrative Performed At Patients may have replicating BK Virus which is of no clinical [facility] significance.Viral load measurements are helpful to identify BK Virus [facility] replication of potential clinical significance.Consensus recommendations have been published of threshold values for the presumptive diagnosis of polyomavirus-associated nephropathy (Transplantation 2005;79:6958-8481). A BK Virus load greater than 5,000-10,000 copies/mL in the plasma is consistent with the presumptive diagnosis of polyoma-associated nephropathy in renal transplant recipients. BK Virus DNA was assessed using quantitative polymerase chain reaction and fluorescent monitoring of a specific hybridized probe.Genetic variation and other factors can affect the accuracy of nucleic acid testing.Therefore, the results should be interpreted in light of clinical data. This test was developed and its performance characteristics determined by the [facility], Section of Molecular Pathology.It has not been cleared or approved by the U.S. Food and Drug Administration (FDA).Since FDA approval is not required for clinical use of the test, validation was done as required by the Clinical Laboratory Improvement Amendments of 1988. Performing Organization Address City/State/[facility] Phone Number [facility] [address] [place] [address] [facility] * FLOW PRA CLASS II WITH REFLEX TO ANTIBODY SPECIFICITY (09/10/2018 8:07 AM CDT) Only the most recent of 4 results within the time period is included. Flow Class II Percent 0 [facility] Positive Flow Class Report [facility] Comments Specimen Blood Narrative Performed At Disclaimer: [facility] This test was developed and its performance characteristics determined by the [facility] Laboratory. It has not been cleared or approved by the U.S. Food and Drug Administration. The FDA has determined that such clearance or approval is not necessary. This test is used for clinical purposes. It should not be regarded as investigational or for research. This laboratory is certified under the Clinical Laboratory Improvement Amendments of 1988 (CLIA-88) as qualified to perform high complexity clinical laboratory testing. Performing Organization Address City/State/[facility] Phone Number [facility] [address], MS: [id number], [place] [address] CLIA#[id number] CAP#[id number] UNOS#[id number] * FLOW PRA CLASS I WITH REFLEX TO ANTIBODY SPECIFICITY (09/10/2018 8:07 AM CDT) Only the most recent of 4 results within the time period is included. Flow Class I Percent 0 [facility] Positive Flow Class Report [facility] Comments Specimen Blood Narrative Performed At Disclaimer: [facility] This test was developed and its performance characteristics determined by the [facility] Laboratory. It has not been cleared or approved by the U.S. Food and Drug Administration. The FDA has determined that such clearance or approval is not necessary. This test is used for clinical purposes. It should not be regarded as investigational or for research. This laboratory is certified under the Clinical Laboratory Improvement Amendments of 1988 (CLIA-88) as qualified to perform high complexity clinical laboratory testing. Performing Organization Address [facility] Phone Number [facility] [address], MS: [id number], [place] [address] CLIA#[id number] CAP#[id number] UNOS#[id number] * AB SPECIFICITY CLASS II (09/10/2018 8:07 AM CDT) Only the most recent of 4 results within the time period is included. AB Specificity Class II NO CLASS II ANTIBODY DETECTED [facility] WITH MFIs > 1000 AB Specificity Titr Class [facility] Report Specimen Blood Narrative Performed At Disclaimer: [facility] This test was developed and its performance characteristics determined by the [facility] Laboratory. It has not been cleared or approved by the U.S. Food and Drug Administration. The FDA has determined that such clearance or approval is not necessary. This test is used for clinical purposes. It should not be regarded as investigational or for research. This laboratory is certified under the Clinical Laboratory Improvement Amendments of 1988 (CLIA-88) as qualified to perform high complexity clinical laboratory testing. Performing Organization Address [facility] Phone Number [facility] [address], MS: [id number], [place] [address] CLIA#[id number] CAP#[id number] UNOS#[id number] * AB SPECIFICITY CLASS I (09/10/2018 8:07 AM CDT) Only the most recent of 4 results within the time period is included. AB Specificity Class I NO CLASS I ANTIBODY DETECTED [facility] WITH MFIs > 1000 AB Specificity Titr Class [facility] Report Specimen Blood Narrative Performed At Disclaimer: [facility] This test was developed and its performance characteristics determined by the [facility] Laboratory. It has not been cleared or approved by the U.S. Food and Drug Administration. The FDA has determined that such clearance or approval is not necessary. This test is used for clinical purposes. It should not be regarded as investigational or for research. This laboratory is certified under the Clinical Laboratory Improvement Amendments of 1988 (CLIA-88) as qualified to perform high complexity clinical laboratory testing. Performing Organization Address City/State/Zipcode Phone Number [facility] [address], MS: [id number], [place] [address] CLIA#[id number] CAP#[id number] UNOS#[id number] * AB Specifities DSA (09/10/2018 8:07 AM CDT) Only the most recent of 4 results within the time period is included. DSA A AG1 02:01 [facility] DSA A AG1 MFI [facility] DSA A AG2 11:01 [facility] DSA A AG2 MFI [facility] DSA B AG1 35:01 [facility] DSA B AG1 MFI [facility] DSA B AG2 35:43 [facility] DSA B AG2 MFI [facility] DSA C AG1 04:01 [facility] DSA C AG1 MFI [facility] DSA C AG2 01:02 [facility] DSA C AG2 MFI [facility] DSA DR AG1 04:03 [facility] DSA DR AG1 MFI [facility] DSA DR AG2 14:54 [facility] DSA DR AG2 MFI [facility] DSA DRw AG1 3*02:02 [facility] DSA DRw AG1 MFI [facility] DSA DRw AG2 4*01:03 [facility] DSA DRw AG2 MFI [facility] DSA DQA AG1 03:01 [facility] DSA DQA AG1 MFI [facility] DSA DQA AG2 01:04 [facility] DSA DQA AG2 MFI [facility] DSA DQB AG1 03:02 [facility] DSA DQB AG1 MFI [facility] DSA DQB AG2 05:03 [facility] DSA DQB AG2 MFI [facility] DSA DPA AG1 01:03 [facility] DSA DPA AG1 MFI [facility] DSA DPA AG2 01:03 [facility] DSA DPA AG2 MFI [facility] DSA DPB AG1 04:01 [facility] DSA DPB AG1 MFI [facility] DSA DPB AG2 04:02 [facility] DSA DPB AG2 MFI [facility] AB Specificity DSA NO DONOR SPECIFIC ANTIBODY [facility] Comment DETECTED WITH MFIs > 1000; If a specific bead is not available on single antigen panel and MFIs > 1000, results reflect the average of beads with serological equivalence. Specimen Blood Narrative Performed At Disclaimer: [facility] This test was developed and its performance characteristics determined by the [facility] Laboratory. It has not been cleared or approved by the U.S. Food and Drug Administration. The FDA has determined that such clearance or approval is not necessary. This test is used for clinical purposes. It should not be regarded as investigational or for research. This laboratory is certified under the Clinical Laboratory Improvement Amendments of 1988 (CLIA-88) as qualified to perform high complexity clinical laboratory testing. Performing Organization Address City/State/Zipcode Phone Number [facility] [address], MS: [id number], [place] [address] CLIA#[id number] CAP#[id number] UNOS#[id number] * RHYTHM STRIP - SCAN (07/28/2018 10:53 AM GOLD PLATER) Narrative Performed At * EKG-SCANNED (07/28/2018 10:53 AM GOLD PLATER) Narrative Performed At * POC-Glucose meter (07/21/2018 10:22 AM GOLD PLATER) Only the most recent of 2 results within the time period is included. POC-Glucose Meter 89Comment: TESTED AT [facility] 70 - 110 mg/dL [address] [address] [facility] Specimen Blood Performing Organization Address City/State/Zipcode Phone Number [facility] [address] * Potassium-Stat Lab (07/21/2018 9:13 AM GOLD PLATER) Only the most recent of 2 results within the time period is included. Potassium 3.8 3.6 - 5.5 meq/L [facility] Specimen Blood, Arterial Performing Organization Address [facility] Phone Number [address] * Glucose-Stat Lab (07/21/2018 9:13 AM GOLD PLATER) Only the most recent of 2 results within the time period is included. Glucose 75 70 - 110 mg/dL [facility] Specimen Blood, Arterial Performing Organization Address [facility] Phone Number [address] * HGB/HCT (H&H)-Stat Lab (07/21/2018 9:13 AM GOLD PLATER) Only the most recent of 2 results within the time period is included. Hemoglobin 10.4 (L) 13.0 - 16.8 g/dL [facility] Hematocrit 31.0 (L) 40.0 - 50.0 % [facility] Specimen Blood, Arterial Performing Organization Address [facility] Phone Number [address] * Tissue Exam (07/21/2018 8:18 AM GOLD PLATER) Case Report Surgical Pathology [facility] Report [facility] Case: [id number] Authorizing Provider:Terry Roberts, Collected: 07/21/2018 0818 Ordering Location: [facility] Received: 07/21/2018 1001 [employer]IOPERATIVE SERVICES Pathologist: Charlie Noriega MD Specimen:AV Graft, AV graft right arm DIAGNOSIS A. ARM, RIGHT AV GRAFT, [facility] EXCISION: [facility] VASCULAR TISSUE WITH FOREIGN BODY RESPONSE TO GRAFT MATERIAL. NEGATIVE FOR MALIGNANCY. Signing Pathologist Direct Phone Line: [phone] CPT Code(s) [address] [facility] CLINICAL HISTORY End stage renal disease [facility] SPECIMEN SOURCE AV graft right arm [facility] GROSS DESCRIPTION The specimen is received in a [facility] fluidless container labeled [facility] with patient information labeled "AV graft right arm" and consists of tubular shaped segment of graft material with surrounding ramos-pink soft tissue measuring 10 cm in length x 0.8 cm in diameter. Housekeeping Aid sections are submitted A1. CG/pl MICROSCOPIC DESCRIPTION Performed [facility] Specimen Tissue Performing Organization Address City/State/Zipcode Phone Number [facility] [address] [place] [address] MEDICAL CENTER * XR chest 1 view portable / bedside (07/21/2018 6:55 AM GOLD PLATER) Specimen Narrative Performed At FINAL REPORT [facility] Chest, 1 view. History: CV preop. Comparison: 10/18/2017. FINDINGS/IMPRESSION: A left-sided pacing device with two subclavian coursing leads is again identified in stable position. There is increased linear opacities present within the lower lung zones bilaterally, more prominent on the right, suggestive of atelectasis and/or scarring. Trace bilateral pleural effusions are suspected. There is no evidence for large focal consolidation or pneumothorax. The cardiomediastinal silhouette is stable in appearance. No acute osseous abnormality is identified. Signed: Genaro Reid MD Report Verified Date/Time:07/21/2018 07:14:18 Reading Location: [facility] Radiology Reading Room Procedure Note Interface, External Ris In - 07/21/2018 7:16 AM GOLD PLATER FINAL REPORT Chest, 1 view. History: CV preop. Comparison: 10/18/2017. FINDINGS/IMPRESSION: A left-sided pacing device with two subclavian coursing leads is again identified in stable position. There is increased linear opacities present within the lower lung zones bilaterally, more prominent on the right, suggestive of atelectasis and/or scarring. Trace bilateral pleural effusions are suspected. There is no evidence for large focal consolidation or pneumothorax. The cardiomediastinal silhouette is stable in appearance. No acute osseous abnormality is identified. Signed: Genaro Reid MD Report Verified Date/Time: 07/21/2018 07:14:18 Reading Location: [facility] Radiology Reading Room Performing Organization Address City/State/Zipcode Phone Number [facility] * TRANSFUSION SERVICE REPORT - SCAN (07/16/2018 5:52 PM GOLD PLATER) Narrative Performed At * Type and screen, automated (07/15/2018 12:40 PM GOLD PLATER) ABO/RH AUTOMATED (BEAKER) A POSITIVE [facility] Ab Scrn NEGATIVE [facility] Specimen Blood Performing Organization Address City/[facility] Phone Number [address] [address] [phone] [place] [address] * Prothrombin time/INR (07/15/2018 12:40 PM GOLD PLATER) Protime 16.5 (H) 11.7 - 14.7 seconds [facility] INR 1.3 <=5.9 [facility] Specimen Blood Narrative Performed At RECOMMENDED COUMADIN/WARFARIN INR THERAPY RANGES [facility] STANDARD DOSE: 2.0 - 3.0 Includes: PROPHYLAXIS for venous thrombosis, [facility] systemic embolization; TREATMENT for venous thrombosis and/or pulmonary embolus. HIGH RISK: Target INR is 2.5-3.5 for patients with mechanical heart valves. Performing Organization Address [facility] Phone Number [address] [address] [phone] [place] [address] * CT abdomen/pelvis without iv contrast (04/14/2018 12:16 PM CDT) Specimen Narrative Performed At FINAL REPORT [facility] CT of the abdomen and pelvis, without [...] pancreas unremarkable. Adrenal nodularity similar to previous. [place] kidneys are atrophic. 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 Extensive aortic atherosclerosis and ectasia without aneurysm. IVC filter present. Large and small bowel are unremarkable. Fat-containing inguinal hernias. Urinary bladder unremarkable. No adenopathy. No worrisome skeletal findings. Mild anasarca. IMPRESSION: No acute findings. Signed: Megan Johnston MD Report Verified Date/Time:04/14/2018 15:26:00 Reading Location: [address] Radiology Reading Room Procedure Note Interface, External Ris In - 04/14/2018 3:28 PM CDT FINAL REPORT CT of the abdomen and [...] pancreas unremarkable. Adrenal nodularity similar to previous. [place] kidneys are atrophic. 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 Extensive aortic atherosclerosis and ectasia without aneurysm. IVC filter present. Large and small bowel are unremarkable. Fat-containing inguinal hernias. Urinary bladder unremarkable. No adenopathy. No worrisome skeletal findings. Mild anasarca. IMPRESSION: No acute findings. Signed: Megan Johnston MD Report Verified Date/Time: 04/14/2018 15:26:00 Reading Location: [address] Radiology Reading Room Performing Organization Address City/State/Zipcode Phone Number [facility] * CMV PCR, quantitative - Monthy for 3 Months (02/05/2018 7:15 AM CDT) CMV DNA Viral Load Negative or below the linear [facility] range of the assay (<375 [facility] copies/mL) Specimen Blood Narrative Performed At Cytomegalovirus (CMV) infection can cause significant disease in [facility] immunosuppressed patients. However, it is common for CMV to manifest as a [facility] limited infection which is of no clinical significance in immunosuppressed patients or in healthy individuals. Viral load measurements are helpful to identify clinical CMV infection and to guide the pre-emptive management of antiviral therapy.For treatment of CMV infection due to reactivation in transplant recipients, a threshold between 4,000 and 5,000 copies/mL is suggested.For treatment of primary CMV infection, a lower threshold can be used. CMV infection may also be monitored using weekly serial measurements. Serial measurements of CMV DNA viral load can be evaluated by identifying a 10-fold change, as well as assessing the CMV DNA viral load and the clinical context for each patient. The plasma CMV DNA viral load was detected using quantitative polymerase chain reaction and fluorescent monitoring of a specific hybridized probe. Genetic variation and other factors can affect the accuracy of nucleic acid testing. Therefore, the results should be interpreted in light of clinical data. A negative result may not exclude the presence of CMV disease. This test was developed and its performance characteristics determined by the [facility]ology Department, Section of Molecular Pathology. It has not been cleared or approved by the U.S. Food and Drug Administration (FDA), since FDA approval is not required for clinical use of the test. Validation was done as required by The Clinical Laboratory Improvement Amendments of 1988. Performing Organization Address City/State/Zipcode Phone Number [facility] [address] [place] [address] [facility] after 02/01/2018 Insurance Payer Benefit Subscriber ID Type Phone Address Plan / Group MEDICARE MEDICARE A xxxxxxxxxxx Medicare B CIG[employer] - MGD CARE CIGNA xxxxxxxxxxx HMO/POS HMO/POS/OP EN ACCESS [phone] [id number] (Work) Advance Directives Patient has advance care planning documents, and code status on file. For more i nformation, please contact: [address] [address] Date Inactivated Comments Code Status Date Activated Full Code 07/21/2018 5:41 AM This code status was determined by: Patient 10/22/2017 4:47 PM Full Code 10/18/2017 1:48 PM This code status was determined by: Patient 08/24/2017 9:37 PM Full Code 08/18/2017 2:33 PM This code status was determined by: Patient 08/18/2017 2:33 PM Full Code 08/16/2017 11:22 PM This code status was determined by: Patient 01/08/2017 11:36 AM Full Code 01/08/2017 11:06 AM This code status was determined by: Patient
[2019-02-02 16:15] VITALS: BP 137/93
== END | disposition home or self-care (01) ==
LOC: OR 11:51
PROVIDERS: ATTEND Ophthalmology
DX: H25.12 Age-related nuclear cataract, left eye (principal); I48.91 Unspecified atrial fibrillation; I50.9 Heart failure, unspecified; N18.6 End stage renal disease; J45.909 Unspecified asthma, uncomplicated; G47.33 Obstructive sleep apnea (adult) (pediatric); K21.9 Gastro-esophageal reflux disease without esophagitis; Z94.0 Kidney transplant status; Z79.02 Long term (current) use of antithrombotics/antiplatelets; Z87.891 Personal history of nicotine dependence; Z95.0 Presence of cardiac pacemaker
CPT/HCPCS: 66984; J2250; J3010; V2632

== ENCOUNTER → 2019-02-16 | Day surgery (SDC) | payer MEDICARE, OTHER ==
[2019-02-11 13:26] LABS: EOSINOPHILS # (AUTO) 0.1 (0.0-0.4); EOSINOPHILS % 1.4 % (0.0-6.0); HEMATOCRIT 36.7 % (38.2-49.6); HEMOGLOBIN 11.8 g/dL (14.0-18.0); LYMPHOCYTES # (AUTO) 0.6 (1.0-3.2); LYMPHOCYTES % 14.1 % (18.0-39.1); MEAN CORPUSCULAR HEMOGLOBIN 28.9 pg (28-32); MEAN CORPUSCULAR HGB CONC 32.2 g/dL (31-35); MEAN CORPUSCULAR VOLUME 89.7 fL (81-99); MONOCYTES # (AUTO) 0.3 (0.2-0.8); MONOCYTES % 7.6 % (4.4-11.3); NEUTROPHILS # (AUTO) 3.2 (2.1-6.9); NEUTROPHILS % 75.4 % (38.7-80.0); PLATELET COUNT 127 x10e3/uL (140-360); RED BLOOD COUNT 4.09 x10e6/uL (4.3-5.7); RED CELL DISTRIBUTION WIDTH 14.4 % (11.7-14.4)
[~2019-02-16] MED LIST changes: +OR PHACO EYE KIT ONE
--- OUTSIDE RECORDS SUMMARY | 2019-02-16 11:28 | XMS REPORT | Clinical Summary ---
Author Author GAVI Peerform [facility] TYFFON SpeedDate [facility] Address Unknown Phone Unavailable Care Team Providers Care Sap Sd Analyst Name Role Phone Ryann Orlando MD PCP [...] MG tabletIndications: mouth daily. Organ Transplant Rejection 07/09/2019 Active furosemide (LASIX) 40 MG Take [...] immunosuppressive times daily therapy, Z94.0 Renal Immunosuppression (HCC), Transplant. S/p cadaver renal transplant 11/05/2019 Active [...] 8 mg total) by mouth every morning. 09/17/2018 Discontinued tacrolimus (PROGRAF) 0.5 Take 4 240 capsule 6 MG capsuleIndications: capsules (2 8 S/P kidney transplant, mg total) by Personal history of mouth 2 (two) immunosuppressive times daily therapy, Z94.0 Renal Immunosuppression (HCC), Transplant. S/p cadaver renal transplant 06/11/2018 Discontinued furosemide (LASIX) 40 MG Take 1 tablet 90 tablet 3 tabletIndications: (40 mg total) 8 Immunosuppression (HCC), by mouth Kidney transplant status, daily No more cadaveric refills through my office. 03/05/2018 Discontinued mycophenolate (CELLCEPT) Take 1 180 capsule 3 250 mg capsule (250 8 capsuleIndications: S/P mg total) by kidney transplant, mouth 2 (two) Immunosuppression (HCC) times daily Z94.0 Renal Transplant. 02/05/2019 potassium bicarbonate Take 1 tablet 90 tablet 3 (K-LYTE) 25 MEQ (25 mEq 8 disintegrating total) by tabletIndications: S/P mouth daily. kidney transplant, Hypokalemia 03/26/2018 ciprofloxacin HCl (CIPRO) Take 1 tablet 14 tablet 0 500 MG tabletIndications: (500 mg 8 Immunosuppression (HCC), total) by Kidney transplant status, mouth 2 [...] transplant; Immunosuppression (HCC) 11/10/2018 Orders Only Transplant Nichols, Catalina Y Nonspecific findings on examination of urine; Kidney replaced by transplant; Immunosuppression (HCC) 11/06/2018 Orders Only Transplant Andrei Mistry, VICK 11/05/2018 Orders Only Transplant Nguyễn Dsouza II, MD S/P kidney transplant 10/26/2018 Orders Only Transplant Hepatology Chey Oglesby Kidney replaced by transplant; Immunosuppression ([facility] Nonspecific findings on examination of urine 10/23/2018 Orders Only Transplant Andrei Mistry, VICK Follow-up 10/14/2018 Telephone Transplant Nichols, Catalina Y Kidney replaced by transplant; Nonspecific findings [...] [facility]); S/p cadaver renal transplant; Kidney transplant status, [...] transplant status, cadaveric 06/22/2018 Orders Only Transplant Nguyễn Colunga II, MD S/P kidney transplant (Primary Dx); Immunosuppression (HCC); Kidney transplant status, cadaveric 06/11/2018 Evaluation Transplant Nguyễn Dsouza II, MD Immunosuppression (HCC); Kidney transplant status, cadaveric 06/11/2018 Orders Only Transplant HepatNguyễn Castro II, MD Immunosuppression (HCC); S/p cadaver renal transplant; Kidney transplant status, cadaveric 06/02/2018 Orders Only Transplant Nguyễn Colunga II, MD Immunosuppression (HCC); Kidney transplant status, cadaveric 05/14/2018 Orders Only Transplant HepatNguyễn Castro II, MD Finch, Jennifer L., MD S/P kidney transplant (Primary Dx) 04/30/2018 Evaluation Transplant Nguyễn Dsouza II, MD Immunosuppression (HCC); Kidney transplant status, cadaveric 04/30/2018 Orders Only Transplant Hepatology Andrei Mistry RN Advice Only 04/20/2018 Telephone Transplant China Gregory MD Unilateral inguinal hernia without obstruction or gangrene, recurrence not specified 04/14/2018 Hospital Radiology Encounter China Gregory MD 04/14/2018 Outside Orders Nguyễn Dsouza II, MD [place], [facility] Samreen Henning MD S/P kidney transplant (Primary Dx); Unilateral inguinal hernia without obstruction or gangrene, recurrence not specified; Spigelian hernia; Incisional hernia following transplant; Immunosuppression (HCC) 04/07/2018 Evaluation Transplant Nguyễn Dsouza II, MD Immunosuppression (HCC); Kidney transplant status, cadaveric 04/07/2018 Orders Only Transplant Hepatology Afia Mckenzie RN 04/07/2018 Orders Only Transplant Mackenzie Nick B Immunosuppression (HCC); S/p cadaver renal transplant 04/07/2018 Orders Only Transplant Hepatology Andrei Mistry RN 04/03/2018 Refill Transplant Nguyễn Dsouza II, MD Pre-transplant evaluation for chronic kidney disease; Immunosuppression (HCC); S/p cadaver renal transplant 04/02/2018 Orders Only Transplant Hepatology Nguyễn Dsouza II, MD Yao, June, MD S/P kidney transplant (Primary Dx) 04/02/2018 Evaluation Transplant Andrei Mistry RN Urinary Tract Infection 03/25/2018 Telephone Transplant Andrei Mistry RN E. coli UTI (urinary tract infection) (Primary Dx) 03/25/2018 Orders Only Transplant Nguyễn Dsouza II, MD Immunosuppression (HCC); Kidney transplant status, cadaveric 03/19/2018 Orders Only Transplant Hepatology Andrei Mistry RN Immunosuppression (HCC) (Primary Dx); Kidney transplant status, cadaveric; Urinary tract infection without hematuria, site unspecified 03/19/2018 Orders Only Transplant Andrei Mistry RN Immunosuppression (HCC) (Primary Dx); Kidney transplant status, cadaveric 03/18/2018 [...] cadaver renal transplant 03/02/2018 Orders Only Transplant after 02/15/2018 Family History Medical History Relation Name Comments [...] CDT Respiratory Rate 16 08/04/2018 9:23 AM [facility] [employer] [facility] Oxygen Saturation 98% - Inhaled Oxygen - Concentration 09/10/2018 2:57 PM CDT Weight 74.2 kg (163 lb 9.6 oz) 09/10/2018 2:57 PM CDT Height 182.9 cm (6') 09/10/2018 2:57 PM CDT Body Mass Index 22.19 Plan of Treatment Health Maintenance Due Date Last Done Comments HEMOGLOBIN A1C 04/20/2018 10/18/2017, 04/06/2014 Implants Device Identifier Shelf Expiration Date Model / Serial / Lot Implanted Type Area Manufactur er 01/17/2020 [id number] / N/A / [id number] Stent Uret Polaris [id number] - Sn/A Uro Stent Right: Ureter [place]ON Implanted: Qty: 1 on 08/18/2017 by SCI:UROLOG Latisha, Ladi Henning MD Y/GYNECOLO GY 07/16/2018 [id number] / [id number] / Quartet [facility] [employer] Implanted: Qty: 1 on 09/15/2015 [employer] 01/13/2017 [id number] / [id number] / Vivi Alexandera Rf [facility] [place] Implanted: Qty: 1 on [...] by DIFFERENTIAL 8:47 AM CDT transplant Immunosuppression ([facility]) COMPREHENSIVE METABOLIC Routine 10/13/2018 Kidney replaced by PANEL 8:47 AM CDT transplant LACTATE DEHYDROGENASE Routine 10/13/2018 Kidney replaced by (LDH) 8:47 AM CDT transplant PHOSPHORUS Routine 10/13/2018 Kidney replaced by 8:47 AM CDT transplant TACROLIMUS LEVEL Routine 10/13/2018 Kidney replaced by 8:47 AM CDT transplant Immunosuppression ([facility]) URINALYSIS W/ MICROSCOPIC Routine 10/13/2018 Kidney replaced by 8:47 AM CDT transplant Nonspecific findings on examination of urine URINE CULTURE Routine 10/13/2018 Nonspecific findings on 8:47 AM CDT examination of urine ARRYTHMIA IMPLANT REPORT 09/29/2018 - SCAN 6:30 AM CDT TACROLIMUS LEVEL Routine 09/17/2018 Immunosuppression ([facility]) 7:13 AM CDT Kidney transplant status, cadaveric CBC W/PLT COUNT & AUTO Routine 09/17/2018 Immunosuppression ([facility]) DIFFERENTIAL 7:12 AM CDT Kidney transplant status, cadaveric URINALYSIS W/ REFLEX Routine 09/17/2018 Immunosuppression ([facility]) URINE CULTURE 7:12 AM CDT Kidney transplant status, cadaveric PHOSPHORUS Routine 09/17/2018 Immunosuppression (HCC) 7:12 AM CDT Kidney transplant status, cadaveric [...] [facility] DIFFERENTIAL 7:15 AM [facility] [employer] [facility] Kidney transplant status, cadaveric CBC W/PLT COUNT & AUTO Routine 08/13/2018 Immunosuppression ([facility]) DIFFERENTIAL 7:15 AM [employer] Kidney transplant status, cadaveric AB DONOR SPECIFIC, DSA Routine 08/13/2018 Immunosuppression ([facility]) 7:14 AM [employer] Kidney transplant status, cadaveric FLOW PRA CLASS II WITH Routine 08/13/2018 Immunosuppression ([facility]) REFLEX TO ANTIBODY 7:14 AM [employer] Kidney transplant status, SPECIFICITY cadaveric FLOW PRA CLASS I WITH Routine 08/13/2018 Immunosuppression ([facility]) REFLEX TO ANTIBODY 7:14 AM [employer] Kidney transplant status, SPECIFICITY cadaveric AB SPECIFICITY CLASS I Routine 08/13/2018 Immunosuppression ([facility]) 7:14 AM [employer] Kidney transplant status, cadaveric AB SPECIFICITY CLASS II Routine 08/13/2018 Immunosuppression ([facility]) 7:14 AM [employer]ER Kidney transplant status, cadaveric URINALYSIS W/ REFLEX Routine 08/13/2018 Immunosuppression ([facility]) URINE CULTURE 7:14 AM [employer]ER Kidney transplant status, cadaveric TACROLIMUS LEVEL Routine 08/13/2018 Immunosuppression ([facility]) 7:14 AM [employer]ER Kidney transplant status, cadaveric PHOSPHORUS Routine 08/13/2018 Immunosuppression ([facility]) 7:14 AM [employer]ER Kidney transplant status, cadaveric LACTATE DEHYDROGENASE Routine 08/13/2018 Immunosuppression ([facility]) (LDH) 7:14 AM [employer] Kidney transplant status, cadaveric COMPREHENSIVE METABOLIC Routine 08/13/2018 Immunosuppression ([facility]) PANEL 7:14 AM [employer]ER Kidney transplant status, cadaveric BK VIRUS PCR, PLASMA Routine 08/13/2018 Immunosuppression ([facility]) 7:14 AM [employer] S/p cadaver renal transplant RHYTHM STRIP - SCAN 07/28/2018 10:53 AM [facility] [employer] [facility] REPORT OF PROCEDURE - 07/28/2018 ENDOSCOPY SCAN 10:53 AM [facility] [employer] [facility] POCT-GLUCOSE METER Routine 07/21/2018 10:22 AM [facility] HGB/HCT (H&H) - STAT LAB STAT 07/21/2018 9:13 AM [facility] [facility] GLUCOSE-STAT LAB STAT 07/21/2018 9:13 AM [facility] [employer] [facility] POTASSIUM-STAT LAB STAT 07/21/2018 9:13 AM [facility] [employer] TISSUE EXAM AP Routine 07/21/2018 8:18 AM [facility] REMOVAL,A-V GRAFT 07/21/2018 End stage renal disease 7:30 AM [facility] ([facility]) XR CHEST 1 VIEW STAT 07/21/2018 PORTABLE/BEDSIDE 6:55 AM [facility] HGB/HCT (H&H) - STAT LAB Routine 07/21/2018 6:04 AM [facility] [facility] GLUCOSE-STAT LAB STAT 07/21/2018 6:04 AM [facility] [employer] [facility] POTASSIUM-STAT LAB STAT 07/21/2018 6:04 AM [employer] POCT-GLUCOSE METER Routine 07/21/2018 5:34 AM [facility] TRANSFUSION SERVICE 07/16/2018 REPORT - SCAN 5:52 PM [facility] TYPE AND SCREEN, Routine 07/15/2018 AUTOMATED 12:40 PM [facility] [employer] [facility] PROTHROMBIN TIME/INR Routine 07/15/2018 12:40 PM [facility] [employer] CBC W/PLT COUNT & AUTO Routine 07/09/2018 Immunosuppression ([facility]) DIFFERENTIAL 7:30 AM [employer]ER Kidney transplant status, cadaveric FLOW PRA CLASS II WITH Routine 07/09/2018 Immunosuppression ([facility]) REFLEX TO ANTIBODY 7:30 AM [employer] Kidney transplant status, SPECIFICITY cadaveric FLOW PRA CLASS I WITH Routine 07/09/2018 Immunosuppression ([facility]) REFLEX TO ANTIBODY 7:30 AM [employer] Kidney transplant status, SPECIFICITY cadaveric AB DONOR SPECIFIC, DSA Routine 07/09/2018 Immunosuppression ([facility]) 7:30 AM [employer] Kidney transplant status, cadaveric AB SPECIFICITY CLASS I Routine 07/09/2018 Immunosuppression (HCC) 7:30 AM [employer] Kidney transplant status, cadaveric AB SPECIFICITY CLASS II Routine 07/09/2018 Immunosuppression (HCC) 7:30 AM [employer] Kidney transplant status, cadaveric URINALYSIS W/ REFLEX Routine 07/09/2018 Immunosuppression ([facility]) URINE CULTURE 7:30 AM [employer]ER Kidney transplant status, cadaveric TACROLIMUS LEVEL Routine 07/09/2018 Immunosuppression (HCC) 7:30 AM [employer] Kidney transplant status, cadaveric PHOSPHORUS Routine 07/09/2018 Immunosuppression ([facility]) 7:30 AM [employer]ER Kidney transplant status, cadaveric LACTATE DEHYDROGENASE Routine 07/09/2018 Immunosuppression ([facility]) (LDH) 7:30 AM [facility] [employer]ER Kidney transplant status, cadaveric COMPREHENSIVE METABOLIC Routine 07/09/2018 Immunosuppression ([facility]) PANEL 7:30 AM [employer] [employer]ER Kidney transplant status, cadaveric CBC W/PLT COUNT & AUTO Routine 07/09/2018 Immunosuppression ([facility]) DIFFERENTIAL 7:30 AM [facility] [employer]ER Kidney transplant status, cadaveric BK VIRUS PCR, PLASMA Routine 07/09/2018 Immunosuppression ([facility]) 7:30 AM [employer]ER S/p cadaver renal transplant CBC W/PLT COUNT & AUTO Routine 06/22/2018 Immunosuppression ([facility]) DIFFERENTIAL 7:16 AM [employer]ER Kidney transplant status, cadaveric TACROLIMUS LEVEL Routine 06/22/2018 Immunosuppression (HCC) 7:16 AM [facility] [employer]ER Kidney transplant status, cadaveric PHOSPHORUS Routine 06/22/2018 Immunosuppression (HCC) 7:16 AM [facility]ER Kidney transplant status, cadaveric LACTATE DEHYDROGENASE Routine 06/22/2018 Immunosuppression ([facility]) (LDH) 7:16 AM [facility] ENAMEL MIXER Kidney transplant status, cadaveric COMPREHENSIVE METABOLIC Routine 06/22/2018 Immunosuppression ([facility]) PANEL 7:16 AM [facility] MIXER Kidney transplant status, cadaveric CBC W/PLT COUNT & AUTO Routine 06/22/2018 Immunosuppression (HCC) DIFFERENTIAL 7:16 AM [employer]IXER Kidney transplant status, cadaveric URINALYSIS W/ REFLEX Routine 06/22/2018 Immunosuppression (HCC) URINE CULTURE 7:13 AM [facility]ER Kidney transplant status, cadaveric CBC W/PLT COUNT & AUTO Routine 06/11/2018 Immunosuppression (HCC) DIFFERENTIAL 7:09 AM [employer]ER Kidney transplant status, cadaveric URINALYSIS W/ REFLEX Routine 06/11/2018 Immunosuppression (HCC) URINE CULTURE 7:09 AM [employer] MIXER Kidney transplant status, cadaveric TACROLIMUS LEVEL Routine 06/11/2018 Immunosuppression (HCC) 7:09 AM [employer] MIXER Kidney transplant status, cadaveric PHOSPHORUS Routine 06/11/2018 Immunosuppression (HCC) 7:09 AM [employer] MIXER Kidney transplant status, cadaveric LACTATE DEHYDROGENASE Routine 06/11/2018 Immunosuppression (HCC) (LDH) 7:09 AM [employer] MIXER Kidney transplant status, cadaveric COMPREHENSIVE METABOLIC Routine 06/11/2018 Immunosuppression (HCC) PANEL 7:09 AM [facility] [facility]ER Kidney transplant status, cadaveric CBC W/PLT COUNT & AUTO Routine 06/11/2018 Immunosuppression (HCC) DIFFERENTIAL 7:09 AM [facility] MIXER Kidney transplant status, cadaveric URINALYSIS W/ REFLEX Routine 06/02/2018 Immunosuppression ([facility]) URINE CULTURE 8:11 AM [facility] E[employer] MIXER Kidney transplant status, cadaveric CBC W/PLT COUNT & AUTO Routine 06/02/2018 Immunosuppression (HCC) DIFFERENTIAL 7:54 AM [employer] MIXER Kidney transplant status, cadaveric TACROLIMUS LEVEL Routine 06/02/2018 Immunosuppression (HCC) 7:54 AM [facility] MIXER Kidney transplant status, cadaveric PHOSPHORUS Routine 06/02/2018 Immunosuppression (HCC) 7:54 AM [employer]IXER Kidney transplant status, cadaveric LACTATE DEHYDROGENASE Routine 06/02/2018 Immunosuppression (HCC) (LDH) 7:54 AM [employer]ER Kidney transplant status, cadaveric COMPREHENSIVE METABOLIC Routine 06/02/2018 Immunosuppression (HCC) PANEL 7:54 AM [facility]ER Kidney transplant status, cadaveric CBC W/PLT COUNT & AUTO Routine 06/02/2018 Immunosuppression (HCC) DIFFERENTIAL 7:54 AM [facility] [facility]ER Kidney transplant status, cadaveric BK VIRUS PCR, PLASMA Routine 06/02/2018 Immunosuppression (HCC) 7:54 AM [employer]ER S/p cadaver renal transplant CBC W/PLT COUNT & AUTO Routine 05/14/2018 Immunosuppression (HCC) DIFFERENTIAL 7:46 AM [facility] [facility]ER Kidney transplant status, cadaveric URINALYSIS W/ REFLEX Routine 05/14/2018 Immunosuppression ([facility]) URINE CULTURE 7:46 AM [employer] M[employer]ER Kidney transplant status, cadaveric TACROLIMUS LEVEL Routine 05/14/2018 Immunosuppression (HCC) 7:46 AM [employer] M[employer]ER Kidney transplant status, cadaveric PHOSPHORUS Routine 05/14/2018 Immunosuppression (HCC) 7:46 AM [employer] MIXER Kidney transplant status, cadaveric LACTATE DEHYDROGENASE Routine 05/14/2018 Immunosuppression ([facility]) (LDH) 7:46 AM [facility] MIXER Kidney transplant status, cadaveric COMPREHENSIVE METABOLIC Routine 05/14/2018 Immunosuppression ([facility]) PANEL 7:46 AM [employer] MIXER Kidney transplant status, cadaveric CBC W/PLT COUNT & AUTO Routine 05/14/2018 Immunosuppression ([facility]) DIFFERENTIAL 7:46 AM [facility] [employer] MIXER Kidney transplant status, cadaveric CBC W/PLT COUNT & AUTO Routine 04/30/2018 Immunosuppression ([facility]) DIFFERENTIAL 7:27 AM [facility]ER Kidney transplant status, cadaveric URINALYSIS W/ REFLEX Routine 04/30/2018 Immunosuppression ([facility]) URINE CULTURE 7:27 AM [employer] MIXER Kidney transplant status, cadaveric TACROLIMUS LEVEL Routine 04/30/2018 Immunosuppression (HCC) 7:27 AM [employer]ER Kidney transplant status, cadaveric PHOSPHORUS Routine 04/30/2018 Immunosuppression (HCC) 7:27 AM [employer]ER Kidney transplant status, cadaveric LACTATE DEHYDROGENASE Routine 04/30/2018 Immunosuppression (HCC) (LDH) 7:27 AM [facility] [employer] [facility]ER Kidney transplant status, cadaveric COMPREHENSIVE METABOLIC Routine 04/30/2018 Immunosuppression ([facility]) PANEL 7:27 AM [facility]EL MIXER Kidney transplant status, cadaveric CBC W/PLT COUNT & AUTO Routine 04/30/2018 Immunosuppression ([facility]) DIFFERENTIAL 7:27 AM [employer] MIXER Kidney transplant status, cadaveric URINE CULTURE Routine 04/30/2018 Immunosuppression ([facility]) 7:27 AM [facility] [employer] [facility]ER Kidney transplant status, cadaveric CT ABDOMEN/PELVIS WITHOUT [...] transplant status, cadaveric PHOSPHORUS Routine 03/19/2018 Immunosuppression (HCC) 7:01 AM CDT Kidney transplant status, cadaveric [...] 7:28 AM CDT for chronic kidney disease after 02/15/2018 Results * MICROSCOPIC EXAMINATION (11/10/2018 8:50 AM CDT) Only the most recent of 2 results within the time period is included. WBC 0-5 0 - 5 /hpf [facility] 1 RBC 0-2 0 - 2 /hpf [facility] 1 Epithelial Cells (non 0-10 0 - 10 /hpf [facility] 1 renal) Bacteria Few None seen/ [facility] 1 Specimen Narrative Performed At Performed at: - [facility] [address], [id number] Contracts Director: Crow Barrow MD, Phone:[phone] Performing Organization Address [facility] Phone Number [facility] * Tacrolimus Level (11/10/2018 8:50 [...] and its performance characteristic s determined by [facility]. It has not been cleared or approved by the Food and Drug Administration. Specimen Blood Narrative Performed At Performed at: - [facility] [address], [id number] Contracts Director: Greg Phillip MD, Phone:[phone] Performing Organization Address [facility] Phone Number [facility] * Urinalysis w/ Microscopic (11/10/2018 8:50 AM CDT) Only the most recent of 2 results within the time period is included. Specific [place], UA 1.022 1.005 - 1.03 [facility] [...] performed. Specimen Urine Narrative Performed At Performed at:01 - [facility] [address] [facility], [id number] Contracts Director: Crow Barrow MD, Phone:[phone] Performing Organization Address City/State/Zipcode Phone Number [facility] * CBC w/PLT Count & [...] Specimen Blood Narrative Performed At Performed at: [id number] Contracts Director: Crow Barrow MD, Phone:[phone] Performing Organization Address [facility] Phone Number [facility] 1 * Urine culture (11/10/2018 8:50 AM [...] S Specimen Urine Narrative Performed At Performed at: [id number] Contracts Director: Crow Barrow MD, Phone:[phone] Performing Organization Address [facility] Phone Number [facility] * Phosphorus (11/10/2018 8:50 AM CDT) Only the most recent of 16 results within the time period is included. Phosphorus, Serum 3.5 2.5 - 4.5 mg/dL [facility] 1 Specimen Blood Narrative Performed At Performed at:01 - [facility] [address], [id number] Contracts Director: Crow Barrow MD, Phone:[phone] Performing Organization Address [facility] Phone Number [facility] * Lactate Dehydrogenase (LDH) (11/10/2018 8:50 AM CDT) Only the most recent of 16 results within the time period is included. LDH 135 121 - 224 IU/L [facility] 1 Specimen Blood Narrative Performed At Performed at:01 - [facility] [address], [id number] Contracts Director: Crow Barrow MD, Phone:[phone] Performing Organization Address [facility] Phone Number [facility] 1 * Comprehensive Metabolic Panel (11/10/2018 [...] Narrative Performed At Performed at:01 - [facility] [address] [facility], [id number] Contracts Director: Crow Barrow MD, Phone:[phone] Performing Organization Address City/State/Zipcode Phone Number [facility] * Urinalysis w/Microscopic + Reflex to Cul (10/26/2018 9:15 AM CDT) Only the most recent of 14 results within the time period is included. Color, UA Yellow [facility] Clarity, UA Hazy [facility] Specific [place], UA 1.019 1.001 - 1.035 [facility] pH, UA 6.0 5.0 - 8.0 [facility] Protein, UA 10 mg/dL (A) Negative [facility] Glucose, UA Negative Negative [facility] Ketones, UA Negative Negative [facility] Bilirubin, UA Negative Negative [facility] Blood, UA Negative Negative [facility] Nitrite, UA Negative Negative [facility] Leukocytes, UA Negative Negative [facility] Urobilinogen, UA 2.0 (H) 0.2 - 1.0 mg/dL [facility] RBC, UA <1 /HPF [facility] WBC, UA 1 /HPF [facility] Mucus Rare [facility] Squam Epithel, UA 3 /HPF [facility] Specimen Source [facility] Specimen Urine Performing Organization Address City/State/Zipcode Phone Number [facility] [address] [place] [address] MEDICAL CENTER * CBC with platelet count + automated diff (10/26/2018 9:15 AM CDT) Only the most recent of 14 results within the time period is included. WBC 3.0 (L) 3.5 - 10.5 K/L [facility] RBC 4.01 (L) 4.63 - 6.08 M/L [facility] Hemoglobin 11.6 (L) 13.7 - 17.5 GM/DL [facility] Hematocrit 37.1 (L) 40.1 - 51.0 % [facility] MCV 92.5 (H) 79.0 - 92.2 fL [facility] MCH 28.9 25.7 - 32.2 pg [facility] MCHC 31.3 (L) 32.3 - 36.5 GM/DL [facility] RDW 14.1 11.6 - 14.4 % [facility] Platelets 105 (L) 150 - 450 K/CU MM [facility] MPV 9.9 9.4 - 12.4 fL [facility] nRBC 0 0 - 0 /100 WBC [facility] % Neutros 63 % [facility] % Lymphs 24 % [facility] % Monos 10 % [facility] % Eos 2 % [facility] % Baso 1 % [facility] # Neutros 1.90 1.78 - 5.38 K/L [facility] # Lymphs 0.71 (L) 1.32 - 3.57 K/L [facility] # Monos 0.29 (L) 0.30 - 0.82 K/L [facility] # Eos 0.06 0.04 - 0.54 K/L [facility] # Baso 0.04 0.01 - 0.08 K/L [facility] Immature 0 0 - 1 % [facility] Granulocytes-Relative [facility] Specimen Blood Performing Organization Address City/State/Zipcode Phone Number [facility] [address] [place] [address] [facility] * ARRYTHMIA IMPLANT REPORT - SCAN (09/29/2018 6:30 AM CDT) Narrative Performed At * BK virus, DNA, quantitative (09/10/2018 8:08 AM CDT) Only the most recent of 7 results within the time period is included. BK Virus PCR, Plasma Negative or below the linear [facility] range of the assay (<1,000 [facility] copies/mL) Specimen Blood Narrative Performed At Patients may have replicating BK Virus which is of no clinical [facility] significance.Viral load measurements are helpful to identify Virus [facility] replication of potential clinical significance.Consensus recommendations have been published of threshold values for the presumptive diagnosis of polyomavirus-associated nephropathy (Transplantation 2005;79:6165-0586). A BK Virus load greater than 5,000-10,000 [...] and its performance characteristics determined by the [facility] Pathology Department, Section of Molecular Pathology.It has not been cleared or approved by the U.S. Food and Drug Administration (FDA).Since FDA approval is not required for clinical use of the test, validation was done as required by the Clinical Laboratory Improvement Amendments of 1988. Performing Organization Address City/State/Zipcode Phone Number [facility] [address] [place] [address] [phone] [place] [address] * FLOW PRA CLASS II WITH REFLEX TO ANTIBODY SPECIFICITY (09/10/2018 8:07 AM CDT) Only the most recent of 4 results within the time period is included. Flow Class II Percent 0 [facility] Positive Flow Class Report [facility] Comments Specimen Blood Narrative Performed At Disclaimer: [facility] This test was developed and its performance characteristics determined by the [facility] Laboratory. It has not been cleared or [...] complexity clinical laboratory testing. Performing Organization Address City/[facility] Phone Number [facility] ONE Nelson Stewart, MS: [id number], [place] [address] CLIA#[id number] CAP#[id number] UNOS#[id number] * FLOW PRA CLASS I WITH REFLEX TO ANTIBODY SPECIFICITY (09/10/2018 8:07 AM CDT) Only the most recent of 4 results within the time period is included. Flow Class I Percent 0 [facility] Positive Flow Class Report [facility] Comments Specimen Blood Narrative Performed At Disclaimer: [facility] TEST[facility] This test was developed and its performance characteristics determined by the [facility] Laboratory. It has not been cleared or [...] complexity clinical laboratory testing. Performing Organization Address City/[facility] Phone Number [facility] ONE Nelson Stewart, MS: [id number], [place] [address] CLIA#[id number] CAP#[id number] UNOS#[id number] * AB SPECIFICITY CLASS II (09/10/2018 8:07 AM CDT) Only the most recent of 4 results within the time period is included. AB Specificity Class II NO CLASS II ANTIBODY DETECTED [facility] WITH MFIs > 1000 AB Specificity Titr Class [facility] Report Specimen Blood Narrative Performed At Disclaimer: [facility] TEST[facility] This test was developed and its performance characteristics determined by the [facility] Laboratory. It has not been cleared or [...] complexity clinical laboratory testing. Performing Organization Address [facility] Phone Number [facility] ONE Nelson Stewart, MS: [id number], [place] [address] CLIA#[id number] CAP#[id number] UNOS#[id number] * AB SPECIFICITY CLASS I (09/10/2018 8:07 AM CDT) Only the most recent of 4 results within the time period is included. AB Specificity Class I NO CLASS I ANTIBODY DETECTED [facility] WITH MFIs > 1000 AB Specificity Titr Class [facility] Report Specimen Blood Narrative Performed At Disclaimer: [facility] This test was developed and its performance characteristics determined by the [facility] Laboratory. It has not been cleared or [...] complexity clinical laboratory testing. Performing Organization Address City/[facility] Phone Number [facility] ONE Nelsno Stewart, MS: [id number], [place] [address] CLIA#[id number] CAP#[id number] UNOS#[id number] * AB Specifities DSA (09/10/2018 8:07 AM CDT) Only the most recent of 4 results within the time period is included. DSA A AG1 02:01 [facility] DSA A AG1 MFI [facility] TEST[facility] DSA A AG2 11:01 [facility] HLA TESTING DSA A AG2 MFI [facility] TEST[facility] DSA B AG1 35:01 [facility] TEST[facility] DSA B AG1 MFI [facility] HLA TEST[facility] DSA B AG2 35:43 [facility] HLA TEST[facility] DSA B AG2 MFI [facility] TEST[facility] DSA C AG1 04:01 [facility] HLA TESTING DSA C AG1 MFI [facility] TEST[facility] DSA C AG2 01:02 [facility] HLA TESTING DSA C AG2 MFI [facility] TEST[facility] DSA DR AG1 04:03 [facility] HLA TESTING DSA DR AG1 MFI [facility] DSA DR AG2 14:54 [facility] HLA TEST[facility] DSA DR AG2 MFI [facility] TEST[facility] DSA DRw AG1 3*02:02 [facility] HLA TEST[facility] DSA DRw AG1 MFI [facility] TEST[facility] DSA DRw AG2 4*01:03 [facility] TEST[facility] DSA DRw AG2 MFI [facility] TEST[facility] DSA DQA AG1 03:01 [facility] HLA TESTING DSA DQA AG1 MFI [facility] TESTING DSA DQA AG2 01:04 [facility] HLA TESTING DSA DQA AG2 MFI [facility] TEST[facility] DSA DQB AG1 03:02 [facility] HLA TESTING DSA DQB AG1 MFI [facility] TEST[facility] DSA DQB AG2 05:03 [facility] HLA TESTING DSA DQB AG2 MFI [facility] TEST[facility] DSA DPA AG1 01:03 [facility] TESTING DSA DPA AG1 MFI [facility] TEST[facility] DSA DPA AG2 01:03 [facility] HLA TESTING DSA DPA AG2 MFI [facility] TEST[facility] DSA DPB AG1 04:01 [facility] TEST[facility] DSA DPB AG1 MFI [facility] TEST[facility] DSA DPB AG2 04:02 [facility] TEST[facility] DSA DPB AG2 MFI [facility] AB Specificity DSA NO DONOR SPECIFIC ANTIBODY [facility] Comment DETECTED WITH MFIs > 1000; If a specific bead is not available on single antigen panel and MFIs > 1000, results reflect the average of beads with serological equivalence. Specimen Blood Narrative Performed At Disclaimer: [facility] TEST[facility] This test was developed and its performance characteristics determined by the [facility] Laboratory. It has not been cleared or [...] testing. Performing Organization Address City/State/Zipcode Phone Number [facility] ONE Nelson Stewart, MS: [id number], [place] [address] CLIA#[id number] CAP#[id number] UNOS#[id number] * RHYTHM STRIP - SCAN (07/28/2018 10:53 AM [facility]) Narrative Performed At * EKG-SCANNED (07/28/2018 10:53 AM [facility]) Narrative Performed At * POC-Glucose meter (07/21/2018 10:22 AM [facility]) Only the most recent of 2 results within the time period is included. POC-Glucose Meter 89Comment: TESTED AT [facility] 70 - 110 mg/dL [address] Specimen Blood Performing Organization Address [facility] [place] [address] [phone] * Potassium-Stat Lab (07/21/2018 9:13 AM [facility]) Only the most recent of 2 results within the time period is included. Potassium 3.8 3.6 - 5.5 meq/L [facility] Specimen Blood, Arterial Performing Organization Address [facility] [address] [facility] * Glucose-Stat Lab (07/21/2018 9:13 AM [facility]) Only the most recent of 2 results within the time period is included. Glucose 75 70 - 110 mg/dL [facility] Specimen Blood, Arterial Performing Organization Address [facility] [address] [facility] * HGB/HCT (H&H)-Stat Lab (07/21/2018 9:13 AM [facility]) Only the most recent of 2 results within the time period is included. Hemoglobin 10.4 (L) 13.0 - 16.8 g/dL [facility] Hematocrit 31.0 (L) 40.0 - 50.0 % [facility] Specimen Blood, Arterial Performing Organization Address City/State/Zipcode Phone Number [facility] [address] [place] [address] [facility] * Tissue Exam (07/21/2018 8:18 AM [facility]) Case Report Surgical Pathology [facility] Report [facility] Case: [id number] Authorizing Provider:Terry Roberts, Collected: 07/21/2018 0818 Ordering Location: [facility] Received: 07/21/2018 1001 PERIOPERATIVE SERVICES Pathologist: Charlie Noriega MD Specimen:AV Graft, AV graft right arm DIAGNOSIS A. ARM, RIGHT AV GRAFT, [facility] EXCISION: [facility] VASCULAR TISSUE WITH FOREIGN BODY RESPONSE TO GRAFT MATERIAL. NEGATIVE FOR MALIGNANCY. Signing Pathologist Direct Phone Line: [phone] CPT Code(s) 76299 [facility] CLINICAL HISTORY End stage renal disease [facility] SPECIMEN SOURCE AV graft right arm [facility] GROSS DESCRIPTION The specimen is received in a [facility] fluidless container labeled [facility] with patient information labeled "AV graft right arm" and consists of tubular shaped segment of graft material with surrounding ramos-pink soft tissue measuring 10 cm in length x 0.8 cm in diameter. Tobacco Grower sections are submitted A1. CG/pl MICROSCOPIC DESCRIPTION Performed [facility] Specimen Tissue Performing Organization Address City/[facility]/Zipcode Phone Number [facility] [address] [place] [address] [facility] * XR chest 1 view portable / bedside (07/21/2018 6:55 AM [facility]) Specimen Narrative Performed At FINAL REPORT [facility] Chest, 1 view. History: CV preop. Comparison: [...] MD Report Verified Date/Time:07/21/2018 07:14:18 Reading Location: [facility] Radiology Reading Room Procedure Note Interface, External Ris In - 07/21/2018 7:16 AM [facility] FINAL REPORT Chest, 1 view. History: CV [...] Report Verified Date/Time: 07/21/2018 07:14:18 Reading Location: [facility] Radiology Reading Room Performing Organization Address City/[facility]/Zipcode Phone Number [facility] * TRANSFUSION SERVICE REPORT - SCAN (07/16/2018 5:52 PM [facility]) Narrative Performed At * Type and screen, automated (07/15/2018 12:40 PM [facility]) ABO/RH AUTOMATED (BEAKER) A POSITIVE [facility] Ab Scrn NEGATIVE [facility] Specimen Blood Performing Organization Address City/[facility]/Zipcode Phone Number [facility] [address] [place] [address] MEDICAL CENTER * Prothrombin time/INR (07/15/2018 12:40 PM [facility]) Protime 16.5 (H) 11.7 - 14.7 seconds [facility] INR 1.3 <=5.9 [facility] Specimen Blood Narrative Performed At RECOMMENDED COUMADIN/WARFARIN INR THERAPY RANGES [facility] STANDARD DOSE: 2.0 - 3.0 Includes: PROPHYLAXIS for venous thrombosis, [facility] systemic embolization; TREATMENT for venous thrombosis and/or pulmonary embolus. HIGH RISK: Target INR is 2.5-3.5 for patients with mechanical heart valves. Performing Organization Address City/State/Zipcode Phone Number [facility] [address] [place] [address] [facility] * CT abdomen/pelvis without iv contrast (04/14/2018 12:16 PM CDT) Specimen Narrative Performed At FINAL REPORT [facility] CT of the abdomen and pelvis, without [...] pancreas unremarkable. Adrenal nodularity similar to previous. [place] kidneys are atrophic. 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 Extensive aortic atherosclerosis and ectasia without aneurysm. IVC filter present. Large and small bowel are unremarkable. Fat-containing inguinal hernias. Urinary bladder unremarkable. No adenopathy. No worrisome skeletal findings. Mild anasarca. IMPRESSION: No acute findings. Signed: Megan Johnston MD Report Verified Date/Time:04/14/2018 15:26:00 Reading Location: [address] Radiology Reading Room Procedure Note Interface, [...] pancreas unremarkable. Adrenal nodularity similar to previous. [place] kidneys are atrophic. 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 Extensive aortic atherosclerosis and ectasia without aneurysm. IVC filter present. Large and small bowel are unremarkable. Fat-containing inguinal hernias. Urinary bladder unremarkable. No adenopathy. No worrisome skeletal findings. Mild anasarca. IMPRESSION: No acute findings. Signed: Megan Johnston MD Report Verified Date/Time: 04/14/2018 15:26:00 Reading Location: [address] Radiology Reading Room Performing Organization Address City/State/Zipcode Phone Number GE RIS after 02/15/2018 Insurance Payer Benefit Subscriber ID Type Phone Address Plan / Group MEDICARE MEDICARE A xxxxxxxxxxx Medicare B CIG[employer] - MGD CARE CIGNA xxxxxxxxxxx HMO/POS HMO/POS/OP EN ACCESS [phone] (Work) Advance Directives Patient has advance care planning documents, and code status on file. For more i nformation, please contact: [facility] [address] [place] [address] Date Inactivated Comments Code Status Date [...]
[2019-02-16 14:40] VITALS: BP 138/57
== END | disposition home or self-care (01) ==
LOC: OR 11:20
PROVIDERS: ATTEND Ophthalmology
DX: H25.11 Age-related nuclear cataract, right eye (principal); I48.91 Unspecified atrial fibrillation; I10 Essential (primary) hypertension; K21.9 Gastro-esophageal reflux disease without esophagitis; J45.909 Unspecified asthma, uncomplicated; Z01.812 Encounter for preprocedural laboratory examination; Z79.02 Long term (current) use of antithrombotics/antiplatelets; Z94.0 Kidney transplant status
CPT/HCPCS: 36415; 66984; 85025; J2250; J3010; V2632

== ENCOUNTER 2020-10-08 11:05 | Inpatient (IN) | payer MEDICARE, OTHER ==
[~2020-10-08] VITALS: Ht 180.3 cm; Wt 77.7 kg
[~2020-10-08 11:05] MED LIST changes: -FENTANYL CITRATE/PF 100MCG/2 ML INJ ONE; -MIDAZOLAM HCL 2 MG/2 ML VIAL ONE; -OR PHACO EYE KIT ONE; -PREOP PHACO EYE KIT ONE
[2020-10-08 11:44] LABS: BASOPHILS % 0.7 % (0.0-1.0); EOSINOPHILS # (AUTO) 0.1 (0.0-0.4); EOSINOPHILS % 1.2 % (0.0-6.0); HEMATOCRIT 37.3 % (38.2-49.6); HEMOGLOBIN 11.8 g/dL (14.0-18.0); LYMPHOCYTES # (AUTO) 0.8 (1.0-3.2); LYMPHOCYTES % 18.9 % (18.0-39.1); MEAN CORPUSCULAR HEMOGLOBIN 28.5 pg (28-32); MEAN CORPUSCULAR HGB CONC 31.6 g/dL (31-35); MEAN CORPUSCULAR VOLUME 90.1 fL (81-99); MONOCYTES # (AUTO) 0.5 (0.2-0.8); NEUTROPHILS # (AUTO) 2.8 (2.1-6.9); PLATELET COUNT 109 x10e3/uL (140-360); RED BLOOD COUNT 4.14 x10e6/uL (4.3-5.7); RED CELL DISTRIBUTION WIDTH 14.1 % (11.7-14.4)
[2020-10-08 11:55] LABS: INR 1.32; PROTHROMBIN TIME 17.1 seconds (11.9-14.5)
[2020-10-08 12:03] LABS: ALANINE AMINOTRANSFERASE 11 IU/L (0-55); ALBUMIN 3.3 g/dL (3.5-5.0); ALBUMIN/GLOBULIN RATIO 1.1 (0.8-2.0); ALKALINE PHOSPHATASE 73 IU/L (40-150); ANION GAP 15.1 mmol/L (8-16); BLOOD UREA NITROGEN 18 mg/dL (7-26); BUN/CREATININE RATIO 19 (6-25); CALCIUM 9.3 mg/dL (8.4-10.2); CARBON DIOXIDE 24 mmol/L (22-29); CHLORIDE 108 mmol/L (98-107); CREATINE KINASE 28 IU/L (30-200); CREATININE, SERUM 0.93 mg/dL (0.72-1.25); EST GLOMERULAR FILTRATION RATE > 60 ML/MIN (60-); GLUCOSE 112 mg/dL (74-118); MAGNESIUM 1.7 MG/DL (1.3-2.1); POTASSIUM 3.1 mmol/L (3.5-5.1); SODIUM 144 mmol/L (136-145)
[2020-10-08 12:21] LABS: COLOR,URINE YELLOW (YELLOW)
[2020-10-08 12:22] LABS: CLARITY,URINE CLEAR (CLEAR); KETONES,URINE NEGATIVE (NEGATIVE); LEUKOCYTE ESTERASE ,URINE NEGATIVE (NEGATIVE); NITRITE,URINE NEGATIVE (NEGATIVE); PROTEIN,URINE DIPSTICK NEGATIVE (NEGATIVE); URINE UROBILINOGEN 0.2 mg/dL (0.2 - 1)
[2020-10-08 12:33] LABS: EPITHELIAL CELLS,URINE FEW /LPF; RBC,URINE 0-5 /HPF (0-5); WBC,URINE (MAN) 0-5 /HPF (0-5)
[2020-10-08] MEDS ORDERED: CEFTRIAXONE SOD 1 GM/50 ML BAG IV SCH (13:45)
[2020-10-08] MEDS ORDERED: ONDANSETRON HCL INJ 2MG/ML 2ML 2 MG/ML VIAL IV PRN (13:45)
[2020-10-08] MEDS ORDERED: MORPHINE SULFATE INJ 2 MG/ML SYR IV PRN (13:45)
[2020-10-08] MEDS: CEFTRIAXONE SOD 1 GM in SODIUM CHLORIDE 0.9% 50ML 50 ML IV SCH (13:55)
[2020-10-08] MEDS ORDERED: FUROSEMIDE INJ 10 MG/ML 4 ML VIAL IV ONE (14:00)
[2020-10-08] MEDS ORDERED: VITAMIN B-121000 MCG PO (14:01)
[2020-10-08] MEDS ORDERED: KLOR-CON-EF 2525 MEQ PO (14:01)
[2020-10-08] MEDS ORDERED: VITAMIN D325 MCG PO (14:01)
[2020-10-08] MEDS ORDERED: COMBIVENT RESPIM4 GM IH (14:02)
[2020-10-08] MEDS ORDERED: ipratropium INH (14:02)
[2020-10-08] MEDS ORDERED: AZITHROMYCIN 500MG/NS 250 ML 250 ML IV SCH (14:30)
[2020-10-08 16:00] VITALS: BP 133/83
[2020-10-08 16:09] VITALS: BP 133/83
[2020-10-08] MEDS ORDERED: NEXIUM40 MG PO (17:33)
[2020-10-08 20:25] VITALS: BP 103/70
[2020-10-08 21:00] VITALS: BP 103/70
[2020-10-09] VITALS (9 sets, daily range): BP systolic 98–129; BP diastolic 61–80
[2020-10-09 01:12] LABS: CREATINE KINASE MB 0.4 ng/mL (0-5.0)
[2020-10-09 05:19] LABS: BASOPHILS % 0.8 % (0.0-1.0); EOSINOPHILS # (AUTO) 0.1 (0.0-0.4); EOSINOPHILS % 1.8 % (0.0-6.0); HEMATOCRIT 34.3 % (38.2-49.6); LYMPHOCYTES # (AUTO) 0.7 (1.0-3.2); MEAN CORPUSCULAR HEMOGLOBIN 28.6 pg (28-32); MEAN CORPUSCULAR HGB CONC 32.1 g/dL (31-35); MEAN CORPUSCULAR VOLUME 89.1 fL (81-99); MONOCYTES # (AUTO) 0.5 (0.2-0.8); MONOCYTES % 13.2 % (4.4-11.3); NEUTROPHILS # (AUTO) 2.5 (2.1-6.9); NEUTROPHILS % 64.9 % (38.7-80.0); PLATELET COUNT 108 x10e3/uL (140-360); RED BLOOD COUNT 3.85 x10e6/uL (4.3-5.7); RED CELL DISTRIBUTION WIDTH 13.9 % (11.7-14.4)
[2020-10-09 05:42] LABS: ALANINE AMINOTRANSFERASE 12 IU/L (0-55); ALBUMIN 2.9 g/dL (3.5-5.0); ALKALINE PHOSPHATASE 62 IU/L (40-150); ANION GAP 10.6 mmol/L (8-16); BLOOD UREA NITROGEN 17 mg/dL (7-26); BUN/CREATININE RATIO 20 (6-25); CALCIUM 8.8 mg/dL (8.4-10.2); CARBON DIOXIDE 25 mmol/L (22-29); CHLORIDE 109 mmol/L (98-107); CHOL/HDL RATIO 2.4 (3.9-4.7); CHOLESTEROL 105 MD/DL (0-199); CREATININE, SERUM 0.83 mg/dL (0.72-1.25); EST GLOMERULAR FILTRATION RATE > 60 ML/MIN (60-); GLUCOSE 97 mg/dL (74-118); HDL CHOLESTEROL 43 MG/DL (40-60); LDL CHOLESTEROL 52 MG/DL (60-130); SODIUM 142 mmol/L (136-145); TRIGLYCERIDES 49 MG/DL (0-149)
[2020-10-09 05:50] LABS: POTASSIUM 2.6 mmol/L (3.5-5.1)
[2020-10-09] MEDS ORDERED: POTASSIUM CHLORIDE 20 MEQ TAB CR PO STA (05:56)
[2020-10-09 06:02] LABS: CREATINE KINASE MB 0.5 ng/mL (0-5.0)
[2020-10-09] MEDS ORDERED: POTASSIUM CHLORIDE 10MEQ/100ML 100 ML IV ONE ×2 (06:15→08:00)
[2020-10-09] MEDS ORDERED: ZOLPIDEM TARTRATE 5 MG TAB PO PRN (06:30)
[2020-10-09] MEDS ORDERED: CYANOCOBALAMIN 1,000 MCG TAB PO SCH (06:30)
[2020-10-09] MEDS ORDERED: DOCUSATE SODIUM 100 MG CAP PO PRN (06:30)
[2020-10-09] MEDS ORDERED: POTASSIUM CHLORIDE 10MEQ EA PO ONE ×2 (06:30→08:00)
[2020-10-09] MEDS ORDERED: ACETAMINOPHEN 325 MG TAB PO PRN (06:30)
[2020-10-09] MEDS ORDERED: ONDANSETRON HCL 4 MG ORAL DISINTEGRATING TAB PO PRN (07:45)
[2020-10-09] MEDS: FUROSEMIDE 40 MG TAB PO SCH (08:37)
[2020-10-09] MEDS: CYANOCOBALAMIN 1,000 MCG TAB PO SCH ×2 (08:37→17:20)
[2020-10-09] MEDS: PANTOPRAZOLE SOD 40 MG TABEC PO SCH (08:37)
[2020-10-09] MEDS: APIXABAN 5 MG TABLET PO SCH ×2 (08:37→17:20)
[2020-10-09] MEDS: TACROLIMUS 0.5 MG CAP PO SCH ×2 (08:37→17:20)
[2020-10-09] MEDS ORDERED: AZITHROMYCIN 250 MG TAB PO SCH (14:30)
[2020-10-09] MEDS: CEFTRIAXONE SOD 1 GM in SODIUM CHLORIDE 0.9% 50ML 50 ML IV SCH (14:44)
[2020-10-10 00:19] VITALS: BP 124/89
[2020-10-10 04:26] VITALS: BP 112/83
[2020-10-10 07:32] VITALS: BP 109/84
[2020-10-10 07:43] VITALS: BP 109/84
[2020-10-10] MEDS: PANTOPRAZOLE SOD 40 MG TABEC PO SCH (08:34)
[2020-10-10] MEDS: APIXABAN 5 MG TABLET PO SCH (08:34)
[2020-10-10] MEDS: CYANOCOBALAMIN 1,000 MCG TAB PO SCH (08:34)
[2020-10-10] MEDS: FUROSEMIDE 40 MG TAB PO SCH (08:34)
[2020-10-10] MEDS: TACROLIMUS 0.5 MG CAP PO SCH (08:52)
[2020-10-10] MEDS ORDERED: GUAIFENESIN-DM 15 ML PO (09:50)
[2020-10-10] MEDS ORDERED: TESSALON PERLE100 MG PO (09:50)
[2020-10-10] MEDS ORDERED: KEFLEX125 MG/5 M PO (09:50)
[2020-10-10] MEDS ORDERED: DOXYCYCLINE HY100 MG PO (09:50)
== END 2020-10-10 11:45 | disposition home or self-care (01) | DRG 202 ==
LOC: ER 12:09 → ERHOLD 13:43 → MED/SURG2 15:55 → OBSVTOIN 10-09 13:36
PROVIDERS: ADMIT Internal Medicine; ATTEND Internal Medicine
DX: J20.9 Acute bronchitis, unspecified (principal); D61.818 Other pancytopenia; Z94.0 Kidney transplant status; I50.22 Chronic systolic (congestive) heart failure; E87.6 Hypokalemia; I48.91 Unspecified atrial fibrillation; Z79.01 Long term (current) use of anticoagulants; K21.9 Gastro-esophageal reflux disease without esophagitis; Z20.822 Contact with and (suspected) exposure to COVID-19; R07.89 Other chest pain; Z87.891 Personal history of nicotine dependence
CPT/HCPCS: 36415; 71045; 80053; 80061; 81001; 82550; 82553; 83735; 83880; 84132; 84484; 85025; 85610; 85730; 87040; 87086; 93005; 93306; 99284; G0378; J0456; J0696; J1940; J3480; U0002